=== PATIENT | female | born 1945 | race Caucasian/White ===

== ENCOUNTER → 2020-07-21 09:47 | Outpatient (BNVA) | payer MEDICARE, MEDICAID, SELFPAY | PROVIDERS: PCP Internal Medicine; Referring Provider Internal Medicine; Visit Provider Internal Medicine | DX: J44.9 Chronic obstructive pulmonary disease, unspecified (principal); J30.9 Allergic rhinitis, unspecified; Z79.899 Other long term (current) drug therapy | CPT/HCPCS: Q3014 ==

== ENCOUNTER 2020-12-25 07:17 | Emergency (ER) | payer MEDICARE, MEDICAID, SELFPAY ==
[2020-12-25 07:44] VITALS: BP 137/77; PULSE 82; RESP 18; TEMP 36.8; O2SAT 94; BMI 22.3
--- NOTE | 2020-12-25 08:26 | ED.EAR ---
HPI - Ear Problem General Chief complaint: Ear Problems Stated complaint: ear pain Time Seen by Provider: 12/25/20 08:26 Source: patient Mode of arrival: ambulatory Limitations: no limitations History of Present Illness HPI Narrative: Patient on doxycycline but she has been unable to tolerate the medication. Patient states the pain is worse traveling down her face. Pain since Tuesday. Complaint: ear pain Location: left ear Duration: constant Severity: moderate Relieving factors: nothing Exacerbating factors: nothing Discharge from ear: no Treatment prior to arrival: other (doxycyline) Related Data Home Medications Medication Instructions Recorded Confirmed azithromycin 250 mg tablet mg PO 07/21/20 calcium carbonate 600 mg calcium 600 mg PO BID 07/21/20 (1,500 mg) tablet cetirizine 10 mg tablet 10 mg PO DAILY PRN 07/21/20 cholecalciferol (vitamin D3) 50 50 mcg PO DAILY 07/21/20 mcg (2,000 unit) capsule fluticasone furoate 200 INHALATION 07/21/20 mcg-vilanterol 25 mcg/dose inhalation powder guaifenesin 600 mg tablet, 600 mg PO BID 07/21/20 extended release 12 hr hydrocortisone 2.5 % topical cream 1 applic [place] BID 07/21/20 with perineal applicator lorazepam 0.5 mg tablet 0.5 mg PO DAILY PRN 07/21/20 vit C 250 mg-vit E 90 mg-zinc 40 1 tab PO BID 07/21/20 mg-copper 1 [id number] capsule vitamin B complex 1 tab PO DAILY 07/21/20 Previous Rx's Medication Instructions Recorded levalbuterol tartrate 45 2 puff INHALATION Q4-6H PRN #15 g 07/01/20 mcg/actuation aerosol inhaler atenolol 25 mg tablet 25 mg PO BID #180 tab 10/29/20 umeclidinium 62.5 mcg/actuation 1 inh PO DAILY #60 cap 10/31/20 blister powder for inhalation furosemide 20 mg tablet 20 mg PO DAILY #90 tab 12/05/20 doxycycline hyclate 100 mg capsule 100 mg PO BID 10 Days #20 cap 12/23/20 naproxen [Naprosyn] 375 mg PO BID #20 tab 12/25/20 valacyclovir [Valtrex] 1,000 mg PO TID #30 tab 12/25/20 Allergies Allergy/AdvReac Type Severity Reaction Status Date / Time cat dander [CATS] Allergy Unknown MUCOUS Verified 07/21/20 09:50 FORMATION dog dander [DOGS] Allergy Unknown MUCOUS Verified 07/21/20 09:50 FORMATION egg Allergy Unknown UNKNOWN Verified 07/21/20 09:50 house dust [HOUSE DUST] Allergy Unknown MUCOUS Verified 07/21/20 09:50 FORMATION milk [MILK] Allergy Unknown MUCOUS Verified 07/21/20 09:50 FORMATION mold Allergy Unknown MUCOUS Verified 07/21/20 09:50 FORMATION penicillin G Allergy Unknown Anaphylaxis Verified 07/21/20 09:50 Sulfa (Sulfonamide Allergy Unknown DIFF Verified 07/21/20 09:50 Antibiotics) BREATHING tree and shrub pollen [TREES] Allergy Unknown MUCOUS Verified 07/21/20 09:50 FORMATION TO CERTAIN TREES yeast, dried [yeast] Allergy Unknown MUCOUS Unverified 05/15/20 15:02 FORMATION Review of Systems Constitutional: Constitutional: Reports no additional constitutional complaints Eyes: Eyes: Reports no additional eye complaints ENT: Denies dizziness Cardiovascular: Cardiovascular: Reports no additional cardiovascular complaints Respiratory: Respiratory: Reports as per HPI Gastrointestinal: Gastrointestinal: Reports no additional gastrointestinal complaints Genitourinary: Genitourinary: Reports no additional female genitourinary complaints Musculoskeletal: Musculoskeletal: Reports no additional musculoskeletal complaints Integumentary/Breasts: Skin/Breast: Denies rash Neurologic: Reports system reviewed and no additional complaints, except as documented, Denies dizziness and Denies Sensory deficit (Neuro) Psychiatric: Psychiatric: Denies anxiety PMFSH Past Medical History Medical History Allergic rhinitis Anxiety Asthma COPD (chronic obstructive pulmonary disease) Surgical History History of right hip replacement Social History Social History Smoking Status: Former smoker Advance Directives: Yes Advance Directives Information Provided: No Advance Directives on File: No Physical Exam Vital Signs: Vital Signs: Last Vital Signs Temp 98.3 F 12/25/20 07:44 Pulse 82 12/25/20 07:44 Resp 18 12/25/20 07:44 BP 137/77 12/25/20 07:44 Pulse Ox 94 12/25/20 07:44 Body Mass Index 22.3 Const: Other: female chronically ill Nutritional Appearance: average body habitus Orientation/consciousness: oriented to person and patient oriented x3 Limitations: no limitations HENMT: Other: left trigeminal nerve shingles, left ear canal with two vesicles General nose exam: Normal external nose present Mouth: Normal oral and palatal mucosa present and oropharynx normal Throat: Yes posterior oropharynx normal Eyes: General: appearance normal, both eyes and all related structures Neck: Other: supple Neck: Yes normal visual inspection Chest: Chest palpation & inspection: normal inspection of the chest Resp: Auscultation: clear to auscultation bilaterally Cardio: Jugular venous distension: no JVD Rate: regular rate Rhythm: regular rhythm Heart sounds: S1 normal heart sound present and S2 normal heart sound present GI: Inspection: Yes normal to inspection Palpation (GI): Soft to palpation, nontender and No hepatosplenomegaly present Auscultation: normal bowel sounds : General: Yes no CVA tenderness Back/Spine/Pelvis: Back: no CVA tenderness Skin: General skin exam: no rashes or lesions noted Neuro: General: oriented to person and patient oriented x3 Cranial nerves: Yes CN's II-XII intact bilaterally Motor exam (neuro): 5/5 motor strength present throughout Sensory Exam: No Sensory deficit (Neuro) Extrem: General: Yes normal to inspection Psych: Appearance: grossly normal Course Course Course Narrative: patient with varicella zoster will start valtrex and naprosyn for pain Discharge Plan Discharge Clinical Impression: Herpes zoster Qualifiers: Herpes zoster complications: unspecified herpes zoster complication Qualified Code(s): B02.8 - Zoster with other complications Varicella infection Qualifiers: Varicella complications: without complication Qualified Code(s): B01.9 - Varicella without complication Patient Disposition: Home, Self-Care Prescriptions: New valacyclovir [Valtrex] 1 gram tablet 1,000 mg PO TID Qty: 30 RF: 0 naproxen [Naprosyn] 500 mg tablet 375 mg PO BID Qty: 20 RF: 0 No Action levalbuterol tartrate 45 mcg/actuation HFA aerosol inhaler 2 puff inhalation Q4-6H PRN (Reason: shortness of breath) Qty: 15 RF: 3 atenolol 25 mg tablet 25 mg PO BID Qty: 180 RF: 1 umeclidinium [Incruse Ellipta] 62.5 mcg/actuation blister with device 1 inh PO DAILY Qty: 60 RF: 1 furosemide 20 mg tablet 20 mg PO DAILY Qty: 90 RF: 0 doxycycline hyclate 100 mg capsule 100 mg PO BID 10 Days Qty: 20 RF: 0 azithromycin 250 mg tablet PO RF: 0 Breo Ellipta 200-25 mcg/dose blister with device inhalation RF: 0 lorazepam 0.5 mg tablet 0.5 mg PO DAILY PRNRF: 0 cetirizine 10 mg tablet 10 mg PO DAILY PRN (Reason: allergies) RF: 0 hydrocortisone 2.5 % cream with perineal applicator 1 applic [place] BID RF: 0 calcium carbonate [Calcium 600] 600 mg calcium (1,500 mg) tablet 600 mg PO BID RF: 0 vitamin B complex [B Complex-Vitamin B12] Tablet 1 tab PO DAILY RF: 0 PreserVision AREDS-2 [id number] lt-[id number]-dw-mg capsule 1 tab PO BID RF: 0 cholecalciferol (vitamin D3) 50 mcg (2,000 unit) capsule 50 mcg PO DAILY RF: 0 guaifenesin [Mucinex] 600 mg tablet extended release 12hr 600 mg PO BID RF: 0 Referrals: Sanjiv Buck MD [Primary Care Provider] - 2 days
== END 2020-12-25 08:53 | disposition home or self-care (01) ==
PROVIDERS: Emergency Provider Emergency Medicine; PCP Internal Medicine
DX: B02.8 Zoster with other complications (principal); B01.9 Varicella without complication; H92.02 Otalgia, left ear; Z87.891 Personal history of nicotine dependence; Z79.899 Other long term (current) drug therapy
CPT/HCPCS: 99283

== ENCOUNTER → 2021-01-28 15:18 | Outpatient (BNVA) | payer MEDICARE, MEDICAID, SELFPAY | PROVIDERS: PCP Internal Medicine; Visit Provider Internal Medicine | DX: J44.9 Chronic obstructive pulmonary disease, unspecified (principal); F41.9 Anxiety disorder, unspecified; J30.9 Allergic rhinitis, unspecified; B02.29 Other postherpetic nervous system involvement; Z79.899 Other long term (current) drug therapy | CPT/HCPCS: 99212 ==

== ENCOUNTER → 2021-03-30 09:08 | Outpatient (BNVA) | payer MEDICARE, MEDICAID, SELFPAY | PROVIDERS: PCP Internal Medicine; Visit Provider Internal Medicine | DX: J44.9 Chronic obstructive pulmonary disease, unspecified (principal); B02.9 Zoster without complications; F06.4 Anxiety disorder due to known physiological condition; Z88.0 Allergy status to penicillin; Z88.2 Allergy status to sulfonamides; J30.9 Allergic rhinitis, unspecified; J30.81 Allergic rhinitis due to animal (cat) (dog) hair and dander; J30.89 Other allergic rhinitis; Z87.891 Personal history of nicotine dependence; Z91.012 Allergy to eggs; Z91.02 Food additives allergy status; Z91.011 Allergy to milk products; Z96.641 Presence of right artificial hip joint | CPT/HCPCS: 99212 ==

== ENCOUNTER 2021-06-04 08:19 | Outpatient (REF) | payer MEDICARE, MEDICAID, SELFPAY ==
[2021-06-04 10:04] LABS: Alanine Aminotransferase 10 U/L (0-31); Albumin Level 4.3 g/dL (3.5-5.0); Alkaline Phosphatase 69 U/L (39-117); Anion Gap 12 (12-20); Aspartate Amino Transferase 15 U/L (5-31); Bilirubin Total 0.3 mg/dL (0.0-1.0); Blood Urea Nitrogen 14 mg/dL (9-16); Calcium 10.5 mg/dL (8.4-10.2); Carbon Dioxide 35 mmol/L (22-29); Chloride 99 mmol/L (96-108); Estimated Glomerular Filt Rate 53; Glucose Fasting 126 mg/dL (60-99); Potassium 4.9 mmol/L (3.3-5.1); Sodium 141 mmol/L (135-145); Total Protein 6.9 g/dL (6.5-8.0)
== END 2021-06-04 08:20 | disposition home or self-care (01) ==
LOC: HO.LAB 08:19
PROVIDERS: PCP Internal Medicine; Visit Provider Nurse Practitioner Family
DX: Z13.1 Encounter for screening for diabetes mellitus (principal); J44.9 Chronic obstructive pulmonary disease, unspecified; J30.9 Allergic rhinitis, unspecified; F41.9 Anxiety disorder, unspecified
CPT/HCPCS: 36415; 80053; 99212

== ENCOUNTER 2021-06-16 06:54 | Outpatient (REF) | payer MEDICARE, MEDICAID, SELFPAY ==
--- NOTE | ~2021-06-16 | CT_ITS ---
EXAMINATION: CT CHEST WITHOUT CONTRAST CLINICAL INFORMATION: Chronic obstructive pulmonary disease. COMPARISON: CT of 02/14/2018 and chest x-ray of 05/30/2019 TECHNIQUE: Multidetector volumetric CT imaging of the chest was done. Axial MIP volume rendering provided. Sagittal and coronal reformatted images were obtained. This CT examination was performed using dose optimization techniques as appropriate, variously including the following: *Automated exposure control *Adjustment of mA and/or kV according to patient size (this includes techniques or standardized protocols for targeted exams where dose is matched to indication/reason for exam; i.e. extremities or head) *Use of iterative reconstruction technique DLP: 100 mGy-cm FINDINGS: LUNGS: The lungs are hyperinflated. There are severe changes of centrilobular and paraseptal emphysema. There are numerous scattered calcified granulomas present. There are sub-4 mm noncalcified densities present. There is right apical pleural-parenchymal scarring. Central airways are patent. No significant bronchial wall thickening appreciated. No bronchiectasis. No confluent parenchymal disease is appreciated. No suspicious lung nodules appreciated. MEDIASTINUM: There are some right-sided thyroid calcifications present. Heart normal size. Coronary artery calcification present. No pericardial effusion. No mediastinal or hilar lymphadenopathy appreciated. No thoracic aortic aneurysm. Nonocclusive aortic arch calcified plaque seen. PLEURA: There is no pleural effusion. No pleural mass or thickening. AXILLA: No lymphadenopathy. UPPER ABDOMEN: Unremarkable. OSSEOUS STRUCTURES: No suspicious destructive bony lesions identified. There appears be a previous inferior right scapular fracture. There is evidence of a previous sternal fracture. There is an old right 5th rib fracture. There are a few old healed posterior left rib fractures. There is kyphosis of the thoracic spine with multiple compression fractures present which appear to involve the superior endplate of T5, vertebra plana of T6, vertebra plana of T7, vertebra plana of T8, approximately 50% compression fracture of T9, and superior endplate compression fracture of T10. CT/CT chest wo con IMPRESSION: Severe emphysematous change of the lungs. Old granulomatous disease. Right thyroid calcification. Numerous fractures, as described above.
[2021-06-16 08:43] LABS: Estimated Average Glucose 105 mg/dL; Hemoglobin A1c % 5.3 %
== END 2021-06-16 06:55 | disposition home or self-care (01) ==
LOC: HO.CT 06:54
PROVIDERS: Absent Provider Nurse Practitioner Family; PCP Internal Medicine; Visit Provider Internal Medicine
DX: J44.9 Chronic obstructive pulmonary disease, unspecified (principal); R91.8 Other nonspecific abnormal finding of lung field; R73.01 Impaired fasting glucose
CPT/HCPCS: 36415; 71250; 83036

== ENCOUNTER 2021-07-14 08:51 | Outpatient (REF) | payer MEDICARE, MEDICAID, SELFPAY ==
--- NOTE | 2021-07-14 17:34 | PFT_ITS ---
FLOWS: FEV1 24% of predicted at 0.53 L. FVC 51% of predicted at 1.47 L. FEV1 to FVC ratio of 0.36. No bronchodilator response. LUNG VOLUMES: Total lung capacity 111% of predicted at 5.65 L. Residual volume 177% of predicted at 4.05 L. Slow vital capacity 57% of predicted at 1.59 L. Expiratory reserve volume 13% of predicted at 0.08 L. Diffusion capacity is severely decreased. IMPRESSION: Very severe obstructive ventilatory defect with no bronchodilator response. Increased residual volume suggests air trapping. Decreased diffusion capacity suggests emphysema. Vince Maki MD AP/MODL / [id number]
== END 2021-07-14 08:52 | disposition home or self-care (01) ==
LOC: HO.RESP 08:51
PROVIDERS: PCP Internal Medicine; Visit Provider Internal Medicine
DX: J44.9 Chronic obstructive pulmonary disease, unspecified (principal)
CPT/HCPCS: 94060; 94727; 94729

== ENCOUNTER → 2021-09-03 10:08 | Outpatient (BNVA) | payer MEDICARE, MEDICAID, SELFPAY | PROVIDERS: PCP Internal Medicine; Visit Provider Internal Medicine | DX: J44.9 Chronic obstructive pulmonary disease, unspecified (principal); J30.9 Allergic rhinitis, unspecified | CPT/HCPCS: 99212 ==

== ENCOUNTER → 2022-01-05 10:08 | Outpatient (BNVA) | payer MEDICARE, MEDICAID, SELFPAY | PROVIDERS: PCP Internal Medicine; Visit Provider Internal Medicine | DX: J44.9 Chronic obstructive pulmonary disease, unspecified (principal); J30.9 Allergic rhinitis, unspecified; J96.91 Respiratory failure, unspecified with hypoxia | CPT/HCPCS: 99212 ==

== ENCOUNTER 2022-01-06 08:52 | Outpatient (REF) | payer MEDICARE, MEDICAID, SELFPAY ==
[2022-01-06 09:44] LABS: Appearance Urine CLEAR; Color Urine YELLOW; Glucose Urine UA NEG (NEG); Leukocyte Esterase Urine TRACE (NEG); Nitrite Urine NEG (NEG); PH 5.5 (5.0-8.0); Urine Blood NEG (NEG); Urine Ketones NEG (NEG); Urine Protein NEG (NEG-TRACE)
[2022-01-06 10:00] LABS: Alanine Aminotransferase 10 U/L (0-31); Albumin Level 4.3 g/dL (3.5-5.0); Alkaline Phosphatase 71 U/L (39-117); Anion Gap 13 (12-20); Aspartate Amino Transferase 16 U/L (5-31); Bilirubin Direct < 0.2 mg/dL (0.0-0.5); Bilirubin Total 0.2 mg/dL (0.0-1.0); Blood Urea Nitrogen 26 mg/dL (9-16); Carbon Dioxide 27 mmol/L (22-29); Chloride 103 mmol/L (96-108); Cholesterol 264 mg/dL; Estimated Glomerular Filt Rate 50; Glucose Random 120 mg/dL (60-115); HDL Cholesterol 70 mg/dL; LDL Cholesterol Calculated 171 mg/dl; Potassium 5.1 mmol/L (3.3-5.1); Sodium 138 mmol/L (135-145); Total Protein 7.1 g/dL (6.5-8.0); Triglycerides 119 mg/dL
[2022-01-06 10:16] LABS: Bacteria Urine TRACE /LPF; RBC Urine 0-2 /HPF (0); Squamous Epithelial Cell Urine 2+ /LPF
[2022-01-06 10:22] LABS: Thyroid Stimulating Hormone 1.35 uIU/mL (0.32-4.0)
== END 2022-01-06 08:53 | disposition home or self-care (01) ==
LOC: HO.LAB 08:52
PROVIDERS: PCP Internal Medicine; Visit Provider Internal Medicine
DX: I10 Essential (primary) hypertension (principal)
CPT/HCPCS: 36415; 80048; 80061; 80076; 81001; 84443

== ENCOUNTER → 2022-03-18 08:17 | Outpatient (BNVA) | payer MEDICARE, MEDICAID, SELFPAY | PROVIDERS: PCP Internal Medicine; Visit Provider Nurse Practitioner Family | DX: Z01.818 Encounter for other preprocedural examination (principal); K64.9 Unspecified hemorrhoids | CPT/HCPCS: 99202 ==

== ENCOUNTER → 2022-05-06 09:44 | Outpatient (BNVA) | payer MEDICARE, MEDICAID, SELFPAY | PROVIDERS: PCP Internal Medicine; Visit Provider Internal Medicine | DX: J44.9 Chronic obstructive pulmonary disease, unspecified (principal); J30.9 Allergic rhinitis, unspecified; J96.91 Respiratory failure, unspecified with hypoxia; F41.9 Anxiety disorder, unspecified; Z79.899 Other long term (current) drug therapy | CPT/HCPCS: 99212 ==

== ENCOUNTER 2022-05-25 12:36 | Day surgery (SDC) | payer MEDICARE, MEDICAID, SELFPAY ==
[2022-05-20 15:21] VITALS: BMI 21.4
--- NOTE | 2022-05-24 13:25 | HO.ANESPROP2 ---
Documented by User: Luly Paredes NP 05/24/22 13:26 HPI - Anesthesia Eval Consult details Narrative: 77yo F for Colonoscopy O2 dependent @ 2L for chronic resp failure *Multiple Non-Med Allergies* PMFSH Active Problems Active Problems: All Active Problems (Updated 05/20/22 @ 15:21 by Fadia Chilel, SANIYA) Otitis media (Acute) Post herpetic neuralgia (Acute) Hypertension (Acute) Adult general medical exam (Acute) Elevated fasting glucose (Acute) Rash (Acute) Macular degeneration of right eye (Acute) Respiratory failure with hypoxia (Acute) Pulmonary nodules/lesions, multiple (Acute) Anxiety disorder (Acute) Post-menopausal (Acute) Screening for colon cancer (Acute) Screening for diabetes mellitus (Acute) Acute anxiety (Acute) Asthma (Acute) Allergic rhinitis (Acute) COPD (chronic obstructive pulmonary disease) (Acute) Past Medical History Medical History Acute anxiety Allergic rhinitis Anxiety Anxiety disorder Asthma COPD (chronic obstructive pulmonary disease) Environmental allergies Hemorrhoids Ill-fitting dentures Osteoporosis Oxygen dependent Post-menopausal Pulmonary nodules/lesions, multiple Respiratory failure with hypoxia Screening for colon cancer Screening for diabetes mellitus Seasonal allergies Family History Family History Mother No problems noted. Father No problems noted. Surgical History Surgical History History of cataract surgery History of right hip replacement Social History Social History Housing: House Are you a primary ambulatory care coordinator to a significant other at home: No Do you presently have visiting nurse or other home services: No Alcohol intake: never Patient Tobacco Use Status: Former Tobacco user Quit Date: 2004 Tobacco use type: Cigarette e-Cigarette/Vaping Use: Never Used Second Hand Smoke Exposure: No Use of substances other than those prescribed or required for medical reasons: No Have you been hit, kicked, punched, or otherwise hurt by someone within the past year? If so, by whom?: No Are you DNR?: No Advance Directives: No Advance Directives Information Provided: Yes Advance Directives on File: No Nutrition Risks: Dental problems and Surgical patient >75years service: No Current occupational status: retired Cognitive needs: No Hearing needs: No Vision needs: Yes (Glasses) Meds Allergies Allergy/AdvReac Type Severity Reaction Status Date / Time penicillin G Allergy Severe Anaphylaxis Verified 05/20/22 15:13 Sulfa (Sulfonamide Allergy Severe Anaphylaxis Verified 05/20/22 15:13 Antibiotics) cat dander [CATS] Allergy Unknown MUCOUS Verified 05/20/22 15:13 FORMATION, asthma dog dander [DOGS] Allergy Unknown MUCOUS Verified 05/20/22 15:13 FORMATION, asthma egg Allergy Unknown Wheezing Verified 05/20/22 15:13 house dust [HOUSE DUST] Allergy Unknown MUCOUS Verified 05/20/22 15:13 FORMATION, asthma milk [MILK] Allergy Unknown MUCOUS Verified 05/20/22 15:13 FORMATION mold Allergy Unknown MUCOUS Verified 05/20/22 15:13 FORMATION, asthma tree and shrub pollen [TREES] Allergy Unknown MUCOUS Verified 05/20/22 15:13 FORMATION TO CERTAIN TREES, asthma yeast, dried [yeast] Allergy Unknown MUCOUS Verified 05/20/22 15:13 FORMATION, asthma Home Medications Medication Instructions Recorded Confirmed Last Taken Type guaifenesin 600 mg tablet, 600 mg PO BID 07/21/20 05/20/22 Unknown History extended release 12 hr (Mucinex) vit C 250 mg-vit E 90 mg-zinc 40 1 tab PO BID 07/21/20 05/20/22 Unknown History mg-copper 1 [id number] capsule (PreserVision AREDS-2) calcium carbonate 600 mg calcium 600 mg PO BID 01/28/21 05/20/22 Unknown History (1,500 mg) tablet (Calcium) furosemide 20 mg tablet 20 mg PO DAILY PRN Edema 05/06/22 05/20/22 Unknown History cholecalciferol (vitamin D3) 25 25 mcg PO DAILY 05/20/22 05/20/22 Unknown History mcg (1,000 unit) capsule (Vitamin D3) lorazepam 0.5 mg tablet 0.5 mg PO DAILY PRN Anxiety 05/20/22 05/20/22 Unknown History Exam Exam Date and Time: May 24, 2022 1325 Height,Weight and Vital Signs: Height 5 ft 4 in Weight 56.699 kg Assessment and Plan Assessment Anesthesia Assessment: Chart Reviewed Documented by User: Shane Maldonado MD 05/25/22 13:47 PMFSH Past Medical History Medical History Acute anxiety Allergic rhinitis Anxiety Anxiety disorder Asthma COPD (chronic obstructive pulmonary disease) Environmental allergies Hemorrhoids Ill-fitting dentures Osteoporosis Oxygen dependent Post-menopausal Pulmonary nodules/lesions, multiple Respiratory failure with hypoxia Screening for colon cancer Screening for diabetes mellitus Seasonal allergies Family History Family History Mother No problems noted. Father No problems noted. Family history of problems with anesthesia: No Surgical History Surgical History History of cataract surgery History of right hip replacement History of Problems with Anesthesia: No Social History Social History Housing: House Are you a primary ambulatory care coordinator to a significant other at home: No Do you presently have visiting nurse or other home services: No Alcohol intake: never Patient Tobacco Use Status: Former Tobacco user Quit Date: 2004 Tobacco use type: Cigarette e-Cigarette/Vaping Use: Never Used Second Hand Smoke Exposure: No Use of substances other than those prescribed or required for medical reasons: No Have you been hit, kicked, punched, or otherwise hurt by someone within the past year? If so, by whom?: No Are you DNR?: No Advance Directives: No Advance Directives Information Provided: Yes Advance Directives on File: No Nutrition Risks: Dental problems and Surgical patient >75years service: No Current occupational status: retired Cognitive needs: No Hearing needs: No Vision needs: Yes (Glasses) Meds Allergies Allergy/AdvReac Type Severity Reaction Status Date / Time penicillin G Allergy Severe Anaphylaxis Verified 05/20/22 15:13 Sulfa (Sulfonamide Allergy Severe Anaphylaxis Verified 05/20/22 15:13 Antibiotics) cat dander [CATS] Allergy Unknown MUCOUS Verified 05/20/22 15:13 FORMATION, asthma dog dander [DOGS] Allergy Unknown MUCOUS Verified 05/20/22 15:13 FORMATION, asthma egg Allergy Unknown Wheezing Verified 05/20/22 15:13 house dust [HOUSE DUST] Allergy Unknown MUCOUS Verified 05/20/22 15:13 FORMATION, asthma milk [MILK] Allergy Unknown MUCOUS Verified 05/20/22 15:13 FORMATION mold Allergy Unknown MUCOUS Verified 05/20/22 15:13 FORMATION, asthma tree and shrub pollen [TREES] Allergy Unknown MUCOUS Verified 05/20/22 15:13 FORMATION TO CERTAIN TREES, asthma yeast, dried [yeast] Allergy Unknown MUCOUS Verified 05/20/22 15:13 FORMATION, asthma Home Medications Medication Instructions Recorded Confirmed Last Taken Type guaifenesin 600 mg tablet, 600 mg PO BID 07/21/20 05/20/22 Unknown History extended release 12 hr (Mucinex) vit C 250 mg-vit E 90 mg-zinc 40 1 tab PO BID 07/21/20 05/20/22 Unknown History mg-copper 1 [id number] capsule (PreserVision AREDS-2) calcium carbonate 600 mg calcium 600 mg PO BID 01/28/21 05/20/22 Unknown History (1,500 mg) tablet (Calcium) furosemide 20 mg tablet 20 mg PO DAILY PRN Edema 05/06/22 05/20/22 Unknown History cholecalciferol (vitamin D3) 25 25 mcg PO DAILY 05/20/22 05/20/22 Unknown History mcg (1,000 unit) capsule (Vitamin D3) lorazepam 0.5 mg tablet 0.5 mg PO DAILY PRN Anxiety 05/20/22 05/20/22 Unknown History Exam Airway Mallampati Class: III TM Dist: >3cm Denture: Upper and Lower Heart: rrr Lungs: clear Assessment and Plan Final Anesthetic Review Family History of Problems with Anesthesia: No History of Problems with Anesthesia: No NPO: Yes ASA Class: III Final Preanesthetic Review: No Changes in Pt Med Stat, Meds/Allgs Chart Reviewed, Consent Obtained/Reviewed and Anes Risks/Benef Reviewed Patient Risk: Intermediate Procedure Risk: Low Anesthetic Plan Anesthetic Plan: MAC: Disposition: Standard PACU
[2022-05-25 12:51] VITALS: BMI 20.5
--- NOTE | 2022-05-25 12:56 | MHC.SHP ---
Pre-Procedural Eval Section A Date of Service: 05/25/22 Section B Chief Complaint: screening Relevant Family History (Specify if Yes): No Relevant Social History: None Present Medications: see Short Stay Collaborative assessment Medical History: Significant History (Acute anxiety Allergic rhinitis Anxiety Anxiety disorder Asthma COPD (chronic obstructive pulmonary disease) Environmental allergies Hemorrhoids Ill-fitting dentures Osteoporosis Oxygen dependent Post-menopausal Pulmonary nodules/lesions, multiple Respiratory failure with hypoxia Screening for colon) History of Previous Operations: Relevant previous surgery/procedure and date(s) (History of cataract surgery History of right hip replacement) Allergies: Allergies Allergy/AdvReac Type Severity Reaction Status Date / Time penicillin G Allergy Severe Anaphylaxis Verified 05/20/22 15:13 Sulfa (Sulfonamide Allergy Severe Anaphylaxis Verified 05/20/22 15:13 Antibiotics) cat dander [CATS] Allergy Unknown MUCOUS Verified 05/20/22 15:13 FORMATION, asthma dog dander [DOGS] Allergy Unknown MUCOUS Verified 05/20/22 15:13 FORMATION, asthma egg Allergy Unknown Wheezing Verified 05/20/22 15:13 house dust [HOUSE DUST] Allergy Unknown MUCOUS Verified 05/20/22 15:13 FORMATION, asthma milk [MILK] Allergy Unknown MUCOUS Verified 05/20/22 15:13 FORMATION mold Allergy Unknown MUCOUS Verified 05/20/22 15:13 FORMATION, asthma tree and shrub pollen [TREES] Allergy Unknown MUCOUS Verified 05/20/22 15:13 FORMATION TO CERTAIN TREES, asthma yeast, dried [yeast] Allergy Unknown MUCOUS Verified 05/20/22 15:13 FORMATION, asthma Review of Systems Sugical H&P ROS: Negative: Constitution, Cardiovascular, Respiratory, Neurological, Psychiatric, Hem-Onc, Allergic/Immunologic, Gastrointestinal, Genitourinary, Musculoskeletal, Integumentary, Endocrine and Eyes/Ears/Nose/Throat Exam Surgical H&P Exam: Normal: HEENT, Normal: Heart, Normal: Lungs, Normal: Extremities, Normal: Abdomen, Normal: Skin and Normal: Neurological Plan Diagnosis/Plan: Unchanged I have reviewed the history and physical and performed a pertinent physical examination on my patient. No changes have occurred unless specified.
[2022-05-25 13:18] VITALS: BP 160/84; PULSE 73; RESP 16; TEMP 36.5; O2SAT 99
[2022-05-25] MEDS: Lactated Ringers 1,000 ML 100 ML IVCONT (13:21)
--- NOTE | 2022-05-25 13:41 | W.PM.OPN ---
Operative Note Operative Note Date of Service: 05/25/22 Narrative: Operative Information Procedure Description: Colonoscopy Indication: screening Anesthesia: MAC COLONOSCOPY Instrument: Olympus variable stiffness pediatric scope 190L Colonoscopy Monitoring: Vital signs and clinical assessment, continuous EKG monitoring, Pulse oximetry, Carbon Dioxide monitoring and blood pressure monitoring were done throughout the procedure. Colon withdrawal time was 15 minutes. Procedure: The patient was placed in the left lateral decubitis position and pre-procedure medications were administered. After a digital rectal examination of the ano-rectum, the video colonoscope was inserted into the rectum and advanced through the colon to the cecum/TI. The colonoscope was slowly withdrawn in a retrograde panoramic fashion and the colon mucosa was carefully examined including a retroflexed view of the rectum. Findings and interventions are described below. Procedure Difficulty: difficult Findings: severe diverticulosis through out whole colon, especially left sided colon Terminal Ileum-not intubated due to severe looping Cecum: 10-12 mm sessile polyp removed with cold snare Ascending Colon: normal Transverse Colon -normal Descending Colon:normal Sigmoid Colon: normal Rectum: Retroflexion with medium sized internal hemorrhoids, grade I Anorectum - normal Colon preparation: [place] Bowel Preparation Scale Right colon; 2 Transverse colon: 2 Left colon; 2 (0 = Unprepared colon segment with mucosa not seen due to solid stool that cannot be cleared. 1 = Portion of mucosa of the colon segment seen, but other areas of the colon segment not well seen due to staining, residual stool and/or opaque liquid. 2 = Minor amount of residual staining, small fragments of stool and/or opaque liquid, but mucosa of colon segment seen well. 3 = Entire mucosa of colon segment seen well with no residual staining, small fragments of stool or opaque liquid) Impression and Post Procedure Diagnosis: polyp internal hemorrhoids diverticular disease Plan: High fiber diet leaflet Avoid straining at stool, epsom salts and sitz bath, anusol supps or cream Repeat Colonoscopy in 5-6 years if adenomatous polyp, 10 yrs if hyperplastic or earlier if clinically indicated Above findings were reviewed with the patient and relevant handouts were provided if indicated.
[2022-05-25 14:40] VITALS: BP 108/62; PULSE 73; RESP 16; TEMP 36.1; O2SAT 97
[2022-05-25 14:55] VITALS: BP 142/63; PULSE 59; RESP 16; O2SAT 100
[2022-05-25 15:10] VITALS: BP 136/70; PULSE 64; RESP 16; TEMP 36.1; O2SAT 100
== END 2022-05-25 16:03 ==
LOC: HO.SSS 12:37
PROVIDERS: Absent Provider Internal Medicine; PCP Internal Medicine; Visit Provider Internal Medicine Gastroenterology
PROC: 0DJD8ZZ Inspection of Lower Intestinal Tract, Via Natural or Artificial Opening Endoscopic (ICD-10-PCS; CPT 45378; principal; 2022-05-25 14:00)
DX: Z12.11 Encounter for screening for malignant neoplasm of colon (principal); D12.0 Benign neoplasm of cecum; K57.30 Diverticulosis of large intestine without perforation or abscess without bleeding; K64.0 First degree hemorrhoids; F41.1 Generalized anxiety disorder; J44.9 Chronic obstructive pulmonary disease, unspecified; M81.0 Age-related osteoporosis without current pathological fracture; J96.91 Respiratory failure, unspecified with hypoxia; R91.8 Other nonspecific abnormal finding of lung field; Z99.81 Dependence on supplemental oxygen; Z79.51 Long term (current) use of inhaled steroids; Z79.899 Other long term (current) drug therapy; Z87.891 Personal history of nicotine dependence; Z88.0 Allergy status to penicillin; Z88.2 Allergy status to sulfonamides
CPT/HCPCS: 45385; 88305

== ENCOUNTER → 2022-09-07 09:15 | Outpatient (BNVA) | payer MEDICARE, MEDICAID, SELFPAY | PROVIDERS: PCP Internal Medicine; Visit Provider Internal Medicine | DX: J44.9 Chronic obstructive pulmonary disease, unspecified (principal); J30.9 Allergic rhinitis, unspecified; J96.91 Respiratory failure, unspecified with hypoxia; F41.9 Anxiety disorder, unspecified; Z79.899 Other long term (current) drug therapy; Z99.81 Dependence on supplemental oxygen | CPT/HCPCS: 99212 ==

== ENCOUNTER → 2023-01-11 09:41 | Outpatient (BNVA) | payer MEDICARE, MEDICAID, SELFPAY | PROVIDERS: PCP Internal Medicine; Visit Provider Internal Medicine | DX: J44.9 Chronic obstructive pulmonary disease, unspecified (principal); J45.909 Unspecified asthma, uncomplicated | CPT/HCPCS: 99212 ==

== ENCOUNTER 2023-04-21 09:19 | Outpatient (AMB) | payer MEDICARE, MEDICAID, SELFPAY ==
--- NOTE | 2023-04-21 09:24 | MHC.PC.OV ---
Vital Signs 04/21/23 09:26 Height 5 ft 4 in Weight 120 lb 6 oz BMI 20.7 BP 120/80 Blood Pressure Location Lt brachial Position Sitting Pulse 63 Pulse Source Pulse Oximeter Pulse Oximetry (%) 100 Oxygen Delivery Method Nasal Cannula Intake Visit Reasons: 6mth f/u Intake Note: Patient is here to follow up on HTN, Asthma, COPD. Toolroom Clerk Required: No Finish Filer: Not Required per policy Accompanied by: Self / Same As Patient Allergies penicillin G Allergy (Severe, Verified 04/21/23 09:58) Anaphylaxis Sulfa (Sulfonamide Antibiotics) Allergy (Severe, Verified 04/21/23 09:58) Anaphylaxis cat dander [CATS] Allergy (Unknown, Verified 04/21/23 09:58) MUCOUS FORMATION, asthma dog dander [DOGS] Allergy (Unknown, Verified 04/21/23 09:58) MUCOUS FORMATION, asthma egg Allergy (Unknown, Verified 04/21/23 09:58) Wheezing house dust [HOUSE DUST] Allergy (Unknown, Verified 04/21/23 09:58) MUCOUS FORMATION, asthma milk [MILK] Allergy (Unknown, Verified 04/21/23 09:58) MUCOUS FORMATION mold Allergy (Unknown, Verified 04/21/23 09:58) MUCOUS FORMATION, asthma tree and shrub pollen [TREES] Allergy (Unknown, Verified 04/21/23 09:58) MUCOUS FORMATION TO CERTAIN TREES, asthma yeast, dried [yeast] Allergy (Unknown, Verified 04/21/23 09:58) MUCOUS FORMATION, asthma Medication List - Last Reconciled 04/21/23 by Sanjiv Buck MD atenolol 25 mg PO BID azithromycin 250 mg PO 3XW 90 days Breo Ellipta 200-25 mcg/dose (fluticasone furoate-vilanterol) 1 ea inhalation DAILY NS calcium carbonate (Calcium) 600 mg PO BID cholecalciferol (vitamin D3) (Vitamin D3) 25 mcg PO DAILY fluticasone propionate 50 mcg/actuation (Flonase Allergy Relief) 1 spray intranasal DAILY PRN furosemide 20 mg PO DAILY PRN guaifenesin ER (Mucinex) 600 mg PO BID hydrocortisone 2.5% (Proctosol HC) 1 appl [place] BID-QID PRN hydrocortisone 2.5% 1 appl topical BID PRN Incruse Ellipta 62.5 mcg/actuation (umeclidinium) 1 inh inhalation DAILY NS levalbuterol tartrate 45 mcg/actuation 2 puffs PO Q4-6H PRN lorazepam 0.5 mg PO DAILY PRN vit C,E-Ac-gjdvx-lutein-zeaxan 250-90-40-1 mg (PreserVision AREDS-2) 1 tab PO BID Tobacco use date assessed: 04/21/23 Fall risk assessment: No Falls in past year Last assessed Fall Risk: 04/21/23 Dental Screening Dental Screen Date: 04/21/23 Did you have a dental visit in the last 12 months?: No Did you have a dental problem in the last 6 months where you did not have access to dental care?: No Was dental information given to patient?: No (No teeth) HPI 6mth f/u HPI Details 78-year-old female presents to the office to discuss her chronic medical conditions. Patient has cook oxygen-dependent COPD. For the past week she is feeling increasingly congested with increased postnasal drip. Continues to use her inhalers. Compliant with medications and reporting no side effects. She is requesting refill for her topical medications [facility] Medical History Acute anxiety Allergic rhinitis Anxiety Anxiety disorder Asthma COPD (chronic obstructive pulmonary disease) Environmental allergies Hemorrhoids Ill-fitting dentures Osteoporosis Oxygen dependent Post-menopausal Pulmonary nodules/lesions, multiple Respiratory failure with hypoxia Screening for colon cancer Screening for diabetes mellitus Seasonal allergies Surgical History History of cataract surgery History of colonoscopy History of right hip replacement Family History Mother No problems noted. Father No problems noted. Social History Housing: House Are you a primary child care nurse to a significant other at home: No Do you presently have visiting nurse or other home services: No Alcohol intake: never Patient Tobacco Use Status: Former Tobacco user Quit Date: 2004 Tobacco use type: Cigarette e-Cigarette/Vaping Use: Never Used Second Hand Smoke Exposure: Yes service: No Current occupational status: retired Cognitive needs: No Hearing needs: No Vision needs: Yes (Glasses) Questionnaire PHQ-9 Over the last 2 weeks, how often have you been bothered by any of the following problems? 1. Little interest or pleasure in doing things: not at all 2. Feeling down, depressed, or hopeless: not at all 3. Trouble falling or staying asleep, or sleeping too much: not at all 4. Feeling tired or having little energy: not at all 5. Poor appetite or overeating: not at all 6. Feeling bad about yourself - or that you are a failure or have let yourself or your family down: not at all 7. Trouble concentrating on things, such as reading the newspaper or watching television: not at all 8. Moving or speaking so slowly that other people could have noticed. Or the opposite - being so fidgety or restless that you have been moving around a lot more than usual: not at all 9. Thoughts that you would be better off or of hurting yourself in some way: not at all Total score: 0 Depression Screening Interpretation: Negative Source: Developed by Drs. Juan Diego Minaya, Cecile Holly, Michael Rutledge and colleagues, with an educational romeo from [employer]. Thrive Questionnaire Date Thrive assessed: 04/21/23 I am a: Patient What is your living situation today?: I have a steady place to live Within the past 12 months, did the food you bought not last and you didn't have the money to get more?: Never true Within the past 12 months, did you worry whether your food would run out before you got money to buy more?: Never true Do you have trouble paying for medicines?: No Do you have trouble getting transportation to medical appointments?: No Do you have trouble paying your heating and electricity bill?: No Do you have trouble taking care of your child, family member or friend?: No Do you have trouble with day-to-day activities such as bathing, preparing meals, shopping, managing finances, etc.?: No Are you currently unemployed and looking for a job?: No Are you interested in more education?: No Currently or been in a relationship where the following occur: no concerns reported AUDIT C Alcohol Use Questionnaire (AUDIT-C) 1. How often do you have a drink containing alcohol?: Never Total Score: 0 MARYANN-7 AMB Questionnaire MARYANN-7 Date MARYANN - 7 assessed: 04/21/23 Feeling nervous, anxious, or on edge: 0 = Not at all Not being able to stop or control worryin = Not at all Worrying too much about different things: 0 = Not at all Trouble relaxin = Not at all Being so restless that it is hard to sit still: 0 = Not at all Becoming easily annoyed or irritable: 0 = Not at all Feeling afraid as if something awful might happen: 0 = Not at all Total MARYANN-7 score (0-4 normal; 5-9 mild; 10-14 moderate; 15-21 severe): 0 Source: Developed by Drs. Juan Diego Minaya, Cecile Holly, Michael Rutledge and colleagues, with an educational romeo from [employer]. Physical exam (Primary Care) Vital Signs: Last Vital Signs Pulse 63 04/21/23 09:26 BP 120/80 04/21/23 09:26 Pulse Ox 100 04/21/23 09:26 Oxygen Delivery Method Nasal Cannula 04/21/23 09:26 BMI result Body Mass Index 20.7 Tobacco/Smoking Status: Tobacco use Status Tobacco use date assessed 04/21/23 04/21/23 09:32 Patient Tobacco Use Status Former Tobacco user 04/21/23 09:32 Tobacco use type Cigarette 04/21/23 09:32 e-Cigarette/Vaping Use Never Used 04/21/23 09:32 PHQ-9: PHQ-9 Score PHQ-9: Total score 0 04/21/23 09:32 Depression Screening Interpretation: Negative Thrive Assessment: Date of Thrive Assessment Date Thrive assessed 04/21/23 04/21/23 09:32 Currently or been in a relationship where the following occur: no concerns reported Const General: cooperative, healthy appearing and comfortable HENMT Head: Yes normal to inspection and Yes atraumatic Eyes General: appearance normal, both eyes and all related structures Neck Neck: Yes normal visual inspection and Yes full ROM Chest Chest palpation & inspection: normal inspection of the chest Resp Effort & Inspection: normal respiratory effort Auscultation: clear to auscultation bilaterally Cardio Jugular venous distension: no JVD Palpation: normal PMI Rate: regular rate Heart sounds: S1 normal heart sound present and S2 normal heart sound present GI Palpation (GI): Soft to palpation and No hepatosplenomegaly present Extrem General: Yes normal to inspection and Yes full ROM Assessment and Plan Assessment & Plan (1) Hypertension: Code(s): I10 - Essential (primary) hypertension Qualifiers: Hypertension type: unspecified Qualified Code(s): I10 - Essential (primary) hypertension Plan: Blood pressure is in range. Continue medications at same dosage. (2) Respiratory failure with hypoxia: Comment: Has chronic hypoxemia, it is treated well with O2 2 L/minute at home, And 3 L/minute via POC.when outdoors. Code(s): J96.91 - Respiratory failure, unspecified with hypoxia Medications: Refilled hydrocortisone 2.5% (Proctosol HC) 1 appl RI BID-QID PRN 30 grams 2RF hemorrhoids K64.9 - Unspecified hemorrhoids hydrocortisone 2.5% 1 appl topical BID PRN 20 grams 0RF skin irritation Coding Level of Care Code Est Pt Level 4 (11919) Diagnoses Hypertension I10 Hypertension type: unspecified Respiratory failure with hypoxia J96.91
[2023-04-21 09:26] VITALS: BP 120/80; PULSE 63; O2SAT 100; BMI 20.7
== END 2023-04-21 09:51 | disposition home or self-care (01) ==
PROVIDERS: PCP Internal Medicine; Visit Provider Internal Medicine
DX: I10 Essential (primary) hypertension (principal); J96.91 Respiratory failure, unspecified with hypoxia
CPT/HCPCS: 99214

== ENCOUNTER 2023-05-10 09:37 | Outpatient (AMB) | payer MEDICARE, MEDICAID, SELFPAY ==
--- NOTE | 2023-05-10 09:38 | A.OFFVIS_ITS ---
Intake Vital Signs 05/10/23 09:40 Height 5 ft 4 in Weight 121 lb 4.068 oz BMI 20.8 BP 124/64 Blood Pressure Location Lt brachial Position Sitting Pulse 70 Pulse Source Pulse Oximeter Pulse Oximetry (%) 94 Oxygen Delivery Method Nasal Cannula Oxygen Flow Rate 3 Intake Visit Reasons: COPD Intake Note: pt is here for follow up and states she has been wheezing all summer, some crackling this am not much of a cough, also nasal issues, crying eyes, tickle in ears. Supervisor Orchard Required: No Allergies penicillin G Allergy (Severe, Verified 05/10/23 10:07) Anaphylaxis Sulfa (Sulfonamide Antibiotics) Allergy (Severe, Verified 05/10/23 10:07) Anaphylaxis cat dander [CATS] Allergy (Unknown, Verified 05/10/23 10:07) MUCOUS FORMATION, asthma dog dander [DOGS] Allergy (Unknown, Verified 05/10/23 10:07) MUCOUS FORMATION, asthma egg Allergy (Unknown, Verified 05/10/23 10:07) Wheezing house dust [HOUSE DUST] Allergy (Unknown, Verified 05/10/23 10:07) MUCOUS FORMATION, asthma milk [MILK] Allergy (Unknown, Verified 05/10/23 10:07) MUCOUS FORMATION mold Allergy (Unknown, Verified 05/10/23 10:07) MUCOUS FORMATION, asthma tree and shrub pollen [TREES] Allergy (Unknown, Verified 05/10/23 10:07) MUCOUS FORMATION TO CERTAIN TREES, asthma yeast, dried [yeast] Allergy (Unknown, Verified 05/10/23 10:07) MUCOUS FORMATION, asthma Medication List - Last Reconciled 05/10/23 by Tam Townsend MD atenolol 25 mg PO BID azithromycin 250 mg PO 3XW 90 days Breo Ellipta 200-25 mcg/dose (fluticasone furoate-vilanterol) 1 ea inhalation DAILY NS calcium carbonate (Calcium) 600 mg PO BID cholecalciferol (vitamin D3) (Vitamin D3) 25 mcg PO DAILY fluticasone propionate 50 mcg/actuation (Flonase Allergy Relief) 1 spray intranasal DAILY PRN furosemide 20 mg PO DAILY PRN guaifenesin ER (Mucinex) 600 mg PO BID hydrocortisone 2.5% (Proctosol HC) 1 appl [place] BID-QID PRN hydrocortisone 2.5% 1 appl topical BID PRN Incruse Ellipta 62.5 mcg/actuation (umeclidinium) 1 inh inhalation DAILY NS levalbuterol tartrate 45 mcg/actuation 2 puffs PO Q4-6H PRN lorazepam 0.5 mg PO DAILY PRN vit C,H-En-apvbt-lutein-zeaxan 250-90-40-1 mg (PreserVision AREDS-2) 1 tab PO BID Do you need a note to return to daycare/school/sports/work: No HPI COPD HPI Details 78 years old very pleasant female is a c ase of advanced chronic obstru ctive pulmonary disease. She is oxygen dependent and prone to have frequent. Acute exacerbations However on the current regimen she is doing well. . And remains stable She has her usual shortness of breath on walking around, and even when sitting and talking to someone. She is on oxygen continuously at 3 L/minute via her POC . She has had no acute exacerbation lately. Does have been intermittent nasal congestion with postnasal drip due to environmental allergies. [facility] Medical History Ill-fitting dentures Environmental allergies Seasonal allergies Osteoporosis Hemorrhoids Oxygen dependent Respiratory failure with hypoxia Pulmonary nodules/lesions, multiple Anxiety disorder Post-menopausal Screening for colon cancer Screening for diabetes mellitus Acute anxiety Anxiety Asthma Allergic rhinitis COPD (chronic obstructive pulmonary disease) Surgical History History of colonoscopy History of cataract surgery History of right hip replacement Family History Mother No problems noted. Father No problems noted. Social History Housing: House Are you a primary acute care nursing assistant to a significant other at home: No Do you presently have visiting nurse or other home services: No Alcohol intake: never Patient Tobacco Use Status: Former Tobacco user Quit Date: 2004 Tobacco use type: Cigarette e-Cigarette/Vaping Use: Never Used Second Hand Smoke Exposure: Yes service: No Current occupational status: retired Cognitive needs: No Hearing needs: No Vision needs: Yes (Glasses) Review of Systems Const All systems reviewed & are unremarkable except as noted in HPI and below Eyes Reports no additional complaints ENT Reports nasal congestion (Mild off and) Card Reports no additional complaints Resp Reports as per HPI GI Reports no additional complaints Reports no additional complaints Musc Reports back pain (Chronic stable) Skin/Breast Reports system reviewed and no additional complaints, except as documented Neuro Reports no additional complaints Psych Reports anxiety (Under control) Physical Exam Vital Signs: Last Vital Signs Pulse 70 05/10/23 09:40 BP 124/64 05/10/23 09:40 Pulse Ox 94 05/10/23 09:40 Oxygen Delivery Method Nasal Cannula 05/10/23 09:40 Oxygen Flow Rate 3 05/10/23 09:40 BMI result Body Mass Index 20.8 Const General: comfortable, no acute distress, alert and awake Orientation/consciousness: patient oriented x3 HEENT Head: Yes normal to inspection General nose exam: No nasal polyps present and No nasal discharge present Face and sinus: Yes sinuses nontender Mouth: oropharynx normal Throat: Yes posterior oropharynx normal Eyes General: appearance normal, both eyes and all related structures Neck Neck: Yes normal visual inspection, Yes no lymphadenopathy, Yes trachea midline and Yes no JVD Thyroid: Thyroid normal Chest Chest palpation & inspection: normal inspection of the chest, normal palpation of entire chest wall and no tenderness Resp Other: Percussion note hyper-resonant, she has equal breath sounds on both sides with prolonged expiratory phase. No wheezes rhonchi or Creps are heard. Cardio Palpation: normal PMI Rate: regular rate Rhythm: regular rhythm Heart sounds: no gallops and no murmurs Peripheral pulses: Peripheral pulses 2+ throughout GI Palpation (GI): Soft to palpation, nontender, No hepatosplenomegaly present and no masses Auscultation: normal bowel sounds Back/Spine/Pelvis Thoracic/Lumbar Spine: thoracic and lumbar spine normal to inspection, kyphosis (Moderate kyphosis of the thoracic spine.) and thoraco-lumbar ROM limited Skin General skin exam: no rashes or lesions noted Neuro General: patient oriented x3 and no focal motor deficits Cranial nerves: Yes CN's II-XII intact bilaterally Extrem General: Yes normal to inspection, Yes no clubbing, cyanosis or edema and Yes no calf tenderness Psych Speech and movement: Normal speech and movement present Affect: Anxious affect present (Controlled) Office Procedures Spirometry Testing Spirometry Comments: Spirometry done in the office, Dr. Townsend has the results results scanned to her chart. 98516- Spirometry Results Reviewed Results Reviewed: SPIROMETRY c/w VERY SEVERE OBSTRUCTIVE AIRWAY DISORDER. Assessment & Plan Assessment & Plan Orders: Orders AMB Spirometry Testing Today J45.909 - Unspecified asthma, uncomplicated Coding Level of Care Code Est Pt Level 3 (79029) CPT Codes Spirometry - CPT: 69180- Spirometry ([id number])
[2023-05-10 09:40] VITALS: BP 124/64; PULSE 70; O2SAT 94; BMI 20.8
--- NOTE | 2023-05-10 13:14 | MHC.OFFVIS ---
Intake Vital Signs 05/10/23 09:40 Height 5 ft 4 in Weight 121 lb 4.068 oz BMI 20.8 BP 124/64 Blood Pressure Location Lt brachial Position Sitting Pulse 70 Pulse Source Pulse Oximeter Pulse Oximetry (%) 94 Oxygen Delivery Method Nasal Cannula Oxygen Flow Rate 3 Intake Visit Reasons: COPD Allergies penicillin G Allergy (Severe, Verified 05/10/23 10:07) Anaphylaxis Sulfa (Sulfonamide Antibiotics) Allergy (Severe, Verified 05/10/23 10:07) Anaphylaxis cat dander [CATS] Allergy (Unknown, Verified 05/10/23 10:07) MUCOUS FORMATION, asthma dog dander [DOGS] Allergy (Unknown, Verified 05/10/23 10:07) MUCOUS FORMATION, asthma egg Allergy (Unknown, Verified 05/10/23 10:07) Wheezing house dust [HOUSE DUST] Allergy (Unknown, Verified 05/10/23 10:07) MUCOUS FORMATION, asthma milk [MILK] Allergy (Unknown, Verified 05/10/23 10:07) MUCOUS FORMATION mold Allergy (Unknown, Verified 05/10/23 10:07) MUCOUS FORMATION, asthma tree and shrub pollen [TREES] Allergy (Unknown, Verified 05/10/23 10:07) MUCOUS FORMATION TO CERTAIN TREES, asthma yeast, dried [yeast] Allergy (Unknown, Verified 05/10/23 10:07) MUCOUS FORMATION, asthma Medication List - Last Reconciled 05/10/23 by Tam Townsend MD atenolol 25 mg PO BID azithromycin 250 mg PO 3XW 90 days Breo Ellipta 200-25 mcg/dose (fluticasone furoate-vilanterol) 1 ea inhalation DAILY NS calcium carbonate (Calcium) 600 mg PO BID cholecalciferol (vitamin D3) (Vitamin D3) 25 mcg PO DAILY fluticasone propionate 50 mcg/actuation (Flonase Allergy Relief) 1 spray intranasal DAILY PRN furosemide 20 mg PO DAILY PRN guaifenesin ER (Mucinex) 600 mg PO BID hydrocortisone 2.5% (Proctosol HC) 1 appl [place] BID-QID PRN hydrocortisone 2.5% 1 appl topical BID PRN Incruse Ellipta 62.5 mcg/actuation (umeclidinium) 1 inh inhalation DAILY NS levalbuterol tartrate 45 mcg/actuation 2 puffs PO Q4-6H PRN lorazepam 0.5 mg PO DAILY PRN vit C,J-Fj-zszrk-lutein-zeaxan 250-90-40-1 mg (PreserVision AREDS-2) 1 tab PO BID PFSH Medical History Ill-fitting dentures Environmental allergies Seasonal allergies Osteoporosis Hemorrhoids Oxygen dependent Respiratory failure with hypoxia Pulmonary nodules/lesions, multiple Anxiety disorder Post-menopausal Screening for colon cancer Screening for diabetes mellitus Acute anxiety Anxiety Asthma Allergic rhinitis COPD (chronic obstructive pulmonary disease) Surgical History History of colonoscopy History of cataract surgery History of right hip replacement Family History Mother No problems noted. Father No problems noted. Social History Housing: House Are you a primary medicare compliance auditor to a significant other at home: No Do you presently have visiting nurse or other home services: No Alcohol intake: never Patient Tobacco Use Status: Former Tobacco user Quit Date: 2004 Tobacco use type: Cigarette e-Cigarette/Vaping Use: Never Used Second Hand Smoke Exposure: Yes service: No Current occupational status: retired Cognitive needs: No Hearing needs: No Vision needs: Yes (Glasses) Physical Exam Vital Signs: Last Vital Signs Pulse 70 05/10/23 09:40 BP 124/64 05/10/23 09:40 Pulse Ox 94 05/10/23 09:40 Oxygen Delivery Method Nasal Cannula 05/10/23 09:40 Oxygen Flow Rate 3 05/10/23 09:40 BMI result Body Mass Index 20.8 Office Procedures Spirometry Testing Spirometry Comments: Spirometry done in the office, Dr. Townsend has the results results scanned to her chart. 10840- Spirometry Assessment & Plan Assessment & Plan Orders: Orders AMB Spirometry Testing Today J45.909 - Unspecified asthma, uncomplicated Quality Reporting (2019) Adult ([facility] 138/10/20/68) Body Mass Index: 20.8 Coding CPT Codes Spirometry - CPT: 57537- Spirometry ([id number])
== END 2023-05-10 10:27 | disposition home or self-care (01) ==
PROVIDERS: PCP Internal Medicine; Visit Provider Internal Medicine
DX: J44.9 Chronic obstructive pulmonary disease, unspecified (principal)
CPT/HCPCS: 94010; 99213

== ENCOUNTER → 2023-05-10 09:37 | Outpatient (BNVA) | payer MEDICARE, MEDICAID, SELFPAY | PROVIDERS: PCP Internal Medicine; Visit Provider Internal Medicine | DX: J44.9 Chronic obstructive pulmonary disease, unspecified (principal); Z99.81 Dependence on supplemental oxygen | CPT/HCPCS: 94010; 99212 ==

== ENCOUNTER 2023-09-06 10:16 | Outpatient (AMB) | payer MEDICARE, MEDICAID, SELFPAY ==
--- NOTE | 2023-09-06 10:21 | A.OFFVIS_ITS ---
Intake Vital Signs 09/06/23 10:25 Height 5 ft 4 in Weight 123 lb 7.342 oz BMI 21.2 BP 120/72 Blood Pressure Location Lt brachial Position Sitting Pulse 71 Pulse Source Pulse Oximeter Pulse Oximetry (%) 95 Oxygen Delivery Method Nasal Cannula Oxygen Flow Rate 3 Intake Visit Reasons: COPD Intake Note: Pt reports that last week she was having difficultly breathing, shortness of breath on exertion, and was coughing up yellow mucus but is feeling better this week. Astronaut Mission Specialist Required: No Allergies penicillin G Allergy (Severe, Verified 09/06/23 10:37) Anaphylaxis Sulfa (Sulfonamide Antibiotics) Allergy (Severe, Verified 09/06/23 10:37) Anaphylaxis cat dander [CATS] Allergy (Unknown, Verified 09/06/23 10:37) MUCOUS FORMATION, asthma dog dander [DOGS] Allergy (Unknown, Verified 09/06/23 10:37) MUCOUS FORMATION, asthma egg Allergy (Unknown, Verified 09/06/23 10:37) Wheezing house dust [HOUSE DUST] Allergy (Unknown, Verified 09/06/23 10:37) MUCOUS FORMATION, asthma milk [MILK] Allergy (Unknown, Verified 09/06/23 10:37) MUCOUS FORMATION mold Allergy (Unknown, Verified 09/06/23 10:37) MUCOUS FORMATION, asthma tree and shrub pollen [TREES] Allergy (Unknown, Verified 09/06/23 10:37) MUCOUS FORMATION TO CERTAIN TREES, asthma yeast, dried [yeast] Allergy (Unknown, Verified 09/06/23 10:37) MUCOUS FORMATION, asthma Medication List - Last Reconciled 09/06/23 by Tam Townsend MD atenolol 25 mg PO BID azithromycin 250 mg PO 3XW 90 days Breo Ellipta 200-25 mcg/dose (fluticasone furoate-vilanterol) 1 ea PO DAILY NS calcium carbonate (Calcium) 600 mg PO BID cholecalciferol (vitamin D3) (Vitamin D3) 25 mcg PO DAILY fluconazole 150 mg PO Q3D 2 doses fluticasone propionate 50 mcg/actuation (Flonase Allergy Relief) 1 spray intranasal DAILY PRN furosemide 20 mg PO DAILY PRN guaifenesin ER (Mucinex) 600 mg PO BID hydrocortisone 2.5% (Proctosol HC) 1 appl [place] BID-QID PRN hydrocortisone 2.5% 1 appl topical BID PRN Incruse Ellipta 62.5 mcg/actuation (umeclidinium) 1 inh inhalation DAILY NS levalbuterol tartrate 45 mcg/actuation 2 puffs PO Q4-6H PRN lorazepam 0.5 mg PO DAILY PRN vit C,E-Wv-cqccb-lutein-zeaxan 250-90-40-1 mg (PreserVision AREDS-2) 1 tab PO BID Do you need a note to return to daycare/school/sports/work: No HPI COPD HPI Details ROSA IS NOW 78 YEARS OLD FEMALE. SHE HAS ADVANCED CHRONIC OBSTRUCTIVE PULMONARY DISEASE WITH MILD NASAL ALLERGIES. SHE HAS BEEN VERY STABLE, ALL ALONG. HOWEVER SHE DOES HAVE INTERMITTENT NASAL CONGESTION, WHICH SHE ATTRIBUTES TO ALLERGIES. SHE HAS HER USUAL SHORTNESS OF BREATH ON EXERTION BUT, SHE IS STAYING MOSTLY IN THE HOUSE. OVERALL SHE CONSIDERS HERSELF TO BE VERY STABLE. [facility] Medical History Ill-fitting dentures Environmental allergies Seasonal allergies Osteoporosis Hemorrhoids Oxygen dependent Respiratory failure with hypoxia Pulmonary nodules/lesions, multiple Anxiety disorder Post-menopausal Screening for colon cancer Screening for diabetes mellitus Acute anxiety Anxiety Asthma Allergic rhinitis COPD (chronic obstructive pulmonary disease) Surgical History History of colonoscopy History of cataract surgery History of right hip replacement Family History Mother No problems noted. Father No problems noted. Social History Housing: House Are you a primary health care manager to a significant other at home: No Do you presently have visiting nurse or other home services: No Alcohol intake: never Patient Tobacco Use Status: Former Tobacco user Quit Date: 2004 Tobacco use type: Cigarette e-Cigarette/Vaping Use: Never Used Second Hand Smoke Exposure: Yes service: No Current occupational status: retired Cognitive needs: No Hearing needs: No Vision needs: Yes (Glasses) Review of Systems Const All systems reviewed & are unremarkable except as noted in HPI and below Eyes Reports no additional complaints ENT Reports nasal congestion (Mild off and) Card Reports no additional complaints Resp Reports as per HPI GI Reports no additional complaints Reports no additional complaints Musc Reports back pain (Chronic stable) Skin/Breast Reports system reviewed and no additional complaints, except as documented Neuro Reports no additional complaints Psych Reports anxiety (Under control) Physical Exam Vital Signs: BMI result Body Mass Index 21.2 Const General: comfortable, no acute distress, alert and awake Orientation/consciousness: patient oriented x3 HEENT Head: Yes normal to inspection General nose exam: No nasal polyps present and No nasal discharge present Face and sinus: Yes sinuses nontender Mouth: oropharynx normal Throat: Yes posterior oropharynx normal Eyes General: appearance normal, both eyes and all related structures Neck Neck: Yes normal visual inspection, Yes no lymphadenopathy, Yes trachea midline and Yes no JVD Thyroid: Thyroid normal Chest Chest palpation & inspection: normal inspection of the chest, normal palpation of entire chest wall and no tenderness Resp Other: Percussion note hyper-resonant, she has equal breath sounds on both sides with prolonged expiratory phase. No wheezes rhonchi or Creps are heard. Cardio Palpation: normal PMI Rate: regular rate Rhythm: regular rhythm Heart sounds: no gallops and no murmurs Peripheral pulses: Peripheral pulses 2+ throughout GI Palpation (GI): Soft to palpation, nontender, No hepatosplenomegaly present and no masses Auscultation: normal bowel sounds Back/Spine/Pelvis Thoracic/Lumbar Spine: thoracic and lumbar spine normal to inspection, kyphosis (Moderate kyphosis of the thoracic spine.) and thoraco-lumbar ROM limited Skin General skin exam: no rashes or lesions noted Neuro General: patient oriented x3 and no focal motor deficits Cranial nerves: Yes CN's II-XII intact bilaterally Extrem General: Yes normal to inspection, Yes no clubbing, cyanosis or edema and Yes no calf tenderness Psych Speech and movement: Normal speech and movement present Affect: Anxious affect present (Controlled) Assessment & Plan Assessment & Plan (1) COPD (chronic obstructive pulmonary disease): Comment: Chronic advanced, under control at this time. [place] Incruse Ellipta 1 inhalation daily Breo 200-25 1 inhalation daily Levalbuterol -45 2 puffs Q 4-6 hours only p.r.n. Azithromycin 250 mg on MWF. Mucinex 600 mg bid Advised to use vaporizer in the bedroom. Code(s): J44.9 - Chronic obstructive pulmonary disease, unspecified Plan: ABOVE (2) Allergic rhinitis: Comment: Chronic, under control, may use loratadine 10 mg or cetirizine 10 mg once a day p.r.n. Code(s): J30.9 - Allergic rhinitis, unspecified Plan: ABOVE (3) Respiratory failure with hypoxia: Comment: Has chronic hypoxemia, it is treated well with O2 2 L/minute at home, And 3 L/minute via POC.when outdoors. Code(s): J96.91 - Respiratory failure, unspecified with hypoxia Plan: ABOVE (4) Anxiety disorder: Comment: Seems to be well controlled, uses lorazepam 0.5 mg only p.r.n.. If she is traveling by air is then she may take lorazepam 0.5 mg before boarding the plane. Code(s): F41.9 - Anxiety disorder, unspecified Plan: ABOVE Coding Level of Care Code Est Pt Level 4 (69059) Diagnoses COPD (chronic obstructive pulmonary disease) J44.9 Allergic rhinitis J30.9 Respiratory failure with hypoxia J96.91 Anxiety disorder F41.9
[2023-09-06 10:25] VITALS: BP 120/72; PULSE 71; O2SAT 95; BMI 21.2
== END 2023-09-06 10:46 | disposition home or self-care (01) ==
PROVIDERS: PCP Internal Medicine; Visit Provider Internal Medicine
DX: J44.9 Chronic obstructive pulmonary disease, unspecified (principal); J30.9 Allergic rhinitis, unspecified; J96.91 Respiratory failure, unspecified with hypoxia; F41.9 Anxiety disorder, unspecified
CPT/HCPCS: 99214

== ENCOUNTER → 2023-09-06 10:16 | Outpatient (BNVA) | payer MEDICARE, MEDICAID, SELFPAY | PROVIDERS: PCP Internal Medicine; Visit Provider Internal Medicine | DX: J44.9 Chronic obstructive pulmonary disease, unspecified (principal); J30.9 Allergic rhinitis, unspecified; J96.91 Respiratory failure, unspecified with hypoxia; F41.9 Anxiety disorder, unspecified | CPT/HCPCS: 99212 ==

== ENCOUNTER 2024-01-10 09:10 | Outpatient (AMB) | payer MEDICARE, MEDICAID, SELFPAY ==
[2024-01-10 09:18] VITALS: BP 104/80; PULSE 72; O2SAT 95; BMI 20.8
--- NOTE | 2024-01-10 09:18 | A.OFFVIS_ITS ---
Vital Signs 01/10/24 09:18 Height 5 ft 4 in Weight 121 lb 0.25 oz BMI 20.8 BP 104/80 Blood Pressure Location Lt brachial Position Sitting Pulse 72 Pulse Source Pulse Oximeter Pulse Oximetry (%) 95 Oxygen Delivery Method Nasal Cannula Oxygen Flow Rate 3 Intake Visit Reasons: COPD Intake Note: pt is here for follow up and states she is doing well but having new allergies, her back is not good, and this affects her breathing, and this requires her to lye down. Food Safety Field Specialist Required: No Allergies penicillin G Allergy (Severe, Verified 01/10/24 09:34) Anaphylaxis Sulfa (Sulfonamide Antibiotics) Allergy (Severe, Verified 01/10/24 09:34) Anaphylaxis cat dander [CATS] Allergy (Unknown, Verified 01/10/24 09:34) MUCOUS FORMATION, asthma dog dander [DOGS] Allergy (Unknown, Verified 01/10/24 09:34) MUCOUS FORMATION, asthma egg Allergy (Unknown, Verified 01/10/24 09:34) Wheezing house dust [HOUSE DUST] Allergy (Unknown, Verified 01/10/24 09:34) MUCOUS FORMATION, asthma milk [MILK] Allergy (Unknown, Verified 01/10/24 09:34) MUCOUS FORMATION mold Allergy (Unknown, Verified 01/10/24 09:34) MUCOUS FORMATION, asthma tree and shrub pollen [TREES] Allergy (Unknown, Verified 01/10/24 09:34) MUCOUS FORMATION TO CERTAIN TREES, asthma yeast, dried [yeast] Allergy (Unknown, Verified 01/10/24 09:34) MUCOUS FORMATION, asthma Medication List - Last Reconciled 01/10/24 by Tam Townsend MD atenolol 25 mg PO BID azithromycin 250 mg PO 3XW 90 days Breo Ellipta 200-25 mcg/dose (fluticasone furoate-vilanterol) 1 ea inhalation DAILY NS calcium carbonate (Calcium 600) 600 mg PO BID cholecalciferol (vitamin D3) (Vitamin D3) 25 mcg PO DAILY fluconazole 150 mg PO Q3D 2 doses furosemide 20 mg PO DAILY PRN guaifenesin ER (Mucinex) 600 mg PO BID hydrocortisone 2.5% (Proctosol HC) 1 appl [place] BID-QID PRN hydrocortisone 2.5% 1 appl topical BID PRN Incruse Ellipta 62.5 mcg/actuation (umeclidinium) 1 inh inhalation DAILY NS levalbuterol tartrate 45 mcg/actuation 2 puffs PO Q4-6H PRN lorazepam 0.5 mg PO DAILY PRN vit C,V-Zx-swlbr-lutein-zeaxan 250-90-40-1 mg (PreserVision AREDS-2) 1 tab PO BI D Do you need a note to return to daycare/school/sports/work: No HPI HPI COPD: Details: 78 years old female a long-time case of chronic obstructive pulmonary disease, comes for her routine follow-up after 4 months . She has remained very stable as far as breathing is concerned. Nasal allergy problem is also under control. Her main complaint is ongoing back discomfort and not able to sit in 1 position for too long. That effects her breathing. Has had no acute exacerbation in the last 4 months. She is on oxygen 2 L/minute 24 hours a day. [facility] Medical History Ill-fitting dentures Environmental allergies Seasonal allergies Osteoporosis Hemorrhoids Oxygen dependent Respiratory failure with hypoxia Pulmonary nodules/lesions, multiple Anxiety disorder Post-menopausal Screening for colon cancer Screening for diabetes mellitus Acute anxiety Anxiety Asthma Allergic rhinitis COPD (chronic obstructive pulmonary disease) Surgical History History of colonoscopy History of cataract surgery History of right hip replacement Family History Mother No problems noted. Father No problems noted. Social History Housing: House Are you a primary human services care specialist to a significant other at home: No Do you presently have visiting nurse or other home services: No Alcohol intake: never Patient Tobacco Use Status: Former Tobacco user Quit Date: 2004 Tobacco use type: Cigarette e-Cigarette/Vaping Use: Never Used Second Hand Smoke Exposure: Yes service: No Current occupational status: retired Cognitive needs: No Hearing needs: No Vision needs: Yes (Glasses) Review of Systems Const All systems reviewed & are unremarkable except as noted in HPI and below Eyes Reports no additional complaints ENT Reports nasal congestion (Mild off and) Card Reports no additional complaints Resp Reports as per HPI GI Reports no additional complaints Reports no additional complaints Musc Reports back pain (Chronic stable) Skin/Breast Reports system reviewed and no additional complaints, except as documented Neuro Reports no additional complaints Psych Reports anxiety (Under control) Physical Exam Vital Signs: Last Vital Signs Pulse 72 01/10/24 09:18 BP 104/80 01/10/24 09:18 Pulse Ox 95 01/10/24 09:18 Oxygen Delivery Method Nasal Cannula 01/10/24 09:18 Oxygen Flow Rate 3 01/10/24 09:18 BMI result Body Mass Index 20.8 Const General: comfortable, no acute distress, alert and awake Orientation/consciousness: patient oriented x3 HEENT Head: Yes normal to inspection General nose exam: No nasal polyps present and No nasal discharge present Face and sinus: Yes sinuses nontender Mouth: oropharynx normal Throat: Yes posterior oropharynx normal Eyes General: appearance normal, both eyes and all related structures Neck Neck: Yes normal visual inspection, Yes no lymphadenopathy, Yes trachea midline and Yes no JVD Thyroid: Thyroid normal Chest Chest palpation & inspection: normal inspection of the chest, normal palpation of entire chest wall and no tenderness Resp Other: Percussion note hyper-resonant, she has equal breath sounds on both sides with prolonged expiratory phase. No wheezes rhonchi or Creps are heard. Cardio Palpation: normal PMI Rate: regular rate Rhythm: regular rhythm Heart sounds: no gallops and no murmurs Peripheral pulses: Peripheral pulses 2+ throughout GI Palpation (GI): Soft to palpation, nontender, No hepatosplenomegaly present and no masses Auscultation: normal bowel sounds Back/Spine/Pelvis Thoracic/Lumbar Spine: thoracic and lumbar spine normal to inspection, kyphosis (Moderate kyphosis of the thoracic spine.) and thoraco-lumbar ROM limited Skin General skin exam: no rashes or lesions noted Neuro General: patient oriented x3 and no focal motor deficits Cranial nerves: Yes CN's II-XII intact bilaterally Extrem General: Yes normal to inspection, Yes no clubbing, cyanosis or edema and Yes no calf tenderness Psych Speech and movement: Normal speech and movement present Affect: Anxious affect present (Controlled) Assessment & Plan Assessment & Plan (1) COPD (chronic obstructive pulmonary disease): Comment: Chronic advanced, under control at this time. No recent flare ups. Code(s): J44.9 - Chronic obstructive pulmonary disease, unspecified Category: Medical Plan: [place] Incruse Ellipta 1 inhalation daily Breo 200-25 1 inhalation daily Levalbuterol -45 2 puffs Q 4-6 hours only p.r.n. Azithromycin 250 mg on MWF. Mucinex 600 mg bid (2) Allergic rhinitis: Comment: Chronic, under control, Code(s): J30.9 - Allergic rhinitis, unspecified Category: Medical Plan: TX: May use loratadine 10 mg or cetirizine 10 mg once a day p.r.n. (3) Respiratory failure with hypoxia: Comment: Has chronic hypoxemia, it is treated well with O2 2 L/minute at home, And 3 L/minute via POC.when outdoors. Code(s): J96.91 - Respiratory failure, unspecified with hypoxia Category: Medical Plan: Continue using O2 2 L/minute at rest and 3 L/minute when outdoors or walking around Coding Level of Care Code Est Pt Level 3 (94109) Diagnoses COPD (chronic obstructive pulmonary disease) J44.9 Allergic rhinitis J30.9 Respiratory failure with hypoxia J96.91
== END 2024-01-10 09:35 | disposition home or self-care (01) ==
PROVIDERS: PCP Internal Medicine; Visit Provider Internal Medicine
DX: J44.9 Chronic obstructive pulmonary disease, unspecified (principal); J30.9 Allergic rhinitis, unspecified; J96.91 Respiratory failure, unspecified with hypoxia
CPT/HCPCS: 99213

== ENCOUNTER → 2024-01-10 09:10 | Outpatient (BNVA) | payer MEDICARE, MEDICAID, SELFPAY | PROVIDERS: PCP Internal Medicine; Visit Provider Internal Medicine | DX: J44.9 Chronic obstructive pulmonary disease, unspecified (principal); J31.0 Chronic rhinitis; J96.91 Respiratory failure, unspecified with hypoxia; Z99.81 Dependence on supplemental oxygen | CPT/HCPCS: 99212 ==

== ENCOUNTER 2024-05-02 09:23 | Outpatient (AMB) | payer MEDICARE, MEDICAID, SELFPAY ==
[2024-05-02 09:28] VITALS: BP 94/68; PULSE 67; O2SAT 93; BMI 20.4
--- NOTE | 2024-05-02 09:28 | MHC.OFFVIS ---
Vital Signs 05/02/24 09:28 Height 5 ft 4 in Weight 119 lb BMI 20.4 BP 94/68 Blood Pressure Location Lt brachial Position Sitting Pulse 67 Pulse Source Pulse Oximeter Pulse Oximetry (%) 93 Oxygen Delivery Method Nasal Cannula Oxygen Flow Rate 3 Intake Visit Reasons: COPD Intake Note: pt is here for follow up and has not been feeling well lately, upper resp symptoms, and had bowel issues yesterday. Director Compensation Required: No Allergies penicillin G Allergy (Severe, Verified 05/02/24 09:33) Anaphylaxis Sulfa (Sulfonamide Antibiotics) Allergy (Severe, Verified 05/02/24 09:33) Anaphylaxis cat dander [CATS] Allergy (Unknown, Verified 05/02/24 09:33) MUCOUS FORMATION, asthma dog dander [DOGS] Allergy (Unknown, Verified 05/02/24 09:33) MUCOUS FORMATION, asthma egg Allergy (Unknown, Verified 05/02/24 09:33) Wheezing house dust [HOUSE DUST] Allergy (Unknown, Verified 05/02/24 09:33) MUCOUS FORMATION, asthma milk [MILK] Allergy (Unknown, Verified 05/02/24 09:33) MUCOUS FORMATION mold Allergy (Unknown, Verified 05/02/24 09:33) MUCOUS FORMATION, asthma tree and shrub pollen [TREES] Allergy (Unknown, Verified 05/02/24 09:33) MUCOUS FORMATION TO CERTAIN TREES, asthma yeast, dried [yeast] Allergy (Unknown, Verified 05/02/24 09:33) MUCOUS FORMATION, asthma Medication List - Last Reconciled 05/02/24 by Tam Townsend MD atenolol 25 mg PO BID azithromycin 250 mg PO 3XW 90 days Breo Ellipta 200-25 mcg/dose (fluticasone furoate-vilanterol) 1 ea inhalation DAILY NS calcium carbonate (Calcium 600) 600 mg PO BID cholecalciferol (vitamin D3) (Vitamin D3) 25 mcg PO DAILY fluconazole 150 mg PO Q3D 2 doses furosemide 20 mg PO DAILY PRN guaifenesin ER (Mucinex) 600 mg PO BID hydrocortisone 2.5% (Proctosol HC) 1 appl [place] BID-QID PRN hydrocortisone 2.5% 1 appl topical BID PRN Incruse Ellipta 62.5 mcg/actuation (umeclidinium) 1 inh inhalation DAILY NS levalbuterol tartrate 45 mcg/actuation 2 puffs PO Q4-6H PRN lorazepam 0.5 mg PO DAILY PRN vit C,C-Ju-zpdcx-lutein-zeaxan 250-90-40-1 mg (PreserVision AREDS-2) 1 tab PO BID Do you need a note to return to daycare/school/sports/work: No HPI HPI COPD: Details: This 79 years old very pleasant female a case of advanced chronic obstructive pulmonary disease, has remained very stable in the last 4 months. Just a few weeks ago she was vacationing in [place], on her return back she is having bouts of diarrhea and feels somewhat weak. She has had no fever or chills. Breathing has remained fairly stable except on some days she has wheezing. Overall her respiratory status has remained very stable. [facility] Medical History Ill-fitting dentures Environmental allergies Seasonal allergies Osteoporosis Hemorrhoids Oxygen dependent Respiratory failure with hypoxia Pulmonary nodules/lesions, multiple Anxiety disorder Post-menopausal Screening for colon cancer Screening for diabetes mellitus Acute anxiety Anxiety Asthma Allergic rhinitis COPD (chronic obstructive pulmonary disease) Surgical History History of colonoscopy History of cataract surgery History of right hip replacement Family History Mother No problems noted. Father No problems noted. Social History Housing: House Are you a primary critical care clinical nurse specialist to a significant other at home: No Do you presently have visiting nurse or other home services: No Alcohol intake: never Patient Tobacco Use Status: Former Tobacco user Tobacco use type: Cigarette e-Cigarette/Vaping Use: Never Used Second Hand Smoke Exposure: Yes service: No Current occupational status: retired Cognitive needs: No Hearing needs: No Vision needs: Yes (Glasses) Review of Systems Const All systems reviewed & are unremarkable except as noted in HPI and below Eyes Reports no additional complaints ENT Reports nasal congestion (Mild off and) Card Reports no additional complaints Resp Reports as per HPI GI Reports no additional complaints Reports no additional complaints Musc Reports back pain (Chronic stable) Skin/Breast Reports system reviewed and no additional complaints, except as documented Neuro Reports no additional complaints Psych Reports anxiety (Under control) Physical Exam Vital Signs: Last Vital Signs Pulse 67 05/02/24 09:28 BP 94/68 05/02/24 09:28 Pulse Ox 93 05/02/24 09:28 Oxygen Delivery Method Nasal Cannula 05/02/24 09:28 Oxygen Flow Rate 3 05/02/24 09:28 BMI result Body Mass Index 20.4 Const General: comfortable, no acute distress, alert and awake Orientation/consciousness: patient oriented x3 HEENT Head: Yes normal to inspection General nose exam: No nasal polyps present and No nasal discharge present Face and sinus: Yes sinuses nontender Mouth: oropharynx normal Throat: Yes posterior oropharynx normal Eyes General: appearance normal, both eyes and all related structures Neck Neck: Yes normal visual inspection, Yes no lymphadenopathy, Yes trachea midline and Yes no JVD Thyroid: Thyroid normal Chest Chest palpation & inspection: normal inspection of the chest, normal palpation of entire chest wall and no tenderness Resp Other: Percussion note hyper-resonant, she has equal breath sounds on both sides with prolonged expiratory phase. No Rhonchi or Creps but a few expiratory wheezes heard over the lower parts of the chest. Cardio Palpation: normal PMI Rate: regular rate Rhythm: regular rhythm Heart sounds: no gallops and no murmurs Peripheral pulses: Peripheral pulses 2+ throughout GI Palpation (GI): Soft to palpation, nontender, No hepatosplenomegaly present and no masses Auscultation: normal bowel sounds Back/Spine/Pelvis Thoracic/Lumbar Spine: thoracic and lumbar spine normal to inspection, kyphosis (Moderate kyphosis of the thoracic spine.) and thoraco-lumbar ROM limited Skin General skin exam: no rashes or lesions noted Neuro General: patient oriented x3 and no focal motor deficits Cranial nerves: Yes CN's II-XII intact bilaterally Extrem General: Yes normal to inspection, Yes no clubbing, cyanosis or edema and Yes no calf tenderness Psych Speech and movement: Normal speech and movement present Affect: Anxious affect present (Controlled) Assessment & Plan Assessment & Plan (1) COPD (chronic obstructive pulmonary disease): Comment: Chronic advanced, under control at this time. No recent flare ups, except some wheezing off and on when she was vacationing in the last 2 weeks. Overall she is doing well on her current regimen . Code(s): J44.9 - Chronic obstructive pulmonary disease, unspecified Category: Medical Plan: INCRUSE ELLIPTA 1 INHALATION DAILY BREO 200-251 INHALATION DAILY MUCINEX 600 MG B.I.D. LEVALBUTEROL-452 PUFFS Q 4-6 HOURS P.R.N.. AZITHROMYCIN 250 MG ON Tuesday, ( HOLD 1 OR 2 DOSES YOU HAVE ANY DIARRHEA) (2) Allergic rhinitis: Comment: Chronic, under control, Code(s): J30.9 - Allergic rhinitis, unspecified Category: Medical Plan: MAY USE LORATADINE 10 MG ONCE A DAY P.R.N. FOR NASAL CONGESTION (3) Anxiety disorder: Comment: Seems to be well controlled, uses lorazepam 0.5 mg only p.r.n.. If she is traveling by air is then she may take lorazepam 0.5 mg before boarding the plane. Code(s): F41.9 - Anxiety disorder, unspecified Category: Medical Plan: LORAZEPAM 0.5 MG ONCE A DAY P.R.N. FOR ANXIETY (4) Respiratory failure with hypoxia: Comment: Has chronic hypoxemia, it is treated well with O2 2 L/minute at home, And 3 L/minute via POC.when outdoors. Code(s): J96.91 - Respiratory failure, unspecified with hypoxia Category: Medical Plan: CONTINUE O2 2 L/MINUTE WHEN AT HOME AND 3 L/MINUTE WITH POC WHEN OUTDOORS Coding Level of Care Code Est Pt Level 4 (24658) Diagnoses COPD (chronic obstructive pulmonary disease) J44.9 Allergic rhinitis J30.9 Anxiety disorder F41.9 Respiratory failure with hypoxia J96.91
== END 2024-05-02 09:52 | disposition home or self-care (01) ==
PROVIDERS: PCP Internal Medicine; Visit Provider Internal Medicine
DX: J44.9 Chronic obstructive pulmonary disease, unspecified (principal); J30.9 Allergic rhinitis, unspecified; F41.9 Anxiety disorder, unspecified; J96.91 Respiratory failure, unspecified with hypoxia
CPT/HCPCS: 99214

== ENCOUNTER 2024-05-02 09:54 | Outpatient (REF) | payer MEDICARE, MEDICAID, SELFPAY ==
[2024-05-02 10:41] LABS: Hematocrit 37.9 % (37.0-47.0); Hemoglobin 12.3 g/dl (12.0-16.0); Mean Corpuscular HGB Conc 32.5 g/dl (31.0-35.0); Mean Corpuscular Hemoglobin 31.7 pg (27.0-33.0); Mean Corpuscular Volume 97.7 fL (80.0-98.0); Mean Platelet Volume 10.7 fL (9.4-12.3); Platelet Count 265 X10*3/uL (160-400); Red Blood Count 3.88 X10*6/uL (4.20-5.50); Red Cell Distribution Width 12.6 % (11.0-16.0); White Blood Count 10.7 X10*3/uL (4.8-10.8)
[2024-05-02 11:14] LABS: Alanine Aminotransferase 15 U/L (0-31); Albumin Level 4.2 g/dL (3.5-5.0); Alkaline Phosphatase 53 U/L (39-117); Anion Gap 15 (12-20); Aspartate Amino Transferase 15 U/L (5-31); Bilirubin Direct 0.2 mg/dL (0.0-0.5); Bilirubin Total 0.5 mg/dL (0.0-1.0); Blood Urea Nitrogen 19 mg/dL (9-16); Calcium 10.9 mg/dL (8.4-10.2); Carbon Dioxide 31 mmol/L (22-29); Chloride 99 mmol/L (96-108); Cholesterol 211 mg/dL (<200); Estimated Glomerular Filt Rate > 60; Glucose Random 122 mg/dL (60-115); HDL Cholesterol 61 mg/dL (>40); LDL Cholesterol Calculated 125 mg/dL (<100); Potassium 4.3 mmol/L (3.3-5.1); Sodium 141 mmol/L (135-145); Total Protein 7.1 g/dL (6.5-8.0); Triglycerides 126 mg/dL (<150)
[2024-05-02 11:18] LABS: Erythrocyte Sedimentation Rate 44 MM/HR (0-20)
[2024-05-02 11:32] LABS: Thyroid Stimulating Hormone 0.73 uIU/mL (0.32-4.0)
== END 2024-05-02 09:55 | disposition home or self-care (01) ==
LOC: HO.LAB 09:54
PROVIDERS: PCP Internal Medicine; Visit Provider Internal Medicine
DX: J44.9 Chronic obstructive pulmonary disease, unspecified (principal); J30.9 Allergic rhinitis, unspecified; J96.91 Respiratory failure, unspecified with hypoxia; F41.9 Anxiety disorder, unspecified
CPT/HCPCS: 36415; 80048; 80061; 80076; 84443; 85027; 85652; 99212

== ENCOUNTER 2024-05-03 08:41 | Outpatient (AMB) | payer MEDICARE, MEDICAID, SELFPAY ==
--- NOTE | 2024-05-03 08:52 | A.OFFPC_ITS ---
Vital Signs 05/03/24 08:54 Height 5 ft 4 in Weight 117 lb 6 oz BMI 20.1 BP 110/70 Blood Pressure Location Lt brachial Position Sitting Pulse 63 Pulse Source Pulse Oximeter Pulse Oximetry (%) 96 Oxygen Delivery Method Nasal Cannula Intake Visit Reasons: 6mth f/u medications Intake Note: Patient is here to follow up on HTN, COPD, Respiratory Failure w/ Hypoxia. 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 Accompanied by: Spouse Allergies penicillin G Allergy (Severe, Verified 05/08/24 15:48) Anaphylaxis Sulfa (Sulfonamide Antibiotics) Allergy (Severe, Verified 05/08/24 15:48) Anaphylaxis cat dander [CATS] Allergy (Unknown, Verified 05/08/24 15:48) MUCOUS FORMATION, asthma dog dander [DOGS] Allergy (Unknown, Verified 05/08/24 15:48) MUCOUS FORMATION, asthma egg Allergy (Unknown, Verified 05/08/24 15:48) Wheezing house dust [HOUSE DUST] Allergy (Unknown, Verified 05/08/24 15:48) MUCOUS FORMATION, asthma milk [MILK] Allergy (Unknown, Verified 05/08/24 15:48) MUCOUS FORMATION mold Allergy (Unknown, Verified 05/08/24 15:48) MUCOUS FORMATION, asthma tree and shrub pollen [TREES] Allergy (Unknown, Verified 05/08/24 15:48) MUCOUS FORMATION TO CERTAIN TREES, asthma yeast, dried [yeast] Allergy (Unknown, Verified 05/08/24 15:48) MUCOUS FORMATION, asthma Medication List - Last Reconciled 05/08/24 by Sanjiv Buck MD atenolol 25 mg PO BID azithromycin 250 mg PO 3XW 90 days Breo Ellipta 200-25 mcg/dose (fluticasone furoate-vilanterol) 1 ea inhalation DAILY NS calcium carbonate (Calcium 600) 600 mg PO BID cholecalciferol (vitamin D3) (Vitamin D3) 25 mcg PO DAILY furosemide 20 mg PO DAILY PRN guaifenesin ER (Mucinex) 600 mg PO BID hydrocortisone 2.5% (Proctosol HC) 1 appl MS BID-QID PRN hydrocortisone 2.5% 1 appl topical BID PRN Incruse Ellipta 62.5 mcg/actuation (umeclidinium) 1 inh inhalation DAILY NS levalbuterol tartrate 45 mcg/actuation 2 puffs PO Q4-6H PRN lorazepam 0.5 mg PO DAILY PRN vit C,D-Qt-sslvn-lutein-zeaxan 250-90-40-1 mg (PreserVision AREDS-2) 1 tab PO BID Tobacco use date assessed: 05/03/24 Fall risk assessment: No Falls in past year Last assessed Fall Risk: 05/03/24 Dental Screening Dental Screen Date: 05/03/24 Did you have a dental visit in the last 12 months?: No Did you have a dental problem in the last 6 months where you did not have access to dental care?: No Was dental information given to patient?: No (dentures) HPI 6mth f/u medications HPI Details 79-year-old female presents to the offic e to discuss her chronic medical conditions. Patient is compliant with medications and reporting no side effects. Able to function and do activities of daily living. She uses oxygen at home and at all times. [facility] Medical History Ill-fitting dentures Environmental allergies Seasonal allergies Osteoporosis Hemorrhoids Oxygen dependent Respiratory failure with hypoxia Pulmonary nodules/lesions, multiple Anxiety disorder Post-menopausal Screening for colon cancer Screening for diabetes mellitus Acute anxiety Anxiety Asthma Allergic rhinitis COPD (chronic obstructive pulmonary disease) Surgical History History of colonoscopy History of cataract surgery History of right hip replacement Family History Mother No problems noted. Father No problems noted. Social History (Updated 05/03/24 @ 09:02 by ONELIA Rojas) Housing: House Are you a primary career and guidance counselor to a significant other at home: No Do you presently have visiting nurse or other home services: No Alcohol intake: current Alcohol intake frequency: holidays/special occasions only Patient Tobacco Use Status: Former Tobacco user Tobacco use type: Cigarette e-Cigarette/Vaping Use: Never Used Second Hand Smoke Exposure: Yes service: No Current occupational status: retired Cognitive needs: No Hearing needs: No Vision needs: Yes (Glasses) Questionnaire PHQ-9 Over the last 2 weeks, how often have you been bothered by any of the following problems? 1. Little interest or pleasure in doing things: not at all 2. Feeling down, depressed, or hopeless: not at all 3. Trouble falling or staying asleep, or sleeping too much: not at all 4. Feeling tired or having little energy: not at all 5. Poor appetite or overeating: not at all 6. Feeling bad about yourself - or that you are a failure or have let yourself or your family down: not at all 7. Trouble concentrating on things, such as reading the newspaper or watching television: not at all 8. Moving or speaking so slowly that other people could have noticed. Or the opposite - being so fidgety or restless that you have been moving around a lot more than usual: not at all 9. Thoughts that you would be better off or of hurting yourself in some way: not at all Total score: 0 Depression Screening Interpretation: Negative Depression Screening Done: Yes Source: Developed by Drs. Juan Diego Minaya, Cecile Holly, Michael Rutledge and colleagues, with an educational romeo from [employer]. Thrive Questionnaire Date Thrive assessed: 05/03/24 I am a: Patient What is your living situation today?: I have a steady place to live Within the past 12 months, did the food you bought not last and you didn't have the money to get more?: Never true Within the past 12 months, did you worry whether your food would run out before you got money to buy more?: Never true Do you have trouble paying for medicines?: No Do you have trouble getting transportation to medical appointments?: No Do you have trouble paying your heating and electricity bill?: No Do you have trouble taking care of your child, family member or friend?: No Do you have trouble with day-to-day activities such as bathing, preparing meals, shopping, managing finances, etc.?: No Are you currently unemployed and looking for a job?: No Are you interested in more education?: No Currently or been in a relationship where the following occur: No concerns reported THRIVE Score: 0 AUDIT C Alcohol Use Questionnaire (AUDIT-C) 1. How often do you have a drink containing alcohol?: Never Total Score: 0 MARYANN-7 AMB Questionnaire MARYANN-7 Date MARYANN - 7 assessed: 05/03/24 Feeling nervous, anxious, or on edge: 0 = Not at all Not being able to stop or control worryin = Not at all Worrying too much about different things: 0 = Not at all Trouble relaxin = Not at all Being so restless that it is hard to sit still: 0 = Not at all Becoming easily annoyed or irritable: 0 = Not at all Feeling afraid as if something awful might happen: 0 = Not at all Total MARYANN-7 score (0-4 normal; 5-9 mild; 10-14 moderate; 15-21 severe): 0 Source: Developed by Drs. Juan Diego Minaya, Cecile Holly, Michael Rutledge and colleagues, with an educational romeo from [employer]. Physical exam (Primary Care) Vital Signs: Last Vital Signs Pulse 63 05/03/24 08:54 BP 110/70 05/03/24 08:54 Pulse Ox 96 05/03/24 08:54 Oxygen Delivery Method Nasal Cannula 05/03/24 08:54 BMI result Body Mass Index 20.1 Tobacco/Smoking Status: Tobacco use Status Tobacco use date assessed 05/03/24 05/03/24 08:54 Patient Tobacco Use Status Former Tobacco user 05/03/24 09:02 Tobacco use type Cigarette 05/03/24 09:02 e-Cigarette/Vaping Use Never Used 05/03/24 09:02 PHQ-9: PHQ-9 Score PHQ-9: Total score 0 05/03/24 08:54 Depression Screening Interpretation: Negative Thrive Assessment: Date of Thrive Assessment Date Thrive assessed 05/03/24 05/03/24 08:54 Currently or been in a relationship where the following occur: No concerns reported Assessment and Plan Assessment & Plan (1) Hypertension: Code(s): I10 - Essential (primary) hypertension Qualifiers: Hypertension type: unspecified Qualified Code(s): I10 - Essential (primary) hypertension Plan: Blood pressure is stable. Continue medications at same dosage. Coding Level of Care Code Est Pt Level 3 (59697) Complex EM visit Add On G2211 Diagnoses Hypertension, unspecified type I10 Hypertension type: unspecified
[2024-05-03 08:54] VITALS: BP 110/70; PULSE 63; O2SAT 96; BMI 20.1
== END 2024-05-03 09:42 | disposition home or self-care (01) ==
PROVIDERS: PCP Internal Medicine; Visit Provider Internal Medicine
DX: I10 Essential (primary) hypertension (principal)
CPT/HCPCS: 99213; G2211

== ENCOUNTER 2024-09-03 09:51 | Outpatient (AMB) | payer MEDICARE, MEDICAID, SELFPAY ==
[2024-09-03 09:54] VITALS: BP 108/72; PULSE 67; O2SAT 92; BMI 20.6
--- NOTE | 2024-09-03 09:54 | A.OFFVIS_ITS ---
Vital Signs 09/03/24 09:54 Height 5 ft 4 in Weight 120 lb 2.431 oz BMI 20.6 BP 108/72 Blood Pressure Location Lt brachial Position Sitting Pulse 67 Pulse Source Pulse Oximeter Pulse Oximetry (%) 92 Oxygen Delivery Method Nasal Cannula Oxygen Flow Rate 3 Intake Visit Reasons: COPD Intake Note: pt is here for follow up and is doing okay but her breathing is affected by her back pain. Ladderman Required: No Allergies penicillin G Allergy (Severe, Verified 09/03/24 10:38) Anaphylaxis Sulfa (Sulfonamide Antibiotics) Allergy (Severe, Verified 09/03/24 10:38) Anaphylaxis cat dander [CATS] Allergy (Unknown, Verified 09/03/24 10:38) MUCOUS FORMATION, asthma dog dander [DOGS] Allergy (Unknown, Verified 09/03/24 10:38) MUCOUS FORMATION, asthma egg Allergy (Unknown, Verified 09/03/24 10:38) Wheezing house dust [HOUSE DUST] Allergy (Unknown, Verified 09/03/24 10:38) MUCOUS FORMATION, asthma milk [MILK] Allergy (Unknown, Verified 09/03/24 10:38) MUCOUS FORMATION mold Allergy (Unknown, Verified 09/03/24 10:38) MUCOUS FORMATION, asthma tree and shrub pollen [TREES] Allergy (Unknown, Verified 09/03/24 10:38) MUCOUS FORMATION TO CERTAIN TREES, asthma yeast, dried [yeast] Allergy (Unknown, Verified 09/03/24 10:38) MUCOUS FORMATION, asthma Medication List - Last Reconciled 09/03/24 by Tam Townsend MD atenolol 25 mg PO BID azithromycin 250 mg PO 3XW 90 days Breo Ellipta 200-25 mcg/dose (fluticasone furoate-vilanterol) 1 ea inhalation DAILY NS calcium carbonate (Calcium 600) 600 mg PO BID cholecalciferol (vitamin D3) (Vitamin D3) 25 mcg PO DAILY furosemide 20 mg PO DAILY PRN guaifenesin ER (Mucinex) 600 mg PO BID hydrocortisone 2.5% (Proctosol HC) 1 appl LA BID-QID PRN hydrocortisone 2.5% 1 appl topical BID PRN Incruse Ellipta 62.5 mcg/actuation (umeclidinium) 1 inh inhalation DAILY NS levalbuterol tartrate 45 mcg/actuation 2 puffs PO Q4-6H PRN lorazepam 0.5 mg PO DAILY PRN vit C,R-Yk-pvdii-lutein-zeaxan 250-90-40-1 mg (PreserVision AREDS-2) 1 tab PO BID Do you need a note to return to daycare/school/sports/work: No HPI HPI COPD: Details: This 79 years old very pleasant female, a long-time patient of mine is here for follow-up after 4 months. Her breathing status has remained very stable without any acute exacerbation or infections. She does get short of breath on walking especially when outdoors, but this is partly due to back discomfort. Continues to use her inhalers regularly. She is on oxygen therapy and uses O2 2 L/minute at home and 3 L/minute when going outdoors. Sleeps well with oxygen. [facility] Medical History Ill-fitting dentures Environmental allergies Seasonal allergies Osteoporosis Hemorrhoids Oxygen dependent Respiratory failure with hypoxia Pulmonary nodules/lesions, multiple Anxiety disorder Post-menopausal Screening for colon cancer Screening for diabetes mellitus Acute anxiety Anxiety Asthma Allergic rhinitis COPD (chronic obstructive pulmonary disease) Surgical History History of colonoscopy History of cataract surgery History of right hip replacement Family History Mother No problems noted. Father No problems noted. Social History Housing: House Are you a primary childcare aide to a significant other at home: No Do you presently have visiting nurse or other home services: No Alcohol intake: current Alcohol intake frequency: holidays/special occasions only Patient Tobacco Use Status: Former Tobacco user Tobacco use type: Cigarette e-Cigarette/Vaping Use: Never Used Second Hand Smoke Exposure: Yes service: No Current occupational status: retired Cognitive needs: No Hearing needs: No Vision needs: Yes (Glasses) Review of Systems Const All systems reviewed & are unremarkable except as noted in HPI and below Eyes Reports no additional complaints ENT Reports nasal congestion (Mild off and) Card Reports no additional complaints Resp Reports as per HPI GI Reports no additional complaints Reports no additional complaints Musc Reports back pain (Chronic stable) Skin/Breast Reports system reviewed and no additional complaints, except as documented Neuro Reports no additional complaints Psych Reports anxiety (Under control) Physical Exam Vital Signs: Last Vital Signs Pulse 67 09/03/24 09:54 BP 108/72 09/03/24 09:54 Pulse Ox 92 09/03/24 09:54 Oxygen Delivery Method Nasal Cannula 09/03/24 09:54 Oxygen Flow Rate 3 09/03/24 09:54 BMI result Body Mass Index 20.6 Const General: comfortable, no acute distress, alert and awake Orientation/consciousness: patient oriented x3 HEENT Head: Yes normal to inspection General nose exam: No nasal polyps present and No nasal discharge present Face and sinus: Yes sinuses nontender Mouth: oropharynx normal Throat: Yes posterior oropharynx normal Eyes General: appearance normal, both eyes and all related structures Neck Neck: Yes normal visual inspection, Yes no lymphadenopathy, Yes trachea midline and Yes no JVD Thyroid: Thyroid normal Chest Chest palpation & inspection: normal inspection of the chest, normal palpation of entire chest wall and no tenderness Resp Other: Percussion note hyper-resonant, she has equal breath sounds on both sides with prolonged expiratory phase. No Rhonchi or Creps or wheezes . Cardio Palpation: normal PMI Rate: regular rate Rhythm: regular rhythm Heart sounds: no gallops and no murmurs Peripheral pulses: Peripheral pulses 2+ throughout GI Palpation (GI): Soft to palpation, nontender, No hepatosplenomegaly present and no masses Auscultation: normal bowel sounds Back/Spine/Pelvis Thoracic/Lumbar Spine: thoracic and lumbar spine normal to inspection, kyphosis (Moderate kyphosis of the thoracic spine.) and thoraco-lumbar ROM limited Skin General skin exam: no rashes or lesions noted Neuro General: patient oriented x3 and no focal motor deficits Cranial nerves: Yes CN's II-XII intact bilaterally Extrem General: Yes normal to inspection, Yes no clubbing, cyanosis or edema and Yes no calf tenderness Psych Speech and movement: Normal speech and movement present Affect: Anxious affect present (Controlled) Assessment & Plan Assessment & Plan (1) COPD (chronic obstructive pulmonary disease): Comment: Chronic advanced, remains well controlled . No recent flare ups . Overall she is doing well on her current regimen . Code(s): J44.9 - Chronic obstructive pulmonary disease, unspecified Category: Medical Plan: Continue using: BREO 200-251 INHALATION DAILY INCRUSE ELLIPTA 1 INHALATION DAILY MUCINEX 600 MG B.I.D. LEVALBUTEROL-452 PUFFS Q 4-6 HOURS P.R.N. (2) Allergic rhinitis: Comment: Chronic, under control, Code(s): J30.9 - Allergic rhinitis, unspecified Category: Medical Plan: USE OTC ANTIHISTAMINIC AGENTS AN E P.R.N. (3) Anxiety disorder: Comment: Seems to be well controlled, uses lorazepam 0.5 mg only p.r.n.. If she is traveling by air then she may take lorazepam 0.5 mg before boarding the plane. Code(s): F41.9 - Anxiety disorder, unspecified Category: Medical Plan: OK TO USE LORAZEPAM 0.5 MG ONLY P.R.N. (4) Respiratory failure with hypoxia: Comment: Has chronic hypoxemia, it is treated well with O2 2 L/minute at home, And 3 L/minute via POC.when outdoors. Code(s): J96.91 - Respiratory failure, unspecified with hypoxia Category: Medical Plan: CONTINUE THE PROPER USE OF OXYGEN NOTED ABOVE. Coding Level of Care Code Est Pt Level 4 (73925) Diagnoses COPD (chronic obstructive pulmonary disease) J44.9 Allergic rhinitis J30.9 Anxiety disorder F41.9 Respiratory failure with hypoxia J96.91
== END 2024-09-03 10:28 | disposition home or self-care (01) ==
PROVIDERS: PCP Internal Medicine; Visit Provider Internal Medicine
DX: J44.9 Chronic obstructive pulmonary disease, unspecified (principal); J30.9 Allergic rhinitis, unspecified; F41.9 Anxiety disorder, unspecified; J96.91 Respiratory failure, unspecified with hypoxia
CPT/HCPCS: 99214

== ENCOUNTER 2024-12-03 12:20 | Inpatient (IN) | payer MEDICARE, MEDICAID, SELFPAY ==
[2024-12-03] VITALS (10 sets, daily range): BP systolic 111–146; BP diastolic 62–78; PULSE 69–99; RESP 16–28; TEMP 36.2–36.7; O2SAT 88–95; BMI 20.6; BMI 20.7
--- NOTE | ~2024-12-03 | XR_ITS ---
EXAMINATION: XR CHEST 1 VIEW HISTORY: SOB COMPARISON: Comparison is made with the prior examination dated 05/30/2019. FINDINGS: A single AP portable view of the chest performed at 12:38 PM is submitted. There are increased interstitial markings most prominent at the bases. There are probable small bilateral pleural effusions. There is no pneumothorax or pulmonary vascular congestion. The heart is normal in size. The aorta is tortuous. There is degenerative disc disease of the spine. XR/XR chest 1V IMPRESSION: Increased interstitial markings at the lung bases which may represent an acute inflammatory process. Electronically signed by: Juan Diego Melton MD 12/03/2024 12:48 PM EDT
--- NOTE | ~2024-12-03 | CT_ITS ---
EXAMINATION: CT ANGIOGRAM CHEST CLINICAL INFORMATION: Shortness of breath, hypoxia COMPARISON: CT chest 06/16/2021. TECHNIQUE: Multiple axial images were obtained through the chest after the administration of 65 mL of Omnipaque 350 intravenous contrast. Extensive vascular post-processing including two-dimensional and three-dimensional reformatted images were created and reviewed on an independent workstation. This CT examination was performed using dose optimization techniques as appropriate, variously including the following: *Automated exposure control *Adjustment of mA and/or kV according to patient size (this includes techniques or standardized protocols for targeted exams where dose is matched to indication/reason for exam; i.e. extremities or head) *Use of iterative reconstruction technique FINDINGS: VASCULAR: Study quality is adequate. There is no evidence of pulmonary embolus on this examination. Main pulmonary artery is mildly enlarged. Aorta is uncoiled, tortuous, calcified, with no evidence of acute aortic syndrome. There is moderate atheromatous plaque. There is no aneurysm. Mild cardiac enlargement. No pericardial effusion. LUNGS: There is severe centrilobular and paraseptal emphysema. There are apical bullous changes. There is upper lobe predominance. There are small pleural effusions bilaterally, with associated passive atelectasis of portions of the lower lobes. Otherwise, no consolidative opacities or abnormal groundglass opacities. A small amount of interstitial pulmonary edema is suspected. No suspicious nodules. There are a few scattered calcified granulomata. Small airways demonstrate mild diffuse thickening, in keeping with chronic bronchitis. Mild linear scarring or atelectasis in both lower lobes. Central airways appear patent, with a small amount of mucoid secretions noted. MEDIASTINUM: No significant thyroid lesion identified. No mediastinal lymphadenopathy or mass. No discrete abnormality of esophagitis. AXILLA/CHEST WALL: No lymphadenopathy or mass. UPPER ABDOMEN: There is a 1.4 cm right renal cyst. Heavy atheromatous changes of the aorta. Diverticulosis of the imaged colon. OSSEOUS STRUCTURES: Exaggerated thoracic kyphosis with osteopenia. Chronic appearing compression deformities T4, T5, T6, T7, T8, T9, and T10, without change. Subtle old right fifth rib fracture. CT/CT angio chest PE protocol IMPRESSION: 1. There is no evidence of pulmonary embolus. There is no acute aortic syndrome. 2. Severe centrilobular and paraseptal emphysema with apical bullous changes. Small pleural effusions bilaterally with passive type atelectasis. There appears to be a mild amount of interstitial pulmonary edema. 3. There is no definite discrete focal pneumonia. 4. Diffuse thickening of the small airways, in keeping with chronic bronchitis. 5. Enlargement of the main pulmonary artery suggesting pulmonary hypertension. 6. Mild cardiac enlargement. 7. Additional ancillary findings as discussed in the body of report. Electronically signed by: Fransisco Berman MD 12/03/2024 02:18 PM EDT
--- NOTE | 2024-12-03 12:28 | ECG_ITS ---
Test Reason : sob Blood Pressure : */* mmHG Vent. Rate : 76 BPM Atrial Rate : 76 BPM P-R Int : 124 ms QRS Dur : 80 ms QT Int : 360 ms P-R-T Axes : 85 64 18 degrees QTcB Int : 405 ms Sinus rhythm with Premature atrial complexes Otherwise normal ECG When compared with ECG of 05-Jul-2018 18:47, Premature atrial complexes are now Present ST no longer elevated in Inferior leads Referred By: Ari Gilmore Electronically Signed By: Flex De La Torre
--- NOTE | 2024-12-03 12:30 | ED_ITS ---
HPI - General Adult General Chief complaint: Dyspnea Stated complaint: diff breathing Time Seen by Provider: 12/03/24 12:35 Source: patient Mode of arrival: wheelchair Limitations: no limitations History of Present Illness ED Provider: Christine Malone PA-C HPI narrative: Patient is a 79 year old assigned female at with a history of COPD on 2 liters of oxygen at baseline, anxiety, asthma, and HTN presenting to the emergency department today with increased shortness of breath. Patient states that over the last 4 days she has had worsening shortness of breath and a cough after being around a sick individual. Patient denies any dizziness, lightheadedness, abdominal pain, nausea, vomiting, fever, chills, blurry vision, double vision, loss of vision, chest pain, back pain, night sweats, pain with urination, increased urinary frequency, increased urinary urgency, blood in her urine or stool, syncope or a near syncopal episode, recent trauma or falls, bowel incontinence, bladder incontinence, or any other complaints at this time. Onset (ago): day(s) (4) Relieving factors: none Exacerbating factors: other (exertion) Associated symptoms: shortness of breath Related Data Home Medications ?Medication ?Instructions ?Recorded ?Confirmed guaifenesin 600 mg tablet, 600 mg PO BID 07/21/20 12/03/24 extended release 12 hr (Mucinex) vit C 250 mg-vit E 90 mg-zinc 40 1 tab PO BID 07/21/20 12/03/24 mg-copper 1 [id number] capsule (PreserVision AREDS-2) calcium carbonate (Calcium 600) 600 mg PO BID 01/28/21 12/03/24 cholecalciferol (vitamin D3) 25 25 mcg PO DAILY 05/20/22 12/03/24 mcg (1,000 unit) capsule (Vitamin D3) azithromycin 250 mg tablet 250 mg PO MOWEFR@1000 COPD 12/03/24 12/03/24 Previous Rx's ?Medication ?Instructions ?Recorded furosemide 20 mg tablet 20 mg PO DAILY PRN Edema #90 tabs 12/20/22 atenolol 25 mg tablet 25 mg PO BID #180 tabs 01/03/24 levalbuterol tartrate 45 2 puff PO Q4-6H PRN for dyspnea 01/17/24 mcg/actuation aerosol inhaler #15 ea Incruse Ellipta 62.5 mcg/actuation 1 inh inhalation DAILY #90 ea 06/18/24 powder for inhalation (umeclidinium) hydrocortisone 2.5 % topical cream 1 appl CO BID-QID PRN hemorrhoids 09/04/24 with perineal applicator #30 grams (Proctosol HC) Breo Ellipta 200 mcg-25 mcg/dose 1 ea inhalation DAILY #180 ea 09/07/24 powder for inhalation (fluticasone furoate-vilanterol) Allergies Allergy/AdvReac Type Severity Reaction Status Date / Time penicillin G Allergy Severe Anaphylaxis Verified 12/03/24 12:27 Sulfa (Sulfonamide Allergy Severe Anaphylaxis Verified 12/03/24 12:27 Antibiotics) cat dander [CATS] Allergy Unknown MUCOUS Verified 12/03/24 12:27 FORMATION, asthma dog dander [DOGS] Allergy Unknown MUCOUS Verified 12/03/24 12:27 FORMATION, asthma egg Allergy Unknown Wheezing Verified 12/03/24 12:27 house dust [HOUSE DUST] Allergy Unknown MUCOUS Verified 12/03/24 12:27 FORMATION, asthma milk [MILK] Allergy Unknown MUCOUS Verified 12/03/24 12:27 FORMATION mold Allergy Unknown MUCOUS Verified 12/03/24 12:27 FORMATION, asthma tree and shrub pollen [TREES] Allergy Unknown MUCOUS Verified 12/03/24 12:27 FORMATION TO CERTAIN TREES, asthma yeast, dried [yeast] Allergy Unknown MUCOUS Verified 12/03/24 12:27 FORMATION, asthma Review of Systems 2 Constitutional: Constitutional: Reports no additional constitutional complaints, Denies chills, Denies fever(s) and Denies night sweats Eyes: Eyes: Reports no additional eye complaints, Denies blurry vision, Denies change in vision, Denies diplopia, Denies eye discharge, Denies loss of vision and Denies eye pain ENT: Denies dizziness Cardiovascular: Cardiovascular: Reports no additional cardiovascular complaints, Denies chest pain, Denies lightheadedness, Denies Loss of Consciousness and Reports dyspnea Respiratory: Respiratory: Reports no additional respiratory complaints, Reports cough and Reports dyspnea Gastrointestinal: Gastrointestinal: Reports no additional gastrointestinal complaints, Denies abdominal pain, Denies melena, Denies hematochezia, Denies change in bowel habits and Denies change in stool character Genitourinary: Genitourinary: Denies hematuria, Denies urinary frequency, Denies dysuria, Denies urinary incontinence, Denies urinary hesitancy and Denies urinary urgency Musculoskeletal: Musculoskeletal: Reports no additional musculoskeletal complaints, Denies numbness and Denies tingling Neurologic: Denies dizziness, Denies loss of vision, Denies numbness and Denies tingling Psychiatric: Psychiatric: Reports no additional psychiatric complaints Endocrine: Endocrine: Reports no additional endocrine complaints Hematologic/Lymphatic: Hematologic/Lymphatic: Reports no additional hematologic/lymphatic complaints Allergic/Immunologic: Allergic/Immunologic: Reports no additional allergic/immunologic complaints [facility] Past Medical History Attestation statement: The following information was validated with the patient. Source: old records reviewed and nursing notes reviewed Medical History (Updated 12/03/24 @ 17:43 by NGOZI Shields) Environmental allergies Seasonal allergies Osteoporosis Hemorrhoids Oxygen dependent Respiratory failure with hypoxia Pulmonary nodules/lesions, multiple Anxiety disorder Screening for diabetes mellitus Acute anxiety Anxiety Asthma Allergic rhinitis COPD (chronic obstructive pulmonary disease) Surgical History History of colonoscopy History of cataract surgery History of right hip replacement Family History Family History Mother No problems noted. Father No problems noted. Social History Social History Household Members: Spouse Housing: House Are you a primary pharmacy care coordinator to a significant other at home: No Do you presently have visiting nurse or other home services: No Alcohol intake: current Alcohol intake frequency: holidays/special occasions only Patient Tobacco Use Status: Former Tobacco user Tobacco use type: Cigarette e-Cigarette/Vaping Use: Never Used Second Hand Smoke Exposure: Yes Use of substances other than those prescribed or required for medical reasons: No Currently Displaying Signs/Symptoms of Drug Intoxication Withdrawal: No Have you been hit, kicked, punched, or otherwise hurt by someone within the past year? If so, by whom?: No Do you feel safe in your current relationship?: Yes Is there a partner from a previous relationship who is making you feel unsafe now?: No Are you made to feel afraid or neglected: No Advance Directives: No Advance Directives Information Provided: Yes Do you have a plan to hurt others: No Plan Recently lost weight without trying: No How much weight loss: Not applicable Eating poorly because of decreased appetite: No Nutrition screen score: 0 Nutrition Risks: No Nutritional Risk Patient : No : No Poor oral hygiene: No service: No Current occupational status: retired Cognitive needs: No Hearing needs: No Vision needs: Yes (Glasses) Physical Exam ED Vital Signs: Vital Signs - 24 hr 12/03/24 12:23 12/03/24 12:41 12/03/24 15:19 Temperature 98.1 F Pulse Rate 69 69 83 Respiratory Rate 28 H 28 H Blood Pressure 134/78 124/67 Pulse Oximetry 88 L Oxygen Delivery Method Nasal Cannula BMI result Body Mass Index 20.6 Const General: cooperative, no acute distress, alert and awake Nutritional Appearance: well nourished Orientation/consciousness: patient oriented x3 Limitations: no limitations HENMT Head: Yes normal to inspection and Yes atraumatic Ears: hearing grossly normal bilaterally and external ears normal General nose exam: Normal external nose present, no nasal discharge noted and no epistaxis Face and sinus: Yes normal facial exam, No abrasion and No laceration Mouth: Normal oral and palatal mucosa present, no drooling and no muffled voice Eyes General: appearance normal, both eyes and all related structures Periorbital: periorbital findings normal Eyelids: Yes eyelids normal Conjunctivae: conjunctivae normal Pupils: Equal, round and reactive pupils present EOM: EOMs intact bilaterally Neck Neck: Yes normal visual inspection, Yes full ROM and Yes no lymphadenopathy Chest Chest palpation & inspection: normal inspection of the chest Resp Effort & Inspection: able to speak in complete sentences and labored Auscultation: wheezes scattered wheezes and diminished lung sounds diffuse GI Inspection: Yes normal to inspection Neuro General: patient oriented x3, moves all extremities and CN's II-XI intact bilaterally Cranial nerves: Yes Equal, round and reactive pupils present Cognition (Neuro): normal cognition Extrem General: Yes normal to inspection, Yes full ROM and Yes capillary refill normal Psych Appearance: grossly normal Mental Status: mental status grossly normal Affect: normal affect Attitude: cooperative Thought process: Normal thought process present Thought content: Normal thought content present Insight: Good insight present (Psych) Course Course Course Narrative: GUALBERTO; 79-year-old female history of asthma COPD presents to ED for chest tightness, shortness of breath and coughing for the past 4 days with mucus. Triage O2 saturation 85 88%. On baseline 2 L O2 sat 93%. Oxygen dependent. Positive for wheezing. Labs EKG ED bronchodilators ordered. Patient is brought to the ED Medications Administered Generic Name Dose Route Start Last Admin Trade Name Rissa PRN Reason Stop Dose Admin Acetaminophen 650 mg 12/03/24 15:40 12/03/24 19:21 Acetaminophen 325 Mg Tablet PO 650 mg Q6H PRN Administration Pain, Mild 1-3,fever,headache Albuterol Sulfate 2.5 mg 12/03/24 16:00 12/03/24 20:08 Albuterol Sulfate (0.083%) 2.5 Mg/3 Ml Vial.Neb INHALE 2.5 mg RQ4H WHILE AWAKE JOSEPH Administration Atenolol 25 mg 12/03/24 21:00 12/03/24 20:26 Atenolol 25 Mg Tablet PO 25 mg BID JOSEPH Administration Protocol Calcium Carbonate 500 mg 12/03/24 21:00 12/03/24 20:26 Calcium Oyster Shell Elemental 500 Mg Tablet PO 500 mg BID JOSEPH Administration Guaifenesin 600 mg 12/03/24 21:00 12/03/24 20:26 Guaifenesin La 600 Mg Tab.Er.12h PO 600 mg BID JOSEPH Administration Heparin Sodium (Porcine) 5,000 unit 12/03/24 15:45 12/04/24 03:21 Heparin Sodium,Porcine 5,000 Unit/Ml Vial SUBCUT Not Given Q12H JOSEPH Ibuprofen 400 mg 12/03/24 15:40 12/03/24 23:45 Ibuprofen 400 Mg Tablet PO 400 mg Q6H PRN Administration Headache Methylprednisolone Sodium Succinate 40 mg 12/04/24 01:00 12/04/24 00:44 Methylprednisolone Sod Succ 40 Mg/Ml Vial IVPUSH 40 mg Q12H JOSEPH Administration Sodium Chloride 3 ml 12/03/24 16:00 12/03/24 20:27 0.9 % Sodium Chloride Flush 3 Ml Syringe IVFLUSH 3 ml QSHIFT JOSEPH Administration Discontinued Medications Generic Name Dose Route Start Last Admin Trade Name Rissa PRN Reason Stop Dose Admin Albuterol Sulfate 5 mg/ 0 mg 12/03/24 12:36 12/03/24 12:40 Albuterol/Ipratropium 3 ml INHALE 12/03/24 12:37 1 each ONCE ONE Administration Magnesium Sulfate 2 gm in 50 mls @ 25 mls/hr 12/03/24 12:40 12/03/24 16:48 Magnesium Sulfate/H2o IV 12/03/24 14:39 Infused ONCE ONE Infusion Levofloxacin 750 mg in 150 mls @ 100 mls/hr 12/03/24 13:43 12/03/24 16:48 Levaquin IV 12/03/24 15:12 Infused ONCE ONE Infusion Iohexol 100 ml 12/03/24 13:53 12/03/24 13:53 Iohexol 350 Mg/Ml 100 Ml Infus..Btl IV 12/03/24 13:54 65 ml ONCE ONE Administration Methylprednisolone Sodium Succinate 60 mg 12/03/24 12:36 12/03/24 13:11 Methylprednisolone Sod Succ 125 Mg/2 Ml Vial IVPUSH 12/03/24 12:37 60 mg ONCE ONE Administration Medical Decision Making Medical Decision Making [facility] Narrative: Patient is a 79 year old assigned female at with a history of COPD on 2 liters of oxygen at baseline, anxiety, asthma, and HTN presenting to the emergency department today with increased shortness of breath. Patient's physical exam was as noted in the physical exam portion of this note. Patient's blood work showed a BNP of 502 but were otherwise unremarkable. Patient's EKG was unremarkable. Patient's chest x-ray showed an acute inflammatory process. Patient's CTA chest showed mild amount of interstitial pulmonary edema but no evidence of PE. Patient's clinical presentation is most consistent with a COPD exacerbation and not sepsis (@1501). Patient was hypoxic at 88% on her 2L upon arrival. Patient was brought up to 4L and saturated at 92%. Patient was given solu-medrol, magnesium, and a breathing treatment. I spoke to the hospitalist team who agreed to admission. I explained my physical exam findings as well as all test results to the patient. I answered all questions asked by the patient. Patient verbalized agreement and understanding with this treatment plan and admission. Differential Diagnosis Differential Diagnoses: The differential diagnosis associated with the presentation includes COPD Respiratory distress Viral illness PNA Admission/Observation Consideration of admission/observation: Escalation of care including admission/observation considered Patient admitted as noted in the MDM Rationale portion of this note. Consult Healthcare Provider Management of the patient was discussed with: Hospitalist (agreed to admission as noted in the MDM Rationale portion of this note. ) Lab Data [facility] Lab Attestation statement: I reviewed the patient's lab results. My interpretation of these results are in the MDM Rationale portion of this note. 12/04/24 05:05 12/04/24 05:05 Labs: Lab Results 12/03/24 12/03/24 Range/Units 12:53 12:54 WBC 8.7 (4.8-10.8) X10*3/uL RBC 3.45 L (4.20-5.50) X10*6/uL Hgb 10.5 L (12.0-16.0) g/dl Hct 33.3 L (37.0-47.0) % MCV 96.5 (80.0-98.0) fL MCH 30.4 (27.0-33.0) pg MCHC 31.5 (31.0-35.0) g/dl RDW 12.8 (11.0-16.0) % Plt Count 245 (160-400) X10*3/uL MPV 10.5 (9.4-12.3) fL Immature Gran % (Auto) 0.5 H (0.0-0.4) % Neut % (Auto) 83.7 H (45-73) % Lymph % (Auto) 5.2 L (20-40) % [place] % (Auto) 8.5 (2-11) % Eos % (Auto) 1.5 (0-4) % Baso % (Auto) 0.6 (0-2) % Lymph # (Auto) 0.5 L (1.2-4.9) X10*3/uL [place] # (Auto) 0.7 (0.1-1.2) X10*3/uL Eos # (Auto) 0.1 (0.0-0.4) X10*3/uL Baso # (Auto) 0.1 (0.0-0.2) X10*3/uL Abs Immat Gran (auto) 0.04 H (0.00-0.03) X10*3/uL Absolute Neuts (auto) 7.3 (2.0-8.3) x10*3/uL Absolute Nucleated RBC 0.000 (0.0-0.012) X10*3/uL Nucleated RBC % (auto) 0.0 (0.0-0.2) /100WBC PT 11.4 (10.9-12.4) SEC INR 1.0 (0.9-1.1) Sodium 140 (135-145) mmol/L Potassium 3.7 (3.3-5.1) mmol/L Chloride 101 (96-108) mmol/L Carbon Dioxide 31 H (22-29) mmol/L Anion Gap 12 (12-20) BUN 15 (9-16) mg/dL Creatinine 0.86 (0.5-1.4) mg/dL Estim Creat Clear Calc 47.0 Estimated GFR > 60 Random Glucose 159 H (60-115) mg/dL Lactic Acid 1.4 (0.5-2.0) mmol/L Calcium 10.2 D (8.4-10.2) mg/dL Total Bilirubin 0.3 (0.0-1.0) mg/dL AST 30 (5-31) U/L ALT 32 H (0-31) U/L Alkaline Phosphatase 59 (39-117) U/L Troponin I High Sens 9.1 (<3.5-17.0) ng/L B-Natriuretic Peptide 502 H (<100) pg/mL Total Protein 6.5 (6.5-8.0) g/dL Albumin 3.9 (3.5-5.0) g/dL Independent Interpretation I performed an independent interpretation of an: EKG, Plain X-Ray and CT Scan Interpretation: My interpretation is in agreement with the radiologist's impression of these imaging studies. L EXAMINATION: XR CHEST 1 VIEW HISTORY: SOB COMPARISON: Comparison is made with the prior examination dated 05/30/2019. FINDINGS: A single AP portable view of the chest performed at 12:38 PM is submitted. There are increased interstitial markings most prominent at the bases. There are probable small bilateral pleural effusions. There is no pneumothorax or pulmonary vascular congestion. The heart is normal in size. The aorta is tortuous. There is degenerative disc disease of the spine. XR/XR chest 1V IMPRESSION: Increased interstitial markings at the lung bases which may represent an acute inflammatory process. Electronically signed by: Juan Diego Melton MD 12/03/2024 12:48 PM EDT Dictated By: Juan Diego Melton MD Signed By: Electronically signed by Juan Diego Melton MD 12/03/24 1248 I independently interpreted this EKG and am in agreement with the below findings: Vent. Rate: 76 BPM Atrial Rate: 76 BPM P-R Int: 124 ms QRS Dur: 80 ms QT Int: 360 ms P-R-T Axes: 85 64 18 degrees QTcB Int: 405 ms Sinus rhythm with Premature atrial complexes When compared with ECG of 05-Jul-2018 18:47, Premature atrial complexes are now Present ST no longer elevated in Inferior leads DD/ [id number] Radiology Impression Discussion of test interpretation with radiology: I have reviewed the radiologist's reading. Critical Care Time Critical Care Time Critical Care Time: Yes Total Critical Care Time: 44 Attestation: I spent 44 minutes of Critical Care Time with this patient. This does not include time spent on separately reported billable procedures. Discharge Plan Discharge Clinical Impression: Hypoxia, COPD (chronic obstructive pulmonary disease) Patient Disposition: Admitted As Inpatient Interventions: Admission Worksheet (ED) Last Done: 12/03/24 18:24 Discharge Date/Time: 12/03/24 18:39
[2024-12-03] MEDS: Albuterol Sulfate 5 MG, Albuterol/Iprat 2.5/0.5MG 3 ML 3 ML INHALE (12:40)
[2024-12-03 13:00] LABS: MANUAL DIFF FLAG NO
[2024-12-03 13:05] LABS: Basophils Absolute Auto 0.1 X10*3/uL (0.0-0.2); Basophils Percent Auto 0.6 % (0-2); Eosinophils Absolute Auto 0.1 X10*3/uL (0.0-0.4); Eosinophils Percent Auto 1.5 % (0-4); Hematocrit 33.3 % (37.0-47.0); Hemoglobin 10.5 g/dl (12.0-16.0); Imm Gran Abs Auto 0.04 X10*3/uL (0.00-0.03); Imm Gran Pct Auto 0.5 % (0.0-0.4); Lymphocytes Absolute Auto 0.5 X10*3/uL (1.2-4.9); Lymphocytes Percent Auto 5.2 % (20-40); Mean Corpuscular HGB Conc 31.5 g/dl (31.0-35.0); Mean Corpuscular Hemoglobin 30.4 pg (27.0-33.0); Mean Corpuscular Volume 96.5 fL (80.0-98.0); Mean Platelet Volume 10.5 fL (9.4-12.3); Monocytes Absolute Auto 0.7 X10*3/uL (0.1-1.2); Monocytes Percent Auto 8.5 % (2-11); Neutrophils Absolute Auto 7.3 x10*3/uL (2.0-8.3); Neutrophils Percent Auto 83.7 % (45-73); Platelet Count 245 X10*3/uL (160-400); Red Blood Count 3.45 X10*6/uL (4.20-5.50); Red Cell Distribution Width 12.8 % (11.0-16.0); White Blood Count 8.7 X10*3/uL (4.8-10.8)
[2024-12-03 13:08] LABS: Prothrombin Time 11.4 SEC (10.9-12.4)
[2024-12-03] MEDS: Magnesium Sulfate/H2O 2 GM/50 ML PIGGYBACK IV (13:11)
[2024-12-03] MEDS: methylPREDNISolone Sod Succ 125 MG/2 ML VIAL 60 MG IVPUSH (13:11)
[2024-12-03 13:22] LABS: Lactic Acid 1.4 mmol/L (0.5-2.0)
[2024-12-03 13:31] LABS: Alanine Aminotransferase 32 U/L (0-31); Albumin Level 3.9 g/dL (3.5-5.0); Alkaline Phosphatase 59 U/L (39-117); Anion Gap 12 (12-20); Aspartate Amino Transferase 30 U/L (5-31); Bilirubin Total 0.3 mg/dL (0.0-1.0); Blood Urea Nitrogen 15 mg/dL (9-16); Calcium 10.2 mg/dL (8.4-10.2); Carbon Dioxide 31 mmol/L (22-29); Chloride 101 mmol/L (96-108); Estimated Glomerular Filt Rate > 60; Glucose Random 159 mg/dL (60-115); Potassium 3.7 mmol/L (3.3-5.1); Sodium 140 mmol/L (135-145); Total Protein 6.5 g/dL (6.5-8.0)
[2024-12-03 13:32] LABS: Troponin-I High Sensitivity 9.1 ng/L (<3.5-17.0)
[2024-12-03 13:41] LABS: B Type Natriuretic Peptide 502 pg/mL (<100)
[2024-12-03] MEDS: iohexoL 350 MG/ML 100 ML INFUS..BTL IV (13:53)
[2024-12-03] MEDS: levoFLOXacin/D5W 750 MG/150 ML PIGGYBACK 100 MG IV (14:22)
--- NOTE | 2024-12-03 15:34 | PHA.MEDREC ---
Pharmacy Consult ? Medication Reconciliation Pharmacy has completed the medication reconciliation.Med rec complete, spoke to patient and compared with pharmacy claim history.
--- NOTE | 2024-12-03 15:54 | P.HPHOSP_ITS ---
History of Present Illness Date of Service: 12/03/24 Chief Complaint: Shortness of breath 79 year old women with hx of copd and emphysema presenting with increased sob over the last few weeks but worse in the last 4-5 days. Walking up stairs and walking ion general caused increased shortness of breath. She also reported that she normally sleeps with 3 pillows and that has not changed. She had been doing her breathing exercises and using her inhalers with no effect. She increased her oxygen to 3 liters nc. She did have a dry cough. She denied sick contacts, recent travel, fever, chills, nausea, vomiting, diarrhea. Chest CTA neg for PE or obvious consolidation but showed apical bullous changes, no fever or leukocytosis, BNP elevated at 502. She was given solumedrol, albuterol, Levaquin, magnesium in the ED. She will be admitted and treated for COPD exacerbation and bronchitis. Review of Systems 2 Review of Systems: Denies any recent fever chills or decrease in appetite respiratory See HPI cardiovascular denied chest pain gastrointestinal denies any dysphagia abdominal pain nausea vomiting or diarrhea genitourinary denies any dysuria frequency or hematuria musculoskeletal denies any joint pain or swelling neuropsych denies any weakness or seizures all other systems reviewed are negative [facility] Medical History (Updated 12/03/24 @ 17:43 by NGOZI Shields) Environmental allergies Seasonal allergies Osteoporosis Hemorrhoids Oxygen dependent Respiratory failure with hypoxia Pulmonary nodules/lesions, multiple Anxiety disorder Screening for diabetes mellitus Acute anxiety Anxiety Asthma Allergic rhinitis COPD (chronic obstructive pulmonary disease) Family History Mother No problems noted. Father No problems noted. Surgical History History of colonoscopy History of cataract surgery History of right hip replacement Social History Household Members: Spouse Housing: House Are you a primary rn critical care to a significant other at home: No Do you presently have visiting nurse or other home services: No Alcohol intake: current Alcohol intake frequency: holidays/special occasions only Patient Tobacco Use Status: Former Tobacco user Tobacco use type: Cigarette e-Cigarette/Vaping Use: Never Used Second Hand Smoke Exposure: Yes Use of substances other than those prescribed or required for medical reasons: No Currently Displaying Signs/Symptoms of Drug Intoxication Withdrawal: No Have you been hit, kicked, punched, or otherwise hurt by someone within the past year? If so, by whom?: No Do you feel safe in your current relationship?: Yes Is there a partner from a previous relationship who is making you feel unsafe now?: No Are you made to feel afraid or neglected: No Advance Directives: No Advance Directives Information Provided: Yes Do you have a plan to hurt others: No Plan Recently lost weight without trying: No How much weight loss: Not applicable Eating poorly because of decreased appetite: No Nutrition screen score: 0 Nutrition Risks: No Nutritional Risk Patient : No : No Poor oral hygiene: No service: No Current occupational status: retired Cognitive needs: No Hearing needs: No Vision needs: Yes (Glasses) Meds Allergies Allergy/AdvReac Type Severity Reaction Status Date / Time penicillin G Allergy Severe Anaphylaxis Verified 12/03/24 12:27 Sulfa (Sulfonamide Allergy Severe Anaphylaxis Verified 12/03/24 12:27 Antibiotics) cat dander [CATS] Allergy Unknown MUCOUS Verified 12/03/24 12:27 FORMATION, asthma dog dander [DOGS] Allergy Unknown MUCOUS Verified 12/03/24 12:27 FORMATION, asthma egg Allergy Unknown Wheezing Verified 12/03/24 12:27 house dust [HOUSE DUST] Allergy Unknown MUCOUS Verified 12/03/24 12:27 FORMATION, asthma milk [MILK] Allergy Unknown MUCOUS Verified 12/03/24 12:27 FORMATION mold Allergy Unknown MUCOUS Verified 12/03/24 12:27 FORMATION, asthma tree and shrub pollen [TREES] Allergy Unknown MUCOUS Verified 12/03/24 12:27 FORMATION TO CERTAIN TREES, asthma yeast, dried [yeast] Allergy Unknown MUCOUS Verified 12/03/24 12:27 FORMATION, asthma Active Medications: Current Medications Acetaminophen (Acetaminophen 325 Mg Tablet) 650 mg PO Q6H PRN PRN Reason: Pain, Mild 1-3,fever,headache Albuterol Sulfate (Albuterol Sulfate (0.083%) 2.5 Mg/3 Ml Vial.Neb) 2.5 mg INHALE RQ4H WHILE AWAKE JOSEPH Calcium Carbonate (Calcium Carbonate 750 Mg Tab.Chew) 750 mg PO Q4H PRN PRN Reason: Heartburn Heparin Sodium (Porcine) (Heparin Sodium,Porcine 5,000 Unit/Ml Vial) 5,000 unit SUBCUT Q12H JOSEPH Levofloxacin (Levaquin) 750 mg in 150 mls @ 100 mls/hr IV Q24H JOSEPH Ibuprofen (Ibuprofen 400 Mg Tablet) 400 mg PO Q6H PRN PRN Reason: Headache Magnesium Hydroxide (Milk Of Magnesia 30 Ml Oral.Susp) 30 ml PO DAILY PRN PRN Reason: Constipation Melatonin (Melatonin 3 Mg Tablet) 6 mg PO BEDTIME PRN PRN Reason: Insomnia Methylprednisolone Sodium Succinate (Methylprednisolone Sod Succ 40 Mg/Ml Vial) 40 mg IVPUSH Q12H JOSEPH Ondansetron HCl (Ondansetron Hcl 4 Mg/2 Ml Vial) 4 mg IVPUSH Q8H PRN PRN Reason: Nausea and Vomiting Sodium Chloride (0.9 % Sodium Chloride Flush 3 Ml Syringe) 3 ml IVFLUSH QSHIFT [facility] Home Medications ?Medication ?Instructions ?Recorded ?Confirmed ?Last Taken ?Type guaifenesin 600 mg tablet, 600 mg PO BID 07/21/20 12/03/24 12/03/24 History extended release 12 hr (Mucinex) vit C 250 mg-vit E 90 mg-zinc 40 1 tab PO BID 07/21/20 12/03/24 12/03/24 History mg-copper 1 [id number] capsule (PreserVision AREDS-2) calcium carbonate (Calcium 600) 600 mg PO BID 01/28/21 12/03/24 12/03/24 History cholecalciferol (vitamin D3) 25 25 mcg PO DAILY 05/20/22 12/03/24 12/03/24 History mcg (1,000 unit) capsule (Vitamin D3) azithromycin 250 mg tablet 250 mg PO MOWEFR@1000 COPD 12/03/24 12/03/24 12/03/24 History Physical Exam 2 Vital Signs and Narrative: Vital Signs: Last Vital Signs Temp 98.1 F 12/03/24 12:23 Pulse 83 12/03/24 15:19 Resp 28 H 12/03/24 12:41 BP 124/67 12/03/24 15:19 Pulse Ox 88 L 12/03/24 12:23 O2 Del Method Nasal Cannula 12/03/24 12:23 Oxygen Flow Rate 2 12/03/24 12:23 BMI result Body Mass Index 20.6 Appearing in no acute distress head is normocephalic atraumatic eyes pupils are PERRLA sclera is anicteric mouth throat mucous membranes are intact and moist neck is supple no lymphadenopathy, no JVD noted lung sounds diminished heart regular rate rhythm, clear S1, S2 positive bowel sounds, abdomen is soft, nontender neuro patient is alert x3, no focal deficits Results Labs 12/04/24 05:05 12/04/24 05:05 Labs: Laboratory Results - last 24 hr 12/03/24 12/03/24 12:53 12:54 MCV 96.5 MCH 30.4 MCHC 31.5 RDW 12.8 Plt Count 245 MPV 10.5 Immature Gran % (Auto) 0.5 H Neut % (Auto) 83.7 H Lymph % (Auto) 5.2 L [place] % (Auto) 8.5 Eos % (Auto) 1.5 Baso % (Auto) 0.6 Lymph # (Auto) 0.5 L [place] # (Auto) 0.7 Eos # (Auto) 0.1 Baso # (Auto) 0.1 Abs Immat Gran (auto) 0.04 H Absolute Neuts (auto) 7.3 Absolute Nucleated RBC 0.000 Nucleated RBC % (auto) 0.0 PT 11.4 INR 1.0 Anion Gap 12 Estim Creat Clear Calc 47.0 Estimated GFR > 60 Random Glucose 159 H Lactic Acid 1.4 Calcium 10.2 D Total Bilirubin 0.3 AST 30 ALT 32 H Alkaline Phosphatase 59 B-Natriuretic Peptide 502 H Total Protein 6.5 Albumin 3.9 Imaging Radiologist's Impressions: Impressions Chest X-Ray 12/03/24 12:28 IMPRESSION: Increased interstitial markings at the lung bases which may represent an acute inflammatory process. Electronically signed by: Juan Diego Melton MD 12/03/2024 12:48 PM EDT RP Chest CTA 12/03/24 13:39 IMPRESSION: 1. There is no evidence of pulmonary embolus. There is no acute aortic syndrome. 2. Severe centrilobular and paraseptal emphysema with apical bullous changes. Small pleural effusions bilaterally with passive type atelectasis. There appears to be a mild amount of interstitial pulmonary edema. 3. There is no definite discrete focal pneumonia. 4. Diffuse thickening of the small airways, in keeping with chronic bronchitis. 5. Enlargement of the main pulmonary artery suggesting pulmonary hypertension. 6. Mild cardiac enlargement. 7. Additional ancillary findings as discussed in the body of report. Electronically signed by: Fransisco Berman MD 12/03/2024 02:18 PM EDT RP Assessment and Plan (1) Asthma: Status: Acute (2) COPD (chronic obstructive pulmonary disease): Status: Acute Plan 79 year old women admitted with COPD exacerbation and Bronchitis Acute on chronic hypoxic resp failure secondary to COPD and bronchitis Chest CTA neg for PE or obvious consolidation but showed apical bullous changes Supplemental oxygen to keep o2 sats greater than 90 %, on 2liters home oxygen Solumedrol BID Scheduled duonebs Levaquin Elevated BNP 502 does not appear to be in overt failure continue home lasic and recheck BNP in the am Elevated blood sugar reading likely from steroids check A1C in am HTN continue atenolol and lasix Normocytic anemia no acute bleeding chronic DVT prophylaxis with Heparin Full code Quality Stroke Does the patient have a stroke diagnosis?: No VTE Prior VTE?: No VTE Risk Level:: Medical - moderate - high VTE Device Contraindication: Treatment Not Indicated VTE Drug Contraindication: N/A - Med Ordered
[2024-12-03 16:05] LABS: Venous Blood Gas Refer to POC result
[2024-12-03 16:06] LABS: VBG Base Excess 7.7 mmol/L; VBG HCO3 34 mmol/L (22-26); VBG pCO2 56 mmHg; VBG pH 7.39 (7.32-7.43); VBG pO2 42 mmHg
[2024-12-03] MEDS: 0.9 % Sodium Chloride Flush 3 ML SYRINGE IVFLUSH ×2 (16:48→20:27)
--- NOTE | 2024-12-03 17:07 | PC.NURSE ---
Pt refused her heparin shot. Pt educated on heparin shot, still refused.
[2024-12-03 18:15] LABS: Influenza A PCR NEGATIVE (Negative); Influenza B PCR NEGATIVE (Negative); Resp Syncy Virus RNA Qual PCR NEGATIVE (Negative); SARS COV2 PCR INHOUSE NEGATIVE (Negative)
[2024-12-03] MEDS: Acetaminophen 325 MG TABLET 650 MG PO (19:21)
[2024-12-03] MEDS: Albuterol Sulfate (0.083%) 2.5 MG/3 ML VIAL.NEB INHALE (20:08)
[2024-12-03] MEDS: guaiFENesin LA 600 MG TAB.ER.12H PO (20:26)
[2024-12-03] MEDS: atenoloL 25 MG TABLET PO (20:26)
[2024-12-03] MEDS: Calcium Oyster Shell Elemental 500 MG TABLET PO (20:26)
[2024-12-03] MEDS: Ibuprofen 400 MG TABLET PO (23:45)
[2024-12-04] VITALS (9 sets, daily range): BP systolic 119–138; BP diastolic 57–74; PULSE 72–107; RESP 18–20; TEMP 36.2–36.8; O2SAT 90–98
[2024-12-04] MEDS: methylPREDNISolone Sod Succ 40 MG/ML VIAL IVPUSH ×2 (00:44→12:39)
[2024-12-04 06:29] LABS: Estimated Average Glucose 117 mg/dL; Hemoglobin A1C 108.9194 umol/L; Hemoglobin A1c % 5.7 % (<6.0); Total Hemoglobin (HGBA1C) 2773.9592 umol/L
[2024-12-04 06:31] LABS: Hematocrit 32.2 % (37.0-47.0); Hemoglobin 10.6 g/dl (12.0-16.0); Mean Corpuscular HGB Conc 32.9 g/dl (31.0-35.0); Mean Corpuscular Hemoglobin 31.3 pg (27.0-33.0); Mean Platelet Volume 11.3 fL (9.4-12.3); Platelet Count 239 X10*3/uL (160-400); Red Blood Count 3.39 X10*6/uL (4.20-5.50); Red Cell Distribution Width 12.8 % (11.0-16.0); White Blood Count 7.6 X10*3/uL (4.8-10.8)
[2024-12-04 06:43] LABS: Alanine Aminotransferase 29 U/L (0-31); Albumin Level 3.7 g/dL (3.5-5.0); Alkaline Phosphatase 55 U/L (39-117); Anion Gap 15 (12-20); Aspartate Amino Transferase 26 U/L (5-31); B Type Natriuretic Peptide 642 pg/mL (<100); Bilirubin Total 0.2 mg/dL (0.0-1.0); Blood Urea Nitrogen 16 mg/dL (9-16); Calcium 9.8 mg/dL (8.4-10.2); Carbon Dioxide 29 mmol/L (22-29); Chloride 100 mmol/L (96-108); Creatinine Clr Calc Pharmacy 44.1; Estimated Glomerular Filt Rate 59; Glucose Random 218 mg/dL (60-115); Potassium 4.8 mmol/L (3.3-5.1); Sodium 139 mmol/L (135-145); Total Protein 6.3 g/dL (6.5-8.0)
[2024-12-04] MEDS: atenoloL 25 MG TABLET PO ×2 (07:18→20:18)
[2024-12-04] MEDS: Calcium Oyster Shell Elemental 500 MG TABLET PO ×2 (07:19→20:18)
[2024-12-04] MEDS: Cholecalciferol (Vitamin D3) 25 MCG TABLET PO (07:19)
[2024-12-04] MEDS: guaiFENesin LA 600 MG TAB.ER.12H PO ×2 (07:19→20:18)
[2024-12-04] MEDS: 0.9 % Sodium Chloride Flush 3 ML SYRINGE IVFLUSH ×2 (07:19→15:35)
[2024-12-04] MEDS: Albuterol Sulfate (0.083%) 2.5 MG/3 ML VIAL.NEB INHALE ×4 (07:33→19:34)
[2024-12-04] MEDS: Fluticasone/Vilanterol 200/25 BLST.W.DEV 1 PUFF INHALE (07:33)
[2024-12-04] MEDS: Furosemide 20 MG/2 ML VIAL IVPUSH (07:57)
--- NOTE | 2024-12-04 08:28 | P.PNIM_ITS ---
Subjective Subjective Date of Service: 12/04/24 Review of Systems Follow up hypoxia, COPD, emphysema, CHF still with sob, especially with ambulation Physical Exam 2 Vital Signs: Vital Signs: Last Vital Signs Temp 97.9 F 12/04/24 07:28 Pulse 73 12/04/24 07:35 Resp 18 12/04/24 07:35 BP 138/74 12/04/24 07:28 Pulse Ox 91 L 12/04/24 07:28 O2 Del Method Nasal Cannula 12/04/24 07:28 O2 Flow Rate 3 12/04/24 07:28 Oxygen Flow Rate 2 12/03/24 12:23 BMI result Body Mass Index 20.7 Appearing in no acute distress lung sounds dim, exp wheezing heart regular rate rhythm, clear S1, S2 positive bowel sounds, abdomen is soft, nontender neuro patient is alert x3, no focal deficits Objective Data Active Medications Acetaminophen (Acetaminophen 325 Mg Tablet) 650 mg PO Q6H PRN PRN Reason: Pain, Mild 1-3,fever,headache Last Admin: 12/03/24 19:21 Dose: 650 mg Documented By: FANTA Albuterol Sulfate (Albuterol Sulfate (0.083%) 2.5 Mg/3 Ml Vial.Neb) 2.5 mg INHALE RQ4H WHILE AWAKE PENDING SALE TO [facility] Last Admin: 12/04/24 07:33 Dose: 2.5 mg Documented By: JUSTYN Atenolol (Atenolol 25 Mg Tablet) 25 mg PO BID PENDING SALE TO [facility]; Protocol Last Admin: 12/04/24 07:18 Dose: 25 mg Documented By: KRISHNA Calcium Carbonate (Calcium Carbonate 750 Mg Tab.Chew) 750 mg PO Q4H PRN PRN Reason: Heartburn Calcium Carbonate (Calcium Oyster [place] Elemental 500 Mg Tablet) 500 mg PO BID PENDING SALE TO [facility] Last Admin: 12/04/24 07:19 Dose: 500 mg Documented By: KRISHNA Fluticasone/Vilanterol (Fluticasone/Vilanterol 200/25 Blst.W.Dev) 1 puff INHALE RDAILY PENDING SALE TO [facility] Last Admin: 12/04/24 07:33 Dose: 1 puff Documented By: JUSTYN Furosemide (Furosemide 20 Mg Tablet) 20 mg PO DAILY PRN; Protocol PRN Reason: Edema Furosemide (Furosemide 20 Mg/2 Ml Vial) 20 mg IVPUSH DAILY PENDING SALE TO [facility]; Protocol Last Admin: 12/04/24 07:57 Dose: 20 mg Documented By: KRISHNA Guaifenesin (Guaifenesin La 600 Mg Tab.Er.12h) 600 mg PO BID PENDING SALE TO [facility] Last Admin: 12/04/24 07:19 Dose: 600 mg Documented By: KRISHNA Heparin Sodium (Porcine) (Heparin Sodium,Porcine 5,000 Unit/Ml Vial) 5,000 unit SUBCUT Q12H PENDING SALE TO [facility] Last Admin: 12/04/24 03:21 Dose: Not Given Documented By: FANTA Non-Admin Reason: Patient Refused Hydrocortisone (Hydrocortisone 2.5 % Rectal Cr 30 Gm Tube) 1 appl VT QID PRN PRN Reason: hemorrhoids Levofloxacin (Levaquin) 750 mg in 150 mls @ 100 mls/hr IV Q24H PENDING SALE TO [facility] Ibuprofen (Ibuprofen 400 Mg Tablet) 400 mg PO Q6H PRN PRN Reason: Headache Last Admin: 12/03/24 23:45 Dose: 400 mg Documented By: FANTA Magnesium Hydroxide (Milk Of Magnesia 30 Ml Oral.Susp) 30 ml PO DAILY PRN PRN Reason: Constipation Melatonin (Melatonin 3 Mg Tablet) 6 mg PO BEDTIME PRN PRN Reason: Insomnia Methylprednisolone Sodium Succinate (Methylprednisolone Sod Succ 40 Mg/Ml Vial) 40 mg IVPUSH Q12H PENDING SALE TO [facility] Last Admin: 12/04/24 00:44 Dose: 40 mg Documented By: FANTA Ondansetron HCl (Ondansetron Hcl 4 Mg/2 Ml Vial) 4 mg IVPUSH Q8H PRN PRN Reason: Nausea and Vomiting Sodium Chloride (0.9 % Sodium Chloride Flush 3 Ml Syringe) 3 ml IVFLUSH QSHIFT PENDING SALE TO [facility] Last Admin: 12/04/24 07:19 Dose: 3 ml Documented By: KRISHNA Vitamin D (Cholecalciferol (Vitamin D3) 25 Mcg Tablet) 25 mcg PO DAILY PENDING SALE TO [facility] Last Admin: 12/04/24 07:19 Dose: 25 mcg Documented By: KRISHNA Labs 12/04/24 05:05 12/04/24 05:05 Labs: Laboratory Results - last 24 hr 12/03/24 12/03/24 12/03/24 12:53 12:54 16:02 MCV 96.5 MCH 30.4 MCHC 31.5 RDW 12.8 Plt Count 245 MPV 10.5 Immature Gran % (Auto) 0.5 H Neut % (Auto) 83.7 H Lymph % (Auto) 5.2 L [place] % (Auto) 8.5 Eos % (Auto) 1.5 Baso % (Auto) 0.6 Lymph # (Auto) 0.5 L [place] # (Auto) 0.7 Eos # (Auto) 0.1 Baso # (Auto) 0.1 Abs Immat Gran (auto) 0.04 H Absolute Neuts (auto) 7.3 Absolute Nucleated RBC 0.000 Nucleated RBC % (auto) 0.0 PT 11.4 INR 1.0 VBG pH 7.39 VBG pCO2 56 VBG pO2 42 VBG HCO3 34 H VBG O2 Saturation 68.0 VBG Base Excess 7.7 Anion Gap 12 Estim Creat Clear Calc 47.0 Estimated GFR > 60 Random Glucose 159 H Estimat Average Glucose Hemoglobin A1c % Lactic Acid 1.4 Calcium 10.2 D Total Bilirubin 0.3 AST 30 ALT 32 H Alkaline Phosphatase 59 B-Natriuretic Peptide 502 H Total Protein 6.5 Albumin 3.9 Influenza Type A (PCR) Influenza Type B (PCR) RSV RNA Qual (PCR) SARS-CoV-2 RNA (RT-PCR) 12/03/24 12/04/24 17:19 05:05 MCV 95.0 MCH 31.3 MCHC 32.9 RDW 12.8 Plt Count 239 MPV 11.3 Immature Gran % (Auto) Neut % (Auto) Lymph % (Auto) [place] % (Auto) Eos % (Auto) Baso % (Auto) Lymph # (Auto) [place] # (Auto) Eos # (Auto) Baso # (Auto) Abs Immat Gran (auto) Absolute Neuts (auto) Absolute Nucleated RBC 0.000 Nucleated RBC % (auto) 0.0 PT INR VBG pH VBG pCO2 VBG pO2 VBG HCO3 VBG O2 Saturation VBG Base Excess Anion Gap 15 Estim Creat Clear Calc 44.1 Estimated GFR 59 Random Glucose 218 H Estimat Average Glucose 117 Hemoglobin A1c % 5.7 Lactic Acid Calcium 9.8 Total Bilirubin 0.2 AST 26 ALT 29 Alkaline Phosphatase 55 B-Natriuretic Peptide 642 H Total Protein 6.3 L Albumin 3.7 Influenza Type A (PCR) NEGATIVE Influenza Type B (PCR) NEGATIVE RSV RNA Qual (PCR) NEGATIVE SARS-CoV-2 RNA (RT-PCR) NEGATIVE Assessment and Plan (1) Congestive heart failure: Status: Acute (2) COPD (chronic obstructive pulmonary disease): Status: Acute (3) Respiratory failure with hypoxia: Status: Acute Plan 79 year old women admitted with COPD exacerbation and Bronchitis Acute on chronic hypoxic resp failure secondary to COPD, emphysema and bronchitis Chest CTA neg for PE or obvious consolidation but showed apical bullous changes, effusions Supplemental oxygen to keep o2 sats greater than 90 %, on 2liters home oxygen Solumedrol BID Scheduled [facility] pulmonary consultation for Bullous changes> symptoms likely more heart failure, get echo, continue lasix Elevated BNP 502, 642 does not appear to be in overt failure but will start lasix IV 20 mg effusions on CTA, continue Lasix echo ordered Elevated blood sugar reading likely from steroids A1C 5.7 HTN continue atenolol Normocytic anemia no acute bleeding stable HH chronic DVT prophylaxis with Heparin Full code Quality Stroke Does the patient have a stroke diagnosis?: No VTE Prior VTE?: No VTE Risk Level:: Medical - moderate - high VTE Device Contraindication: Treatment Not Indicated VTE Drug Contraindication: N/A - Med Ordered
--- NOTE | 2024-12-04 10:08 | P.CONPL_ITS ---
History of Present Illness History of Present Illness Consult date: 12/04/24 Chief complaint: Dyspnea Narrative: 79-year-old lady with underlying very severe COPD on 2 L of supplemental oxygen, patient of Dr. Townsend, admitted on 12/03/2024 with dyspnea progressive over 4-5 days with worsening hypoxemia. Her CT angio chest did not demonstrate any pulmonary emboli, but bilateral mild pulmonary effusions and known significant bolus emphysema. Patient was started on empiric antibiotics, systemic glucocorticoids, and diuresis with significant improvement. Review of Systems 2 Constitutional: Constitutional: Denies daytime sleepiness, Denies excessive sweating, Denies fatigue, Denies fever(s), Denies lethargy, Denies malaise, Denies night sweats, Denies snoring and Denies weight loss Eyes: Eyes: Denies blurry vision and Denies itchy eyes ENT: Denies nasal congestion, Denies post nasal drip, Denies sinus pain, Denies sinus pressure and Denies other ( Thrush) Cardiovascular: Cardiovascular: Denies chest pain, Denies pedal edema, Reports dyspnea, Reports dyspnea on exertion, Denies orthopnea and Denies paroxysmal nocturnal dyspnea Respiratory: Respiratory: Denies cough, Denies hemoptysis, Denies excessive phlegm production, Reports dyspnea, Reports dyspnea on exertion, Denies snoring and Denies wheezing Gastrointestinal: Gastrointestinal: Denies abdominal pain and Denies heartburn Musculoskeletal: Musculoskeletal: Denies myalgias, Denies arthralgias and Denies joint swelling Integumentary/Breasts: Skin/Breast: Denies rash Neurologic: Denies memory loss and Denies seizure-like activity Psychiatric: Psychiatric: Denies abnormal sleep pattern, Denies anxiety and Denies memory loss Endocrine: Endocrine: Denies excessive sweating, Denies fatigue and Denies heat intolerance Hematologic/Lymphatic: Hematologic/Lymphatic: Denies easy bruising Allergic/Immunologic: Allergic/Immunologic: Denies itchy eyes, Denies seasonal rhinorrhea and Denies wheezing PMFSH Past Medical History Medical History (Updated 12/04/24 @ 10:11 by Vince Maki MD) Environmental allergies Seasonal allergies Osteoporosis Hemorrhoids Oxygen dependent Respiratory failure with hypoxia Pulmonary nodules/lesions, multiple Anxiety disorder Screening for diabetes mellitus Acute anxiety Anxiety Asthma Allergic rhinitis COPD (chronic obstructive pulmonary disease) Family History Family History Mother No problems noted. Father No problems noted. Surgical History Surgical History History of colonoscopy History of cataract surgery History of right hip replacement Social History Social History Household Members: Spouse Housing: House Are you a primary care process manager to a significant other at home: No Do you presently have visiting nurse or other home services: No Alcohol intake: current Alcohol intake frequency: holidays/special occasions only Patient Tobacco Use Status: Former Tobacco user Tobacco use type: Cigarette e-Cigarette/Vaping Use: Never Used Second Hand Smoke Exposure: Yes Use of substances other than those prescribed or required for medical reasons: No Currently Displaying Signs/Symptoms of Drug Intoxication Withdrawal: No Have you been hit, kicked, punched, or otherwise hurt by someone within the past year? If so, by whom?: No Do you feel safe in your current relationship?: Yes Is there a partner from a previous relationship who is making you feel unsafe now?: No Are you made to feel afraid or neglected: No Advance Directives: No Advance Directives Information Provided: Yes Do you have a plan to hurt others: No Plan Recently lost weight without trying: No How much weight loss: Not applicable Eating poorly because of decreased appetite: No Nutrition screen score: 0 Nutrition Risks: No Nutritional Risk Patient : No : No Poor oral hygiene: No service: No Current occupational status: retired Cognitive needs: No Hearing needs: No Vision needs: Yes (Glasses) Meds Allergies Allergy/AdvReac Type Severity Reaction Status Date / Time penicillin G Allergy Severe Anaphylaxis Verified 12/03/24 12:27 Sulfa (Sulfonamide Allergy Severe Anaphylaxis Verified 12/03/24 12:27 Antibiotics) cat dander [CATS] Allergy Unknown MUCOUS Verified 12/03/24 12:27 FORMATION, asthma dog dander [DOGS] Allergy Unknown MUCOUS Verified 12/03/24 12:27 FORMATION, asthma egg Allergy Unknown Wheezing Verified 12/03/24 12:27 house dust [HOUSE DUST] Allergy Unknown MUCOUS Verified 12/03/24 12:27 FORMATION, asthma milk [MILK] Allergy Unknown MUCOUS Verified 12/03/24 12:27 FORMATION mold Allergy Unknown MUCOUS Verified 12/03/24 12:27 FORMATION, asthma tree and shrub pollen [TREES] Allergy Unknown MUCOUS Verified 12/03/24 12:27 FORMATION TO CERTAIN TREES, asthma yeast, dried [yeast] Allergy Unknown MUCOUS Verified 12/03/24 12:27 FORMATION, asthma Active Medications: Current Medications Acetaminophen (Acetaminophen 325 Mg Tablet) 650 mg PO Q6H PRN PRN Reason: Pain, Mild 1-3,fever,headache Last Admin: 12/03/24 19:21 Dose: 650 mg Albuterol Sulfate (Albuterol Sulfate (0.083%) 2.5 Mg/3 Ml Vial.Neb) 2.5 mg INHALE RQ4H WHILE AWAKE [facility] Last Admin: 12/04/24 07:33 Dose: 2.5 mg Atenolol (Atenolol 25 Mg Tablet) 25 mg PO BID [facility]; Protocol Last Admin: 12/04/24 07:18 Dose: 25 mg Calcium Carbonate (Calcium Carbonate 750 Mg Tab.Chew) 750 mg PO Q4H PRN PRN Reason: Heartburn Calcium Carbonate (Calcium Oyster Shell Elemental 500 Mg Tablet) 500 mg PO BID [facility] Last Admin: 12/04/24 07:19 Dose: 500 mg Fluticasone/Vilanterol (Fluticasone/Vilanterol 200/25 Blst.W.Dev) 1 puff INHALE RDAILY [facility] Last Admin: 12/04/24 07:33 Dose: 1 puff Furosemide (Furosemide 20 Mg Tablet) 20 mg PO DAILY PRN; Protocol PRN Reason: Edema Furosemide (Furosemide 20 Mg/2 Ml Vial) 20 mg IVPUSH DAILY [facility]; Protocol Last Admin: 12/04/24 07:57 Dose: 20 mg Guaifenesin (Guaifenesin La 600 Mg Tab.Er.12h) 600 mg PO BID [facility] Last Admin: 12/04/24 07:19 Dose: 600 mg Heparin Sodium (Porcine) (Heparin Sodium,Porcine 5,000 Unit/Ml Vial) 5,000 unit SUBCUT Q12H [facility] Last Admin: 12/04/24 03:21 Dose: Not Given Hydrocortisone (Hydrocortisone 2.5 % Rectal Cr 30 Gm Tube) 1 appl ME QID PRN PRN Reason: hemorrhoids Levofloxacin (Levaquin) 750 mg in 150 mls @ 100 mls/hr IV Q24H [facility] Ibuprofen (Ibuprofen 400 Mg Tablet) 400 mg PO Q6H PRN PRN Reason: Headache Last Admin: 04/07/25 23:45 Dose: 400 mg Magnesium Hydroxide (Milk Of Magnesia 30 Ml Oral.Susp) 30 ml PO DAILY PRN PRN Reason: Constipation Melatonin (Melatonin 3 Mg Tablet) 6 mg PO BEDTIME PRN PRN Reason: Insomnia Methylprednisolone Sodium Succinate (Methylprednisolone Sod Succ 40 Mg/Ml Vial) 40 mg IVPUSH Q12H [facility] Last Admin: 12/04/24 00:44 Dose: 40 mg Ondansetron HCl (Ondansetron Hcl 4 Mg/2 Ml Vial) 4 mg IVPUSH Q8H PRN PRN Reason: Nausea and Vomiting Sodium Chloride (0.9 % Sodium Chloride Flush 3 Ml Syringe) 3 ml IVFLUSH QSHIFT [facility] Last Admin: 12/04/24 07:19 Dose: 3 ml Vitamin D (Cholecalciferol (Vitamin D3) 25 Mcg Tablet) 25 mcg PO DAILY [facility] Last Admin: 12/04/24 07:19 Dose: 25 mcg Home Medications ?Medication ?Instructions ?Recorded ?Confirmed ?Last Taken ?Type guaifenesin 600 mg tablet, 600 mg PO BID 07/21/20 12/03/24 12/03/24 History extended release 12 hr (Mucinex) vit C 250 mg-vit E 90 mg-zinc 40 1 tab PO BID 07/21/20 12/03/24 12/03/24 History mg-copper 1 [id number] capsule (PreserVision AREDS-2) calcium carbonate (Calcium 600) 600 mg PO BID 01/28/21 12/03/24 12/03/24 History cholecalciferol (vitamin D3) 25 25 mcg PO DAILY 05/20/22 12/03/24 12/03/24 History mcg (1,000 unit) capsule (Vitamin D3) azithromycin 250 mg tablet 250 mg PO MOWEFR@1000 COPD 12/03/24 12/03/24 12/03/24 History Physical Exam 2 Vital Signs: Vital Signs: Last Vital Signs Temp 97.9 F 12/04/24 07:28 Pulse 73 12/04/24 07:35 Resp 18 12/04/24 07:35 BP 138/74 12/04/24 07:28 Pulse Ox 91 L 12/04/24 07:28 O2 Del Method Nasal Cannula 12/04/24 07:28 O2 Flow Rate 3 12/04/24 07:28 Oxygen Flow Rate 2 12/03/24 12:23 BMI result Body Mass Index 20.7 Const: General: no acute distress and alert Nutritional Appearance: not obese Orientation/consciousness: Other orientation findings ( oriented) HEENT: Head: Yes atraumatic Eyes: General: appearance normal, both eyes and all related structures S clerae: sclerae normal EOM: EOMs intact bilaterally Neck: Neck: Yes supple Lymphatic: no lymphadenopathy noted Resp: Effort & Inspection: normal respiratory effort and no use of accessory muscles Auscultation: clear to auscultation bilaterally Cardio: Rate: regular rate Rhythm: regular rhythm Heart sounds: no gallops, no murmurs and no rubs Skin: General skin exam: other ( warm) Extrem: General: No clubbing, No cyanosis and Yes edema (2+ bilateral) Results Laboratory Findings 12/04/24 05:05 12/04/24 05:05 ABG, PT/INR, D-dimer: PT/INR, D-dimer PT 11.4 SEC (10.9-12.4) 12/03/24 12:54 INR 1.0 (0.9-1.1) 12/03/24 12:54 Abnormal lab findings: Abnormal Labs 12/03/24 12/03/24 12/03/24 12:53 12:54 16:02 RBC 3.45 L Hgb 10.5 L Hct 33.3 L Immature Gran % (Auto) 0.5 H Neut % (Auto) 83.7 H Lymph % (Auto) 5.2 L Lymph # (Auto) 0.5 L Abs Immat Gran (auto) 0.04 H VBG HCO3 34 H Carbon Dioxide 31 H Random Glucose 159 H ALT 32 H B-Natriuretic Peptide 502 H Total Protein 12/04/24 05:05 RBC 3.39 L Hgb 10.6 L Hct 32.2 L Immature Gran % (Auto) Neut % (Auto) Lymph % (Auto) Lymph # (Auto) Abs Immat Gran (auto) VBG HCO3 Carbon Dioxide Random Glucose 218 H ALT B-Natriuretic Peptide 642 H Total Protein 6.3 L Assessment and Plan (1) COPD (chronic obstructive pulmonary disease): Status: Acute (2) Acute on chronic hypoxic respiratory failure: Status: Acute (3) Congestive heart failure: Status: Acute (4) Pleural effusion, bilateral: Status: Acute Plan Impression: 79-year-old lady with underlying very severe COPD on supplemental oxygen 2 L admitted with acute on chronic hypoxia that appears to be secondary to exacerbation of underlying suspected congestive heart failure, improving with diuresis. No significant wheezing noted. CT angio chest with no evidence of pulmonary emboli, but bilateral [id number] effusions. Effusions are likely related to underlying congestive heart failure. Recommendation: Agree with IV diuresis. Consider discontinuation of systemic glucocorticoids and empiric antibiotics. Consider obtaining 2D echocardiogram. Continue baseline regimen of inhaled/nebulized bronchodilators. Will require updated supplemental oxygen evaluation before discharge. Procedures Date of Service Date of Service: 12/04/24
[2024-12-04] MEDS: Ibuprofen 400 MG TABLET PO (12:46)
--- NOTE | 2024-12-04 13:00 | CA_ITS ---
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 There is normal left ventricular wall thickness. The left ventricular systolic function is hyperdynamic. The visually estimated ejection fraction is >70%. - Elevated filling pressures. - Normal right ventricular cavity size and systolic function. - The left atrium is moderately dilated. - There is moderate mitral valve regurgitation. - There is moderate tricuspid valve regurgitation. The right ventricular systolic pressure is 83 mmHg. Normal right atrial pressure. Severe pulmonary hypertension is present. Findings Left Ventricle Normal left ventricular cavity size. There is normal left ventricular wall thickness. The left ventricular systolic function is hyperdynamic. The visually estimated ejection fraction is >70%. Abnormal diastolic function is noted. Spectral Doppler is indicative of an impaired relaxation filling pattern. Elevated filling pressures. Right Ventricle Normal right ventricular cavity size and systolic function. Atria The left atrium is moderately dilated. The right atrium is normal in size. Aortic Valve Normal aortic valve structure and function. There is no aortic valve stenosis. There is no aortic valve regurgitation. Mitral Valve The mitral valve appears normal. There is moderate mitral valve regurgitation. There is trace mitral valve stenosis. Pulmonic Valve The pulmonic valve is normal. There is no pulmonic valve regurgitation. Tricuspid Valve Normal tricuspid valve structure. There is moderate tricuspid valve regurgitation. The right ventricular systolic pressure is 83 mmHg. Normal right atrial pressure. Severe pulmonary hypertension is present. Great Vessels All visible segments of the aorta are normal in size. The visualized portions of the pulmonary artery and branches are normal. Venous The inferior vena cava is normal in size and collapses greater than 50% with inspiration. Pericardium/Pleural There is no evidence of pericardial effusion. Prior Study Comparison No prior study available for comparison. Measurements 2D Linear Measurements IVSd: 0.96 0.6-0.9/0.6-1.0 cm LVIDd: 4.41 3.9-5.3/4.2-5.9 cm LVIDd Index: 2.81 2.4-3.2/2.2-3.1 cm/m2 LVIDs: 2.56 2.0-3.6 cm LVPWd: 0.90 0.7-1.1 cm Ao Root: 2.60 2.1-3.5 cm LA Diam: 4.30 2.7-3.8/3.0-4.0 cm LAIDs Index: 2.74 1.5-2.3 cm/m2 LV Mass: 167.15 67-162/88-224 g LV Mass Index: 106.47 43-95/49-115 g/m2 LVOT Diam: 2.00 3.0+(-)1.3 cm Mitral Valve MV VTI: 0.27 MV Pk Clint: 1.59 MV Mn Clint: 0.80 MV Pk Grad: 10.00 MV Mn Grad: 3.00 MV Pk E: 1.32 MV PK A: 0.66 MV Decel Time: 130.00 E/A: 2.00 E'Lateral: 8.59 E'Medial: 6.53 E/E' Med: 20.20 E/E' Lat: 15.40 PHT: 38.00 MVA PHT: 5.79 MVA Continuity: 2.23 Decel [place]: 10.13 Aortic Valve AoV Pk Clint: 1.49 AoV Mn Clint: 0.98 AoV VTI: 0.29 AoV Pk Grad: 9.00 Aov Mn Grad: 5.00 LETITIA Cont.VTI: 2.06 LVOT LVOT Pk Clint: 0.93 LVOT Mn Clint: 0.59 LVOT VTI: 0.19 LVOT Pk Grad: 3.00 LVOT Mn Grad: 2.00 LVOT Diam: 2.00 LVOT Area: 3.14 Diastolic Function MV Pk E: 1.32 MV Pk A: 0.66 E/A: 2.00 E'Medial: 6.53 E/E' Med: 20.20 E' Laterial: 8.59 E/E' Lat: 15.40 Right Ventricle TAPSE (mm): 25.00 TVS' Clint: 19.00 Tricuspid Valve TR Pk Clint: 4.46 TR Pk Grad: 80.00 RA Press: 3.00 RVSP: 83.00 Great Vessels Aorta Ao Root-2D: 2.60 2.0-3.7 cm Ao Asc: 3.00 2.1-3.4 cm Pulmonary Valve PV Pk Clint: 1.26 Peak PV Grad: 6.00 Updated in Other Vendor System with Status of Final Flex De La Torre MD electronically signed on 12/05/2024 1:24:39 PM with status of Final
[2024-12-04] MEDS: levoFLOXacin/D5W 750 MG/150 ML PIGGYBACK 100 MG IV (14:02)
--- NOTE | 2024-12-04 14:38 | MHC.CM.PN ---
IMM DELIVERED PT LIVES WITH SPOUSE AND IS FUNCTIONALLY INDEPENDENT. NO HOME SERVICES BUT HAS HOME 02 AT 2/L [facility]IA [facility]. +HCP PCP DR. WORLEY AT [facility] [place]. DP: HOME, NO SERVICES IS THE GOAL. PT'S SPOUSE WILL TRANSPORT. CM WILL CONTINUE TO FOLLOW FOR ANY CHANGE TO DC PLAN/NEEDS.
[2024-12-04] MEDS: Acetaminophen 325 MG TABLET 650 MG PO (20:18)
[2024-12-05] VITALS (10 sets, daily range): BP systolic 117–151; BP diastolic 55–84; PULSE 90–100; RESP 16–20; TEMP 36.1–36.6; O2SAT 91–96
[2024-12-05] MEDS: methylPREDNISolone Sod Succ 40 MG/ML VIAL IVPUSH ×2 (00:28→12:36)
[2024-12-05] MEDS: Melatonin 3 MG TABLET 6 MG PO ×2 (00:28→22:07)
[2024-12-05] MEDS: 0.9 % Sodium Chloride Flush 3 ML SYRINGE IVFLUSH ×4 (00:28→21:18)
[2024-12-05] MEDS: Fluticasone/Vilanterol 200/25 BLST.W.DEV 1 PUFF INHALE (07:53)
[2024-12-05] MEDS: Albuterol Sulfate (0.083%) 2.5 MG/3 ML VIAL.NEB INHALE ×4 (07:53→20:41)
[2024-12-05] MEDS: guaiFENesin LA 600 MG TAB.ER.12H PO ×2 (08:13→21:17)
[2024-12-05] MEDS: atenoloL 25 MG TABLET PO ×2 (08:14→21:17)
[2024-12-05] MEDS: Cholecalciferol (Vitamin D3) 25 MCG TABLET PO (08:14)
[2024-12-05] MEDS: Calcium Oyster Shell Elemental 500 MG TABLET PO ×2 (08:14→21:17)
--- NOTE | 2024-12-05 08:31 | HO.PM.IMPN ---
Subjective Subjective Date of Service: 12/05/24 Review of Systems Follow up hypoxia, COPD, emphysema, CHF less sob today, especially with ambulation Physical Exam Vital Signs: Vital Signs: Last Vital Signs Temp 96.9 F 12/05/24 07:47 Pulse 93 12/05/24 08:14 Resp 20 12/05/24 07:54 BP 118/64 12/05/24 08:14 Pulse Ox 92 12/05/24 07:47 O2 Del Method Nasal Cannula 12/05/24 07:47 O2 Flow Rate 2 12/05/24 07:47 Oxygen Flow Rate 2 12/03/24 12:23 BMI result Body Mass Index 20.7 Appearing in no acute distress lung sounds mild exp wheezing heart regular rate rhythm, clear S1, S2 positive bowel sounds, abdomen is soft, nontender neuro patient is alert x3, no focal deficits Objective Data Active Medications Acetaminophen (Acetaminophen 325 Mg Tablet) 650 mg PO Q6H PRN PRN Reason: Pain, Mild 1-3,fever,headache Last Admin: 12/04/24 20:18 Dose: 650 mg Documented By: JOYCE Albuterol Sulfate (Albuterol Sulfate (0.083%) 2.5 Mg/3 Ml Vial.Neb) 2.5 mg INHALE RQ4H WHILE AWAKE [facility] Last Admin: 12/05/24 07:53 Dose: 2.5 mg Documented By: JUANA Atenolol (Atenolol 25 Mg Tablet) 25 mg PO BID [facility]; Protocol Last Admin: 12/05/24 08:14 Dose: 25 mg Documented By: MOLLY Calcium Carbonate (Calcium Carbonate 750 Mg Tab.Chew) 750 mg PO Q4H PRN PRN Reason: Heartburn Calcium Carbonate (Calcium Oyster Shell Elemental 500 Mg Tablet) 500 mg PO BID [facility] Last Admin: 12/05/24 08:14 Dose: 500 mg Documented By: MOLLY Fluticasone/Vilanterol (Fluticasone/Vilanterol 200/25 Blst.W.Dev) 1 puff INHALE RDAILY [facility] Last Admin: 12/05/24 07:53 Dose: 1 puff Documented By: JUANA Furosemide (Furosemide 20 Mg Tablet) 20 mg PO DAILY PRN; Protocol PRN Reason: Edema Furosemide (Furosemide 20 Mg/2 Ml Vial) 20 mg IVPUSH DAILY [facility]; Protocol Last Admin: 12/04/24 07:57 Dose: 20 mg Documented By: KRISHNA Guaifenesin (Guaifenesin La 600 Mg Tab.Er.12h) 600 mg PO BID [facility] Last Admin: 12/05/24 08:13 Dose: 600 mg Documented By: MOLLY Heparin Sodium (Porcine) (Heparin Sodium,Porcine 5,000 Unit/Ml Vial) 5,000 unit SUBCUT Q12H [facility] Last Admin: 12/05/24 03:34 Dose: Not Given Documented By: JOYCE Non-Admin Reason: Patient Refused Hydrocortisone (Hydrocortisone 2.5 % Rectal Cr 30 Gm Tube) 1 appl DE QID PRN PRN Reason: hemorrhoids Levofloxacin (Levaquin) 750 mg in 150 mls @ 100 mls/hr IV Q24H [facility] Last Infusion: 12/04/24 15:33 Dose: Infused Documented By: KRISHNA Ibuprofen (Ibuprofen 400 Mg Tablet) 400 mg PO Q6H PRN PRN Reason: Headache Last Admin: 12/04/24 12:46 Dose: 400 mg Documented By: KRISHNA Magnesium Hydroxide (Milk Of Magnesia 30 Ml Oral.Susp) 30 ml PO DAILY PRN PRN Reason: Constipation Melatonin (Melatonin 3 Mg Tablet) 6 mg PO BEDTIME PRN PRN Reason: Insomnia Last Admin: 12/05/24 00:28 Dose: 6 mg Documented By: JOYCE Methylprednisolone Sodium Succinate (Methylprednisolone Sod Succ 40 Mg/Ml Vial) 40 mg IVPUSH Q12H [facility] Last Admin: 12/05/24 00:28 Dose: 40 mg Documented By: JOYCE Ondansetron HCl (Ondansetron Hcl 4 Mg/2 Ml Vial) 4 mg IVPUSH Q8H PRN PRN Reason: Nausea and Vomiting Sodium Chloride (0.9 % Sodium Chloride Flush 3 Ml Syringe) 3 ml IVFLUSH QSHIFT [facility] Last Admin: 12/05/24 08:16 Dose: 3 ml Documented By: MOLLY Vitamin D (Cholecalciferol (Vitamin D3) 25 Mcg Tablet) 25 mcg PO DAILY [facility] Last Admin: 12/05/24 08:14 Dose: 25 mcg Documented By: MOLLY Labs 12/04/24 05:05 12/04/24 05:05 Microbiology Microbiology Results: Microbiology 12/03/24 13:10 Blood Culture - Preliminary Blood - Venous No growth after 24 hours. 12/03/24 12:53 Blood Culture - Preliminary Blood - Venous No growth after 24 hours. Assessment and Plan (1) Congestive heart failure: Status: Acute (2) COPD (chronic obstructive pulmonary disease): Status: Acute (3) Respiratory failure with hypoxia: Status: Acute Plan 79 year old women admitted with COPD exacerbation and Bronchitis Acute on chronic hypoxic resp failure secondary to COPD, emphysema and bronchitis Chest CTA neg for PE or obvious consolidation but showed apical bullous changes, effusions Supplemental oxygen to keep o2 sats greater than 90 %, on 2liters home oxygen s/p Solumedrol BID s/p Levaquin Scheduled [facility] pulmonary consultation for Bullous changes> symptoms likely more heart failure, get echo, continue lasix, stop abx and steroids Elevated BNP 502, 642, 507 does not appear to be in overt failure but will start lasix IV 20 mg effusions on CTA, continue Lasix echo ordered Elevated blood sugar reading likely from steroids A1C 5.7 HTN continue atenolol Normocytic anemia no acute bleeding stable HH chronic DVT prophylaxis with Heparin Full code Quality Stroke Does the patient have a stroke diagnosis?: No VTE Prior VTE?: No VTE Risk Level:: Medical - moderate - high VTE Device Contraindication: Treatment Not Indicated VTE Drug Contraindication: N/A - Med Ordered
[2024-12-05] MEDS: Furosemide 20 MG/2 ML VIAL IVPUSH (09:13)
[2024-12-05 09:22] LABS: B Type Natriuretic Peptide 507 pg/mL (<100)
--- NOTE | 2024-12-05 12:57 | MHC.CM.PN ---
EMR REVIEWED AND PER MD ROUNDS, PT IS NOT MEDICALLY CLEARED FOR DC (AWAITING ECHO RESULTS, STILL SL.SOB ON EXERTION) CM WILL CONTINUE TO FOLLOW FOR ANY CHANGE TO DC PLAN/NEEDS.
[2024-12-06] VITALS (8 sets, daily range): BP systolic 139–168; BP diastolic 63–72; PULSE 59–88; RESP 15–20; TEMP 36–36.6; O2SAT 94–99
[2024-12-06] MEDS: Albuterol Sulfate (0.083%) 2.5 MG/3 ML VIAL.NEB INHALE ×3 (08:25→15:05)
[2024-12-06] MEDS: Fluticasone/Vilanterol 200/25 BLST.W.DEV 1 PUFF INHALE (08:25)
[2024-12-06] MEDS: Furosemide 20 MG/2 ML VIAL IVPUSH (08:31)
[2024-12-06] MEDS: Cholecalciferol (Vitamin D3) 25 MCG TABLET PO (08:31)
[2024-12-06] MEDS: 0.9 % Sodium Chloride Flush 3 ML SYRINGE IVFLUSH ×3 (08:32→20:21)
[2024-12-06] MEDS: Calcium Oyster Shell Elemental 500 MG TABLET PO ×2 (08:32→20:20)
[2024-12-06] MEDS: atenoloL 25 MG TABLET PO ×2 (08:32→20:21)
[2024-12-06] MEDS: guaiFENesin LA 600 MG TAB.ER.12H PO ×2 (08:32→20:20)
[2024-12-06] MEDS: Acetaminophen 325 MG TABLET 650 MG PO (11:55)
--- NOTE | 2024-12-06 14:23 | PC.NURSE ---
Patient refuses heparin,risks explained,encouraged activity and leg excercises
--- NOTE | 2024-12-06 15:20 | P.PNIM_ITS ---
Subjective Subjective Date of Service: 12/06/24 Interval History: seen and examined this morning follow up for chf breathing improving Review of Systems Review of Systems: Yes all other systems are reviewed and are negative Constitutional Constitutional: Denies chills and Denies fever(s) Physical Exam 2 Vital Signs: Vital Signs: Last Vital Signs Temp 97.6 F 12/06/24 15:15 Pulse 83 12/06/24 15:15 Resp 18 12/06/24 15:15 BP 139/63 12/06/24 15:15 Pulse Ox 97 12/06/24 15:15 O2 Del Method Nasal Cannula 12/06/24 15:15 O2 Flow Rate 2 12/06/24 15:15 Oxygen Flow Rate 2 12/03/24 12:23 BMI result Body Mass Index 20.7 Const: General: cooperative, no acute distress, alert and awake Nutritional Appearance: average body habitus Orientation/consciousness: patient oriented x3 Resp: Effort & Inspection: normal respiratory effort, able to speak in complete sentences, no respiratory distress and no use of accessory muscles Cardio: Rate: regular rate GI: Inspection: No distended Palpation (GI): Soft to palpation Neuro: General: patient oriented x3 and moves all extremities Extrem: Other: minimal pedal edema Objective Data Active Medications Acetaminophen (Acetaminophen 325 Mg Tablet) 650 mg PO Q6H PRN PRN Reason: Pain, Mild 1-3,fever,headache Last Admin: 12/06/24 11:55 Dose: 650 mg Documented By: MICHELE Albuterol Sulfate (Albuterol Sulfate (0.083%) 2.5 Mg/3 Ml Vial.Neb) 2.5 mg INHALE RQ4H WHILE AWAKE [facility] [place] Last Admin: 12/06/24 15:05 Dose: 2.5 mg Documented By: CARLOS ALBERTO Atenolol (Atenolol 25 Mg Tablet) 25 mg PO BID [facility] [place]; Protocol Last Admin: 12/06/24 08:32 Dose: 25 mg Documented By: MICHELE Calcium Carbonate (Calcium Carbonate 750 Mg Tab.Chew) 750 mg PO Q4H PRN PRN Reason: Heartburn Calcium Carbonate (Calcium Oyster Shell Elemental 500 Mg Tablet) 500 mg PO BID [facility] [place] Last Admin: 12/06/24 08:32 Dose: 500 mg Documented By: MICHELE Fluticasone/Vilanterol (Fluticasone/Vilanterol 200/25 Blst.W.Dev) 1 puff INHALE RDAILY [facility] [place] Last Admin: 12/06/24 08:25 Dose: 1 puff Documented By: LUPE Furosemide (Furosemide 20 Mg Tablet) 20 mg PO DAILY PRN; Protocol PRN Reason: Edema Furosemide (Furosemide 20 Mg/2 Ml Vial) 20 mg IVPUSH DAILY [facility] [place]; Protocol Last Admin: 12/06/24 08:31 Dose: 20 mg Documented By: MICHELE Guaifenesin (Guaifenesin La 600 Mg Tab.Er.12h) 600 mg PO BID [facility] [place] Last Admin: 12/06/24 08:32 Dose: 600 mg Documented By: MICHELE Heparin Sodium (Porcine) (Heparin Sodium,Porcine 5,000 Unit/Ml Vial) 5,000 unit SUBCUT Q12H [facility] [place] Last Admin: 12/06/24 14:23 Dose: Not Given Documented By: MICHELE Non-Admin Reason: Patient Refused Hydrocortisone (Hydrocortisone 2.5 % Rectal Cr 30 Gm Tube) 1 appl VT QID PRN PRN Reason: hemorrhoids Ibuprofen (Ibuprofen 400 Mg Tablet) 400 mg PO Q6H PRN PRN Reason: Headache Last Admin: 12/04/24 12:46 Dose: 400 mg Documented By: LUCCESAR Magnesium Hydroxide (Milk Of Magnesia 30 Ml Oral.Susp) 30 ml PO DAILY PRN PRN Reason: Constipation Melatonin (Melatonin 3 Mg Tablet) 6 mg PO BEDTIME PRN PRN Reason: Insomnia Last Admin: 12/05/24 22:07 Dose: 6 mg Documented By: JOYCE Ondansetron HCl (Ondansetron Hcl 4 Mg/2 Ml Vial) 4 mg IVPUSH Q8H PRN PRN Reason: Nausea and Vomiting Sodium Chloride (0.9 % Sodium Chloride Flush 3 Ml Syringe) 3 ml IVFLUSH QSHIFT [facility] [place] Last Admin: 12/06/24 14:24 Dose: 3 ml Documented By: MICHELE Vitamin D (Cholecalciferol (Vitamin D3) 25 Mcg Tablet) 25 mcg PO DAILY [facility] [place] Last Admin: 12/06/24 08:31 Dose: 25 mcg Documented By: MICHELE Labs 12/04/24 05:05 12/04/24 05:05 Microbiology Microbiology Results: Microbiology 12/03/24 13:10 Blood Culture - Preliminary Blood - Venous No growth after 48 hours. 12/03/24 12:53 Blood Culture - Preliminary Blood - Venous No growth after 48 hours. Assessment and Plan (1) Congestive heart failure: Status: Acute Plan This is a 79 year old female with history of COPD on 2L supplemental oxygen admitted for COPD exacerbation found to have CHF and pulmonary HTN Acute on chronic hypoxic resp failure initially thought to be due to COPD, emphysema and bronchitis. Chest CTA neg for PE or obvious consolidation but showed apical bullous changes, effusions but exam more suggestive of acute CHF pulmonary consultation for Bullous changes> symptoms likely more heart failure, get echo, continue lasix, stop abx and steroids s/p Solumedrol BID and Levaquin acute HFpEF with severe pulm HTN continue lasix IV 20 mg echo with hyperdynamic EF, moderate mitral regurgitation, moderate tricuspid regurgitation, severe pulmonary hypertension, impaired relaxation filling pattern seen by cardiology, likely change to po lasix in am Elevated blood sugar reading likely from steroids A1C 5.7 HTN continue atenolol Normocytic anemia no acute bleeding stable HH chronic DVT prophylaxis with Heparin Full code Quality Stroke Does the patient have a stroke diagnosis?: No VTE Prior VTE?: No VTE Risk Level:: Medical - moderate - high VTE Device Contraindication: Treatment Not Indicated VTE Drug Contraindication: N/A - Med Ordered
--- NOTE | 2024-12-06 16:21 | PM.CNCAR ---
History of Present Illness History of Present Illness Date of Service: 12/06/24 Requesting physician: Khalida Beckwith Consult reason: congestive heart failure Chief complaint: Dyspnea Narrative: Pleasant 79 year female with background history of tobacco abuse, hypertension, macular degeneration and anxiety disorder presenting with shortness of breath. She underwent imaging which showed emphysema but also raise concern for congestive heart failure. She was treated with diuretics and at this stage has been feeling better. She is on supplemental oxygen at home. She is denying any chest discomfort. Overall improving. Echocardiography has shown severe pulmonary hypertension. [facility] Past Medical History Medical History (Updated 12/06/24 @ 18:17 by Flex De La Torre MD) Environmental allergies Seasonal allergies Osteoporosis Hemorrhoids Oxygen dependent Respiratory failure with hypoxia Pulmonary nodules/lesions, multiple Anxiety disorder Screening for diabetes mellitus Acute anxiety Anxiety Asthma Allergic rhinitis COPD (chronic obstructive pulmonary disease) Family History Family History Mother No problems noted. Father No problems noted. Surgical History Surgical History History of colonoscopy History of cataract surgery History of right hip replacement Social History Social History Household Members: Spouse Housing: House Are you a primary animal caretaker supervisor to a significant other at home: No Do you presently have visiting nurse or other home services: No Alcohol intake: current Alcohol intake frequency: holidays/special occasions only Patient Tobacco Use Status: Former Tobacco user Tobacco use type: Cigarette e-Cigarette/Vaping Use: Never Used Second Hand Smoke Exposure: Yes Use of substances other than those prescribed or required for medical reasons: No Currently Displaying Signs/Symptoms of Drug Intoxication Withdrawal: No Have you been hit, kicked, punched, or otherwise hurt by someone within the past year? If so, by whom?: No Do you feel safe in your current relationship?: Yes Is there a partner from a previous relationship who is making you feel unsafe now?: No Are you made to feel afraid or neglected: No Advance Directives: No Advance Directives Information Provided: Yes Do you have a plan to hurt others: No Plan Recently lost weight without trying: No How much weight loss: Not applicable Eating poorly because of decreased appetite: No Nutrition screen score: 0 Nutrition Risks: No Nutritional Risk Patient : No : No Poor oral hygiene: No service: No Current occupational status: retired Cognitive needs: No Hearing needs: No Vision needs: Yes (Glasses) Meds Allergies Allergy/AdvReac Type Severity Reaction Status Date / Time penicillin G Allergy Severe Anaphylaxis Verified 12/03/24 12:27 Sulfa (Sulfonamide Allergy Severe Anaphylaxis Verified 12/03/24 12:27 Antibiotics) cat dander [CATS] Allergy Unknown MUCOUS Verified 12/03/24 12:27 FORMATION, asthma dog dander [DOGS] Allergy Unknown MUCOUS Verified 12/03/24 12:27 FORMATION, asthma egg Allergy Unknown Wheezing Verified 12/03/24 12:27 house dust [HOUSE DUST] Allergy Unknown MUCOUS Verified 12/03/24 12:27 FORMATION, asthma milk [MILK] Allergy Unknown MUCOUS Verified 12/03/24 12:27 FORMATION mold Allergy Unknown MUCOUS Verified 12/03/24 12:27 FORMATION, asthma tree and shrub pollen [TREES] Allergy Unknown MUCOUS Verified 12/03/24 12:27 FORMATION TO CERTAIN TREES, asthma yeast, dried [yeast] Allergy Unknown MUCOUS Verified 12/03/24 12:27 FORMATION, asthma Active Medications: Current Medications Acetaminophen (Acetaminophen 325 Mg Tablet) 650 mg PO Q6H PRN PRN Reason: Pain, Mild 1-3,fever,headache Last Admin: 12/06/24 11:55 Dose: 650 mg Albuterol Sulfate (Albuterol Sulfate (0.083%) 2.5 Mg/3 Ml Vial.Neb) 2.5 mg INHALE RQ4H WHILE AWAKE PRN PRN Reason: shortness of breath/wheezing Atenolol (Atenolol 25 Mg Tablet) 25 mg PO BID [facility]; Protocol Last Admin: 12/06/24 08:32 Dose: 25 mg Calcium Carbonate (Calcium Carbonate 750 Mg Tab.Chew) 750 mg PO Q4H PRN PRN Reason: Heartburn Calcium Carbonate (Calcium Oyster Shell Elemental 500 Mg Tablet) 500 mg PO BID [facility] Last Admin: 12/06/24 08:32 Dose: 500 mg Fluticasone/Vilanterol (Fluticasone/Vilanterol 200/25 Blst.W.Dev) 1 puff INHALE RDAILY [facility] Last Admin: 12/06/24 08:25 Dose: 1 puff Furosemide (Furosemide 20 Mg Tablet) 20 mg PO DAILY PRN; Protocol PRN Reason: Edema Furosemide (Furosemide 20 Mg/2 Ml Vial) 20 mg IVPUSH DAILY [facility]; Protocol Last Admin: 12/06/24 08:31 Dose: 20 mg Guaifenesin (Guaifenesin La 600 Mg Tab.Er.12h) 600 mg PO BID [facility] Last Admin: 12/06/24 08:32 Dose: 600 mg Heparin Sodium (Porcine) (Heparin Sodium,Porcine 5,000 Unit/Ml Vial) 5,000 unit SUBCUT Q12H [facility] Last Admin: 12/06/24 14:23 Dose: Not Given Hydrocortisone (Hydrocortisone 2.5 % Rectal Cr 30 Gm Tube) 1 appl PA QID PRN PRN Reason: hemorrhoids Ibuprofen (Ibuprofen 400 Mg Tablet) 400 mg PO Q6H PRN PRN Reason: Headache Last Admin: 12/04/24 12:46 Dose: 400 mg Magnesium Hydroxide (Milk Of Magnesia 30 Ml Oral.Susp) 30 ml PO DAILY PRN PRN Reason: Constipation Melatonin (Melatonin 3 Mg Tablet) 6 mg PO BEDTIME PRN PRN Reason: Insomnia Last Admin: 12/05/24 22:07 Dose: 6 mg Ondansetron HCl (Ondansetron Hcl 4 Mg/2 Ml Vial) 4 mg IVPUSH Q8H PRN PRN Reason: Nausea and Vomiting Sodium Chloride (0.9 % Sodium Chloride Flush 3 Ml Syringe) 3 ml IVFLUSH QSHIFT [facility] Last Admin: 12/06/24 14:24 Dose: 3 ml Vitamin D (Cholecalciferol (Vitamin D3) 25 Mcg Tablet) 25 mcg PO DAILY [facility] Last Admin: 12/06/24 08:31 Dose: 25 mcg Home Medications ?Medication ?Instructions ?Recorded ?Confirmed ?Last Taken ?Type guaifenesin 600 mg tablet, 600 mg PO BID 07/21/20 12/03/24 12/03/24 History extended release 12 hr (Mucinex) vit C 250 mg-vit E 90 mg-zinc 40 1 tab PO BID 07/21/20 12/03/24 12/03/24 History mg-copper 1 [id number] capsule (PreserVision AREDS-2) calcium carbonate (Calcium 600) 600 mg PO BID 01/28/21 12/03/24 12/03/24 History cholecalciferol (vitamin D3) 25 25 mcg PO DAILY 05/20/22 12/03/24 12/03/24 History mcg (1,000 unit) capsule (Vitamin D3) azithromycin 250 mg tablet 250 mg PO MOWEFR@1000 COPD 12/03/24 12/03/24 12/03/24 History Physical Exam Vital Signs: Vital Signs: Last Vital Signs Temp 97.6 F 12/06/24 15:15 Pulse 83 12/06/24 15:15 Resp 18 12/06/24 15:15 BP 139/63 12/06/24 15:15 Pulse Ox 97 12/06/24 15:15 O2 Del Method Nasal Cannula 12/06/24 15:15 O2 Flow Rate 2 12/06/24 15:15 Oxygen Flow Rate 2 12/03/24 12:23 BMI result Body Mass Index 20.7 GENERAL APPEARANCE: in no acute distress, pleasant. NECK: no carotid bruit, mild jugular venous distention. SKIN: no suspicious lesions, warm and dry. HEART: no murmurs, regular rate and rhythm. LUNGS: clear to auscultation bilaterally. ABDOMEN: soft, nontender. EXTREMITIES: no edema. PERIPHERAL PULSES: equal. NEUROLOGIC: No gross deficits, AAO X 3 Objective Labs and Meds 12/04/24 05:05 12/04/24 05:05 Assessment and Plan (1) Congestive heart failure: Status: Acute (2) Pulmonary hypertension: Status: Acute Plan Pleasant 79 year female with COPD on home oxygen presenting with shortness of breath. Workup has revealed evidence of congestive heart failure. She was started on IV diuretics 20 mg daily and has been feeling much better. Overall she is appears to be clinically euvolemic to me. I think she can be transitioned to 40 mg p.o. Lasix daily. Continue atenolol as before. She has severe pulmonary hypertension by echocardiography which is a combination of lung disease as well as diastolic heart failure. She should continue supplemental oxygen at home. Can be discharged back home tomorrow. Thank you for allowing me to participate in the care of your patient. Please feel free to contact me if you have any questions. Procedures Date of Service Date of Service: 12/06/24
[2024-12-06] MEDS: Ibuprofen 400 MG TABLET PO (18:43)
[2024-12-06] MEDS: Melatonin 3 MG TABLET 6 MG PO (22:07)
[2024-12-07 03:26] VITALS: BP 113/61; PULSE 73; RESP 18; TEMP 36.7; O2SAT 97
[2024-12-07 07:38] VITALS: BP 141/62; PULSE 73; RESP 18; TEMP 36.2; O2SAT 94
[2024-12-07] MEDS: 0.9 % Sodium Chloride Flush 3 ML SYRINGE IVFLUSH (07:45)
[2024-12-07 07:47] LABS: Anion Gap 12 (12-20); Blood Urea Nitrogen 23 mg/dL (9-16); Calcium 9.2 mg/dL (8.4-10.2); Carbon Dioxide 36 mmol/L (22-29); Chloride 97 mmol/L (96-108); Creatinine Clr Calc Pharmacy 50.7; Estimated Glomerular Filt Rate > 60; Glucose Random 91 mg/dL (60-115); Potassium 4.1 mmol/L (3.3-5.1); Sodium 141 mmol/L (135-145)
[2024-12-07] MEDS: Furosemide 40 MG TABLET PO (07:48)
[2024-12-07] MEDS: Fluticasone/Vilanterol 200/25 BLST.W.DEV 1 PUFF INHALE (07:48)
[2024-12-07] MEDS: atenoloL 25 MG TABLET PO (07:48)
[2024-12-07] MEDS: guaiFENesin LA 600 MG TAB.ER.12H PO (07:49)
[2024-12-07] MEDS: Cholecalciferol (Vitamin D3) 25 MCG TABLET PO (07:49)
[2024-12-07] MEDS: Calcium Oyster Shell Elemental 500 MG TABLET PO (07:49)
[2024-12-07 07:50] VITALS: PULSE 75; RESP 18; O2SAT 93
--- NOTE | 2024-12-07 09:49 | P.DS_ITS ---
DS: Providers Provider Date of Service: 12/07/24 Date of admission: 12/03/24 15:42 Date of discharge: 12/07/24 Primary care physician: Sanjiv Buck MD Consults: 12/04/24 08:32 Consult to Pulmonology Routine Consulting [place] [facility] [place] [facility] Reason for consultation: Bullous changes, effusions 12/06/24 07:36 Consult to Cardiology Routine Consulting Provider[place] [facility] [place] [facility] Reason for consultation: chf Has provider been notified: No Attending physician on discharge: Kenroy Moya Discharging clinician: Khalida Beckwith DS: Diagnosis Discharge Diagnosis (1) Congestive heart failure: Status: Acute (2) Pulmonary hypertension: Status: Acute DS: Summary Hospital Course Hospital Course: From H&P on the day of admission Time Attestation Discharge Coordination Time (in mins): 32 Quality: Safe Use of Opioids Does Pt have an Active Cancer Diagnosis on the Problem List?: No Quality: Stroke Does the patient have a stroke diagnosis?: No Physical Exam Vital Signs: Vital Signs: Last Vital Signs Temp 97.2 F 12/07/24 07:38 Pulse 75 12/07/24 07:50 Resp 18 12/07/24 07:50 BP 141/62 H 12/07/24 07:38 Pulse Ox 94 12/07/24 07:38 O2 Del Method Nasal Cannula 12/07/24 07:38 O2 Flow Rate 2 12/07/24 07:38 Oxygen Flow Rate 2 12/03/24 12:23 BMI result Body Mass Index 20.7 Const: General: cooperative, no acute distress, alert and awake Nutritional Appearance: average body habitus Orientation/consciousness: patient oriented x3 Resp: Effort & Inspection: normal respiratory effort, able to speak in complete sentences, no respiratory distress and no use of accessory muscles Cardio: Rate: regular rate GI: Inspection: No distended Palpation (GI): Soft to palpation Neuro: General: patient oriented x3 and moves all extremities Extrem: Other: minimal pedal edema DS: Data Data Completed and Pending Labs on day of discharge: Laboratory Results - last 24 hr 12/07/24 07:00 Sodium 141 Potassium 4.1 Chloride 97 Carbon Dioxide 36 H Anion Gap 12 BUN 23 H Creatinine 0.80 Estim Creat Clear Calc 50.7 Estimated GFR > 60 Random Glucose 91 Calcium 9.2 D Preliminary micro results at discharge 12/03/24 13:10 Blood Culture - Preliminary Blood - Venous No growth after 48 hours. 12/03/24 12:53 Blood Culture - Preliminary Blood - Venous No growth after 48 hours. Discharge Plan Discharge Anticipated Discharge Date/Time: 12/07/24 09:50 Patient Disposition: Home, Self-Care Discharge Diagnosis: pulmonary hypertension diastolic heart failure Referrals: Flex De La Torre MD [Physician] - 1 Month Sanjiv Buck MD [Primary Care Provider] - 1 Week Discharge Medications: New furosemide 40 mg Tablet 40 mg PO DAILY Qty: 90 0RF Protocol: Hold for SBP< HOLD for SBP < : 90 Continued atenolol 25 mg tablet 25 mg PO BID Qty: 180 1RF levalbuterol tartrate 45 mcg/actuation HFA aerosol inhaler 2 puff PO Q4-6H PRN (Reason: for dyspnea) Qty: 15 3RF Incruse Ellipta 62.5 mcg/actuation blister with device 1 inh inhalation DAILY Qty: 90 1RF hydrocortisone [Proctosol HC] 2.5 % cream with perineal applicator 1 appl OR BID-QID PRN (Reason: hemorrhoids) Qty: 30 2RF Breo Ellipta 200-25 mcg/dose blister with device 1 ea inhalation DAILY Qty: 180 1RF cholecalciferol (vitamin D3) [Vitamin D3] 25 mcg (1,000 unit) Capsule 25 mcg PO DAILY azithromycin 250 mg tablet 250 mg PO MOWEFR@1000 PreserVision AREDS-2 [id number] capsule 1 tab PO BID Rx Instructions: give with food (meal/snack) guaifenesin [Mucinex] 600 mg tablet extended release 12hr 600 mg PO BID calcium carbonate [Calcium 600] 600 mg calcium (1,500 mg) tablet 600 mg PO BID Discontinued furosemide 20 mg tablet 20 mg PO DAILY PRN (Reason: Edema) Qty: 90 3RF Discharge Orders: Discharge Order (Routine); Ordered 12/07/24 Ordered By: Khalida Beckwith Diet: Low salt diet Activity on Discharge: As tolerated Stand Alone Forms: Patient Portal Discharge page Print Language: Guinean Care Plan Goals: see below Health Concerns: pulmonary hypertension diastolic heart failure Plan of Treatment: take lasix daily as prescribed Call to schedule follow-up appointment with Cardiology, pulmonology, PCP Assessment: see discharge summary Patient Instructions: Heart Failure (GEN)
--- NOTE | 2024-12-07 10:16 | MHC.CM.PN ---
DP: PT HAS BEEN MEDICALLY CLEARED FOR DC HOME, NO SERVICES. PT'S SPOUSE WILL TRANSPORT. FINAL IMM DELIVERED.
[2024-12-07 11:05] VITALS: BP 107/65; PULSE 78; RESP 18; TEMP 36.8; O2SAT 93
== END 2024-12-07 11:11 | disposition home or self-care (01) | DRG 291 ==
LOC: HO.ED 13:28 → HO.EDOVER 15:52 → HO.S3 17:04
PROVIDERS: Physician Assistant; Physician Assistant Medical; Admitting Provider Nurse Practitioner Acute Care; Emergency Provider Emergency Medicine; PCP Internal Medicine; Visit Provider Physician Assistant Medical
DX: I11.0 Hypertensive heart disease with heart failure (principal); I50.31 Acute diastolic (congestive) heart failure; J96.21 Acute and chronic respiratory failure with hypoxia; J43.9 Emphysema, unspecified; I08.1 Rheumatic disorders of both mitral and tricuspid valves; I27.20 Pulmonary hypertension, unspecified; R73.9 Hyperglycemia, unspecified; D64.9 Anemia, unspecified; Z20.822 Contact with and (suspected) exposure to COVID-19; Z99.81 Dependence on supplemental oxygen; Z87.891 Personal history of nicotine dependence; Z79.899 Other long term (current) drug therapy
CPT/HCPCS: 0241U; 36415; 71045; 71275; 80048; 80053; 82803; 83036; 83605; 83880; 84484; 85025; 85027; 85610; 87040; 93005; 93306; 94640; 99285; J1940; J1956; J2919; J3475; Q9957; Q9967

== ENCOUNTER → 2024-12-03 12:28 | Outpatient (BNV) | payer MEDICARE, MEDICAID, SELFPAY | PROVIDERS: Emergency Provider Emergency Medicine; PCP Internal Medicine; Visit Provider Radiology Diagnostic Radiology | DX: J43.2 Centrilobular emphysema (principal); J90 Pleural effusion, not elsewhere classified; I28.8 Other diseases of pulmonary vessels; R06.02 Shortness of breath | CPT/HCPCS: 71045; 71275 ==

== ENCOUNTER → 2024-12-03 12:28 | Outpatient (BNV) | payer MEDICARE, MEDICAID, SELFPAY | PROVIDERS: Admitting Provider Nurse Practitioner Acute Care; Emergency Provider Emergency Medicine; PCP Internal Medicine; Visit Provider Internal Medicine Cardiovascular Disease | DX: I49.1 Atrial premature depolarization (principal) | CPT/HCPCS: 93010 ==

== ENCOUNTER 2024-12-03 15:42 | Outpatient (BNV) | payer MEDICARE, MEDICAID, SELFPAY | END 2024-12-04 13:00 | PROVIDERS: Admitting Provider Nurse Practitioner Acute Care; Emergency Provider Emergency Medicine; PCP Internal Medicine; Visit Provider Internal Medicine Cardiovascular Disease | DX: I27.20 Pulmonary hypertension, unspecified (principal); I36.1 Nonrheumatic tricuspid (valve) insufficiency; I34.0 Nonrheumatic mitral (valve) insufficiency | CPT/HCPCS: 93306 ==

== ENCOUNTER → 2024-12-03 15:42 | Outpatient (BNV) | payer MEDICARE, MEDICAID, SELFPAY | PROVIDERS: Admitting Provider Nurse Practitioner Acute Care; Emergency Provider Emergency Medicine; PCP Internal Medicine; Visit Provider Nurse Practitioner Acute Care | DX: I50.9 Heart failure, unspecified (principal); J44.9 Chronic obstructive pulmonary disease, unspecified; J96.21 Acute and chronic respiratory failure with hypoxia | CPT/HCPCS: 99232 ==

== ENCOUNTER → 2024-12-03 15:42 | Outpatient (BNV) | payer MEDICARE, MEDICAID, SELFPAY | PROVIDERS: Admitting Provider Nurse Practitioner Acute Care; Emergency Provider Emergency Medicine; PCP Internal Medicine; Visit Provider Internal Medicine Cardiovascular Disease | DX: I50.9 Heart failure, unspecified (principal); I27.20 Pulmonary hypertension, unspecified | CPT/HCPCS: 99222 ==

== ENCOUNTER → 2024-12-03 15:42 | Outpatient (BNV) | payer MEDICARE, MEDICAID, SELFPAY | PROVIDERS: Admitting Provider Nurse Practitioner Acute Care; Emergency Provider Emergency Medicine; PCP Internal Medicine; Visit Provider Internal Medicine Pulmonary Disease | DX: J44.9 Chronic obstructive pulmonary disease, unspecified (principal); J96.21 Acute and chronic respiratory failure with hypoxia; I50.9 Heart failure, unspecified; J90 Pleural effusion, not elsewhere classified | CPT/HCPCS: 99222 ==

== ENCOUNTER 2024-12-21 08:15 | Outpatient (AMB) | payer MEDICARE, MEDICAID, SELFPAY ==
--- NOTE | 2024-12-21 08:21 | MHC.PC.OV ---
Vital Signs 12/21/24 08:23 Height 5 ft 4 in Weight 109 lb 8 oz BMI 18.8 BP 110/60 Blood Pressure Location Lt brachial Position Sitting Pulse 71 Pulse Source Pulse Oximeter Temp 96.9 F Temp Source Temporal Artery Scan Pulse Oximetry (%) 93 Oxygen Delivery Method Nasal Cannula Intake Visit Reasons: TCM [facility] 12/07 Dyspnea Intake Note: Patient is here for hospital discharge and TCM follow up. Patient was discharged from [facility] on 12/07/24. Authorization Nurse Required: No Transit Planner: Not Required per policy Accompanied by: Self / Same As Patient Allergies penicillin G Allergy (Severe, Verified 12/21/24 08:23) Anaphylaxis Sulfa (Sulfonamide Antibiotics) Allergy (Severe, Verified 12/21/24 08:23) Anaphylaxis cat dander [CATS] Allergy (Unknown, Verified 12/21/24 08:23) MUCOUS FORMATION, asthma dog dander [DOGS] Allergy (Unknown, Verified 12/21/24 08:23) MUCOUS FORMATION, asthma egg Allergy (Unknown, Verified 12/21/24 08:23) Wheezing house dust [HOUSE DUST] Allergy (Unknown, Verified 12/21/24 08:23) MUCOUS FORMATION, asthma milk [MILK] Allergy (Unknown, Verified 12/21/24 08:23) MUCOUS FORMATION mold Allergy (Unknown, Verified 12/21/24 08:23) MUCOUS FORMATION, asthma tree and shrub pollen [TREES] Allergy (Unknown, Verified 12/21/24 08:23) MUCOUS FORMATION TO CERTAIN TREES, asthma yeast, dried [yeast] Allergy (Unknown, Verified 12/21/24 08:23) MUCOUS FORMATION, asthma Tobacco use date assessed: 12/21/24 Fall risk assessment: No Falls in past year Last assessed Fall Risk: 12/21/24 Dental Screening Dental Screen Date: 12/21/24 Did you have a dental visit in the last 12 months?: Yes Did you have a dental problem in the last 6 months where you did not have access to dental care?: No Was dental information given to patient?: Patient has dentist HPI TCM TCM Information Date of Discharge 12/07/24 Discharged From [facility] Interactive Contact Date (Reference documentation from this date) 12/10/24 HPI Comments History of Present Illness Details 79 y/o Female Patient who presents to the clinic for HDF. Pmhx significant for COPD and emphysema presenting to HDF-ED on 12/03/24 with increased SOB. He was admitted to the hospital due to Acute Exacerbation of CHF and was discharged home on 12/07/24. She was seen by pulmonary in the hospital due to Bullous changes who felt symptoms likely more heart failure and recommended to get echo. Echo was done and showed: echo with hyperdynamic EF, moderate mitral regurgitation, moderate tricuspid regurgitation, severe pulmonary hypertension,and impaired relaxation filling pattern. She was discharged home on Lasix 40 mg. Today Patient c/o Chronic Persistent Back pain and asking for Rx for Journavx. FORMERLY [facility], [facility] Medical History (Updated 12/21/24 @ 08:55 by Nano Herrera NP) Chronic back pain Acute exacerbation of CHF (congestive heart failure) Acute on chronic hypoxic respiratory failure COPD (chronic obstructive pulmonary disease) Environmental allergies Seasonal allergies Osteoporosis Hemorrhoids Oxygen dependent Respiratory failure with hypoxia Pulmonary nodules/lesions, multiple Anxiety disorder Screening for diabetes mellitus Acute anxiety Anxiety Asthma Allergic rhinitis COPD (chronic obstructive pulmonary disease) Surgical History History of colonoscopy History of cataract surgery History of right hip replacement Family History Mother No problems noted. Father No problems noted. Social History Household Members: Spouse Housing: House Are you a primary acute care nurse practitioner to a significant other at home: No Do you presently have visiting nurse or other home services: No Alcohol intake: current Alcohol intake frequency: holidays/special occasions only Patient Tobacco Use Status: Former Tobacco user Tobacco use type: Cigarette e-Cigarette/Vaping Use: Never Used Second Hand Smoke Exposure: Yes service: No Current occupational status: retired Cognitive needs: No Hearing needs: No Vision needs: Yes (Glasses) Questionnaire PHQ-9 Over the last 2 weeks, how often have you been bothered by any of the following problems? 1. Little interest or pleasure in doing things: not at all 2. Feeling down, depressed, or hopeless: not at all 3. Trouble falling or staying asleep, or sleeping too much: not at all 4. Feeling tired or having little energy: not at all 5. Poor appetite or overeating: not at all 6. Feeling bad about yourself - or that you are a failure or have let yourself or your family down: not at all 7. Trouble concentrating on things, such as reading the newspaper or watching television: not at all 8. Moving or speaking so slowly that other people could have noticed. Or the opposite - being so fidgety or restless that you have been moving around a lot more than usual: not at all 9. Thoughts that you would be better off or of hurting yourself in some way: not at all Total score: 0 Depression Screening Interpretation: Negative Depression Screening Done: Yes Source: Developed by Drs. Juan Diego Minaya, Cecile Holly, Michael Rutledge and colleagues, with an educational romeo from [employer]. Thrive Questionnaire Date Thrive assessed: 12/04/24 AUDIT C Alcohol Use Questionnaire (AUDIT-C) 1. How often do you have a drink containing alcohol?: Never Total Score: 0 MARYANN-7 AMB Questionnaire MARYANN-7 Date MARYANN - 7 assessed: 12/21/24 Feeling nervous, anxious, or on edge: 0 = Not at all Not being able to stop or control worryin = Not at all Worrying too much about different things: 0 = Not at all Trouble relaxin = Not at all Being so restless that it is hard to sit still: 0 = Not at all Becoming easily annoyed or irritable: 0 = Not at all Feeling afraid as if something awful might happen: 0 = Not at all Total MARYANN-7 score (0-4 normal; 5-9 mild; 10-14 moderate; 15-21 severe): 0 Source: Developed by Drs. Juan Diego Minaya, Cecile Holly, Michael Rutledge and colleagues, with an educational romeo from [employer]. Physical exam (Primary Care) Vital Signs: Last Vital Signs Temp 96.9 F 12/21/24 08:23 Pulse 71 12/21/24 08:23 BP 110/60 12/21/24 08:23 Pulse Ox 93 12/21/24 08:23 Oxygen Delivery Method Nasal Cannula 12/21/24 08:23 BMI result Body Mass Index 18.8 Tobacco/Smoking Status: Tobacco use Status Tobacco use date assessed 12/21/24 12/21/24 08:30 Patient Tobacco Use Status Former Tobacco user 12/21/24 08:30 Tobacco use type Cigarette 12/21/24 08:30 e-Cigarette/Vaping Use Never Used 12/21/24 08:30 PHQ-9: PHQ-9 Score PHQ-9: Total score 0 12/21/24 08:30 Depression Screening Interpretation: Negative Thrive Assessment: Date of Thrive Assessment Date Thrive assessed 12/04/24 12/21/24 08:30 Const General: no acute distress Orientation/consciousness: patient oriented x3 Resp Effort & Inspection: normal respiratory effort and able to speak in complete sentences Cardio Heart sounds: S1 normal heart sound present and S2 normal heart sound present Back/Spine/Pelvis Back: back tenderness Thoracic/Lumbar Spine: thoraco-lumbar spasm Neuro General: patient oriented x3, gait normal and moves all extremities Psych Speech and movement: Normal speech and movement present Coding Level of Care Code TCM Mod MDM <= 14 Days Diagnoses Acute on chronic congestive heart failure, unspecified heart failure type I50.9 Heart failure type: unspecified Chronic bilateral thoracic back pain M54.6; G89.29 Back pain location: thoracic back pain Back pain laterality: bilateral Time Spent (min) 20 Assessment & Plan Assessment & Plan (1) Acute exacerbation of CHF (congestive heart failure): Code(s): I50.9 - Heart failure, unspecified Category: Medical Qualifiers: Heart failure type: unspecified Qualified Code(s): I50.9 - Heart failure, unspecified Plan: Stable. Managed by Cardiology. (2) Chronic back pain: Code(s): M54.9 - Dorsalgia, unspecified; G89.29 - Other chronic pain Category: Medical Qualifiers: Back pain location: thoracic back pain Back pain laterality: bilateral Qualified Code(s): M54.6 - Pain in thoracic spine; G89.29 - Other chronic pain Plan: Ordered Journavx non Opioid pain killer as requested. Ordered Acetaminophen for pain control. F/u with PCP. Medications: New acetaminophen 1,000 mg (2 x 500 mg) PO Q6H PRN 30 caps 0RF pain G89.29 - Other chronic pain, M54.6 - Pain in thoracic spine suzetrigine (Journavx) 50 mg PO Q12H 20 tabs 0RF G89.29 - Other chronic pain, M54.6 - Pain in thoracic spine Discontinued levalbuterol tartrate 45 mcg/actuation Discontinued Reason: Patient Completed Course 2 puffs PO Q4-6H PRN 15 ea 3RF for dyspnea J44.9 - Chronic obstructive pulmonary disease, unspecified
[2024-12-21 08:23] VITALS: BP 110/60; PULSE 71; TEMP 36.1; O2SAT 93; BMI 18.8
== END 2024-12-21 09:04 | disposition home or self-care (01) ==
LOC: HO.HMCH 08:16
PROVIDERS: PCP Internal Medicine; Visit Provider Nurse Practitioner Family
DX: I50.9 Heart failure, unspecified (principal); M54.6 Pain in thoracic spine; G89.29 Other chronic pain

== ENCOUNTER → 2024-12-21 08:15 | Outpatient (BNVA) | payer MEDICARE, MEDICAID, SELFPAY | PROVIDERS: PCP Internal Medicine; Visit Provider Nurse Practitioner Family | DX: I50.9 Heart failure, unspecified (principal); M54.6 Pain in thoracic spine; G89.29 Other chronic pain | CPT/HCPCS: 99495 ==

== ENCOUNTER 2025-01-01 08:24 | Outpatient (AMB) | payer MEDICARE, MEDICAID, SELFPAY ==
[2025-01-01 08:28] VITALS: BP 100/60; PULSE 65; BMI 19.2
--- NOTE | 2025-01-01 08:28 | MHC.OFFVIS ---
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 (KM) Tar Worker Required: No Cigarette Making Machine Hopper Feeder: Cigarette Making Machine Hopper Feeder Present Allergies penicillin G Allergy (Severe, Verified 01/01/25 08:30) Anaphylaxis Sulfa (Sulfonamide Antibiotics) Allergy (Severe, Verified 01/01/25 08:30) Anaphylaxis cat dander [CATS] Allergy (Unknown, Verified 01/01/25 08:30) MUCOUS FORMATION, asthma dog dander [DOGS] Allergy (Unknown, Verified 01/01/25 08:30) MUCOUS FORMATION, asthma egg Allergy (Unknown, Verified 01/01/25 08:30) Wheezing house dust [HOUSE DUST] Allergy (Unknown, Verified 01/01/25 08:30) MUCOUS FORMATION, asthma milk [MILK] Allergy (Unknown, Verified 01/01/25 08:30) MUCOUS FORMATION mold Allergy (Unknown, Verified 01/01/25 08:30) MUCOUS FORMATION, asthma tree and shrub pollen [TREES] Allergy (Unknown, Verified 01/01/25 08:30) MUCOUS FORMATION TO CERTAIN TREES, asthma yeast, dried [yeast] Allergy (Unknown, Verified 01/01/25 08:30) MUCOUS FORMATION, asthma Medication List - Last Reconciled 01/01/25 by Anaya Jones, MEDIA THEORIST AND AUTHOR OF-C acetaminophen 1,000 mg (2 x 500 mg) PO Q6H PRN atenolol 25 mg PO BID azithromycin 250 mg PO MOWEFR@1000 Breo Ellipta 200-25 mcg/dose (fluticasone furoate-vilanterol) 1 ea inhalation DAILY NS calcium carbonate (Calcium 600) 600 mg PO BID cholecalciferol (vitamin D3) (Vitamin D3) 25 mcg PO DAILY furosemide 40 mg See Protocol PO DAILY hydrocortisone 2.5% (Proctosol HC) 1 appl VT BID-QID PRN Incruse Ellipta 62.5 mcg/actuation (umeclidinium) 1 inh inhalation DAILY NS vit C,L-Lx-cvyts-lutein-zeaxan 250-90-40-1 mg (PreserVision AREDS-2) 1 tab PO BID HPI HPI MEDIA THEORIST AND AUTHOR OF/ [facility]/Dyspnea (KM): Details: Maritza is a 79-year-old female with past medical history of hypertension, COPD, prior smoking who was recently admitted to [facility] with increased shortness of breath. She was treated for acute on chronic respiratory failure and Congestive heart failure. An echocardiogram showed severe pulmonary hypertension and she was started on daily Lasix. Today she reports that she has been feeling better since her hospital discharge. She says her breathing is not as labored. She wears her oxygen continually lead 3 L which is an increase up from 2 L prior to her last admission. She sleeps with 1-3 pillows depending on her breathing, which is her norm. No chest discomfort at rest or with activity. No heart palpitations, presyncope, syncope, falls. She does have some mild lightheadedness at times if she bends forward to pick something up. She maintains hydration to a max of 51 oz daily. She does light activities around her home. Her is present. She is compliant with meds. She follows with Dr. Townsend for pulmonology and has an appointment with him tomorrow. [facility] Medical History (Updated 01/01/25 @ 09:11 by ITZ SamuelC) COPD (chronic obstructive pulmonary disease) Chronic back pain Acute exacerbation of CHF (congestive heart failure) Acute on chronic hypoxic respiratory failure Environmental allergies Seasonal allergies Osteoporosis Hemorrhoids Oxygen dependent Respiratory failure with hypoxia Pulmonary nodules/lesions, multiple Anxiety disorder Screening for diabetes mellitus Acute anxiety Anxiety Asthma Allergic rhinitis COPD (chronic obstructive pulmonary disease) Surgical History History of colonoscopy History of cataract surgery History of right hip replacement Family History Mother No problems noted. Father No problems noted. Social History Household Members: Spouse Housing: House Are you a primary ocular care technologist to a significant other at home: No Do you presently have visiting nurse or other home services: No Alcohol intake: current Alcohol intake frequency: holidays/special occasions only Patient Tobacco Use Status: Former Tobacco user Tobacco use type: Cigarette e-Cigarette/Vaping Use: Never Used Second Hand Smoke Exposure: Yes service: No Current occupational status: retired Cognitive needs: No Hearing needs: No Vision needs: Yes (Glasses) Review of Systems Const All systems reviewed & are unremarkable except as noted in HPI and below ENT Reports dizziness Card Denies chest pain, Denies chest pain at rest, Denies chest pain with activity, Denies rapid heart rate, Denies pedal edema, Denies edema, Denies leg edema, Denies lightheadedness, Denies palpitations, Denies dyspnea, Reports dyspnea on exertion and Reports orthopnea Resp Denies cough, Denies dyspnea and Reports dyspnea on exertion GI Denies hematochezia and Denies change in stool character Musc Denies abnormal gait, Denies limited range of motion, Denies muscle cramps, Denies muscle weakness, Denies numbness, Denies radiating pain into limb, Denies stiffness and Denies tingling Neuro Denies abnormal gait, Reports dizziness, Denies numbness and Denies tingling Endo Denies palpitations Physical Exam Vital Signs: Last Vital Signs Pulse 65 01/01/25 08:28 BP 100/60 01/01/25 08:28 BMI result Body Mass Index 19.2 Const General: cooperative, comfortable and no acute distress Orientation/consciousness: patient oriented x3 Neck Neck: Yes normal visual inspection Resp Effort & Inspection: normal respiratory effort Auscultation: clear to auscultation bilaterally, no rales, no rhonchi and no wheezes Cardio Rate: regular rate Rhythm: regular rhythm Heart sounds: S1 normal heart sound present, S2 normal heart sound present, no murmurs and no rubs Neuro General: patient oriented x3 Extrem General: Yes normal to inspection, No no pedal edema and No calf tenderness Psych Appearance: grossly normal Mental Status: mental status grossly normal Speech and movement: Normal speech and movement present Assessment & Plan Assessment & Plan (1) Acute exacerbation of CHF (congestive heart failure): Code(s): I50.9 - Heart failure, unspecified Category: Medical Qualifiers: Heart failure type: unspecified Qualified Code(s): I50.9 - Heart failure, unspecified Plan: Recent [facility] admission for acute on chronic respiratory failure, Congestive heart failure. BNP was elevated. Echocardiogram showed EF greater than 70%, elevated filling pressures, normal RV size and function with RV systolic pressure 83 mmHg, severe pulmonary hypertension, moderate MR. She was diuresed and put on daily Lasix. Labs prior to discharge 12/07/2024 showed creatinine 0.8, potassium 4.1. On exam today she does not appear fluid overloaded. She is compliant with oxygen 3 L continually. Will have her check labs today including BMP and BNP. Discussed ongoing fluid restriction, no more than her usual 51 oz daily. Spent time discussing diagnosis of pulmonary hypertension and how it affects the heart. No med changes made at this time. Cardiology follow-up in 3-4 months, sooner if needed. (2) Pulmonary hypertension: Code(s): I27.20 - Pulmonary hypertension, unspecified Category: Medical Plan: New finding of pulmonary hypertension. Started on daily Lasix with some clinical improvement in her condition. (3) COPD (chronic obstructive pulmonary disease): Code(s): J44.9 - Chronic obstructive pulmonary disease, unspecified Category: Medical Plan: Chronic hypoxic respiratory failure with recent exacerbation. Follows with Dr. Townsend and has an appointment with him tomorrow. Will forward my note to him for review. (4) Hypertension: Code(s): I10 - Essential (primary) hypertension Category: Medical Qualifiers: Hypertension type: unspecified Qualified Code(s): I10 - Essential (primary) hypertension Plan: Notes indicate history of hypertension. Blood pressure is on the low side. She reports some mild lightheadedness at times when she bends over. Instructed to use caution with bending and position changes. Continue atenolol and Lasix. (5) Hospital discharge follow-up: Code(s): Z09 - Encounter for follow-up examination after completed treatment for conditions other than malignant neoplasm Category: Medical Plan: Discharge summary reviewed. Plan Time spent on chart review, documentation, interview and assessment Orders: Orders Basic Metabolic Panel Today I50.9 - Heart failure, unspecified B Type Natriuretic Peptide Today I50.9 - Heart failure, unspecified Coding Level of Care Code Est Pt Level 4 (47362) Complex EM visit Add On G2211 Diagnoses Acute on chronic congestive heart failure, unspecified heart failure type I50.9 Heart failure type: unspecified Pulmonary hypertension I27.20 COPD (chronic obstructive pulmonary disease) J44.9 Hypertension, unspecified type I10 Hypertension type: unspecified Hospital discharge follow-up Z09 Time Spent (min) 30
== END 2025-01-01 09:06 | disposition home or self-care (01) ==
LOC: HO.HCS 08:25
PROVIDERS: PCP Internal Medicine; Visit Provider Nurse Practitioner Family
DX: I50.9 Heart failure, unspecified (principal); I27.20 Pulmonary hypertension, unspecified; J44.9 Chronic obstructive pulmonary disease, unspecified; I10 Essential (primary) hypertension; Z09 Encounter for follow-up examination after completed treatment for conditions other than malignant neoplasm
CPT/HCPCS: 99214; G2211

== ENCOUNTER 2025-01-01 08:24 | Outpatient (REF) | payer MEDICARE, MEDICAID, SELFPAY ==
[2025-01-01 10:10] LABS: Anion Gap 13 (12-20); Blood Urea Nitrogen 28 mg/dL (9-16); Calcium 10.8 mg/dL (8.4-10.2); Carbon Dioxide 39 mmol/L (22-29); Chloride 92 mmol/L (96-108); Estimated Glomerular Filt Rate 51; Glucose Random 149 mg/dL (60-115); Potassium 3.6 mmol/L (3.3-5.1); Sodium 140 mmol/L (135-145)
[2025-01-01 10:17] LABS: B Type Natriuretic Peptide 328 pg/mL (<100)
== END 2025-01-01 08:25 | disposition home or self-care (01) ==
LOC: HO.LAB 08:24
PROVIDERS: PCP Internal Medicine; Visit Provider Nurse Practitioner Family
DX: Z09 Encounter for follow-up examination after completed treatment for conditions other than malignant neoplasm (principal); I50.9 Heart failure, unspecified; I27.20 Pulmonary hypertension, unspecified; J44.9 Chronic obstructive pulmonary disease, unspecified; I10 Essential (primary) hypertension
CPT/HCPCS: 36415; 80048; 83880; 99212

== ENCOUNTER 2025-01-02 09:15 | Outpatient (AMB) | payer MEDICARE, MEDICAID, SELFPAY ==
[2025-01-02 09:26] VITALS: PULSE 69; O2SAT 93; BMI 19.1
--- NOTE | 2025-01-02 09:26 | A.OFFVIS_ITS ---
Vital Signs 01/02/25 09:26 Height 5 ft 4 in Weight 111 lb 5.335 oz BMI 19.1 Pulse 69 Pulse Source Pulse Oximeter Pulse Oximetry (%) 93 Oxygen Delivery Method Nasal Cannula Oxygen Flow Rate 3 Intake Visit Reasons: COPD Intake Note: pt is here for follow up and states her breathing is better, some wheeze, please recheck pt's blood pressure. 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: No Allergies penicillin G Allergy (Severe, Verified 01/02/25 10:07) Anaphylaxis Sulfa (Sulfonamide Antibiotics) Allergy (Severe, Verified 01/02/25 10:07) Anaphylaxis cat dander [CATS] Allergy (Unknown, Verified 01/02/25 10:07) MUCOUS FORMATION, asthma dog dander [DOGS] Allergy (Unknown, Verified 01/02/25 10:07) MUCOUS FORMATION, asthma egg Allergy (Unknown, Verified 01/02/25 10:07) Wheezing house dust [HOUSE DUST] Allergy (Unknown, Verified 01/02/25 10:07) MUCOUS FORMATION, asthma milk [MILK] Allergy (Unknown, Verified 01/02/25 10:07) MUCOUS FORMATION mold Allergy (Unknown, Verified 01/02/25 10:07) MUCOUS FORMATION, asthma tree and shrub pollen [TREES] Allergy (Unknown, Verified 01/02/25 10:07) MUCOUS FORMATION TO CERTAIN TREES, asthma yeast, dried [yeast] Allergy (Unknown, Verified 01/02/25 10:07) MUCOUS FORMATION, asthma Medication List - Last Reconciled 01/02/25 by Tam Townsend MD acetaminophen 1,000 mg (2 x 500 mg) PO Q6H PRN atenolol 25 mg PO BID azithromycin 250 mg PO MOWEFR@1000 Breo Ellipta 200-25 mcg/dose (fluticasone furoate-vilanterol) 1 ea inhalation DAILY NS calcium carbonate (Calcium 600) 600 mg PO BID cholecalciferol (vitamin D3) (Vitamin D3) 25 mcg PO DAILY furosemide 40 mg See Protocol PO DAILY hydrocortisone 2.5% (Proctosol HC) 1 appl [place] BID-QID PRN Incruse Ellipta 62.5 mcg/actuation (umeclidinium) 1 inh inhalation DAILY NS vit C,O-Nx-edvzv-lutein-zeaxan 250-90-40-1 mg (PreserVision AREDS-2) 1 tab PO BID Do you need a note to return to daycare/school/sports/work: No HPI HPI COPD: Details: This 79 years old very pleasant female who has the almost end-stage type of COPD, was admitted to the hospital about 3 weeks ago with an acute exacerbation. She also had some swelling of the feet and was seen by Cardiology, started on Lasix. Since her discharge she has remained stable but gets lightheaded when she stands up, she feels. Weak in general Breathing has been relatively stable. She did see cardiology service yesterday and was kept on Lasix 40 mg a day. However her blood pressure was noted to be on the low side. Comes in today for her follow-up and she does feel weak and lightheaded. Breathing gregg she is at her baseline. She does have lot of questions about oxygen. [facility]LY [facility], [facility] Medical History (Updated 01/02/25 @ 10:15 by Tam Townsend MD) Hypotension arterial COPD (chronic obstructive pulmonary disease) Chronic back pain Acute exacerbation of CHF (congestive heart failure) Acute on chronic hypoxic respiratory failure Environmental allergies Seasonal allergies Osteoporosis Hemorrhoids Oxygen dependent Respiratory failure with hypoxia Pulmonary nodules/lesions, multiple Anxiety disorder Screening for diabetes mellitus Acute anxiety Anxiety Asthma Allergic rhinitis COPD (chronic obstructive pulmonary disease) Surgical History History of colonoscopy History of cataract surgery History of right hip replacement Family History Mother No problems noted. Father No problems noted. Social History Household Members: Spouse Housing: House Are you a primary healthcare project manager to a significant other at home: No Do you presently have visiting nurse or other home services: No Alcohol intake: current Alcohol intake frequency: holidays/special occasions only Patient Tobacco Use Status: Former Tobacco user Tobacco use type: Cigarette e-Cigarette/Vaping Use: Never Used Second Hand Smoke Exposure: Yes service: No Current occupational status: retired Cognitive needs: No Hearing needs: No Vision needs: Yes (Glasses) Review of Systems Const All systems reviewed & are unremarkable except as noted in HPI and below Eyes Reports no additional complaints ENT Reports nasal congestion (Mild off and) Card Reports no additional complaints Resp Reports as per HPI GI Reports no additional complaints Reports no additional complaints Musc Reports back pain (Chronic stable) Skin/Breast Reports system reviewed and no additional complaints, except as documented Neuro Reports no additional complaints Psych Reports anxiety (Under control) Physical Exam Vital Signs: Last Vital Signs Pulse 69 01/02/25 09:26 Pulse Ox 93 01/02/25 09:26 Oxygen Delivery Method Nasal Cannula 01/02/25 09:26 Oxygen Flow Rate 3 01/02/25 09:26 BMI result Body Mass Index 19.1 Const General: comfortable, no acute distress, alert and awake Orientation/consciousness: patient oriented x3 HEENT Head: Yes normal to inspection General nose exam: No nasal polyps present and No nasal discharge present Face and sinus: Yes sinuses nontender Mouth: oropharynx normal Throat: Yes posterior oropharynx normal Eyes General: appearance normal, both eyes and all related structures Neck Neck: Yes normal visual inspection, Yes no lymphadenopathy, Yes trachea midline and Yes no JVD Thyroid: Thyroid normal Chest Chest palpation & inspection: normal inspection of the chest, normal palpation of entire chest wall and no tenderness Resp Other: Percussion note hyper-resonant, she has equal breath sounds on both sides with prolonged expiratory phase. No Rhonchi or Creps or wheezes . Cardio Palpation: normal PMI Rate: regular rate Rhythm: regular rhythm Heart sounds: no gallops and no murmurs Peripheral pulses: Peripheral pulses 2+ throughout GI Palpation (GI): Soft to palpation, nontender, No hepatosplenomegaly present and no masses Auscultation: normal bowel sounds Back/Spine/Pelvis Thoracic/Lumbar Spine: thoracic and lumbar spine normal to inspection, kyphosis (Moderate kyphosis of the thoracic spine.) and thoraco-lumbar ROM limited Skin General skin exam: no rashes or lesions noted Neuro General: patient oriented x3 and no focal motor deficits Cranial nerves: Yes CN's II-XII intact bilaterally Extrem General: Yes normal to inspection, Yes no clubbing, cyanosis or edema and Yes no calf tenderness Psych Speech and movement: Normal speech and movement present Affect: Anxious affect present (Controlled) Assessment & Plan Assessment & Plan (1) COPD (chronic obstructive pulmonary disease): Comment: This patient has longstanding history of chronic obstructive pulmonary disease. It has remained relatively stable. But she does get frequent acute exacerbations, usually we can treat her with short courses of prednisone and antibiotic as outpatient. A few weeks ago admitted to the hospital, and treated with course of steroids and antibiotic. Code(s): J44.9 - Chronic obstructive pulmonary disease, unspecified Category: Medical Plan: Advised to continue using Breo 200-251 inhalation daily, Incruse Ellipta 1 inhalation daily. Albuterol HFA 2 puffs Q 4-6 hours p.r.n. Continue on azithromycin 250 mg 3 days a week. She is not on any oral prednisone at this time (2) Pulmonary hypertension: Comment: Patient noted to have pulmonary hypertension this may be secondary to her chronic severe obstructive airway disorder. Code(s): I27.20 - Pulmonary hypertension, unspecified Category: Medical Plan: At this time bed the best treatment is to optimize the treatment for COPD and continue treatment with O2 supplementation (3) Acute anxiety: Comment: Patient has history of anxiety disorder has use lorazepam PRN in the past but at present she does not need to use it Code(s): F41.9 - Anxiety disorder, unspecified Category: Medical Plan: Had a good discussion and try to reassure her, also explained to her about her medications. (4) Hypotension arterial: Comment: On arrival to the office blood pressure was in low 80s. After sitting down and having a glass of water it has come up to 90/60, Most likely it is aggravated by diuretic therapy. Code(s): I95.9 - Hypotension, unspecified Category: Medical Plan: Advised to hold Lasix for today and tomorrow, and then reduced to 20 mg a day Will need frequent monitoring of her blood pressure. Coding Level of Care Code Est Pt Level 4 (88658) Diagnoses COPD (chronic obstructive pulmonary disease) J44.9 Pulmonary hypertension I27.20 Acute anxiety F41.9 Hypotension arterial I95.9
== END 2025-01-02 10:08 | disposition home or self-care (01) ==
LOC: HO.HPS 09:16
PROVIDERS: PCP Internal Medicine; Visit Provider Internal Medicine
DX: J44.9 Chronic obstructive pulmonary disease, unspecified (principal); I27.20 Pulmonary hypertension, unspecified; F41.9 Anxiety disorder, unspecified; I95.9 Hypotension, unspecified
CPT/HCPCS: 99214

== ENCOUNTER → 2025-01-02 09:15 | Outpatient (BNVA) | payer MEDICARE, MEDICAID, SELFPAY | PROVIDERS: PCP Internal Medicine; Visit Provider Internal Medicine | DX: J44.9 Chronic obstructive pulmonary disease, unspecified (principal); I27.20 Pulmonary hypertension, unspecified; I95.9 Hypotension, unspecified; F41.9 Anxiety disorder, unspecified | CPT/HCPCS: 99212 ==

== ENCOUNTER 2025-01-31 09:40 | Outpatient (AMB) | payer MEDICARE, MEDICAID, SELFPAY ==
[2025-01-31 09:56] VITALS: BP 80/62; PULSE 71; O2SAT 94; BMI 19.5
--- NOTE | 2025-01-31 09:56 | MHC.OFFVIS ---
Vital Signs 01/31/25 09:56 Height 5 ft 4 in Weight 113 lb 8.609 oz BMI 19.5 BP 80/62 L Blood Pressure Location Lt brachial Position Sitting Pulse 71 Pulse Source Pulse Oximeter Pulse Oximetry (%) 94 Oxygen Delivery Method Nasal Cannula Oxygen Flow Rate 3 Intake Visit Reasons: COPD Intake Note: pt is here for follow up and states she is feeling pretty good,, recently noticing some lightheaded, some panting past week. Buyer Tobacco Head Required: No Allergies penicillin G Allergy (Severe, Verified 01/31/25 10:24) Anaphylaxis Sulfa (Sulfonamide Antibiotics) Allergy (Severe, Verified 01/31/25 10:24) Anaphylaxis cat dander [CATS] Allergy (Unknown, Verified 01/31/25 10:24) MUCOUS FORMATION, asthma dog dander [DOGS] Allergy (Unknown, Verified 01/31/25 10:24) MUCOUS FORMATION, asthma egg Allergy (Unknown, Verified 01/31/25 10:24) Wheezing house dust [HOUSE DUST] Allergy (Unknown, Verified 01/31/25 10:24) MUCOUS FORMATION, asthma milk [MILK] Allergy (Unknown, Verified 01/31/25 10:24) MUCOUS FORMATION mold Allergy (Unknown, Verified 01/31/25 10:24) MUCOUS FORMATION, asthma tree and shrub pollen [TREES] Allergy (Unknown, Verified 01/31/25 10:24) MUCOUS FORMATION TO CERTAIN TREES, asthma yeast, dried [yeast] Allergy (Unknown, Verified 01/31/25 10:24) MUCOUS FORMATION, asthma Medication List - Last Reconciled 01/31/25 by Tam Townsend MD acetaminophen 1,000 mg (2 x 500 mg) PO Q6H PRN albuterol sulfate 90 mcg/actuation 2 puffs inhalation Q6H PRN atenolol 25 mg PO BID azithromycin 250 mg PO MOWEFR@1000 Breo Ellipta 200-25 mcg/dose (fluticasone furoate-vilanterol) 1 ea inhalation DAILY NS calcium carbonate (Calcium 600) 600 mg PO BID cholecalciferol (vitamin D3) (Vitamin D3) 25 mcg PO DAILY furosemide 40 mg See Protocol PO DAILY hydrocortisone 2.5% (Proctosol HC) 1 appl [place] BID-QID PRN Incruse Ellipta 62.5 mcg/actuation (umeclidinium) 1 inh inhalation DAILY NS vit C,F-Sp-gqxfj-lutein-zeaxan 250-90-40-1 mg (PreserVision AREDS-2) 1 tab PO BID Do you need a note to return to daycare/school/sports/work: No HPI HPI COPD: Details: 79 years old very pleasant female, with advanced chronic obstructive pulmonary disease, O2 dependent Comes for follow-up mainly because of hypotension. She claims that the breathing is okay and no change. On her last visit she had hypotension and I told her to cut down the dose of Lasix to 20 mg a day. She has been taking that Lasix at reduce does. There is. No swelling of the legs Her shortness of breath on exertion is same as usual. She does feel lightheaded but that is mainly positional especially when she lies down not on standing up. She does feel weak and tired. [facility] Medical History Hypotension arterial COPD (chronic obstructive pulmonary disease) Chronic back pain Acute exacerbation of CHF (congestive heart failure) Acute on chronic hypoxic respiratory failure Environmental allergies Seasonal allergies Osteoporosis Hemorrhoids Oxygen dependent Respiratory failure with hypoxia Pulmonary nodules/lesions, multiple Anxiety disorder Screening for diabetes mellitus Acute anxiety Anxiety Asthma Allergic rhinitis COPD (chronic obstructive pulmonary disease) Surgical History History of colonoscopy History of cataract surgery History of right hip replacement Family History Mother No problems noted. Father No problems noted. Social History Household Members: Spouse Housing: House Are you a primary wound care center consultant to a significant other at home: No Do you presently have visiting nurse or other home services: No Alcohol intake: current Alcohol intake frequency: holidays/special occasions only Patient Tobacco Use Status: Former Tobacco user Tobacco use type: Cigarette e-Cigarette/Vaping Use: Never Used Second Hand Smoke Exposure: Yes service: No Current occupational status: retired Cognitive needs: No Hearing needs: No Vision needs: Yes (Glasses) Review of Systems Const All systems reviewed & are unremarkable except as noted in HPI and below Eyes Reports no additional complaints ENT Reports nasal congestion (Mild off and) Card Reports no additional complaints Resp Reports as per HPI GI Reports no additional complaints Reports no additional complaints Musc Reports back pain (Chronic stable) Skin/Breast Reports system reviewed and no additional complaints, except as documented Neuro Reports no additional complaints Psych Reports anxiety (Under control) Physical Exam Vital Signs: Last Vital Signs Pulse 71 01/31/25 09:56 BP 80/62 L 01/31/25 09:56 Pulse Ox 94 01/31/25 09:56 Oxygen Delivery Method Nasal Cannula 01/31/25 09:56 Oxygen Flow Rate 3 01/31/25 09:56 BMI result Body Mass Index 19.5 Const General: comfortable, no acute distress, alert and awake Orientation/consciousness: patient oriented x3 HEENT Head: Yes normal to inspection General nose exam: No nasal polyps present and No nasal discharge present Face and sinus: Yes sinuses nontender Mouth: oropharynx normal Throat: Yes posterior oropharynx normal Eyes General: appearance normal, both eyes and all related structures Neck Neck: Yes normal visual inspection, Yes no lymphadenopathy, Yes trachea midline and Yes no JVD Thyroid: Thyroid normal Chest Chest palpation & inspection: normal inspection of the chest, normal palpation of entire chest wall and no tenderness Resp Other: Percussion note hyper-resonant, she has equal breath sounds on both sides with prolonged expiratory phase. No Rhonchi or Creps or wheezes . Cardio Palpation: normal PMI Rate: regular rate Rhythm: regular rhythm Heart sounds: no gallops and no murmurs Peripheral pulses: Peripheral pulses 2+ throughout GI Palpation (GI): Soft to palpation, nontender, No hepatosplenomegaly present and no masses Auscultation: normal bowel sounds Back/Spine/Pelvis Thoracic/Lumbar Spine: thoracic and lumbar spine normal to inspection, kyphosis (Moderate kyphosis of the thoracic spine.) and thoraco-lumbar ROM limited Skin General skin exam: no rashes or lesions noted Neuro General: patient oriented x3 and no focal motor deficits Cranial nerves: Yes CN's II-XII intact bilaterally Extrem General: Yes normal to inspection, Yes no clubbing, cyanosis or edema and Yes no calf tenderness Psych Speech and movement: Normal speech and movement present Affect: Anxious affect present (Controlled) Assessment & Plan Assessment & Plan (1) COPD (chronic obstructive pulmonary disease): Comment: This patient has longstanding history of chronic obstructive pulmonary disease. It has remained relatively stable. But she does get frequent acute exacerbations, usually we can treat her with short courses of prednisone and antibiotic as outpatient. Code(s): J44.9 - Chronic obstructive pulmonary disease, unspecified Category: Medical Plan: Continue the present medical regimen, including : Incruse Ellipta 1 inhalation daily Breo Ellipta 200-251 inhalation daily. Albuterol HFA 2 puffs Q 4-6 hours p.r.n. Azithromycin 250 mg on Tuesday. (2) Pulmonary nodules/lesions, multiple: Comment: She has multiple but small size nodules. Being followed by annual CT scan Code(s): R91.8 - Other nonspecific abnormal finding of lung field Category: Medical Plan: Continue to have annual CT scan of the chest (3) Pulmonary hypertension: Comment: Patient noted to have pulmonary hypertension this may be secondary to her chronic severe obstructive airway disorder. Code(s): I27.20 - Pulmonary hypertension, unspecified Category: Medical Plan: Continue using oxygen. Continue the medical regimen for COPD regularly (4) Hypotension arterial: Comment: This patient continues to have relatively low systolic blood pressure. She denies having any postural dizziness. She does get mild dizziness and that is mostly positional when she lies down. Code(s): I95.9 - Hypotension, unspecified Category: Medical Plan: Advised to stop furosemide altogether and use 20 mg( have of 40 mg tablet ) p.r.n. if she notices some edema of the legs. Drink plenty of fluids especially Gatorade , or other electrolyte drinks. This patient needs to have frequent follow-up. She was not able to get appointment with primary care office up until April of this year I will see her back in 4 weeks just to make sure that blood pressure is in satisfactory range. Coding Level of Care Code Est Pt Level 3 (71959) Diagnoses COPD (chronic obstructive pulmonary disease) J44.9 Pulmonary nodules/lesions, multiple R91.8 Pulmonary hypertension I27.20 Hypotension arterial I95.9
== END 2025-01-31 10:26 | disposition home or self-care (01) ==
LOC: HO.HPS 09:41
PROVIDERS: PCP Internal Medicine; Visit Provider Internal Medicine
DX: J44.9 Chronic obstructive pulmonary disease, unspecified (principal); R91.8 Other nonspecific abnormal finding of lung field; I27.20 Pulmonary hypertension, unspecified; I95.9 Hypotension, unspecified
CPT/HCPCS: 99213

== ENCOUNTER → 2025-01-31 09:40 | Outpatient (BNVA) | payer MEDICARE, MEDICAID, SELFPAY | PROVIDERS: PCP Internal Medicine; Visit Provider Internal Medicine | DX: J44.9 Chronic obstructive pulmonary disease, unspecified (principal); I27.20 Pulmonary hypertension, unspecified; R91.8 Other nonspecific abnormal finding of lung field; I95.9 Hypotension, unspecified | CPT/HCPCS: 99212 ==

== ENCOUNTER 2025-02-20 09:18 | Outpatient (AMB) | payer MEDICARE, MEDICAID, SELFPAY ==
--- NOTE | 2025-02-20 09:23 | A.OFFVIS_ITS ---
Vital Signs 02/20/25 09:24 Height 5 ft 4 in Weight 115 lb 11.883 oz BMI 19.9 BP 80/60 L Blood Pressure Location Lt brachial Position Sitting Pulse 64 Pulse Source Pulse Oximeter Pulse Oximetry (%) 93 Oxygen Delivery Method Nasal Cannula Oxygen Flow Rate 3 Intake Visit Reasons: COPD Intake Note: pt is here for follow up and states wheeze/tight in chest, had swollen legs Tuesday am, used water pill and better. She is concerned about the BP Histopathologist Required: No Allergies penicillin G Allergy (Severe, Verified 02/20/25 09:34) Anaphylaxis Sulfa (Sulfonamide Antibiotics) Allergy (Severe, Verified 02/20/25 09:34) Anaphylaxis cat dander (CATS) Allergy (Unknown, Verified 02/20/25 09:34) MUCOUS FORMATION, asthma dog dander (DOGS) Allergy (Unknown, Verified 02/20/25 09:34) MUCOUS FORMATION, asthma egg Allergy (Unknown, Verified 02/20/25 09:34) Wheezing house dust (HOUSE DUST) Allergy (Unknown, Verified 02/20/25 09:34) MUCOUS FORMATION, asthma milk (MILK) Allergy (Unknown, Verified 02/20/25 09:34) MUCOUS FORMATION mold Allergy (Unknown, Verified 02/20/25 09:34) MUCOUS FORMATION, asthma tree and shrub pollen (TREES) Allergy (Unknown, Verified 02/20/25 09:34) MUCOUS FORMATION TO CERTAIN TREES, asthma yeast, dried (yeast) Allergy (Unknown, Verified 02/20/25 09:34) MUCOUS FORMATION, asthma Medication List - Last Reconciled 02/20/25 by Tam Townsend MD acetaminophen 1,000 mg (2 x 500 mg) PO Q6H PRN albuterol sulfate 90 mcg/actuation 2 puffs inhalation Q6H PRN atenolol 25 mg PO BID azithromycin 250 mg PO MOWEFR@1000 Breo Ellipta 200-25 mcg/dose (fluticasone furoate-vilanterol) 1 ea inhalation DAILY NS calcium carbonate (Calcium 600) 600 mg PO BID cholecalciferol (vitamin D3) (Vitamin D3) 25 mcg PO DAILY furosemide 40 mg See Protocol PO DAILY hydrocortisone 2.5% (Proctosol HC) 1 appl AR BID-QID PRN Incruse Ellipta 62.5 mcg/actuation (umeclidinium) 1 inh inhalation DAILY NS vit C,K-Nr-btxsq-lutein-zeaxan 250-90-40-1 mg (PreserVision AREDS-2) 1 tab PO BID Do you need a note to return to daycare/school/sports/work: No HPI HPI COPD: Details: THIS 80 YEARS OLD VERY PLEASANT FEMALE, COMES AFTER 2 WEEKS FOR A SHORT TIME FOLLOW-UP, HER BREATHING HAS REMAINED STABLE THOUGH SHE GETS SHORT OF BREATH ON EXERTION, AND DOES HAVE OCCASIONAL FEELING OF WHEEZE. HER MAIN ISSUE IS THAT SHE REMAINS HYPOTENSIVE, SYSTOLIC BLOOD PRESSURE. IN THE RANGE OF 80S BUT SHE DENIES ANY DIZZINESS OR LIGHTHEADED FEELING ALSO DENIES ANY IRREGULAR HEARTBEAT HER CHEST PAIN. SHE DOES HAVE APPOINTMENT WITH THE CARDIOLOGY SERVICE IN [place], SHE IS HAVING MORE FREQUENT PANIC-LIKE ATTACKS, WITHOUT ANY REASON. SHE DOES HAVE HISTORY OF CHRONIC ANXIETY. BREATHING IS RELATIVELY STABLE, NO WHEEZING . IN THE LIST OF HER MEDS SHE IS ON ATENOLOL 25 MG B.I.D.. THIS WAS STARTED AT 1 POINT BECAUSE SHE USED TO HAVE TACHYCARDIA. SHE IS TAKING FUROSEMIDE 40 MG HALF TABLET ONLY P.R.N. IF SHE HAS EDEMA AROUND THE ANKLES. SHE IS DRINKING MORE FLUIDS WITH ELECTROLYTES. [facility] Medical History Hypotension arterial COPD (chronic obstructive pulmonary disease) Chronic back pain Acute exacerbation of CHF (congestive heart failure) Acute on chronic hypoxic respiratory failure Environmental allergies Seasonal allergies Osteoporosis Hemorrhoids Oxygen dependent Respiratory failure with hypoxia Pulmonary nodules/lesions, multiple Anxiety disorder Screening for diabetes mellitus Acute anxiety Anxiety Asthma Allergic rhinitis COPD (chronic obstructive pulmonary disease) Surgical History History of colonoscopy History of cataract surgery History of right hip replacement Family History Mother No problems noted. Father No problems noted. Social History Household Members: Spouse Housing: House Are you a primary health care attorney to a significant other at home: No Do you presently have visiting nurse or other home services: No Alcohol intake: current Alcohol intake frequency: holidays/special occasions only Patient Tobacco Use Status: Former Tobacco user Tobacco use type: Cigarette e-Cigarette/Vaping Use: Never Used Second Hand Smoke Exposure: Yes service: No Current occupational status: retired Cognitive needs: No Hearing needs: No Vision needs: Yes (Glasses) Review of Systems Const All systems reviewed & are unremarkable except as noted in HPI and below Eyes Reports no additional complaints ENT Reports nasal congestion (Mild off and) Card Reports no additional complaints Resp Reports as per HPI GI Reports no additional complaints Reports no additional complaints Musc Reports back pain (Chronic stable) Skin/Breast Reports system reviewed and no additional complaints, except as documented Neuro Reports no additional complaints Psych Reports anxiety (Under control) Physical Exam Vital Signs: Last Vital Signs Pulse 64 02/20/25 09:24 BP 80/60 L 02/20/25 09:24 Pulse Ox 93 02/20/25 09:24 Oxygen Delivery Method Nasal Cannula 02/20/25 09:24 Oxygen Flow Rate 3 02/20/25 09:24 BMI result Body Mass Index 19.9 Const General: comfortable, no acute distress, alert and awake Orientation/consciousness: patient oriented x3 HEENT Head: Yes normal to inspection General nose exam: No nasal polyps present and No nasal discharge present Face and sinus: Yes sinuses nontender Mouth: oropharynx normal Throat: Yes posterior oropharynx normal Eyes General: appearance normal, both eyes and all related structures Neck Neck: Yes normal visual inspection, Yes no lymphadenopathy, Yes trachea midline and Yes no JVD Thyroid: Thyroid normal Chest Chest palpation & inspection: normal inspection of the chest, normal palpation of entire chest wall and no tenderness Resp Other: Percussion note hyper-resonant, she has equal breath sounds on both sides with prolonged expiratory phase. No Rhonchi or Creps or wheezes . Cardio Palpation: normal PMI Rate: regular rate Rhythm: regular rhythm Heart sounds: no gallops and no murmurs Peripheral pulses: Peripheral pulses 2+ throughout GI Palpation (GI): Soft to palpation, nontender, No hepatosplenomegaly present and no masses Auscultation: normal bowel sounds Back/Spine/Pelvis Thoracic/Lumbar Spine: thoracic and lumbar spine normal to inspection, kyphosis (Moderate kyphosis of the thoracic spine.) and thoraco-lumbar ROM limited Skin General skin exam: no rashes or lesions noted Neuro General: patient oriented x3 and no focal motor deficits Cranial nerves: Yes CN's II-XII intact bilaterally Extrem General: Yes normal to inspection, Yes no clubbing, cyanosis or edema and Yes no calf tenderness Psych Speech and movement: Normal speech and movement present Affect: Anxious affect present (Controlled) Assessment & Plan Assessment & Plan (1) COPD (chronic obstructive pulmonary disease): Comment: This patient has longstanding history of chronic obstructive pulmonary disease. It has remained relatively stable. But she does get frequent acute exacerbations, usually we can treat her with short courses of prednisone and antibiotic as outpatient. Since she is on azithromycin 250 3 times a week her acute exacerbations have been much less, Code(s): J44.9 - Chronic obstructive pulmonary disease, unspecified Category: Medical Plan: Continue the current regimen which includes, Incruse Ellipta once a day. Breo 200-25 once a day. Albuterol HFA 2 puffs Q 4-6 hours p.r.n. Azithromycin 250 mg 3 days a week (2) Pulmonary hypertension: Comment: Patient noted to have pulmonary hypertension this may be secondary to her chronic severe obstructive airway disorder, hypoxemia, which is being treated. Code(s): I27.20 - Pulmonary hypertension, unspecified Category: Medical Plan: Continue on oxygen supplementation 24 hours a day (3) Anxiety disorder: Comment: Has chronic anxiety. Has used anxiolytic agents in the past but not now. She gets panic-like attacks now and then, without any reason. Code(s): F41.9 - Anxiety disorder, unspecified Category: Medical Plan: Advised to do deep breathing with pursed lip technique a few times whenever there is a panic episode (4) Hypotension arterial: Comment: This patient continues to have relatively low systolic blood pressure. She denies having any postural dizziness., or resting dizziness. Code(s): I95.9 - Hypotension, unspecified Category: Medical Plan: Advised to make appointment with her primary care physician and also manager sales support at earliest date. If she becomes symptomatic she should go to emergency room. Use Lasix 40 mg half tablet only p.r.n. for swelling. Around the ankles Reduce atenolol 25 mg to only once a day. Coding Level of Care Code Est Pt Level 3 (12668) Diagnoses COPD (chronic obstructive pulmonary disease) J44.9 Pulmonary hypertension I27.20 Anxiety disorder F41.9 Hypotension arterial I95.9
[2025-02-20 09:24] VITALS: BP 80/60; PULSE 64; O2SAT 93; BMI 19.9
== END 2025-02-20 09:45 | disposition home or self-care (01) ==
LOC: HO.HPS 09:19
PROVIDERS: PCP Internal Medicine; Visit Provider Internal Medicine
DX: J44.9 Chronic obstructive pulmonary disease, unspecified (principal); I27.20 Pulmonary hypertension, unspecified; F41.9 Anxiety disorder, unspecified; I95.9 Hypotension, unspecified
CPT/HCPCS: 99213

== ENCOUNTER → 2025-02-20 09:18 | Outpatient (BNVA) | payer MEDICARE, MEDICAID, SELFPAY | PROVIDERS: PCP Internal Medicine; Visit Provider Internal Medicine | DX: J44.89 Other specified chronic obstructive pulmonary disease (principal); I95.9 Hypotension, unspecified; F41.8 Other specified anxiety disorders; Z79.2 Long term (current) use of antibiotics; Z99.81 Dependence on supplemental oxygen | CPT/HCPCS: 99212 ==

== ENCOUNTER 2025-03-18 11:10 | Outpatient (AMB) | payer MEDICARE, MEDICAID, SELFPAY ==
[2025-03-18 11:15] VITALS: BP 117/56; PULSE 69; O2SAT 96; BMI 19.1
--- NOTE | 2025-03-18 11:15 | A.OFFVIS_ITS ---
Vital Signs 03/18/25 11:15 Height 5 ft 4 in Weight 111 lb 5.335 oz BMI 19.1 BP 117/56 L Blood Pressure Location Rt brachial Position Sitting Pulse 69 Pulse Source Pulse Oximeter Pulse Oximetry (%) 96 Oxygen Delivery Method Nasal Cannula Oxygen Flow Rate 4 Intake Visit Reasons: COPD Intake Note: pt is here for follow up and states the less she eats the better she breaths. she was very worried about her low blood pressure. she has been wheezing more lately Rehab Trainer Required: No Allergies penicillin G Allergy (Severe, Verified 03/18/25 11:37) Anaphylaxis Sulfa (Sulfonamide Antibiotics) Allergy (Severe, Verified 03/18/25 11:37) Anaphylaxis cat dander (CATS) Allergy (Unknown, Verified 03/18/25 11:37) MUCOUS FORMATION, asthma dog dander (DOGS) Allergy (Unknown, Verified 03/18/25 11:37) MUCOUS FORMATION, asthma egg Allergy (Unknown, Verified 03/18/25 11:37) Wheezing house dust (HOUSE DUST) Allergy (Unknown, Verified 03/18/25 11:37) MUCOUS FORMATION, asthma milk (MILK) Allergy (Unknown, Verified 03/18/25 11:37) MUCOUS FORMATION mold Allergy (Unknown, Verified 03/18/25 11:37) MUCOUS FORMATION, asthma tree and shrub pollen (TREES) Allergy (Unknown, Verified 03/18/25 11:37) MUCOUS FORMATION TO CERTAIN TREES, asthma yeast, dried (yeast) Allergy (Unknown, Verified 03/18/25 11:37) MUCOUS FORMATION, asthma Medication List - Last Reconciled 03/18/25 by Tam Townsend MD acetaminophen 1,000 mg (2 x 500 mg) PO Q6H PRN albuterol sulfate 90 mcg/actuation 2 puffs inhalation Q6H PRN atenolol 25 mg PO BID azithromycin 250 mg PO MOWEFR@1000 Breo Ellipta 200-25 mcg/dose (fluticasone furoate-vilanterol) 1 ea inhalation DAILY NS calcium carbonate (Calcium 600) 600 mg PO BID cholecalciferol (vitamin D3) (Vitamin D3) 25 mcg PO DAILY furosemide 40 mg See Protocol PO DAILY hydrocortisone 2.5% (Proctosol HC) 1 appl RI BID-QID PRN Incruse Ellipta 62.5 mcg/actuation (umeclidinium) 1 inh inhalation DAILY NS levalbuterol tartrate 45 mcg/actuation 2 puffs PO Q4-6H PRN vit C,P-Sr-ibtdp-lutein-zeaxan 250-90-40-1 mg (PreserVision AREDS-2) 1 tab PO BID HPI HPI COPD: Details: SOUTH, COMES AFTER 1 MONTH FOR FOLLOW-UP. SHE HAS BEEN VERY WORRIED ABOUT HER BLOOD PRESSURE BUT LATELY SHE DENIES ANY LIGHTHEADEDNESS, HAS MILD INTERMITTENT WHEEZING, ESPECIALLY ON THE HOT AND HUMID DAYS. USES HER REGULAR MAINTENANCE REGIMEN, AND HAS NOT NEEDED TO USE EMERGENCY INHALER OR ALBUTEROL IN THE NEBULIZER. SHE SEEMS TO BE BACK TO HER BASELINE. [facility] Medical History Hypotension arterial COPD (chronic obstructive pulmonary disease) Chronic back pain Acute exacerbation of CHF (congestive heart failure) Acute on chronic hypoxic respiratory failure Environmental allergies Seasonal allergies Osteoporosis Hemorrhoids Oxygen dependent Respiratory failure with hypoxia Pulmonary nodules/lesions, multiple Anxiety disorder Screening for diabetes mellitus Acute anxiety Anxiety Asthma Allergic rhinitis COPD (chronic obstructive pulmonary disease) Surgical History History of colonoscopy History of cataract surgery History of right hip replacement Family History Mother No problems noted. Father No problems noted. Social History Household Members: Spouse Housing: House Are you a primary before and after school daycare worker to a significant other at home: No Do you presently have visiting nurse or other home services: No Alcohol intake: current Alcohol intake frequency: holidays/special occasions only Patient Tobacco Use Status: Former Tobacco user Tobacco use type: Cigarette e-Cigarette/Vaping Use: Never Used Second Hand Smoke Exposure: Yes service: No Current occupational status: retired Cognitive needs: No Hearing needs: No Vision needs: Yes (Glasses) Review of Systems Const All systems reviewed & are unremarkable except as noted in HPI and below Eyes Reports no additional complaints ENT Reports nasal congestion (Mild off and) Card Reports no additional complaints Resp Reports as per HPI GI Reports no additional complaints Reports no additional complaints Musc Reports back pain (Chronic stable) Skin/Breast Reports system reviewed and no additional complaints, except as documented Neuro Reports no additional complaints Psych Reports anxiety (Under control) Physical Exam Vital Signs: Last Vital Signs Pulse 69 03/18/25 11:15 BP 117/56 L 03/18/25 11:15 Pulse Ox 96 03/18/25 11:15 Oxygen Delivery Method Nasal Cannula 03/18/25 11:15 Oxygen Flow Rate 4 03/18/25 11:15 BMI result Body Mass Index 19.1 Const General: comfortable, no acute distress, alert and awake Orientation/consciousness: patient oriented x3 HEENT Head: Yes normal to inspection General nose exam: No nasal polyps present and No nasal discharge present Face and sinus: Yes sinuses nontender Mouth: oropharynx normal Throat: Yes posterior oropharynx normal Eyes General: appearance normal, both eyes and all related structures Neck Neck: Yes normal visual inspection, Yes no lymphadenopathy, Yes trachea midline and Yes no JVD Thyroid: Thyroid normal Chest Chest palpation & inspection: normal inspection of the chest, normal palpation of entire chest wall and no tenderness Resp Other: Percussion note hyper-resonant, she has equal breath sounds on both sides with prolonged expiratory phase. No Rhonchi or Creps or wheezes . Cardio Palpation: normal PMI Rate: regular rate Rhythm: regular rhythm Heart sounds: no gallops and no murmurs Peripheral pulses: Peripheral pulses 2+ throughout GI Palpation (GI): Soft to palpation, nontender, No hepatosplenomegaly present and no masses Auscultation: normal bowel sounds Back/Spine/Pelvis Thoracic/Lumbar Spine: thoracic and lumbar spine normal to inspection, kyphosis (Moderate kyphosis of the thoracic spine.) and thoraco-lumbar ROM limited Skin General skin exam: no rashes or lesions noted Neuro General: patient oriented x3 and no focal motor deficits Cranial nerves: Yes CN's II-XII intact bilaterally Extrem General: Yes normal to inspection, Yes no clubbing, cyanosis or edema and Yes no calf tenderness Psych Speech and movement: Normal speech and movement present Affect: Anxious affect present (Controlled) Assessment & Plan Assessment & Plan (1) COPD (chronic obstructive pulmonary disease): Comment: This patient has longstanding history of chronic obstructive pulmonary disease. It has remained relatively stable. But she does get frequent acute exacerbations, usually we can treat her with short courses of prednisone and antibiotic as outpatient. Since she is on azithromycin 250 3 times a week her acute exacerbations have been much less, Code(s): J44.9 - Chronic obstructive pulmonary disease, unspecified Category: Medical Plan: CONTINUE THE PRESENT REGIMEN WHICH IS FOLLOWS : BREO ELLIPTA 200-251 INHALATION DAILY . INCRUSE ELLIPTA 1 INHALATION DAILY ALBUTEROL HFA 2 PUFFS Q 4-6 HOURS P.R.N.. AZITHROMYCIN 250 MG 3 DAYS A WEEK (2) Pulmonary nodules/lesions, multiple: Comment: She has multiple but small size nodules. Being followed by annual CT scan Code(s): R91.8 - Other nonspecific abnormal finding of lung field Category: Medical Plan: CONTINUE TO HAVE ANNUAL CT SCAN OF THE LUNGS, LDCT (3) Pulmonary hypertension: Comment: Patient noted to have pulmonary hypertension this may be secondary to her chronic severe obstructive airway disorder, hypoxemia, which is being treated. Code(s): I27.20 - Pulmonary hypertension, unspecified Category: Medical Plan: CONTINUE THE PRESENT MEDICAL REGIMEN (4) Anxiety disorder: Comment: Has chronic anxiety. Has used anxiolytic agents in the past but not now. She gets panic-like attacks now and then, without any reason. Code(s): F41.9 - Anxiety disorder, unspecified Category: Medical Plan: NO NEED OF ANY ANXIOLYTIC AGENTS (5) Allergic rhinitis: Comment: Chronic, under control, Code(s): J30.9 - Allergic rhinitis, unspecified Category: Medical Plan: MAY USE FLONASE 2 SPRAYS IN EACH NOSTRIL ONCE A DAY P.R.N. Coding Level of Care Code Est Pt Level 3 (67404) Diagnoses COPD (chronic obstructive pulmonary disease) J44.9 Pulmonary nodules/lesions, multiple R91.8 Pulmonary hypertension I27.20 Anxiety disorder F41.9 Allergic rhinitis J30.9
--- OUTSIDE RECORDS SUMMARY | 2025-03-18 12:20 | XMS_ITS | Clinical Summary ---
Author Organization [facility] Address [address] [place] [phone] Phone Care Team Providers Care Lost And Found Clerk Name Role Phone Sanjiv Buck MD Primary Care Provid er Allergies Active Allergy Reactions Criticality Noted Date Comments Penicillins 03/10/2022 Mouth sores Sulfa (Sulfonamide Antibiotics) Shortness Of Breath High 03/10/2022 Medications atenolol (TENORMIN) 25 MG tablet Take 25 mg by mouth 2 (two) times a day. 2 Active BREO ELLIPTA 200-25 mcg/dose inhaler USE 1 INHALATION DAILY 2 Active INCRUSE ELLIPTA 62.5 mcg/actuation inhalation USE 1 INHALATION DAILY 2 Active albuterol 90 mcg/actuation inhaler Inhale 2 puffs into the lungs every 6 (six) hours as needed for wheezing. Active azithromycin (ZITHROMAX) 250 MG tablet Take 250 mg by mouth 3 (three) times a week. Active vitamin A,C,E-zinc-nora er (OCUVITE PRESERVE) 7,160 unit- 113 mg-100 unit Tab Take 1 tablet by mouth daily. Active LORazepam (ATIVAN) 0.5 MG tablet Take 0.5 mg by mouth every 8 (eight) hours as needed for anxiety. Rarely uses. Active Immunizations Immunization Administration Dates Next Due Pneumococcal conjugate PCV13 09/03/2019,05/30/20 15 Pneumococcal polysaccharide PPSV23 11/16/2016 Social History Tobacco Use Types Packs/Day Years Used Date Smoking Tobacco: Former Smokeless Tobacco: Never Education Answer Date Recorded Are you interested in more education? Not on yuriy e 12/25/2022 Are you concerned about learning? Not on file 12/25/2022 No 12/25/2022 No 12/25/2022 Digital Access Answer Date Recorded No 01/23/2023 No 01/23/2023 No 01/23/2023 Reliable internet access at home? Not on file 01/23/2023 Device with a working camera? Not on file Comments Unknown Sex and Gender Information Value Date Recorded Sex Assigned at Not on file Legal Sex Female 8:18 AM EDT Gender Identity Not on file Sexual Orientation Not on file Last Filed Vital Signs Vital Sign Reading Time Taken Comments Blood Pressure 156/94 03/10/2022 9:00 AM EDT man ual Pulse 72 03/10/2022 9:00 AM EDT Temperature 36.5 C (97.7 F) 03/10/2022 9:00 AM EDT Respiratory Rate 22 03/10/2022 9:00 AM EDT Oxygen Saturation 99% 03/10/2022 9:00 AM EDT 3L O2 Inhaled Oxygen Concentration - - Weight 55.8 kg (123 lb) 03/10/2022 9:00 AM EDT Height 162.6 cm (5' 4 ) 03/10/2022 9:00 AM EDT Body Mass Index 21.11 03/10/2022 9:00 AM EDT Plan of Treatment Health Maintenance Due Date Last Done Comments Adult Td,Tdap Booster 1947 LIPID PANEL 1947 DEPRESSION SCREENING 1959 SMOKING Hx and SMOKELESS TOBACCO SCREENING 02/15/1960 HEPATITIS C SCREENING 1965 ZOSTER VACCINES (1 of 2) 1997 OSTEOPOROSIS SCREENING INITI AL (ONE-TIME) 02/15/2012 RSV VACCINE (1 - 1-dose 75+ series) 2022 COVID-19 VACCINE ( - 2023-2 5 season) 2024 11/14/2020, 10/17/2020 PNEUMOCOCCAL VACCINES (50+ years) Completed 09/03/2019, 11/16/2016, 05/30/2015 HEPATITIS A VACCINES Aged Out No long er eligible based on patient's age to complete this topic HIB VACCINES Aged Out No longer eligi ble based on patient's age to complete this topic MENINGOCOCCAL VACCINES (ACWY) Aged Out No longer eligible based on patient's age to complete this topic MENINGOCOCCAL VACCINES (B) Aged Out N o longer eligible based on patient's age to complete this topic Medical Devices Not on file Insurance MEDICARE PART A & [address] [place], [place] [id number] MEDICARE PART [place] [facility] [place] [facility] [place] [id number] MEDICARE PART A & B [facility] Care Teams Lost And Found Clerk Relationship Specialty Start Date End Date Sanjiv Buck MD [address] [place] [id number] PCP - General Internal Medicine 03/10/22 Additional Source Comments The information contained in this document represents components of the legal health record. It is not the complete legal health record.[facility]
== END 2025-03-18 11:38 | disposition home or self-care (01) ==
LOC: HO.HPS 11:11
PROVIDERS: PCP Internal Medicine; Visit Provider Internal Medicine
DX: J44.9 Chronic obstructive pulmonary disease, unspecified (principal); R91.8 Other nonspecific abnormal finding of lung field; I27.20 Pulmonary hypertension, unspecified; F41.9 Anxiety disorder, unspecified; J30.9 Allergic rhinitis, unspecified
CPT/HCPCS: 99213

== ENCOUNTER → 2025-03-18 11:10 | Outpatient (BNVA) | payer MEDICARE, MEDICAID, SELFPAY | PROVIDERS: PCP Internal Medicine; Visit Provider Internal Medicine | DX: J44.9 Chronic obstructive pulmonary disease, unspecified (principal); R91.8 Other nonspecific abnormal finding of lung field; I27.20 Pulmonary hypertension, unspecified; F41.9 Anxiety disorder, unspecified; J30.9 Allergic rhinitis, unspecified | CPT/HCPCS: 99212 ==

== ENCOUNTER 2025-04-22 10:58 | Outpatient (AMB) | payer MEDICARE, MEDICAID, SELFPAY ==
[2025-04-22 11:08] VITALS: BP 110/60; PULSE 74; BMI 18.9
--- NOTE | 2025-04-22 11:08 | MHC.OFFVIS ---
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 Required: No Accompanied by: Self / Same As Patient Allergies penicillin G Allergy (Severe, Verified 03/18/25 11:37) Anaphylaxis Sulfa (Sulfonamide Antibiotics) Allergy (Severe, Verified 03/18/25 11:37) Anaphylaxis cat dander (CATS) Allergy (Unknown, Verified 03/18/25 11:37) MUCOUS FORMATION, asthma dog dander (DOGS) Allergy (Unknown, Verified 03/18/25 11:37) MUCOUS FORMATION, asthma egg Allergy (Unknown, Verified 03/18/25 11:37) Wheezing house dust (HOUSE DUST) Allergy (Unknown, Verified 03/18/25 11:37) MUCOUS FORMATION, asthma milk (MILK) Allergy (Unknown, Verified 03/18/25 11:37) MUCOUS FORMATION mold Allergy (Unknown, Verified 03/18/25 11:37) MUCOUS FORMATION, asthma tree and shrub pollen (TREES) Allergy (Unknown, Verified 03/18/25 11:37) MUCOUS FORMATION TO CERTAIN TREES, asthma yeast, dried (yeast) Allergy (Unknown, Verified 03/18/25 11:37) MUCOUS FORMATION, asthma Medication List - Last Reconciled 04/22/25 by Flex De La Torre MD acetaminophen 1,000 mg (2 x 500 mg) PO Q6H PRN albuterol sulfate 90 mcg/actuation 2 puffs inhalation Q6H PRN atenolol 25 mg PO ONCE azithromycin 250 mg PO MOWEFR@1000 Breo Ellipta 200-25 mcg/dose (fluticasone furoate-vilanterol) 1 ea inhalation DAILY NS calcium carbonate (Calcium 600) 600 mg PO BID cholecalciferol (vitamin D3) (Vitamin D3) 25 mcg PO DAILY furosemide 20 mg See Protocol PO DAILY PRN hydrocortisone 2.5% (Proctosol HC) 1 appl RI BID-QID PRN Incruse Ellipta 62.5 mcg/actuation (umeclidinium) 1 inh inhalation DAILY NS levalbuterol tartrate 45 mcg/actuation 2 puffs PO Q4-6H PRN vit C,M-Uk-wmgad-lutein-zeaxan 250-90-40-1 mg (PreserVision AREDS-2) 1 tab PO BID PFSH Medical History Hypotension arterial COPD (chronic obstructive pulmonary disease) Chronic back pain Acute exacerbation of CHF (congestive heart failure) Acute on chronic hypoxic respiratory failure Environmental allergies Seasonal allergies Osteoporosis Hemorrhoids Oxygen dependent Respiratory failure with hypoxia Pulmonary nodules/lesions, multiple Anxiety disorder Screening for diabetes mellitus Acute anxiety Anxiety Asthma Allergic rhinitis COPD (chronic obstructive pulmonary disease) Surgical History History of colonoscopy History of cataract surgery History of right hip replacement Family History Mother No problems noted. Father No problems noted. Social History Household Members: Spouse Housing: House Are you a primary youth care worker to a significant other at home: No Do you presently have visiting nurse or other home services: No Alcohol intake: current Alcohol intake frequency: holidays/special occasions only Patient Tobacco Use Status: Former Tobacco user Tobacco use type: Cigarette e-Cigarette/Vaping Use: Never Used Second Hand Smoke Exposure: Yes service: No Current occupational status: retired Cognitive needs: No Hearing needs: No Vision needs: Yes (Glasses) Review of Systems Const Denies chills, Denies fatigue, Denies fever(s), Denies frequent falls, Denies weakness, Denies weight gain and Denies weight loss ENT Denies dizziness Card Denies chest pain, Denies leg edema, Denies lightheadedness, Denies palpitations, Denies dyspnea and Denies dyspnea on exertion Resp Denies cough, Denies dyspnea and Denies dyspnea on exertion GI Denies hematochezia Musc Denies abnormal gait, Denies muscle weakness, Denies numbness, Denies radiating pain into limb and Denies tingling Neuro Denies abnormal gait, Denies dizziness, Denies frequent falls, Denies numbness, Denies tingling and Denies weakness Endo Denies fatigue and Denies palpitations Physical Exam Vital Signs: Last Vital Signs Pulse 74 04/22/25 11:08 BP 110/60 04/22/25 11:08 BMI result Body Mass Index 18.9 GENERAL APPEARANCE: in no acute distress, pleasant. NECK: no carotid bruit, no JVD. SKIN: no suspicious lesions, warm and dry. HEART: no murmurs, regular rate and rhythm. LUNGS: clear to auscultation bilaterally. ABDOMEN: soft, nontender. EXTREMITIES: no edema. PERIPHERAL PULSES: equal. NEUROLOGIC: No gross deficits, AAO X 3 Assessment & Plan Assessment & Plan (1) Diastolic heart failure: Code(s): I50.30 - Unspecified diastolic (congestive) heart failure Category: Medical Plan Pleasant 80 year female with chronic diastolic heart failure. She had episode of heart failure in November 2024 when she was started on diuretics and discharged home. She apparently had low blood pressure and furosemide was cut to 20 and eventually stopped. She continued to have low blood pressure till atenolol was decreased to 25 mg daily and since then had improvement in the blood pressure. She is denying any dizziness or lightheadedness. She is using furosemide 20 mg PRN. She uses it when she sees lower extremity edema. So far she is doing well with this strategy. She also has pulmonary hypertension secondary to COPD. She uses 24/7 oxygen and I have advised her to continue that. She will see us back in 6 months. Thank you for allowing me to participate in the care of your patient. Please feel free to contact me if you have any questions. Medications: Changed From atenolol 25 mg PO BID 180 tabs 1RF To atenolol 25 mg PO ONCE Sanjiv Buck MD From furosemide 40 mg See Protocol PO DAILY 90 tabs 0RF To furosemide 20 mg See Protocol PO DAILY PRN NGOZI Marshall Coding Level of Care Code Est Pt Level 4 (77933) Diagnoses Diastolic heart failure I50.30
--- OUTSIDE RECORDS SUMMARY | 2025-04-22 12:16 | XMS_ITS | Clinical Summary ---
Author Organization [facility] Address [address] [place] [phone] Phone Care Team Providers Care Business Reporting Developer Name Role Phone Sanjiv Buck MD Primary [...] file Insurance MEDICARE PART A & B [address] [place], [place] [address]HEALTH MEDICARE PART A & [place] [facility] [place] [address] MEDICARE PART A & B [facility] Care Teams Business Reporting Developer Relationship Specialty Start Date End Date Sanjiv Buck MD [address] [place] [phone] PCP - General Internal Medicine 03/10/22 Additional Source Comments The information contained in this document represents components of the legal health record. It is not the complete legal health record.[facility]
== END 2025-04-22 11:57 | disposition home or self-care (01) ==
LOC: HO.HCS 10:58
PROVIDERS: PCP Internal Medicine; Visit Provider Internal Medicine Cardiovascular Disease
DX: I50.30 Unspecified diastolic (congestive) heart failure (principal)
CPT/HCPCS: 99214

== ENCOUNTER → 2025-04-22 10:58 | Outpatient (BNVA) | payer MEDICARE, MEDICAID, SELFPAY | PROVIDERS: PCP Internal Medicine; Visit Provider Internal Medicine Cardiovascular Disease | DX: I50.30 Unspecified diastolic (congestive) heart failure (principal); J44.9 Chronic obstructive pulmonary disease, unspecified; I27.23 Pulmonary hypertension due to lung diseases and hypoxia; Z99.81 Dependence on supplemental oxygen | CPT/HCPCS: 99212 ==

== ENCOUNTER 2025-05-02 14:53 | Outpatient (AMB) | payer MEDICARE, MEDICAID, SELFPAY ==
[2025-05-02 15:02] VITALS: BP 102/62; PULSE 99; RESP 18; TEMP 36.4; O2SAT 94; BMI 19.8
--- NOTE | 2025-05-02 15:02 | MHC.PC.OV ---
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 Accompanied by: Self / Same As Patient Allergies penicillin G Allergy (Severe, Verified 05/02/25 15:27) Anaphylaxis Sulfa (Sulfonamide Antibiotics) Allergy (Severe, Verified 05/02/25 15:27) Anaphylaxis cat dander (CATS) Allergy (Unknown, Verified 05/02/25 15:27) MUCOUS FORMATION, asthma dog dander (DOGS) Allergy (Unknown, Verified 05/02/25 15:27) MUCOUS FORMATION, asthma egg Allergy (Unknown, Verified 05/02/25 15:27) Wheezing house dust (HOUSE DUST) Allergy (Unknown, Verified 05/02/25 15:27) MUCOUS FORMATION, asthma milk (MILK) Allergy (Unknown, Verified 05/02/25 15:27) MUCOUS FORMATION mold Allergy (Unknown, Verified 05/02/25 15:27) MUCOUS FORMATION, asthma tree and shrub pollen (TREES) Allergy (Unknown, Verified 05/02/25 15:27) MUCOUS FORMATION TO CERTAIN TREES, asthma yeast, dried (yeast) Allergy (Unknown, Verified 05/02/25 15:27) MUCOUS FORMATION, asthma Medication List - Last Reconciled 05/02/25 by NAV Higgins acetaminophen 1,000 mg (2 x 500 mg) PO Q6H PRN albuterol sulfate 90 mcg/actuation 2 puffs inhalation Q6H PRN atenolol 25 mg PO ONCE azithromycin 250 mg PO MOWEFR@1000 Breo Ellipta 200-25 mcg/dose (fluticasone furoate-vilanterol) 1 ea inhalation DAILY NS calcium carbonate (Calcium 600) 600 mg PO BID cholecalciferol (vitamin D3) (Vitamin D3) 25 mcg PO DAILY furosemide 20 mg See Protocol PO DAILY PRN guaifenesin ER (Mucinex) 600 mg PO BID hydrocortisone 2.5% (Proctosol HC) 1 appl MA BID-QID PRN Incruse Ellipta 62.5 mcg/actuation (umeclidinium) 1 inh inhalation DAILY NS levalbuterol tartrate 45 mcg/actuation 2 puffs PO Q4-6H PRN vit C,I-Yc-xtkcs-lutein-zeaxan 250-90-40-1 mg (PreserVision AREDS-2) 1 tab PO BID vitamins A,C,D-msjh-fgqahd 4,296 mcg-226 mg-90 mg (PreserVision AREDS) 1 cap PO BID Tobacco use date assessed: 05/02/25 Fall risk assessment: No Falls in past year Last assessed Fall Risk: 05/02/25 Dental Screening Dental Screen Date: 05/02/25 Did you have a dental visit in the last 12 months?: No Did you have a dental problem in the last 6 months where you did not have access to dental care?: No Was dental information given to patient?: No HPI back pain for 3 days HPI Details The patient is a 80-year-old female presenting with back pain. The back pain began four days ago after lifting a heavy bag, which the patient described as a sudden onset of pain the following day. The pain is localized to the right side of the mild back and does not radiate elsewhere. The patient reports that the pain worsens when lying on her back or right side, and she experiences difficulty getting up from bed. The patient describes the pain as severe and persistent, with a sensation of having pulled a muscle. She finds some relief when her massages the affected area, suggesting a muscular origin. The patient has been unable to find relief with Tylenol and is considering ibuprofen for pain management. [facility] Medical History Hypotension arterial COPD (chronic obstructive pulmonary disease) Chronic back pain Acute exacerbation of CHF (congestive heart failure) Acute on chronic hypoxic respiratory failure Environmental allergies Seasonal allergies Osteoporosis Hemorrhoids Oxygen dependent Respiratory failure with hypoxia Pulmonary nodules/lesions, multiple Anxiety disorder Screening for diabetes mellitus Acute anxiety Anxiety Asthma Allergic rhinitis COPD (chronic obstructive pulmonary disease) Surgical History History of colonoscopy History of cataract surgery History of right hip replacement Family History Mother No problems noted. Father No problems noted. Social History Household Members: Spouse Housing: House Are you a primary account executive healthcare to a significant other at home: No Do you presently have visiting nurse or other home services: No Alcohol intake: current Alcohol intake frequency: holidays/special occasions only Patient Tobacco Use Status: Former Tobacco user Tobacco use type: Cigarette e-Cigarette/Vaping Use: Never Used Second Hand Smoke Exposure: Yes service: No Current occupational status: retired Cognitive needs: No Hearing needs: No Vision needs: Yes (Glasses) Questionnaire PHQ-9 Over the last 2 weeks, how often have you been bothered by any of the following problems? 1. Little interest or pleasure in doing things: not at all 2. Feeling down, depressed, or hopeless: not at all 3. Trouble falling or staying asleep, or sleeping too much: not at all 4. Feeling tired or having little energy: not at all 5. Poor appetite or overeating: not at all 6. Feeling bad about yourself - or that you are a failure or have let yourself or your family down: not at all 7. Trouble concentrating on things, such as reading the newspaper or watching television: not at all 8. Moving or speaking so slowly that other people could have noticed. Or the opposite - being so fidgety or restless that you have been moving around a lot more than usual: not at all 9. Thoughts that you would be better off or of hurting yourself in some way: not at all Total score: 0 Depression Screening Interpretation: Negative Depression Screening Done: Yes Source: Developed by Drs. Juan Diego Minaya, Cecile Holly, Michael Rutledge and colleagues, with an educational romeo from [email or web address]. Thrive Questionnaire Date Thrive assessed: 05/02/25 I am a: Patient What is your living situation today?: I have a steady place to live Within the past 12 months, did the food you bought not last and you didn't have the money to get more?: Never true Within the past 12 months, did you worry whether your food would run out before you got money to buy more?: Never true Do you have trouble paying for medicines?: No Do you have trouble getting transportation to medical appointments?: No Do you have trouble paying your heating and electricity bill?: No Do you have trouble taking care of your child, family member or friend?: No Do you have trouble with day-to-day activities such as bathing, preparing meals, shopping, managing finances, etc.?: No Are you currently unemployed and looking for a job?: No Are you interested in more education?: No Please select the resources that you would like help with: None Currently or been in a relationship where the following occur: No concerns reported THRIVE Score: 0 AUDIT C Alcohol Use Questionnaire (AUDIT-C) 1. How often do you have a drink containing alcohol?: Never Total Score: 0 MARYANN-7 AMB Questionnaire MARYANN-7 Date MARYANN - 7 assessed: 05/02/25 Feeling nervous, anxious, or on edge: 0 = Not at all Not being able to stop or control worryin = Not at all Worrying too much about different things: 0 = Not at all Trouble relaxin = Not at all Being so restless that it is hard to sit still: 0 = Not at all Becoming easily annoyed or irritable: 0 = Not at all Feeling afraid as if something awful might happen: 0 = Not at all Total MARYANN-7 score (0-4 normal; 5-9 mild; 10-14 moderate; 15-21 severe): 0 Source: Developed by Drs. Juan Diego Minaya, Cecile Holly, Michael Rutledge and colleagues, with an educational romeo from [email or web address]. Review of Systems Const Denies body aches, Denies chills, Denies fever(s), Denies headache(s) and Denies poor appetite Eyes Reports no additional complaints ENT Denies dysphagia, Denies dizziness, Denies headache(s) and Denies odynophagia Card Denies chest pain, Denies syncope, Denies edema, Denies irregular heart rhythm, Denies lightheadedness and Denies dyspnea Resp Denies cough and Denies dyspnea GI Denies abdominal pain, Denies constipation, Denies dysphagia, Denies diarrhea, Denies nausea, Denies odynophagia and Denies vomiting Reports no additional complaints Musc Denies abnormal gait and Reports back pain Skin/Breast Reports system reviewed and no additional complaints, except as documented Neuro Denies abnormal gait, Denies dizziness, Denies syncope and Denies headache(s) Psych Reports no additional complaints Physical exam (Primary Care) Vital Signs: Last Vital Signs Temp 97.5 F 05/02/25 15:02 Pulse 99 05/02/25 15:02 Resp 18 05/02/25 15:02 BP 102/62 05/02/25 15:02 Pulse Ox 94 05/02/25 15:02 Oxygen Delivery Method Room Air 05/02/25 15:02 BMI result Body Mass Index 19.8 Tobacco/Smoking Status: Tobacco use Status Tobacco use date assessed 05/02/25 05/02/25 15:15 Patient Tobacco Use Status Former Tobacco user 05/02/25 15:15 Tobacco use type Cigarette 05/02/25 15:15 e-Cigarette/Vaping Use Never Used 05/02/25 15:15 PHQ-9: PHQ-9 Score PHQ-9: Total score 0 05/02/25 15:30 Depression Screening Interpretation: Negative Thrive Assessment: Date of Thrive Assessment Date Thrive assessed 05/02/25 05/02/25 15:15 Currently or been in a relationship where the following occur: No concerns reported Const General: cooperative, healthy appearing, comfortable and no acute distress Orientation/consciousness: patient oriented x3 HENMT Head: Yes normocephalic Ears: hearing grossly normal bilaterally General nose exam: Normal external nose present Eyes General: appearance normal, both eyes and all related structures Conjunctivae: conjunctivae normal Neck Neck: Yes full ROM and Yes no lymphadenopathy Resp Effort & Inspection: normal respiratory effort Auscultation: clear to auscultation bilaterally, no crackles, no rales, no rhonchi and no wheezes Cardio Rate: regular rate Rhythm: regular rhythm Back/Spine/Pelvis Thoracic/Lumbar Spine: paraspinal muscle tenderness (Thoracic region) on the right Skin General skin exam: no rashes or lesions noted Neuro General: patient oriented x3 Gait exam (Neuro): Normal gait present Extrem General: Yes normal to inspection, Yes full ROM and No edema Psych Affect: normal affect Attitude: cooperative Insight: Good insight present (Psych) Judgement: Good judgement present (Psych) Coding Level of Care Code Est Pt Level 3 (08017) Diagnoses Acute right-sided thoracic back pain M54.6 Back pain location: thoracic back pain Chronicity: acute Back pain laterality: right Time Spent (min) 32 Assessment & Plan Assessment & Plan (1) Back pain: Code(s): M54.9 - Dorsalgia, unspecified Category: Medical Qualifiers: Back pain location: thoracic back pain Chronicity: acute Back pain laterality: right Qualified Code(s): M54.6 - Pain in thoracic spine Plan: The patient will be prescribed a muscle relaxant, cyclobenzaprine, to be taken at night to aid in sleep and muscle relaxation. Ibuprofen 400 mg will be prescribed for daytime pain management, with instructions to take it every eight hours with food to minimize gastrointestinal discomfort. The patient is advised to avoid lying on the affected side and to rest the back to prevent further strain. Medications: New lidocaine 5% leave on most painful area for up to 12 hrs 1 patch topical DAILY 30 ea 3RF ibuprofen 400 mg PO Q8H PRN 30 tabs 0RF pain cyclobenzaprine 5 mg PO BEDTIME PRN 30 tabs 3RF muscle spasm
--- OUTSIDE RECORDS SUMMARY | 2025-05-02 16:02 | XMS_ITS | Clinical Summary ---
Author Organization [facility] Address [address] [place] [phone] Phone Care Team Providers Care Head Butler Name Role Phone Sanjiv Buck MD Primary [...] file Insurance MEDICARE PART A & B [address] [place], [place] [address]HEALTH MEDICARE PART A [place] B Member Subscriber Plan / Payer (Ef fective 2012-Present) Name:Maritza Maharaj Member ID:[id number] Relation to Subscriber:Self Name:Maritza Maharaj Subscriber ID:[id number] Payer ID:[id number] Group ID:Not on file Type:Medicare Address: [employer] [address] [place] [id number] [facility] & [facility]IC[facility] PART A [place] [address] MEDICARE PART A & B [facility] Care Teams Head Butler Relationship Specialty Start Date End Date Sanjiv Buck MD [address] [place] [phone] PCP - General Internal Medicine 03/10/22 Additional Source Comments The information contained in this document represents components of the legal health record. It is not the complete legal health record.[facility]
== END 2025-05-02 17:26 | disposition home or self-care (01) ==
LOC: HO.HMCH 14:53
PROVIDERS: PCP Internal Medicine
DX: M54.6 Pain in thoracic spine (principal)

== ENCOUNTER → 2025-05-02 14:53 | Outpatient (BNVA) | payer MEDICARE, MEDICAID, SELFPAY | PROVIDERS: PCP Internal Medicine | DX: M54.6 Pain in thoracic spine (principal) | CPT/HCPCS: 96127; 99212 ==

== ENCOUNTER 2025-05-09 09:08 | Outpatient (AMB) | payer MEDICARE, MEDICAID, SELFPAY ==
[2025-05-09 09:10] VITALS: BP 104/60; PULSE 72; O2SAT 94; BMI 19.4
--- NOTE | 2025-05-09 09:10 | A.OFFVIS_ITS ---
Vital Signs 05/09/25 09:10 Height 5 ft 4 in Weight 113 lb BMI 19.4 BP 104/60 Blood Pressure Location Lt brachial Position Sitting Pulse 72 Pulse Source Pulse Oximeter Pulse Oximetry (%) 94 Oxygen Delivery Method Room Air Intake Visit Reasons: COPD Intake Note: Patient is here for a follow up on COPD, patient c/o low back pain for 1 week now, patient has been hypervetilating due to pain, patient c/o of increased SOB Allergies penicillin G Allergy (Severe, Verified 05/09/25 10:18) Anaphylaxis Sulfa (Sulfonamide Antibiotics) Allergy (Severe, Verified 05/09/25 10:18) Anaphylaxis cat dander (CATS) Allergy (Unknown, Verified 05/09/25 10:18) MUCOUS FORMATION, asthma dog dander (DOGS) Allergy (Unknown, Verified 05/09/25 10:18) MUCOUS FORMATION, asthma egg Allergy (Unknown, Verified 05/09/25 10:18) Wheezing house dust (HOUSE DUST) Allergy (Unknown, Verified 05/09/25 10:18) MUCOUS FORMATION, asthma milk (MILK) Allergy (Unknown, Verified 05/09/25 10:18) MUCOUS FORMATION mold Allergy (Unknown, Verified 05/09/25 10:18) MUCOUS FORMATION, asthma tree and shrub pollen (TREES) Allergy (Unknown, Verified 05/09/25 10:18) MUCOUS FORMATION TO CERTAIN TREES, asthma yeast, dried (yeast) Allergy (Unknown, Verified 05/09/25 10:18) MUCOUS FORMATION, asthma Medication List - Last Reconciled 05/09/25 by Tam Townsend MD acetaminophen 1,000 mg (2 x 500 mg) PO Q6H PRN albuterol sulfate 90 mcg/actuation 2 puffs inhalation Q6H PRN atenolol 25 mg PO ONCE azithromycin 250 mg PO MOWEFR@1000 Breo Ellipta 200-25 mcg/dose (fluticasone furoate-vilanterol) 1 ea inhalation DAILY NS calcium carbonate (Calcium 600) 600 mg PO BID cholecalciferol (vitamin D3) (Vitamin D3) 25 mcg PO DAILY cyclobenzaprine 5 mg PO BEDTIME PRN furosemide 20 mg See Protocol PO DAILY PRN guaifenesin ER (Mucinex) 600 mg PO BID hydrocortisone 2.5% (Proctosol HC) 1 appl NC BID-QID PRN ibuprofen 400 mg PO Q8H PRN Incruse Ellipta 62.5 mcg/actuation (umeclidinium) 1 inh inhalation DAILY NS levalbuterol tartrate 45 mcg/actuation 2 puffs PO Q4-6H PRN lidocaine 5% 1 patch topical DAILY vit C,O-Lo-cfkdo-lutein-zeaxan 250-90-40-1 mg (PreserVision AREDS-2) 1 tab PO BID vitamins A,C,X-ofrm-mwfwgj 4,296 mcg-226 mg-90 mg (PreserVision AREDS) 1 cap PO BID Do you need a note to return to daycare/school/sports/work: No HPI HPI COPD: Details: This 80 years old female, is a case of severe COPD . And Comes for follow-up after 4 months. During the last 4 months she has had no acute exacerbation of her symptoms. Continues to use medications as prescribed. Her chief complaint on this visit is mainly back pain for about 1 week due to muscle strain caused by lifting a bag. She has seen her PCP, and being treated for back strain on top of chronic degenerative arthritis of the spine. She does not benefit from Tylenol so she is using ibuprofen 400 mg b.i.d., she felt having some edema around the ankles after taking ibuprofen and had to stop it. Her PCP did prescribe a mild muscle relaxant cyclobenzaprine 5 mg to take t.i.d. but she has not been able to get it ( probably due to insurance nonpayment) Most of the conversation today was related to her back pain , Breathing has remained very stable . [facility] Medical History Hypotension arterial COPD (chronic obstructive pulmonary disease) Chronic back pain Acute exacerbation of CHF (congestive heart failure) Acute on chronic hypoxic respiratory failure Environmental allergies Seasonal allergies Osteoporosis Hemorrhoids Oxygen dependent Respiratory failure with hypoxia Pulmonary nodules/lesions, multiple Anxiety disorder Screening for diabetes mellitus Acute anxiety Anxiety Asthma Allergic rhinitis COPD (chronic obstructive pulmonary disease) Surgical History History of colonoscopy History of cataract surgery History of right hip replacement Family History Mother No problems noted. Father No problems noted. Social History Household Members: Spouse Housing: House Are you a primary career technical education teacher to a significant other at home: No Do you presently have visiting nurse or other home services: No Alcohol intake: current Alcohol intake frequency: holidays/special occasions only Patient Tobacco Use Status: Former Tobacco user Tobacco use type: Cigarette e-Cigarette/Vaping Use: Never Used Second Hand Smoke Exposure: Yes service: No Current occupational status: retired Cognitive needs: No Hearing needs: No Vision needs: Yes (Glasses) Review of Systems Const All systems reviewed & are unremarkable except as noted in HPI and below Eyes Reports no additional complaints ENT Reports nasal congestion (Mild off and) Card Reports no additional complaints Resp Reports as per HPI GI Reports no additional complaints Reports no additional complaints Musc Reports back pain (Chronic stable) Skin/Breast Reports system reviewed and no additional complaints, except as documented Neuro Reports no additional complaints Psych Reports anxiety (Under control) Physical Exam Vital Signs: Last Vital Signs Pulse 72 05/09/25 09:10 BP 104/60 05/09/25 09:10 Pulse Ox 94 05/09/25 09:10 Oxygen Delivery Method Room Air 05/09/25 09:10 BMI result Body Mass Index 19.4 Const General: comfortable, no acute distress, alert and awake Orientation/consciousness: patient oriented x3 HEENT Head: Yes normal to inspection General nose exam: No nasal polyps present and No nasal discharge present Face and sinus: Yes sinuses nontender Mouth: oropharynx normal Throat: Yes posterior oropharynx normal Eyes General: appearance normal, both eyes and all related structures Neck Neck: Yes normal visual inspection, Yes no lymphadenopathy, Yes trachea midline and Yes no JVD Thyroid: Thyroid normal Chest Chest palpation & inspection: normal inspection of the chest, normal palpation of entire chest wall and tenderness (Mild tenderness over the right lower ribcage, extending from the mid back.) Resp Other: Percussion note hyper-resonant, she has equal breath sounds on both sides with prolonged expiratory phase. No Rhonchi or Creps or wheezes . Cardio Palpation: normal PMI Rate: regular rate Rhythm: regular rhythm Heart sounds: no gallops and no murmurs Peripheral pulses: Peripheral pulses 2+ throughout GI Palpation (GI): Soft to palpation, nontender, No hepatosplenomegaly present and no masses Auscultation: normal bowel sounds Back/Spine/Pelvis Thoracic/Lumbar Spine: thoracic and lumbar spine normal to inspection, kyphosis (Moderate kyphosis of the thoracic spine.) and thoraco-lumbar ROM limited Skin General skin exam: no rashes or lesions noted Neuro General: patient oriented x3 and no focal motor deficits Cranial nerves: Yes CN's II-XII intact bilaterally Extrem General: Yes normal to inspection, Yes no clubbing, cyanosis or edema and Yes no calf tenderness Psych Speech and movement: Normal speech and movement present Affect: Anxious affect present (Controlled) Assessment & Plan Assessment & Plan (1) COPD (chronic obstructive pulmonary disease): Comment: This patient has longstanding history of chronic obstructive pulmonary disease. It has remained relatively stable. But she does get frequent acute exacerbations, usually we can treat her with short courses of prednisone and antibiotic as outpatient. Since she is on azithromycin 250 3 times a week her acute exacerbations have been much less, Code(s): J44.9 - Chronic obstructive pulmonary disease, unspecified Category: Medical Plan: Reassured that her lungs are clear and COPD is under good control. Continue using Breo Ellipta 200-251 inhalation daily Incruse Ellipta 1 inhalation daily Mucinex 600 mg b.i.d. Levalbuterol-45 1 or 2 puffs Q 6 hours p.r.n. (2) Pulmonary hypertension: Comment: Patient noted to have pulmonary hypertension this may be secondary to her chronic severe obstructive airway disorder, hypoxemia, which is being treated. Code(s): I27.20 - Pulmonary hypertension, unspecified Category: Medical Plan: Continue to use O2 2 L/minute 24 hours a day (3) Anxiety disorder: Comment: Has chronic anxiety. Has used anxiolytic agents in the past but not now. She gets panic-like attacks now and then, without any reason. Code(s): F41.9 - Anxiety disorder, unspecified Category: Medical Plan: Again advised to do deep breathing exercises to alleviate her anxiety . (4) Back pain: Comment: She is a known case of advanced degenerative. Arthritis of the spine At present her acute back pain more on the right side( dorsal lumbar area) is secondary to acute muscle strain. Code(s): M54.9 - Dorsalgia, unspecified Category: Medical Qualifiers: Back pain laterality: right Back pain location: thoracic back pain Chronicity: acute Qualified Code(s): M54.6 - Pain in thoracic spine Plan: Patient has seen her primary care physician and I advised to continue to take medications prescribed and follow the instructions. Coding Level of Care Code Est Pt Level 3 (54943) Diagnoses COPD (chronic obstructive pulmonary disease) J44.9 Pulmonary hypertension I27.20 Anxiety disorder F41.9 Acute right-sided thoracic back pain M54.6 Back pain laterality: right Back pain location: thoracic back pain Chronicity: acute
--- OUTSIDE RECORDS SUMMARY | 2025-05-09 10:30 | XMS_ITS | Clinical Summary ---
Author Organization [facility] Address [address] [place] [id number] Phone Care Team Providers Care Lead Mobile Developer Name Role Phone Sanjiv Buck MD [...] VACCINE (1 - 1-dose 75+ series) 2022 INFLUENZA VACCINE (#1) 2025 COVID-19 VACCINE (3 - 2024-2 6 season) 2025 11/14/2020, 10/17/2020 PNEUMOCOCCAL VACCINES (50+ years) Completed [...] file Insurance MEDICARE PART A [place] [facility] [place] [facility]IC[facility] PART A & B Member Subscriber Plan / Payer (Ef fective 2012-Present) Name:Maritza Maharaj Member ID:[id number] Relation to Subscriber:Self Name:Maritza Maharaj Subscriber ID:[id number] Payer ID:[id number] Group ID:Not on file Type:Medicare Address: [employer] [address] [place] [phone] [facility] B [facility] Care Teams Lead Mobile Developer Relationship Specialty Start Date End Date Sanjiv Buck MD [address] [place] [id number] PCP - General Internal Medicine 03/10/22 Additional Source Comments The information contained in this document represents components of the legal health record. It is not the complete legal health record.[facility]
== END 2025-05-09 09:42 | disposition home or self-care (01) ==
LOC: HO.HPS 09:09
PROVIDERS: PCP Internal Medicine; Visit Provider Internal Medicine
DX: J44.9 Chronic obstructive pulmonary disease, unspecified (principal); I27.20 Pulmonary hypertension, unspecified; F41.9 Anxiety disorder, unspecified; M54.6 Pain in thoracic spine
CPT/HCPCS: 99213

== ENCOUNTER → 2025-05-09 09:08 | Outpatient (BNVA) | payer MEDICARE, MEDICAID, SELFPAY | PROVIDERS: PCP Internal Medicine; Visit Provider Internal Medicine | DX: J44.9 Chronic obstructive pulmonary disease, unspecified (principal); I27.23 Pulmonary hypertension due to lung diseases and hypoxia; F41.9 Anxiety disorder, unspecified; M54.6 Pain in thoracic spine; Z99.81 Dependence on supplemental oxygen | CPT/HCPCS: 99212 ==

== ENCOUNTER 2025-05-21 15:20 | Emergency (ER) | payer MEDICARE, MEDICAID, SELFPAY ==
[2025-05-21] VITALS (12 sets, daily range): BP systolic 99–144; BP diastolic 65–94; PULSE 77–142; RESP 20–22; TEMP 36.6–36.8; O2SAT 93–100; BMI 20.7
--- NOTE | ~2025-05-21 | XR_ITS ---
EXAMINATION: XR CHEST CLINICAL INFORMATION: chest pain COMPARISON: 12/03/2024. CTPA 12/03/2024. TECHNIQUE: 2 views of the chest were obtained. FINDINGS: Cardiac size is normal. Aorta is mildly tortuous and calcified. Hilar silhouettes appear normal. Lungs are somewhat hyperaerated with flattened hemidiaphragms, findings suggesting COPD. Lungs otherwise grossly clear. There is no pneumothorax or pleural effusion. Exaggerated thoracic kyphosis with numerous osteopenic thoracic compression fractures present. These appear essentially stable. Healed left rib fractures seen. XR/XR chest 2V IMPRESSION: 1. Findings consistent with COPD. No definite active superimposed disease. 2. Exaggerated thoracic kyphosis with numerous osteopenic compression deformities. Electronically signed by: Fransisco Berman MD 05/21/2025 04:14 PM EDT
--- NOTE | ~2025-05-21 | CT_ITS ---
CLINICAL HISTORY: RLQ abdominal pain and low back pain CT abdomen and pelvis with contrast Comparison: None provided Findings: LIMITED CHEST: Fibrosis and emphysematous changes of the lung bases. LIVER: No focal liver lesion. BILIARY: Low positioning of the gallbladder toward the right lower quadrant. Distended gallbladder with cholelithiasis. PANCREAS: No mass or ductal dilatation. SPLEEN: No splenomegaly. KIDNEYS: No hydronephrosis or radiopaque stone. Small hypoattenuating lesions, too small to characterize however may represent cysts. ADRENALS: No nodule. VASCULAR: No aneurysm. RETROPERITONEUM: No lymphadenopathy or mass. BOWEL/MESENTERY: No mass or wall thickening. No evidence of obstruction. No free fluid or air. Normal appendix. Colonic diverticulosis. ABDOMINAL WALL: No mass or significant abnormality. URINARY BLADDER: No focal wall thickening. PELVIC NODES: No pelvic lymphadenopathy. PELVIC ORGANS: Normal for age. BONES: No acute fracture. Right total hip arthroplasty. OTHER: Negative. IMPRESSION: 1. Distended gallbladder with cholelithiasis, acute cholecystitis is considered. Normal appendix. 2. Colonic diverticulosis without CT evidence of acute diverticulitis. This document has been electronically signed by: Shirley Heck MD on 05/21/2025 20:32:12
--- NOTE | ~2025-05-21 | US_ITS ---
CLINICAL HISTORY: RUQ please US abdomen limited Comparison: CT/SR - CT ABDOMEN PELVIS W IV CON - 05/21/25 19:41 EDT Findings: The visualized pancreas is normal. The aorta and inferior vena cava are normal caliber. The liver is normal in size and echotexture. There is no intrahepatic bile duct dilatation. The common duct is 3 mm in diameter. Cholelithiasis with the largest gallstone measuring 9 mm. There is no sonographic Arellano sign. The main portal vein is antegrade. No ascites. IMPRESSION: Cholelithiasis with normal common bile duct. No pericholecystic fluid. This document has been electronically signed by: Shirley Heck MD on 05/21/2025 21:48:19
--- NOTE | 2025-05-21 15:29 | ED.ABDPAIN ---
HPI - Abdominal Pain General Chief Complaint: General Medical Stated Complaint: SO, back injury Time Seen by Provider: 05/21/25 17:37 Source: patient, RN notes reviewed and old records reviewed Mode of arrival: ambulatory Limitations: no limitations History of Present Illness ED Provider: Marilyn GROSS narrative: 80-year-old female past medical history significant for COPD on chronic 2 L, CHF, pulmonary hypertension, hypertension, anxiety, history of AFib not currently anticoagulated presents for evaluation of back pain Patient reports back pain worsening over the last 2 weeks. She reports her pain started when she picked something up She would not have any fall or trauma to the area. Over last 2 days she has developed lower abdominal pain mostly in the right. Denies any nausea, vomiting, diarrhea. She reports she has been given muscle relaxers without helping her symptoms. She took Excedrin which did help a little bit. She reports leg swelling after she was taking NSAIDs and therefore she stopped taking the ibuprofen She reports that her breathing feels more difficult which she attributes somewhat to her back pain Denies fevers, chills, cough. No other complaints or concerns at this time pain She denies any history abdominal surgeries Related Data Home Medications ?Medication ?Instructions ?Recorded ?Confirmed vit C 250 mg-vit E 90 mg-zinc 40 1 tab PO BID 07/21/20 05/09/25 mg-copper 1 hi-ypjtcw-sewkwj capsule (PreserVision AREDS-2) calcium carbonate (Calcium 600) 600 mg PO BID 01/28/21 05/09/25 cholecalciferol (vitamin D3) 25 25 mcg PO DAILY 05/20/22 05/09/25 mcg (1,000 unit) capsule (Vitamin D3) albuterol sulfate 90 mcg/actuation 2 puff inhalation Q6H PRN 01/31/25 05/09/25 aerosol inhaler atenolol 25 mg tablet 25 mg PO ONCE 04/22/25 05/09/25 furosemide 40 mg tablet 20 mg PO DAILY PRN 04/22/25 05/09/25 guaifenesin 600 mg tablet, 600 mg PO BID 05/02/25 05/09/25 extended release 12 hr (Mucinex) vitamins A,C,I-vorr-cddtge 4,296 1 cap PO BID 05/02/25 05/09/25 mcg-226 mg-90 mg capsule (PreserVision AREDS) Previous Rx's ?Medication ?Instructions ?Recorded hydrocortisone 2.5 % topical cream 1 appl SD BID-QID PRN hemorrhoids 09/04/24 with perineal applicator #30 grams (Proctosol HC) acetaminophen 500 mg capsule 1,000 mg (2 x 500 mg) PO Q6H PRN 12/21/24 pain #30 caps Breo Ellipta 200 mcg-25 mcg/dose 1 ea inhalation DAILY #180 ea 12/28/24 powder for inhalation (fluticasone furoate-vilanterol) levalbuterol tartrate 45 2 puff PO Q4-6H PRN for dyspnea 02/27/25 mcg/actuation aerosol inhaler #15 ea azithromycin 250 mg tablet 250 mg PO MOWEFR@1000 COPD #36 tabs 03/11/25 cyclobenzaprine 5 mg tablet 5 mg PO BEDTIME PRN muscle spasm 05/02/25 #30 tabs ibuprofen 400 mg tablet 400 mg PO Q8H PRN pain #30 tabs 05/02/25 lidocaine 5 % topical patch 1 patch topical DAILY #30 ea 05/02/25 Incruse Ellipta 62.5 mcg/actuation 1 inh inhalation DAILY #90 ea 05/16/25 powder for inhalation (umeclidinium) apixaban 5 mg tablet (Eliquis) 5 mg PO BID #60 tabs 05/21/25 baclofen 10 mg tablet 10 mg PO BID PRN muscle spasm #20 05/21/25 tabs Allergies Allergy/AdvReac Type Severity Reaction Status Date / Time penicillin G Allergy Severe Anaphylaxis Verified 05/21/25 15:30 Sulfa (Sulfonamide Allergy Severe Anaphylaxis Verified 05/21/25 15:30 Antibiotics) cat dander (CATS) Allergy Unknown MUCOUS Verified 05/21/25 15:30 FORMATION, asthma dog dander (DOGS) Allergy Unknown MUCOUS Verified 05/21/25 15:30 FORMATION, asthma egg Allergy Unknown Wheezing Verified 05/21/25 15:30 house dust (HOUSE DUST) Allergy Unknown MUCOUS Verified 05/21/25 15:30 FORMATION, asthma milk (MILK) Allergy Unknown MUCOUS Verified 05/21/25 15:30 FORMATION mold Allergy Unknown MUCOUS Verified 05/21/25 15:30 FORMATION, asthma tree and shrub pollen (TREES) Allergy Unknown MUCOUS Verified 05/21/25 15:30 FORMATION TO CERTAIN TREES, asthma yeast, dried (yeast) Allergy Unknown MUCOUS Verified 05/21/25 15:30 FORMATION, asthma Review of Systems Constitutional: Denies body ache(s), Denies chills, Denies fever(s) and Denies frequent falls Eyes: Denies blurry vision Denies vertigo and Denies dizziness Cardiovascular: Denies chest pain, Reports dyspnea and Reports dyspnea on exertion Respiratory: Denies change in phlegm color, Denies chest congestion, Denies cough, Denies pain with cough, Reports dyspnea and Reports dyspnea on exertion Gastrointestinal: Reports abdominal pain, Denies nausea and Denies vomiting Musculoskeletal: Reports back pain Skin/Breast: Denies rash Denies vertigo, Denies dizziness and Denies frequent falls PMFSH Past Medical History Medical History Hypotension arterial COPD (chronic obstructive pulmonary disease) Chronic back pain Acute exacerbation of CHF (congestive heart failure) Acute on chronic hypoxic respiratory failure Environmental allergies Seasonal allergies Osteoporosis Hemorrhoids Oxygen dependent Respiratory failure with hypoxia Pulmonary nodules/lesions, multiple Anxiety disorder Screening for diabetes mellitus Acute anxiety Anxiety Asthma Allergic rhinitis COPD (chronic obstructive pulmonary disease) Surgical History History of colonoscopy History of cataract surgery History of right hip replacement Family History Family History Mother No problems noted. Father No problems noted. Social History Social History Household Members: Spouse Housing: House Are you a primary career technical education instructor to a significant other at home: No Do you presently have visiting nurse or other home services: No Alcohol intake: current Alcohol intake frequency: holidays/special occasions only Patient Tobacco Use Status: Former Tobacco user Tobacco use type: Cigarette Smoked in Last 30 Days: No e-Cigarette/Vaping Use: Never Used Second Hand Smoke Exposure: Yes Use of substances other than those prescribed or required for medical reasons: No Advance Directives: No Advance Directives Information Provided: No Do you have a plan to hurt others: No Plan service: No Current occupational status: retired Cognitive needs: No Hearing needs: No Vision needs: Yes (Glasses) Physical Exam ED Vital Signs: Vital Signs - 24 hr 05/21/25 15:28 05/21/25 17:43 05/21/25 18:38 Temperature 98.2 F Pulse Rate 126 H 142 H 142 H Respiratory Rate 22 H 20 Blood Pressure 100/78 102/84 109/94 H Pulse Oximetry 93 94 Oxygen Delivery Method Nasal Cannula Nasal Cannula Oxygen Flow Rate 2 05/21/25 18:49 05/21/25 19:09 05/21/25 20:00 Temperature Pulse Rate 90 77 99 Respiratory Rate 20 20 Blood Pressure 106/74 109/77 109/74 Pulse Oximetry 100 Oxygen Delivery Method Room Air Nasal Cannula Oxygen Flow Rate 2 05/21/25 20:54 05/21/25 21:15 05/21/25 21:17 Temperature Pulse Rate 135 H 139 H 138 H Respiratory Rate 21 H Blood Pressure 120/89 106/77 106/77 Pulse Oximetry 95 Oxygen Delivery Method Nasal Cannula Oxygen Flow Rate 2 05/21/25 21:25 05/21/25 22:53 05/21/25 23:16 Temperature 97.8 F Pulse Rate 78 126 H 126 H Respiratory Rate 20 21 H 21 H Blood Pressure 99/65 144/72 H 144/72 H Pulse Oximetry 96 93 93 Oxygen Delivery Method Nasal Cannula Nasal Cannula Nasal Cannula Oxygen Flow Rate 2 2 2 BMI result Body Mass Index 20.7 Const General: healthy appearing, comfortable, no acute distress, alert and awake Nutritional Appearance: well nourished Orientation/consciousness: patient oriented x3 HENMT Head: Yes normocephalic and Yes atraumatic Eyes Eyelids: Yes eyelids normal Conjunctivae: conjunctivae normal Sclerae: sclerae normal Corneas: corneas normal Pupils: Equal, round and reactive pupils present EOM: EOMs intact bilaterally Neck Neck: Yes full ROM Resp Effort & Inspection: normal respiratory effort, able to speak in complete sentences and not labored Cardio Rate: tachycardic Rhythm: abnormal rhythm irregularly irregular GI Inspection: No distended Palpation (GI): Soft to palpation, not firm, Tenderness to palpation present (GI) in the RLQ; not in the LLQ, not in the LUQ and not in the RUQ, no guarding and not rigid Auscultation: normoactive bowel sounds Skin General skin exam: elasticity normal Neuro General: patient oriented x3 Cranial nerves: Yes Equal, round and reactive pupils present and Yes Bilaterally intact EOM present Cognition (Neuro): normal cognition Extrem Other: Moving all extremities well without any obvious deformities Course Course Course Narrative: This is a Rapid Medical Examination (RME) performed by Radha Doherty PA-C in triage. Full HPI, ROS, assessment and treatment plan per primary provider in the Main ED. Hx: 80 yo F hx of COPD on 2L supplemental O2, anxiety, asthma, HTN here for eval of lower abdominal pain, radiating up into her chest, and lower back pain x few weeks. pain worse with palpation of the area. Plan: labs, ekg, cxr, UA Reevaluation(s) Reevaluation #1: The patient's gallbladder ultrasound shows cholelithiasis but without pericholecystic fluid or evidence of acute cholecystitis. The patient reports that her pain did worsen after eating a noon rings a few days ago. She was advised on dietary changes and will be referred to General surgery. Her AFib is much more rate controlled after receiving Cardizem. Her CHADS2 Vasc score is a 5 and I discussed starting anticoagulation with her, she is agreeable to starting Eliquis. Return precautions were discussed. Time: 22:34 Reevaluation #2: Patient's tachycardia did resolve after Cardizem. When it was time for discharge, repeat vitals did show tachycardia again at 124 when she sat up. At rest the tachycardia would resolve in her heart rate be in the 90s, still irregular. The patient was asymptomatic and adamant that she would like to be discharged despite the tachycardia with exertion. Given that her blood pressure is stable and she is asymptomatic I feel this is appropriate. The patient reports that she has close cardiology follow up Time: 23:20 Medical Decision Making Medical Decision Making MDM Narrative: 80-year-old female with a past medical history as above presents for evaluation of back pain. She is noted to be tachycardic as high as 140 and what appears to be AFib on EKG. She denies any known history of AFib, but on review of her record she has been documented in AFib several times in the past. She had an echocardiogram this past November that showed a normal ejection fraction with diastolic heart failure. Her pro BNP is over 9000 but her chest x-ray does not show any significant effusions. Her abdominal exam is significant for right lower quadrant tenderness without rebound or guarding. However we will get a CT scan of the abdomen pelvis which should also help evaluate the lumbar spine for any acute compression fractures. In the meantime we will treat her pain with morphine 2 mg IV and give her a Cardizem bolus of 10 mg to try to control her heart rate Differential Diagnosis Differential Diagnoses: The differential diagnosis associated with the presentation includes Congestive heart failure Atrial fibrillation Acute compression fracture Acute appendicitis less likely Constipation UTI Admission/Observation Consideration of admission/observation: Escalation of care including admission/observation considered Lab Data MDM Lab Attestation statement: I reviewed the patient's lab results. No leukocytosis. The patient has a stable normocytic anemia. There is a slight left shift with a neutrophil of 78%. Patient's carbon dioxide is elevated to 32 which is likely due to history of COPD. No other significant electrolyte abnormalities. The patient has a pro BNP of 9147. No previous for comparison though her classic BNP was typically elevated to 3-500. 05/21/25 15:46 05/21/25 15:46 Labs: Lab Results 05/21/25 Range/Units 15:46 WBC 9.9 (4.8-10.8) X10*3/uL RBC 3.86 L (4.20-5.50) X10*6/uL Hgb 11.9 L (12.0-16.0) g/dl Hct 36.0 L (37.0-47.0) % MCV 93.3 (80.0-98.0) fL MCH 30.8 (27.0-33.0) pg MCHC 33.1 (31.0-35.0) g/dl RDW 13.3 (11.0-16.0) % Plt Count 382 D (160-400) X10*3/uL MPV 10.1 (9.4-12.3) fL Immature Gran % (Auto) 0.6 H (0.0-0.4) % Neut % (Auto) 78.1 H (45-73) % Lymph % (Auto) 9.1 L (20-40) % Ward % (Auto) 10.2 (2-11) % Eos % (Auto) 1.5 (0-4) % Baso % (Auto) 0.5 (0-2) % Lymph # (Auto) 0.9 L (1.2-4.9) X10*3/uL Ward # (Auto) 1.0 (0.1-1.2) X10*3/uL Eos # (Auto) 0.2 (0.0-0.4) X10*3/uL Baso # (Auto) 0.1 (0.0-0.2) X10*3/uL Abs Immat Gran (auto) 0.06 H (0.00-0.03) X10*3/uL Absolute Neuts (auto) 7.7 (2.0-8.3) x10*3/uL Absolute Nucleated RBC 0.000 (0.0-0.012) X10*3/uL Nucleated RBC % (auto) 0.0 (0.0-0.2) /100WBC Sodium 138 (135-145) mmol/L Potassium 4.2 (3.3-5.1) mmol/L Chloride 101 (96-108) mmol/L Carbon Dioxide 32 H (22-29) mmol/L Anion Gap 9 L (12-20) BUN 20 H (9-16) mg/dL Creatinine 1.09 (0.5-1.4) mg/dL Estim Creat Clear Calc 33.6 Estimated GFR 49 Random Glucose 142 H (60-115) mg/dL Calcium 10.0 D (8.4-10.2) mg/dL Magnesium 2.0 (1.6-2.6) mg/dL Total Bilirubin 0.1 (0.0-1.0) mg/dL AST 33 H (5-31) U/L ALT 26 (0-31) U/L Alkaline Phosphatase 77 (39-117) U/L Troponin I High Sens 9.6 (<3.5-17.0) ng/L NT-Pro-B Natriuret Pep 9147.4 H (<300) pg/mL Total Protein 6.7 (6.5-8.0) g/dL Albumin 4.1 (3.5-5.0) g/dL Lipase 34 (8-78) U/L Independent Interpretation I performed an independent interpretation of an: EKG (AFib with a rate of 123 beats minute.) Radiology Impression Discussion of test interpretation with radiology: I have reviewed the radiologist's reading. Radiologist Impression: FINDINGS: Cardiac size is normal. Aorta is mildly tortuous and calcified. Hilar silhouettes appear normal. Lungs are somewhat hyperaerated with flattened hemidiaphragms, findings suggesting COPD. Lungs otherwise grossly clear. There is no pneumothorax or pleural effusion. Exaggerated thoracic kyphosis with numerous osteopenic thoracic compression fractures present. These appear essentially stable. Healed left rib fractures seen. XR/XR chest 2V IMPRESSION: 1. Findings consistent with COPD. No definite active superimposed disease. 2. Exaggerated thoracic kyphosis with numerous osteopenic compression deformities. Electronically signed by: Fransisco Berman MD 05/21/2025 04:14 PM EDT RP Findings: LIMITED CHEST: Fibrosis and emphysematous changes of the lung bases. LIVER: No focal liver lesion. BILIARY: Low positioning of the gallbladder toward the right lower quadrant. Distended gallbladder with cholelithiasis. PANCREAS: No mass or ductal dilatation. SPLEEN: No splenomegaly. KIDNEYS: No hydronephrosis or radiopaque stone. Small hypoattenuating lesions, too small to characterize however may represent cysts. ADRENALS: No nodule. VASCULAR: No aneurysm. RETROPERITONEUM: No lymphadenopathy or mass. BOWEL/MESENTERY: No mass or wall thickening. No evidence of obstruction. No free fluid or air. Normal appendix. Colonic diverticulosis. ABDOMINAL WALL: No mass or significant abnormality. URINARY BLADDER: No focal wall thickening. PELVIC NODES: No pelvic lymphadenopathy. PELVIC ORGANS: Normal for age. BONES: No acute fracture. Right total hip arthroplasty. OTHER: Negative. IMPRESSION: 1. Distended gallbladder with cholelithiasis, acute cholecystitis is considered. Normal appendix. 2. Colonic diverticulosis without CT evidence of acute diverticulitis. This document has been electronically signed by: Shirley Heck MD on 05/21/2025 20:32:12 Medications Administered Discontinued Medications Generic Name Dose Route Start Last Admin Trade Name Freq PRN Reason Stop Dose Admin Apixaban 5 mg 05/21/25 22:28 05/21/25 22:49 Apixaban 5 Mg Tablet PO 05/21/25 22:29 5 mg ONCE ONE Administration Diltiazem HCl 10 mg 05/21/25 18:19 05/21/25 18:38 Diltiazem Hcl 50 Mg/10 Ml Vial IVPUSH 05/21/25 18:20 10 mg ONCE STA Administration Diltiazem HCl 10 mg 05/21/25 21:08 05/21/25 21:15 Diltiazem Hcl 50 Mg/10 Ml Vial IVPUSH 05/21/25 21:09 10 mg ONCE STA Administration Diltiazem HCl 60 mg 05/21/25 21:08 05/21/25 21:17 Diltiazem Hcl 60 Mg Tablet PO 05/21/25 21:09 60 mg ONCE ONE Administration Protocol Iohexol 100 ml 05/21/25 19:41 05/21/25 19:42 Iohexol 350 Mg/Ml 100 Ml Infus..Btl IV 05/21/25 19:42 85 ml ONCE ONE Administration Morphine Sulfate 2 mg 05/21/25 18:19 05/21/25 18:36 Morphine Sulfate 2 Mg/Ml Cartridge IVPUSH 05/21/25 18:20 2 mg ONCE ONE Administration Protocol Discharge Plan Discharge Clinical Impression: Atrial fibrillation, Cholelithiasis, Back pain Patient Disposition: Home, Self-Care Instructions: A-fib (Atrial Fibrillation) (ED), Gallstones (ED), Back Pain (ED) Additional Instructions: You may try baclofen to help with your back pain. Your abdominal CT scan and gallbladder ultrasound showed that you have gallstones which sometimes cause pain in your abdomen that can be referred to the back. I recommend avoiding spicy, greasy and fatty foods, especially fried foods. 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 You to stop this medication if you notice black or bloody stool You need to be evaluated if you strike your head Prescriptions: New Eliquis 5 mg tablet 5 mg PO BID Qty: 60 0RF baclofen 10 mg tablet 10 mg PO BID PRN (Reason: muscle spasm) Qty: 20 0RF No Action hydrocortisone [Proctosol HC] 2.5 % cream with perineal applicator 1 appl SD BID-QID PRN (Reason: hemorrhoids) Qty: 30 2RF Breo Ellipta 200-25 mcg/dose blister with device 1 ea inhalation DAILY Qty: 180 1RF levalbuterol tartrate 45 mcg/actuation HFA aerosol inhaler 2 puff PO Q4-6H PRN (Reason: for dyspnea) Qty: 15 3RF azithromycin 250 mg tablet 250 mg PO MOWEFR@1000 Qty: 36 3RF Incruse Ellipta 62.5 mcg/actuation blister with device 1 inh inhalation DAILY Qty: 90 1RF cholecalciferol (vitamin D3) [Vitamin D3] 25 mcg (1,000 unit) Capsule 25 mcg PO DAILY PreserVision AREDS-2 427-212-28-1 ug-snwl-kw-mg capsule 1 tab PO BID Rx Instructions: give with food (meal/snack) calcium carbonate [Calcium 600] 600 mg calcium (1,500 mg) tablet 600 mg PO BID acetaminophen 500 mg capsule 1,000 mg PO Q6H PRN (Reason: pain) Qty: 30 0RF atenolol 25 mg tablet 25 mg PO ONCE furosemide 40 mg tablet 20 mg PO DAILY PRN Protocol: Hold for SBP< HOLD for SBP < : 90 albuterol sulfate 90 mcg/actuation HFA aerosol inhaler 2 puff inhalation Q6H PRN PreserVision AREDS 4,296 mcg-226 mg-90 mg capsule 1 cap PO BID guaifenesin [Mucinex] 600 mg tablet extended release 12hr 600 mg PO BID lidocaine 5 % adhesive patch,medicated 1 patch topical DAILY Qty: 30 3RF Rx Instructions: leave on most painful area for up to 12 hrs cyclobenzaprine 5 mg tablet 5 mg PO BEDTIME PRN (Reason: muscle spasm) Qty: 30 3RF ibuprofen 400 mg tablet 400 mg PO Q8H PRN (Reason: pain) Qty: 30 0RF [place] [facility] [place] [facility] [Provider Group, Internal Medicine] Anabel Guerrero MD [Physician, General Surgery] Referral Note: Symptomatic cholelithiasis Interventions: ED Discharge Assessment Last Done: 05/21/25 23:16 Discharge Date/Time: 05/21/25 23:16 Print Language: Kyrgyz
--- NOTE | 2025-05-21 15:32 | ECG_ITS ---
Test Reason : TACHYCARDIA Blood Pressure : */* mmHG Vent. Rate : 123 BPM Atrial Rate : * BPM P-R Int : * ms QRS Dur : 72 ms QT Int : 304 ms P-R-T Axes : * 80 0 degrees QTcB Int : 435 ms Atrial fibrillation with rapid ventricular response Abnormal ECG When compared with ECG of 03-Dec-2024 12:36, Atrial fibrillation has replaced Sinus rhythm Vent. rate has increased by 47 bpm Referred By: Marilu Doherty Electronically Signed By: Flex De La Torre
[2025-05-21 15:53] LABS: MANUAL DIFF FLAG NO
[2025-05-21 15:54] LABS: Hematocrit 36.0 % (37.0-47.0); Hemoglobin 11.9 g/dl (12.0-16.0); Imm Gran Abs Auto 0.06 X10*3/uL (0.00-0.03); Imm Gran Pct Auto 0.6 % (0.0-0.4); Lymphocytes Absolute Auto 0.9 X10*3/uL (1.2-4.9); Mean Corpuscular HGB Conc 33.1 g/dl (31.0-35.0); Mean Corpuscular Hemoglobin 30.8 pg (27.0-33.0); Mean Corpuscular Volume 93.3 fL (80.0-98.0); NRBC Abs Auto 0.000 X10*3/uL (0.0-0.012); NRBC Pct Auto 0.0 /100WBC (0.0-0.2); Platelet Count 382 X10*3/uL (160-400); Red Blood Count 3.86 X10*6/uL (4.20-5.50); White Blood Count 9.9 X10*3/uL (4.8-10.8)
[2025-05-21 16:08] LABS: Alanine Aminotransferase 26 U/L (0-31); Albumin Level 4.1 g/dL (3.5-5.0); Alkaline Phosphatase 77 U/L (39-117); Anion Gap 9 (12-20); Aspartate Amino Transferase 33 U/L (5-31); Blood Urea Nitrogen 20 mg/dL (9-16); Calcium 10.0 mg/dL (8.4-10.2); Carbon Dioxide 32 mmol/L (22-29); Chloride 101 mmol/L (96-108); Creatinine Clr Calc Pharmacy 33.6; Estimated Glomerular Filt Rate 49; Lipase 34 U/L (8-78); Magnesium 2.0 mg/dL (1.6-2.6); Potassium 4.2 mmol/L (3.3-5.1); Sodium 138 mmol/L (135-145); Total Protein 6.7 g/dL (6.5-8.0)
[2025-05-21 16:15] LABS: NT Pro B Type Natriuretic Pept 9147.4 pg/mL (<300)
[2025-05-21 16:16] LABS: Troponin-I High Sensitivity 9.6 ng/L (<3.5-17.0)
--- OUTSIDE RECORDS SUMMARY | 2025-05-21 18:41 | XMS_ITS | Clinical Summary ---
Author Organization [facility] Address [address] [place] [id number] Phone Care Team Providers Care Biology Specialist Name Role Phone Sanjiv Buck MD Primary [...] B [place] & [facility] [place] & [place] & [place] & B [facility] MEDIC[facility] PART A & B Member Subscriber Plan / Payer (Ef fective 2012-Present) Name:Maritza Maharaj Member ID:[id number] Relation to Subscriber:Self Name:Maritza Maharaj Subscriber ID:[id number] Payer ID:[id number] Group ID:Not on file Type:Medicare Address: [employer] [address] [place] [phone] [facility] & B [facility] Care Teams Biology Specialist Relationship Specialty Start Date End Date Sanjiv Buck MD [address] [place] [id number] PCP - General Internal Medicine 03/10/22 Additional Source Comments The information contained in this document represents components of the legal health record. It is not the complete legal health record.[facility]
[2025-05-21] MEDS: iohexoL 350 MG/ML 100 ML INFUS..BTL IV (19:42)
--- NOTE | 2025-05-21 20:30 | PC.NURSE ---
Pt's son Martin updated @ [phone] per request. Pt resting comfortably in bed, care ongoing.
== END 2025-05-21 23:16 | disposition home or self-care (01) ==
PROVIDERS: Physician Assistant Medical; Emergency Provider Emergency Medicine; PCP Internal Medicine
DX: K80.20 Calculus of gallbladder without cholecystitis without obstruction (principal); I48.91 Unspecified atrial fibrillation; M54.9 Dorsalgia, unspecified; I27.20 Pulmonary hypertension, unspecified; I11.0 Hypertensive heart disease with heart failure; F41.9 Anxiety disorder, unspecified; R10.30 Lower abdominal pain, unspecified; R22.43 Localized swelling, mass and lump, lower limb, bilateral; I50.9 Heart failure, unspecified; M81.0 Age-related osteoporosis without current pathological fracture; J96.01 Acute respiratory failure with hypoxia; Z87.891 Personal history of nicotine dependence
CPT/HCPCS: 36415; 71046; 74177; 76705; 80053; 83690; 83735; 83880; 84484; 85025; 93005; 99285; J1163; J2270; Q9967

== ENCOUNTER → 2025-05-21 15:32 | Outpatient (BNV) | payer MEDICARE, MEDICAID, SELFPAY | PROVIDERS: PCP Internal Medicine; Visit Provider Radiology Diagnostic Radiology | DX: J44.9 Chronic obstructive pulmonary disease, unspecified (principal) | CPT/HCPCS: 71046 ==

== ENCOUNTER → 2025-05-21 15:32 | Outpatient (BNV) | payer MEDICARE, MEDICAID, SELFPAY | PROVIDERS: Emergency Provider Emergency Medicine; PCP Internal Medicine; Visit Provider Internal Medicine Cardiovascular Disease | DX: I48.91 Unspecified atrial fibrillation (principal) | CPT/HCPCS: 93010 ==

== ENCOUNTER 2025-05-27 15:15 | Outpatient (AMB) | payer MEDICARE, MEDICAID, SELFPAY ==
--- NOTE | 2025-05-27 15:27 | MHC.OFFVIS ---
Vital Signs 05/27/25 15:28 Height 5 ft 2 in BP 120/90 H Blood Pressure Location Lt brachial Position Sitting Pulse 66 Pulse Source Pulse Oximeter Pulse Oximetry (%) 96 Oxygen Delivery Method Nasal Cannula Oxygen Flow Rate 3 Intake Visit Reasons: Cough Intake Note: pt is here post ER follow up from 05/21 and states she is coughing (deep), when trying to get it up there is choking going on, she states it is a liquid coming out, some blood tinged but only once. Vocational Technical Education Director Required: No Radioactive Waste Disposal Dispatcher: Radioactive Waste Disposal Dispatcher offered & declined Allergies penicillin G Allergy (Severe, Verified 05/27/25 16:49) Anaphylaxis Sulfa (Sulfonamide Antibiotics) Allergy (Severe, Verified 05/27/25 16:49) Anaphylaxis cat dander (CATS) Allergy (Unknown, Verified 05/27/25 16:49) MUCOUS FORMATION, asthma dog dander (DOGS) Allergy (Unknown, Verified 05/27/25 16:49) MUCOUS FORMATION, asthma egg Allergy (Unknown, Verified 05/27/25 16:49) Wheezing house dust (HOUSE DUST) Allergy (Unknown, Verified 05/27/25 16:49) MUCOUS FORMATION, asthma milk (MILK) Allergy (Unknown, Verified 05/27/25 16:49) MUCOUS FORMATION mold Allergy (Unknown, Verified 05/27/25 16:49) MUCOUS FORMATION, asthma tree and shrub pollen (TREES) Allergy (Unknown, Verified 05/27/25 16:49) MUCOUS FORMATION TO CERTAIN TREES, asthma yeast, dried (yeast) Allergy (Unknown, Verified 05/27/25 16:49) MUCOUS FORMATION, asthma Medication List - Last Reconciled 05/27/25 by Tam Townsend MD acetaminophen 1,000 mg (2 x 500 mg) PO Q6H PRN albuterol sulfate 90 mcg/actuation 2 puffs inhalation Q6H PRN apixaban (Eliquis) 5 mg PO BID atenolol 25 mg PO ONCE azithromycin 250 mg PO MOWEFR@1000 baclofen 10 mg PO BID PRN Breo Ellipta 200-25 mcg/dose (fluticasone furoate-vilanterol) 1 ea inhalation DAILY NS calcium carbonate (Calcium 600) 600 mg PO BID cholecalciferol (vitamin D3) (Vitamin D3) 25 mcg PO DAILY cyclobenzaprine 5 mg PO BEDTIME PRN furosemide 20 mg See Protocol PO DAILY PRN guaifenesin ER (Mucinex) 600 mg PO BID hydrocortisone 2.5% (Proctosol HC) 1 appl VA BID-QID PRN ibuprofen 400 mg PO Q8H PRN Incruse Ellipta 62.5 mcg/actuation (umeclidinium) 1 inh inhalation DAILY NS levalbuterol tartrate 45 mcg/actuation 2 puffs PO Q4-6H PRN vit C,S-Ts-qvxiv-lutein-zeaxan 250-90-40-1 mg (PreserVision AREDS-2) 1 tab PO BID vitamins A,C,A-jzlo-pthiaq 4,296 mcg-226 mg-90 mg (PreserVision AREDS) 1 cap PO BID Do you need a note to return to daycare/school/sports/work: No HPI HPI Cough: Details: SOUTH , 80 YEARS OLD, WITH ADVANCED CHRONIC OBSTRUCTIVE PULMONARY DISEASE COMES IN TODAY FOR AN URGENT VISIT. ON 05/21 SHE WAS SEEN IN THE EMERGENCY ROOM WITH COUGH, AND INCREASED SHORTNESS OF BREATH.SHE HAD UPPER ABDOMINAL DISCOMFORT. CT SCAN OF THE ABDOMEN SHOWED CHOLELITHIASIS. EKG SHOWED ATRIAL FIBRILLATION, NEW. CHEST X-RAY AND PULMONARY STATUS WAS SAME USUAL. SHE HAS BEEN STARTED ON ELIQUIS 5 MG B.I.D. FOR ANTICOAGULATION. [facility] Medical History Hypotension arterial COPD (chronic obstructive pulmonary disease) Chronic back pain Acute exacerbation of CHF (congestive heart failure) Acute on chronic hypoxic respiratory failure Environmental allergies Seasonal allergies Osteoporosis Hemorrhoids Oxygen dependent Respiratory failure with hypoxia Pulmonary nodules/lesions, multiple Anxiety disorder Screening for diabetes mellitus Acute anxiety Anxiety Asthma Allergic rhinitis COPD (chronic obstructive pulmonary disease) Surgical History History of colonoscopy History of cataract surgery History of right hip replacement Family History Mother No problems noted. Father No problems noted. Social History Household Members: Spouse Housing: House Are you a primary primary care provider to a significant other at home: No Do you presently have visiting nurse or other home services: No Alcohol intake: current Alcohol intake frequency: holidays/special occasions only Patient Tobacco Use Status: Former Tobacco user Tobacco use type: Cigarette e-Cigarette/Vaping Use: Never Used Second Hand Smoke Exposure: Yes service: No Current occupational status: retired Cognitive needs: No Hearing needs: No Vision needs: Yes (Glasses) Review of Systems Const All systems reviewed & are unremarkable except as noted in HPI and below Eyes Reports no additional complaints ENT Reports nasal congestion (Mild off and) Card Reports no additional complaints Resp Reports as per HPI GI Reports no additional complaints Reports no additional complaints Musc Reports back pain (Chronic stable) Skin/Breast Reports system reviewed and no additional complaints, except as documented Neuro Reports no additional complaints Psych Reports anxiety (Under control) Physical Exam Vital Signs: Last Vital Signs Pulse 66 05/27/25 15:28 BP 120/90 H 05/27/25 15:28 Pulse Ox 96 05/27/25 15:28 Oxygen Delivery Method Nasal Cannula 05/27/25 15:28 Oxygen Flow Rate 3 05/27/25 15:28 Const General: comfortable, no acute distress, alert and awake Orientation/consciousness: patient oriented x3 HEENT Head: Yes normal to inspection General nose exam: No nasal polyps present and No nasal discharge present Face and sinus: Yes sinuses nontender Mouth: oropharynx normal Throat: Yes posterior oropharynx normal Eyes General: appearance normal, both eyes and all related structures Neck Neck: Yes normal visual inspection, Yes no lymphadenopathy, Yes trachea midline and Yes no JVD Thyroid: Thyroid normal Chest Chest palpation & inspection: normal inspection of the chest, normal palpation of entire chest wall and tenderness (Mild tenderness over the right lower ribcage, extending from the mid back.) Resp Other: Percussion note hyper-resonant, she has equal breath sounds on both sides with prolonged expiratory phase. No Rhonchi or Creps or wheezes . Cardio Palpation: normal PMI Rate: regular rate Rhythm: abnormal rhythm (ATRIAL FIBRILLATION) Heart sounds: no gallops and no murmurs GI Palpation (GI): Soft to palpation, nontender, No hepatosplenomegaly present and no masses Auscultation: normal bowel sounds Back/Spine/Pelvis Thoracic/Lumbar Spine: thoracic and lumbar spine normal to inspection, kyphosis (Moderate kyphosis of the thoracic spine.) and thoraco-lumbar ROM limited Skin General skin exam: no rashes or lesions noted Neuro General: patient oriented x3 and no focal motor deficits Cranial nerves: Yes CN's II-XII intact bilaterally Extrem General: Yes normal to inspection, Yes no clubbing, cyanosis or edema and Yes no calf tenderness Psych Speech and movement: Normal speech and movement present Affect: Anxious affect present (Controlled) Assessment & Plan Assessment & Plan (1) COPD (chronic obstructive pulmonary disease): Comment: This patient has longstanding history of chronic obstructive pulmonary disease. It has remained relatively stable. But she does get frequent acute exacerbations, usually we can treat her with short courses of prednisone and antibiotic as outpatient. 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 Code(s): M54.9 - Dorsalgia, unspecified Category: Medical Qualifiers: Back pain location: thoracic back pain Chronicity: acute Back pain laterality: right Qualified Code(s): M54.6 - Pain in thoracic spine Plan: SAME MEDICATION BEFORE, FROM THE EMERGENCY ROOM SHE WAS ADVISED THAT SHE CAN TAKE CYCLOBENZAPRINE 5 MG Q.6 HOURS PRN (3) Pulmonary hypertension: Comment: Patient noted to have pulmonary hypertension this may be secondary to her chronic severe obstructive airway disorder, hypoxemia, which is being treated. Code(s): I27.20 - Pulmonary hypertension, unspecified Category: Medical Plan: NO CHANGE IN THE TREATMENT (4) Atrial fibrillation: Comment: IN THE EMERGENCY ROOM SHE WAS FOUND TO HAVE NEW ONSET ATRIAL FIBRILLATION. SHE HAS BEEN STARTED ON ELIQUIS 5 MG B.I.D. Code(s): I48.91 - Unspecified atrial fibrillation Category: Medical Plan: ADVISED TO CONTINUE ELIQUIS, 5 MG B.I.D. AND CALL CARDIOLOGY SERVICE FOR MAKING AN EARLY APPOINTMENT. Coding Level of Care Code Est Pt Level 3 (10507) Diagnoses COPD (chronic obstructive pulmonary disease) J44.9 Acute right-sided thoracic back pain M54.6 Back pain location: thoracic back pain Chronicity: acute Back pain laterality: right Pulmonary hypertension I27.20 Atrial fibrillation I48.91
[2025-05-27 15:28] VITALS: BP 120/90; PULSE 66; O2SAT 96
--- OUTSIDE RECORDS SUMMARY | 2025-05-27 17:19 | XMS_ITS | Clinical Summary ---
Author Organization [facility] Address [address] [place] [id number] Phone Care Team Providers Care Java Websphere Developer Name Role Phone Sanjiv Buck MD [...] B [place] & B [facility] PART A & B [place] B [facility] MEDICARE PART A & B Member Subscriber Plan / Payer (Ef fective 2012-Present) Name:Maritza Maharaj Member ID:[id number] Relation to Subscriber:Self Name:Maritza Maharaj Subscriber ID:[id number] Payer ID:[id number] Group ID:Not on file Type:Medicare Address: [employer] [address] [place] [phone] [facility] MEDIC[facility] PART A & B [facility] Care Teams Java Websphere Developer Relationship Specialty Start Date End Date Sanjiv Buck MD [address] [place] [phone] PCP - General Internal Medicine 03/10/22 Additional Source Comments The information contained in this document represents components of the legal health record. It is not the complete legal health record.[facility]
== END 2025-05-27 16:11 | disposition home or self-care (01) ==
LOC: HO.HPS 15:15
PROVIDERS: PCP Internal Medicine; Visit Provider Internal Medicine
DX: J44.9 Chronic obstructive pulmonary disease, unspecified (principal); M54.6 Pain in thoracic spine; I27.20 Pulmonary hypertension, unspecified; I48.91 Unspecified atrial fibrillation
CPT/HCPCS: 99213

== ENCOUNTER → 2025-05-27 15:15 | Outpatient (BNVA) | payer MEDICARE, MEDICAID, SELFPAY | PROVIDERS: PCP Internal Medicine; Visit Provider Internal Medicine | DX: J44.9 Chronic obstructive pulmonary disease, unspecified (principal); M54.6 Pain in thoracic spine; I27.20 Pulmonary hypertension, unspecified; I48.91 Unspecified atrial fibrillation; Z99.81 Dependence on supplemental oxygen; Z87.891 Personal history of nicotine dependence | CPT/HCPCS: 99212 ==

== ENCOUNTER 2025-05-29 15:44 | Outpatient (AMB) | payer MEDICARE, MEDICAID, SELFPAY ==
--- NOTE | 2025-05-29 15:48 | MHC.PC.OV ---
Vital Signs 05/29/25 15:49 Height 5 ft 2 in Weight 113 lb 12.136 oz BMI 20.8 BP 130/90 H Blood Pressure Location Lt brachial Position Sitting Pulse 78 Pulse Source Pulse Oximeter Temp 97.3 F Temp Source Temporal Artery Scan Pulse Oximetry (%) 95 Oxygen Delivery Method Nasal Cannula Intake Visit Reasons: [facility] 05/21 SO, back injury Intake Note: Patient is here to follow-up after a visit the emergency department at [facility] on 05/21/25 Hse Coordinator Required: No Ruffling Hemmer Automatic: Not Required per policy Accompanied by: Self / Same As Patient Allergies penicillin G Allergy (Severe, Verified 05/29/25 15:49) Anaphylaxis Sulfa (Sulfonamide Antibiotics) Allergy (Severe, Verified 05/29/25 15:49) Anaphylaxis cat dander (CATS) Allergy (Unknown, Verified 05/29/25 15:49) MUCOUS FORMATION, asthma dog dander (DOGS) Allergy (Unknown, Verified 05/29/25 15:49) MUCOUS FORMATION, asthma egg Allergy (Unknown, Verified 05/29/25 15:49) Wheezing house dust (HOUSE DUST) Allergy (Unknown, Verified 05/29/25 15:49) MUCOUS FORMATION, asthma milk (MILK) Allergy (Unknown, Verified 05/29/25 15:49) MUCOUS FORMATION mold Allergy (Unknown, Verified 05/29/25 15:49) MUCOUS FORMATION, asthma tree and shrub pollen (TREES) Allergy (Unknown, Verified 05/29/25 15:49) MUCOUS FORMATION TO CERTAIN TREES, asthma yeast, dried (yeast) Allergy (Unknown, Verified 05/29/25 15:49) MUCOUS FORMATION, asthma Tobacco use date assessed: 05/29/25 Fall risk assessment: No Falls in past year Last assessed Fall Risk: 05/29/25 Dental Screening Dental Screen Date: 05/02/25 [facility] Medical History Hypotension arterial COPD (chronic obstructive pulmonary disease) Chronic back pain Acute exacerbation of CHF (congestive heart failure) Acute on chronic hypoxic respiratory failure Environmental allergies Seasonal allergies Osteoporosis Hemorrhoids Oxygen dependent Respiratory failure with hypoxia Pulmonary nodules/lesions, multiple Anxiety disorder Screening for diabetes mellitus Acute anxiety Anxiety Asthma Allergic rhinitis COPD (chronic obstructive pulmonary disease) Surgical History History of colonoscopy History of cataract surgery History of right hip replacement Family History Mother No problems noted. Father No problems noted. Social History Household Members: Spouse Housing: House Are you a primary foster care therapist to a significant other at home: No Do you presently have visiting nurse or other home services: No Alcohol intake: current Alcohol intake frequency: holidays/special occasions only Patient Tobacco Use Status: Former Tobacco user Tobacco use type: Cigarette e-Cigarette/Vaping Use: Never Used Second Hand Smoke Exposure: Yes service: No Current occupational status: retired Cognitive needs: No Hearing needs: No Vision needs: Yes (Glasses) Questionnaire Thrive Questionnaire Date Thrive assessed: 05/02/25 I am a: Patient What is your living situation today?: I have a steady place to live Within the past 12 months, did the food you bought not last and you didn't have the money to get more?: Never true Within the past 12 months, did you worry whether your food would run out before you got money to buy more?: Never true Do you have trouble paying for medicines?: No Do you have trouble getting transportation to medical appointments?: No Do you have trouble paying your heating and electricity bill?: No Do you have trouble taking care of your child, family member or friend?: No Do you have trouble with day-to-day activities such as bathing, preparing meals, shopping, managing finances, etc.?: No Are you currently unemployed and looking for a job?: No Are you interested in more education?: No Please select the resources that you would like help with: None Currently or been in a relationship where the following occur: No concerns reported THRIVE Score: 0 MARYANN-7 AMB Questionnaire MARYANN-7 Date MARYANN - 7 assessed: 05/02/25 Source: Developed by Drs. Juan Diego Minaya, Cecile Holly, Michael Rutledge and colleagues, with an educational romeo from [employer]. Physical exam (Primary Care) Vital Signs: Last Vital Signs Temp 97.3 F 05/29/25 15:49 Pulse 78 05/29/25 15:49 BP 130/90 H 05/29/25 15:49 Pulse Ox 95 05/29/25 15:49 Oxygen Delivery Method Nasal Cannula 05/29/25 15:49 BMI result Body Mass Index 20.8 Tobacco/Smoking Status: Tobacco use Status Tobacco use date assessed 05/29/25 05/29/25 15:56 Patient Tobacco Use Status Former Tobacco user 05/29/25 15:56 Tobacco use type Cigarette 05/29/25 15:56 e-Cigarette/Vaping Use Never Used 05/29/25 15:56 Thrive Assessment: Date of Thrive Assessment Date Thrive assessed 05/02/25 05/29/25 15:56 Currently or been in a relationship where the following occur: No concerns reported Coding Level of Care Code Est Pt Level 4 (15760) Complex EM visit Add On G2211 Diagnoses Lumbar pain M54.50 Assessment & Plan Assessment & Plan (1) Lumbar pain: Code(s): M54.50 - Low back pain, unspecified Plan: History of Present Illness - The patient is a 80-year-old female presenting with back pain and atrial fibrillation. - Atrial Fibrillation: Recently diagnosed during a hospital visit for back pain, managed with a blood thinner taken twice daily. - Back Pain: Severe and persistent, affecting daily activities, with soreness in the sides, middle of the back, and shoulder. The patient finds lying on the left side most comfortable. - COPD: Managed with oxygen and inhalers, including levobutrol, InCruise, Breo, and azithromycin. - Gallstones: Scheduled for a surgical consultation on July 02. - Anxiety: Experiences panic attacks, previously managed with lorazepam as needed. - Edema: Reports ankle swelling, previously managed with furosemide. Social History - Nutrition: The patient is allergic to dairy and eggs, consumes turkey daily, and is advised to avoid deli meats due to high salt content. - The patient is considering nutritional supplements like Ensure or Boost to improve strength. Review of Systems - Cardiovascular: Reports atrial fibrillation, denies chest pain. - Respiratory: Reports dyspnea, cough, and use of oxygen therapy. Denies hemoptysis. - Musculoskeletal: Reports severe back pain, difficulty lying down, and swelling in ankles. - Gastrointestinal: Reports gallstones, denies nausea or vomiting. - Neurological: Reports anxiety and panic attacks. Physical Exam General: Cooperative and healthy appearing Nutritional Appearance: Well nourished Orientation/consciousness: Patient oriented x3 Limitations: No limitations Head: Normal to inspection General: Appearance normal, both eyes and all related structures Neck: Normal visual inspection Chest: Normal palpation of entire chest wall Respiratory: Lungs are kind of clear, but patient has COPD and is taking oxygen. Patient reports a deep crackle cough and difficulty in breathing. ormal respiratory effort Neurology: Patient oriented x3. Reports panic attacks and heavy breathing associated with nervousness. Results - Imaging: Chest X-ray showed no significant fluid accumulation. Plan - Manage back pain with Voltaren gel and cautious use of ibuprofen. - Continue blood thinner for atrial fibrillation. - Maintain COPD management with inhalers and oxygen therapy. - Proceed with gallstone surgical consultation. - Use lorazepam as needed for anxiety and panic attacks. - Resume furosemide for edema management as needed. Discussion Notes I discussed with the patient the management of her back pain, suggesting the use of Voltaren gel and cautious use of ibuprofen due to fluid retention concerns. We reviewed her atrial fibrillation management, emphasizing the importance of continuing her blood thinner. For COPD, I advised maintaining her current inhaler and oxygen therapy regimen. We also discussed her upcoming gallstone surgical consultation and the use of lorazepam for anxiety as needed. I recommended resuming furosemide for edema management if necessary. Patient Instructions - Use Voltaren gel for back pain relief as needed. - Take ibuprofen cautiously, only when necessary, to avoid fluid retention. - Continue taking your blood thinner as prescribed for atrial fibrillation. - Maintain your COPD management with inhalers and oxygen therapy. - Attend your scheduled gallstone surgical consultation. - Use lorazepam as needed for anxiety and panic attacks. - Resume furosemide for ankle swelling if needed. Orders: Orders XR lumbar spine 2-3V 05/29/25 M54.50 - Low back pain, unspecified Medications: New diclofenac sodium 1% (Voltaren Arthritis Pain) apply to single elbow, wrist or hand; for hand includes palm/fingers/back of hand 2 grams topical QID 50 grams 0RF Changed From baclofen 10 mg PO BID PRN 20 tabs 0RF muscle spasm To baclofen 10 mg PO TID PRN 60 tabs 0RF muscle spasm 20 days Discontinued cyclobenzaprine Discontinued Reason: Doctor's Order 5 mg PO BEDTIME PRN 30 tabs 3RF muscle spasm
[2025-05-29 15:49] VITALS: BP 130/90; PULSE 78; TEMP 36.3; O2SAT 95; BMI 20.8
--- OUTSIDE RECORDS SUMMARY | 2025-05-29 16:26 | XMS_ITS | Clinical Summary ---
Author Organization [facility] Address [address] [place] [phone] Phone Care Team Providers Care Radar Engineering Teacher Name Role Phone Sanjiv Buck MD Primary [...] B [place] & [facility] [place] & B [facility] PART A & B Member Subscriber Plan / Payer (Ef fective 2012-Present) Name:Maritza Maharaj Member ID:[id number] Relation to Subscriber:Self Name:Maritza Maharaj Subscriber ID:[id number] Payer ID:[id number] Group ID:Not on file Type:Medicare Address: [id number] [address] [place] [phone] [facility] Care Teams Radar Engineering Teacher Relationship Specialty Start Date End Date Sanjiv Buck MD [address] [place] [phone] PCP - General Internal Medicine 03/10/22 Additional Source Comments The information contained in this document represents components of the legal health record. It is not the complete legal health record.[facility]
== END 2025-05-29 16:38 | disposition home or self-care (01) ==
LOC: HO.HMCH 15:45
PROVIDERS: PCP Internal Medicine; Visit Provider Internal Medicine
DX: M54.50 Low back pain, unspecified (principal)

== ENCOUNTER 2025-05-29 15:44 | Outpatient (REF) | payer MEDICARE, MEDICAID, SELFPAY ==
--- NOTE | ~2025-05-29 | XR_ITS ---
EXAMINATION: XR LUMBOSACRAL SPINE CLINICAL INFORMATION: M54.50 - Low back pain, unspecified COMPARISON: Lumbar spine 12/29/2018 TECHNIQUE: Three views of the lumbosacral spine. FINDINGS: There is normal lumbar lordosis. The vertebral heights and alignment is normal. No visible acute fracture, dislocation or lytic process seen. SI joints are symmetrical and normal. XR/XR lumbar spine 2-3V IMPRESSION: Unremarkable lumbar spine exam. Electronically signed by: Yifan Vazquez MD 05/30/2025 07:15 AM EDT
== END 2025-05-29 15:45 | disposition home or self-care (01) ==
LOC: HO.XRAY 15:44
PROVIDERS: PCP Internal Medicine; Visit Provider Internal Medicine
DX: M54.50 Low back pain, unspecified (principal)
CPT/HCPCS: 72100; 99212

== ENCOUNTER → 2025-05-29 16:59 | Outpatient (BNV) | payer MEDICARE, MEDICAID, SELFPAY | PROVIDERS: PCP Internal Medicine; Visit Provider Radiology Diagnostic Radiology | DX: M54.50 Low back pain, unspecified (principal) | CPT/HCPCS: 72100 ==

== ENCOUNTER 2025-06-09 15:18 | Inpatient (IN) | payer MEDICARE, MEDICAID, SELFPAY ==
[2025-06-09] VITALS (16 sets, daily range): BP systolic 81–106; BP diastolic 41–74; PULSE 77–97; RESP 20–32; TEMP 36.4–36.8; O2SAT 90–100; BMI 17.2
--- NOTE | ~2025-06-09 | XR_ITS ---
CLINICAL HISTORY: SOB 1 view chest x-ray Comparison: CR/SR - XR CHEST 2 VIEWS - 05/21/2025 04:08 PM EDT, CR/SR - XR CHEST 1 VIEW - 12/03/24 12:38 EDT Findings: The lungs are clear. Heart size is normal. No acute fracture. IMPRESSION: 1. No acute findings. This document has been electronically signed by: Jocy Ch MD on 06/09/2025 16:58:54
--- NOTE | ~2025-06-09 | CT_ITS ---
CLINICAL HISTORY: pe CT angiography chest using contrast. 3-D postprocessing Comparison: CR - XR CHEST 1V - 06/09/25 15:[address]/OT/RI/SR - CT ANGIO CHEST PE PROTOCOL - 12/03/24 13:39 EDT Findings: No pulmonary embolism. No thoracic aorta aneurysm. The thoracic aorta appears tortuous. Heart size within normal limits. RV/LV ratio normal. Coronary artery calcifications are present. Severe emphysema present, greatest at the bilateral upper lobes. Minimal subsegmental atelectasis present at the inferior aspect of the right lower lobe. No focal pulmonary consolidation, pneumothorax, or pleural effusion. Small, fat containing left Bochdalek hernia present. Colonic diverticulosis present. Chronic compression deformities of the T4, T5, T6, T7, T8, T9, and T10 vertebral bodies are redemonstrated. There is interval worsening of height loss of the severe T10 vertebral body compression deformity as compared to the 12/03/2024 examination. There is associated exaggeration of the normal thoracic kyphosis. Impression: 1. Negative for pulmonary embolism. 2. Severe emphysema, greatest at the bilateral upper lobes, with minimal right lower lobe subsegmental atelectasis. No focal pulmonary consolidation. 3. Chronic multilevel thoracic vertebral body compression deformities present with exaggeration of the normal thoracic kyphosis. There is interval increase in height loss at the severe T10 vertebral body compression deformity as compared to the 12/03/2024 examination. This finding is age indeterminate. Clinical correlation is advised. This document has been electronically signed by: Hernando Samson MD on 06/09/2025 22:11:49
--- NOTE | 2025-06-09 15:19 | ED.GENADULT ---
HPI - General Adult General Chief complaint: Dyspnea Stated complaint: Difficulty breaking; not eating Time Seen by Provider: 06/09/25 16:58 Source: patient Mode of arrival: ambulatory Limitations: no limitations History of Present Illness ED Provider: Dr. Mosqueda HPI narrative: 80-year-old female history of COPD, CHF chronic respiratory failure on 2 L nasal cannula, CHF, hypertension presenting to ER today for evaluation of increased shortness of breath, anxiety, weakness, inability to eat due to her shortness of breath. Patient states she has not eaten anything this whole week due to her increased shortness of breath. Patient states she is working more than usual. She is not complaining of any chest pain at this time. Denies any coughing or fever. Related Data Home Medications ?Medication ?Instructions ?Recorded ?Confirmed vit C 250 mg-vit E 90 mg-zinc 40 1 tab PO BID 07/21/20 05/27/25 mg-copper 1 el-[id number] capsule (PreserVision AREDS-2) calcium carbonate (Calcium 600) 600 mg PO BID 01/28/21 05/27/25 cholecalciferol (vitamin D3) 25 25 mcg PO DAILY 05/20/22 05/27/25 mcg (1,000 unit) capsule (Vitamin D3) albuterol sulfate 90 mcg/actuation 2 puff inhalation Q6H PRN 01/31/25 05/27/25 aerosol inhaler atenolol 25 mg tablet 25 mg PO ONCE 04/22/25 05/27/25 furosemide 40 mg tablet 20 mg PO DAILY PRN 04/22/25 05/27/25 guaifenesin 600 mg tablet, 600 mg PO BID 05/02/25 05/27/25 extended release 12 hr (Mucinex) vitamins A,C,Q-zgtb-desbmv 4,296 1 cap PO BID 05/02/25 05/27/25 mcg-226 mg-90 mg capsule (PreserVision AREDS) Previous Rx's ?Medication ?Instructions ?Recorded hydrocortisone 2.5 % topical cream 1 appl KS BID-QID PRN hemorrhoids 09/04/24 with perineal applicator #30 grams (Proctosol HC) acetaminophen 500 mg capsule 1,000 mg (2 x 500 mg) PO Q6H PRN 12/21/24 pain #30 caps Breo Ellipta 200 mcg-25 mcg/dose 1 ea inhalation DAILY #180 ea 05/02/25 powder for inhalation (fluticasone furoate-vilanterol) levalbuterol tartrate 45 2 puff PO Q4-6H PRN for dyspnea 02/27/25 mcg/actuation aerosol inhaler #15 ea ibuprofen 400 mg tablet 400 mg PO Q8H PRN pain #30 tabs 05/02/25 Incruse Ellipta 62.5 mcg/actuation 1 inh inhalation DAILY #90 ea 05/16/25 powder for inhalation (umeclidinium) apixaban 5 mg tablet (Eliquis) 5 mg PO BID #60 tabs 05/21/25 azithromycin 250 mg tablet 250 mg PO MOWEFR@1000 COPD #36 tabs 05/27/25 baclofen 10 mg tablet 10 mg PO TID PRN muscle spasm 20 05/29/25 days #60 tabs diclofenac sodium 1 % topical gel 2 g topical QID #50 grams 05/29/25 (Voltaren Arthritis Pain) Allergies Allergy/AdvReac Type Severity Reaction Status Date / Time penicillin G Allergy Severe Anaphylaxis Verified 06/09/25 15:21 Sulfa (Sulfonamide Allergy Severe Anaphylaxis Verified 06/09/25 15:21 Antibiotics) cat dander (CATS) Allergy Unknown MUCOUS Verified 06/09/25 15:21 FORMATION, asthma dog dander (DOGS) Allergy Unknown MUCOUS Verified 06/09/25 15:21 FORMATION, asthma egg Allergy Unknown Wheezing Verified 06/09/25 15:21 house dust (HOUSE DUST) Allergy Unknown MUCOUS Verified 06/09/25 15:21 FORMATION, asthma milk (MILK) Allergy Unknown MUCOUS Verified 06/09/25 15:21 FORMATION mold Allergy Unknown MUCOUS Verified 06/09/25 15:21 FORMATION, asthma tree and shrub pollen (TREES) Allergy Unknown MUCOUS Verified 06/09/25 15:21 FORMATION TO CERTAIN TREES, asthma yeast, dried (yeast) Allergy Unknown MUCOUS Verified 06/09/25 15:21 FORMATION, asthma Review of Systems Review of Systems: Pertinent review of systems as mentioned in HPI. All other system otherwise negative. [facility] Past Medical History [facility] Narrative: Medical history as mentioned in HPI Medical History Hypotension arterial COPD (chronic obstructive pulmonary disease) Chronic back pain Acute exacerbation of CHF (congestive heart failure) Acute on chronic hypoxic respiratory failure Environmental allergies Seasonal allergies Osteoporosis Hemorrhoids Oxygen dependent Respiratory failure with hypoxia Pulmonary nodules/lesions, multiple Anxiety disorder Screening for diabetes mellitus Acute anxiety Anxiety Asthma Allergic rhinitis COPD (chronic obstructive pulmonary disease) Surgical History History of colonoscopy History of cataract surgery History of right hip replacement Family History Family History Mother No problems noted. Father No problems noted. Social History Social History Household Members: Spouse Housing: House Are you a primary inpatient care manager rn to a significant other at home: No Do you presently have visiting nurse or other home services: No Alcohol intake: current Alcohol intake frequency: holidays/special occasions only Patient Tobacco Use Status: Former Tobacco user Tobacco use type: Cigarette Smoked in Last 30 Days: No e-Cigarette/Vaping Use: Never Used Second Hand Smoke Exposure: Yes Use of substances other than those prescribed or required for medical reasons: No Advance Directives: No Advance Directives Information Provided: No service: No Current occupational status: retired Cognitive needs: No Hearing needs: No Vision needs: Yes (Glasses) Physical Exam ED Exam Exam: General: Appears to be tachypneic, cachectic in nature Head: Normacephalic, atraumatic ENT: oral mucosa moist, neck supple, no tracheal deviation Cardiovascular: regular rate, regular rhythm, no murmurs, rubbing, gallops Respiratory: Bilateral wheezing appreciated on exam Gastrointestinal: Soft, non distended, non tender, non guarding Extremities: No limb pain or swelling, no calf tenderness Neurological: Awake and alert, no facial droop noted Skin: Warm and dry Psychiatric: Appropriate mood and thoughts Vital Signs: Vital Signs - 24 hr 06/09/25 15:19 06/09/25 15:31 06/09/25 17:50 Temperature 97.5 F Pulse Rate 83 81 Respiratory Rate 20 22 H 31 H Blood Pressure 106/74 Pulse Oximetry 90 L 94 Oxygen Delivery Method Nasal Cannula Nasal Cannula Oxygen Flow Rate 3 06/09/25 17:53 06/09/25 17:59 06/09/25 19:28 Temperature 97.5 F Pulse Rate 77 78 92 Respiratory Rate 31 H 21 H 26 H Blood Pressure 104/51 L 96/48 L Pulse Oximetry 100 99 Oxygen Delivery Method CPAP CPAP Oxygen Flow Rate 2 2.5 06/09/25 19:40 06/09/25 20:20 06/09/25 20:21 Temperature Pulse Rate 95 87 Respiratory Rate 28 H 24 H 28 H Blood Pressure 100/41 L 98/59 L Pulse Oximetry 98 97 Oxygen Delivery Method CPAP CPAP Oxygen Flow Rate 2 2 06/09/25 20:54 06/09/25 21:13 06/09/25 21:22 Temperature Pulse Rate 92 93 90 Respiratory Rate 24 H Blood Pressure 81/52 L 93/55 L 88/46 L Pulse Oximetry 93 Oxygen Delivery Method Nasal Cannula Oxygen Flow Rate 4 06/09/25 21:38 06/09/25 22:27 06/09/25 22:40 Temperature 98.3 F Pulse Rate 89 96 Respiratory Rate 26 H 32 H Blood Pressure 98/49 L 98/57 L Pulse Oximetry 99 98 92 Oxygen Delivery Method Nasal Cannula Nasal Cannula Nasal Cannula Oxygen Flow Rate 4 4 3 06/09/25 22:58 Temperature Pulse Rate 97 Respiratory Rate 26 H Blood Pressure Pulse Oximetry Oxygen Delivery Method Oxygen Flow Rate BMI result Body Mass Index 17.2 Course Course Course Narrative: Rapid medical examination performed in triage by Christine Malone PA-C. Patient is a 80 year old assigned female at presenting to the emergency department with increased shortness of breath and palpitations over the last week. Patient has COPD on 2 liters at baseline. Detailed physical exam and review of systems are deferred to the survey statistician. EKG, labs, imaging, swabs ordered. Patient placed back in the waiting room pending room availability and results. Medications Administered Discontinued Medications Generic Name Dose Route Start Last Admin Trade Name Freq PRN Reason Stop Dose Admin Albuterol Sulfate 5 mg/ 0 mg 06/09/25 17:52 06/09/25 18:00 Albuterol/Ipratropium 3 ml INHALE 06/09/25 17:53 7.5 each ONCE ONE Administration Albuterol Sulfate 5 mg/ 0 mg 06/09/25 22:43 06/09/25 22:57 Albuterol/Ipratropium 3 ml INHALE 06/09/25 22:44 7.5 each ONCE ONE Administration Hydrocortisone Sodium Succinate 100 mg 06/09/25 20:47 06/09/25 21:02 Hydrocortisone Sod Succ/Pf 100 Mg Vial IVPUSH 06/09/25 20:48 100 mg ONCE ONE Administration Magnesium Sulfate 2 gm in 50 mls @ 50 mls/hr 06/09/25 17:19 06/09/25 18:37 Magnesium Sulfate/H2o IV 06/09/25 18:18 Infused ONCE ONE Infusion Sodium Chloride 500 mls @ 500 mls/hr 06/09/25 17:30 06/09/25 18:37 Ns IV 06/09/25 18:29 Infused .Q1H JOSEPH Infusion Levofloxacin 500 mg in 100 mls @ 100 mls/hr 06/09/25 20:04 06/09/25 21:37 Levaquin IV 06/09/25 21:03 Infused ONCE ONE Infusion Sodium Chloride 500 mls @ 250 mls/hr 06/09/25 20:15 06/09/25 21:37 Ns IV 06/09/25 22:14 Infused .Q2H JOSEPH Infusion Lactated Ringer's 1,000 mls @ 999 mls/hr 06/09/25 21:00 06/09/25 22:58 Lr IV 06/09/25 22:00 Infused .Q1H1M JOSEPH Infusion Iohexol 100 ml 06/09/25 20:05 06/09/25 20:05 Iohexol 350 Mg/Ml 100 Ml Infus..Btl IV 06/09/25 20:06 65 ml ONCE ONE Administration Lorazepam 0.5 mg 06/09/25 23:34 06/09/25 23:40 Lorazepam 0.5 Mg Tablet PO 06/09/25 23:35 0.5 mg ONCE ONE Administration Medical Decision Making Medical Decision Making MDM Narrative: 80-year-old female history AFib on Eliquis, COPD, CHF raphael respiratory failure on 2 L nasal cannula presented hospital today for evaluation of shortness of breath, increased fatigue. Patient's lab work significant for a some leukocytosis 12.2. No elevation of lactic acid. Patient does have hyponatremia sodium level of 121, and hypomagnesemia of 1.5. This will be repleted. Patient's initial troponin 27. Repeat troponin is 31, 3rd troponin is 32. I suspect this is likely demand ischemia in nature she has no active chest pain. BNP is elevated at 3900. However this may be her baseline due to his history of CHF, UA did not show any signs of UTI. Does have elevated specific gravity. She may be dehydrated. Patient's blood pressure is noted to be soft in the 90s systolic. IV fluid given for fluid hydration given signs of increased urine specific gravity. Patient did respond to IV fluid. I did give a dose IV hydrocortisone. And started her on IV Levaquin for broad-spectrum coverage. I do not think patient has sepsis. Patient does not appear to be toxic on exam. Patient does have improvement of her symptoms. I did give some p.o. Ativan for her shortness of breath and anxiety from shortness of breath. The patient will be admitted to the hospital at this time for a COPD exacerbation. CTA of the chest did not show any signs of PE. Differential Diagnosis Differential Diagnoses: The differential diagnosis associated with the presentation includes Respiratory failure, COPD exacerbation, PE, CHF exacerbation Lab Data MDM Lab Attestation statement: I reviewed the patient's lab results. 06/09/25 15:48 06/09/25 15:48 Labs: Lab Results 06/09/25 06/09/25 06/09/25 Range/Units 15:48 15:58 17:33 WBC 12.2 H (4.8-10.8) X10*3/uL RBC 3.97 L (4.20-5.50) X10*6/uL Hgb 12.0 (12.0-16.0) g/dl Hct 34.7 L (37.0-47.0) % MCV 87.4 (80.0-98.0) fL MCH 30.2 (27.0-33.0) pg MCHC 34.6 (31.0-35.0) g/dl RDW 12.8 (11.0-16.0) % Plt Count 374 (160-400) X10*3/uL MPV 9.8 (9.4-12.3) fL Immature Gran % (Auto) 0.6 H (0.0-0.4) % Neut % (Auto) 87.6 H (45-73) % Lymph % (Auto) 3.7 L (20-40) % [place] % (Auto) 7.9 (2-11) % Eos % (Auto) 0.1 (0-4) % Baso % (Auto) 0.1 (0-2) % Lymph # (Auto) 0.5 L (1.2-4.9) X10*3/uL [place] # (Auto) 1.0 (0.1-1.2) X10*3/uL Eos # (Auto) 0.0 (0.0-0.4) X10*3/uL Baso # (Auto) 0.0 (0.0-0.2) X10*3/uL Abs Immat Gran (auto) 0.07 H (0.00-0.03) X10*3/uL Absolute Neuts (auto) 10.7 H (2.0-8.3) x10*3/uL Absolute Nucleated RBC 0.000 (0.0-0.012) X10*3/uL Nucleated RBC % (auto) 0.0 (0.0-0.2) /100WBC PT 24.0 H D (10.9-12.4) SEC INR 2.1 H (0.9-1.1) VBG pH 7.44 H (7.32-7.43) VBG pCO2 56 mmHg VBG pO2 38 mmHg VBG HCO3 39 H (22-26) mmol/L VBG O2 Saturation 54.0 % VBG Base Excess 12.5 mmol/L Sodium 121 L (135-145) mmol/L Potassium 3.5 (3.3-5.1) mmol/L Chloride 75 L D (96-108) mmol/L Carbon Dioxide 33 H (22-29) mmol/L Anion Gap 17 (12-20) BUN 17 H (9-16) mg/dL Creatinine 0.84 (0.5-1.4) mg/dL Estim Creat Clear Calc 39.4 Estimated GFR > 60 Random Glucose 200 H (60-115) mg/dL Lactic Acid 1.1 (0.5-2.0) mmol/L Calcium 9.9 (8.4-10.2) mg/dL Magnesium 1.5 L (1.6-2.6) mg/dL Total Bilirubin 0.5 (0.0-1.0) mg/dL AST 24 (5-31) U/L ALT 15 (0-31) U/L Alkaline Phosphatase 54 (39-117) U/L Troponin I High Sens 27.1 H D 31.2 H (<3.5-17.0) ng/L NT-Pro-B Natriuret Pep 3968.8 H (<300) pg/mL Total Protein 6.6 (6.5-8.0) g/dL Albumin 4.3 (3.5-5.0) g/dL Urine Color Urine Appearance Urine pH (5.0-9.0) Ur Specific [place] (1.005-1.025) Urine Protein (Neg-Trace) mg/dL Urine Glucose (UA) (Negative) mg/dL Urine Ketones (Negative) mg/dL Urine Blood (Negative) Urine Nitrite (Negative) Ur Leukocyte Esterase (Negative) COVID-19 ([facility]) Negative (Negative) COVID-19 Clin Com See Note Influenza Type A ([facility]) Negative (Negative) Influenza Type B (FELICIANO) Negative (Negative) Influenza A & B Note See Note 06/09/25 06/09/25 06/09/25 Range/Units 17:38 20:11 22:52 WBC (4.8-10.8) X10*3/uL RBC (4.20-5.50) X10*6/uL Hgb (12.0-16.0) g/dl Hct (37.0-47.0) % MCV (80.0-98.0) fL MCH (27.0-33.0) pg MCHC (31.0-35.0) g/dl RDW (11.0-16.0) % Plt Count (160-400) X10*3/uL MPV (9.4-12.3) fL Immature Gran % (Auto) (0.0-0.4) % Neut % (Auto) (45-73) % Lymph % (Auto) (20-40) % [place] % (Auto) (2-11) % Eos % (Auto) (0-4) % Baso % (Auto) (0-2) % Lymph # (Auto) (1.2-4.9) X10*3/uL [place] # (Auto) (0.1-1.2) X10*3/uL Eos # (Auto) (0.0-0.4) X10*3/uL Baso # (Auto) (0.0-0.2) X10*3/uL Abs Immat Gran (auto) (0.00-0.03) X10*3/uL Absolute Neuts (auto) (2.0-8.3) x10*3/uL Absolute Nucleated RBC (0.0-0.012) X10*3/uL Nucleated RBC % (auto) (0.0-0.2) /100WBC PT (10.9-12.4) SEC INR (0.9-1.1) VBG pH 7.51 H (7.32-7.43) VBG pCO2 51 mmHg VBG pO2 45 mmHg VBG HCO3 41 H (22-26) mmol/L VBG O2 Saturation 69.0 % VBG Base Excess 15.8 mmol/L Sodium (135-145) mmol/L Potassium (3.3-5.1) mmol/L Chloride (96-108) mmol/L Carbon Dioxide (22-29) mmol/L Anion Gap (12-20) BUN (9-16) mg/dL Creatinine (0.5-1.4) mg/dL Estim Creat Clear Calc Estimated GFR Random Glucose (60-115) mg/dL Lactic Acid (0.5-2.0) mmol/L Calcium (8.4-10.2) mg/dL Magnesium (1.6-2.6) mg/dL Total Bilirubin (0.0-1.0) mg/dL AST (5-31) U/L ALT (0-31) U/L Alkaline Phosphatase (39-117) U/L Troponin I High Sens 32.2 H (<3.5-17.0) ng/L NT-Pro-B Natriuret Pep (<300) pg/mL Total Protein (6.5-8.0) g/dL Albumin (3.5-5.0) g/dL Urine Color Yellow Urine Appearance Clear Urine pH 5.5 (5.0-9.0) Ur Specific [place] >= 1.030 H (1.005-1.025) Urine Protein Negative (Neg-Trace) mg/dL Urine Glucose (UA) Negative (Negative) mg/dL Urine Ketones 15 (Negative) mg/dL Urine Blood Negative (Negative) Urine Nitrite Negative (Negative) Ur Leukocyte Esterase Negative (Negative) COVID-19 ([facility]) (Negative) COVID-19 Clin Com Influenza Type A ([facility]) (Negative) Influenza Type B ([facility]) (Negative) Influenza A & B Note Independent Interpretation I performed an independent interpretation of an: EKG, Plain X-Ray and CT Scan Radiology Impression Discussion of test interpretation with radiology: I have reviewed the radiologist's reading. Chronic Conditions COPD, CHF, Chronic Respiratory failure Critical Care Time Critical Care Time Critical Care Time: Yes Total Critical Care Time: 40 Attestation: Time is exclusive of separately billable procedures. Time includes: direct patient care, patient reassessment, coordination of patient care, interpretation of data (laboratory data, pulse oximetry, arterial blood gases and chest xrays), review of patient's medical records, medical consultation and documentation of patient care. Procedures excluded from critical care time: central intravenous line placement and electrocardiography. Discharge Plan Discharge Clinical Impression: COPD (chronic obstructive pulmonary disease), Congestive heart failure, Elevated troponin Patient Disposition: Admitted As Inpatient Print Language: Polish
--- NOTE | 2025-06-09 15:21 | ECG_ITS ---
Test Reason : SOB Blood Pressure : */* mmHG Vent. Rate : 76 BPM Atrial Rate : 76 BPM P-R Int : 152 ms QRS Dur : 74 ms QT Int : 394 ms P-R-T Axes : 96 70 13 degrees QTcB Int : 443 ms Normal sinus rhythm Nonspecific ST and T wave abnormality Abnormal ECG When compared with ECG of 21-May-2025 15:40, Sinus rhythm has replaced Atrial fibrillation Vent. rate has decreased by 47 bpm Nonspecific T wave abnormality, improved in Inferior leads Referred By: Christine Malone Electronically Signed By: Flex De La Torre
--- OUTSIDE RECORDS SUMMARY | 2025-06-09 15:37 | XMS_ITS | Clinical Summary ---
Author Organization [facility] Address [address] [place] [id number] Phone Care Team Providers Care Egg Sorter Name Role Phone Sanjiv Buck MD Primary [...] B [place] & [place] [facility] [place] [facility] PART A & B Member Subscriber Plan / Payer (Ef fective 2012-Present) Name:Maritza Maharaj Member ID:[id number] Relation to Subscriber:Self Name:Maritza Maharaj Subscriber ID:[id number] Payer ID:[id number] Group ID:Not on file Type:Medicare Address: [employer] [address] [place] [phone] [facility] & B [facility] Care Teams Egg Sorter Relationship Specialty Start Date End Date Sanjiv Buck MD [address] [place] [id number] PCP - General Internal Medicine 03/10/22 Additional Source Comments The information contained in this document represents components of the legal health record. It is not the complete legal health record.[facility]
[2025-06-09 15:55] LABS: MANUAL DIFF FLAG NO
[2025-06-09 15:57] LABS: Hematocrit 34.7 % (37.0-47.0); Hemoglobin 12.0 g/dl (12.0-16.0); Imm Gran Abs Auto 0.07 X10*3/uL (0.00-0.03); Imm Gran Pct Auto 0.6 % (0.0-0.4); Lymphocytes Absolute Auto 0.5 X10*3/uL (1.2-4.9); Mean Corpuscular HGB Conc 34.6 g/dl (31.0-35.0); Mean Corpuscular Hemoglobin 30.2 pg (27.0-33.0); Mean Corpuscular Volume 87.4 fL (80.0-98.0); NRBC Abs Auto 0.000 X10*3/uL (0.0-0.012); NRBC Pct Auto 0.0 /100WBC (0.0-0.2); Platelet Count 374 X10*3/uL (160-400); Red Blood Count 3.97 X10*6/uL (4.20-5.50); White Blood Count 12.2 X10*3/uL (4.8-10.8)
[2025-06-09 16:01] LABS: VBG HCO3 39 mmol/L (22-26); VBG O2 % Saturation 54.0 %
[2025-06-09 16:03] LABS: INTERNATIONAL NORM RATIO 2.1 (0.9-1.1); Prothrombin Time 24.0 SEC (10.9-12.4)
[2025-06-09 16:18] LABS: Venous Blood Gas Refer to POC result
[2025-06-09 16:18] LABS: Troponin-I High Sensitivity 27.1 ng/L (<3.5-17.0)
[2025-06-09 16:19] LABS: COVID-19 Test Negative (Negative); IDNOW Serial# 08D9AD1C; IDNOW Serial# 58CA691E; Influenza B2 Negative (Negative)
[2025-06-09 16:24] LABS: Alanine Aminotransferase 15 U/L (0-31); Albumin Level 4.3 g/dL (3.5-5.0); Alkaline Phosphatase 54 U/L (39-117); Anion Gap 17 (12-20); Aspartate Amino Transferase 24 U/L (5-31); Blood Urea Nitrogen 17 mg/dL (9-16); Calcium 9.9 mg/dL (8.4-10.2); Carbon Dioxide 33 mmol/L (22-29); Chloride 75 mmol/L (96-108); Creatinine Clr Calc Pharmacy 39.4; Estimated Glomerular Filt Rate > 60; Magnesium 1.5 mg/dL (1.6-2.6); Potassium 3.5 mmol/L (3.3-5.1); Sodium 121 mmol/L (135-145); Total Protein 6.6 g/dL (6.5-8.0)
--- NOTE | 2025-06-09 17:21 | ECG_ITS ---
Test Reason : SOB Blood Pressure : */* mmHG Vent. Rate : 80 BPM Atrial Rate : 80 BPM P-R Int : 160 ms QRS Dur : 70 ms QT Int : 370 ms P-R-T Axes : * 69 -61 degrees QTcB Int : 426 ms Normal sinus rhythm ST & T wave abnormality, consider inferior ischemia Abnormal ECG When compared with ECG of 09-Jun-2025 15:37, Nonspecific T wave abnormality, worse in Inferior leads T wave inversion now evident in Lateral leads Referred By: Lyly Mosqueda Electronically Signed By: Flex De La Torre
[2025-06-09 17:42] LABS: VBG HCO3 41 mmol/L (22-26); VBG O2 % Saturation 69.0 %
[2025-06-09] MEDS: Magnesium Sulfate/H2O 2 GM/50 ML PIGGYBACK IV (17:45)
[2025-06-09] MEDS: Albuterol Sulfate 5 MG, Albuterol/Iprat 2.5/0.5MG 3 ML 3 ML INHALE ×2 (18:00→22:57)
[2025-06-09 18:01] LABS: Venous Blood Gas Refer to POC result
[2025-06-09 18:14] LABS: NT Pro B Type Natriuretic Pept 3968.8 pg/mL (<300)
[2025-06-09 18:15] LABS: Troponin-I High Sensitivity 31.2 ng/L (<3.5-17.0)
--- NOTE | 2025-06-09 19:28 | PC.NURSE ---
Patient awake, alert and oriented- patient tells me she was brought to the hospital today by her and son. skin pwd. Patient on 8 CPAP w/ 2lpm O2, breathing labored and irregular, lungs with rhonchi throughout. patient c/o intermittent nausea and bladder pressure. abdomen soft and non distended, active bowel sounds x 4. patient aware of need for urine sample. no edema noted to lower extremities. BP low at 96/48. Physician aware of patient status at this time.
--- NOTE | 2025-06-09 19:48 | PC.NURSE ---
Patient assisted to/from CT monitor by this RN and RT. patient was placed on oxymask 4L for transfer and placed on CPAP at CT, pt tolerated well.
--- NOTE | 2025-06-09 19:59 | PC.NURSE ---
patient c/o discomfort to bridge of nose, RT aware and padding placed under CPAP
[2025-06-09] MEDS: iohexoL 350 MG/ML 100 ML INFUS..BTL IV (20:05)
[2025-06-09 20:36] LABS: Troponin-I High Sensitivity 32.2 ng/L (<3.5-17.0)
[2025-06-09] MEDS: Lactated Ringers 1,000 ML 999 ML IV (20:52)
[2025-06-09] MEDS: Hydrocortisone Sod Succ/PF 100 MG VIAL IVPUSH (21:02)
--- NOTE | 2025-06-09 21:16 | PC.NURSE ---
Patient awake and alert. skin pwd. cpap removed by physcian and 4lpm via NC in place. resp even and labored, continue to be irregular w/ pursed lip breathing and accessory muscle use. medicated as ordeered. BP also remains low, as documented. physician aware and new orders obtained. second IV established. family at bedside.
--- NOTE | 2025-06-09 22:26 | PC.NURSE ---
Alin Pino [phone] may call throughout the night with any updates
--- NOTE | 2025-06-09 22:42 | PC.NURSE ---
Patient voided 90ml via bedpan continues with increased work of breathing, RT to bedside
[2025-06-09 22:57] LABS: Appearance Urine Clear; Glucose Urine UA Negative (Negative); PH 5.5 (5.0-9.0); Specific Gravity - Urine >= 1.030 (1.005-1.025)
--- NOTE | 2025-06-09 23:43 | PC.NURSE ---
Took over care at 23:00 from SANIYA Charles, [place] placed for urine retention, 500cc output, medicated per oct. change blood pressure cuff pt bp 96/61 map 70, provider aware.
[2025-06-10] VITALS (9 sets, daily range): BP systolic 117–146; BP diastolic 60–76; PULSE 94–103; RESP 16–28; TEMP 36.3–37.3; O2SAT 92–98; BMI 20.4
--- NOTE | 2025-06-10 01:57 | P.HPHOSP_ITS ---
History of Present Illness Date of Service: 06/10/25 Attending physician on admission: Marvin Fuller Chief Complaint: dyspnea Pt is a 80 yo female with PMH COPD/ severe emphysema on O2 at home (pt stopped smoking 18 years prior), MOD TVR/MOD MVR, Severe pulmonary HTN, chronic back pain, HTN, anxiety, AFIB on eliquis was seen in the emergency room for worsening work of breathing at rest with notable wt loss, loss of appetite and weakness with profound fatigue. Pt states her symptoms have been worsening over the last week. Pt denies fever, chills, chest pain, sweating, N/V, or productive cough. Pt has not been around anyone ill lately and denies recent travel. Pt states her cares for her but is more tired as her needs are now greater. Work up in the ED included CTA which was negative for PE or pulmonary conolsidations. No pleural effusions or pulmonary edema noted. Pt's Na 121, no AMS noted on exam. BNP 3300, no edema in BLE's noted. Troponin 27, 31, 32. ECG Sinus with non specific T wave changes. MG 1.5 nd pt received 2 gms in ED> Pt's BP low and ED provider was considering starting levophed but pt responded to 100 mg of hydrocortisone. Pt was on CPAP initially and was able to titrate to NC. COVID, FLu and RSV testing negative. Request for admission for noted COPD exacetbation, acute hypoxic respiraotry failure, elevated BNP with known MVR and TVR, pulmonary HTN severe and hyponatremia with notable wt loss over the last month per pt. Review of Systems 2 Review of Systems: Pt reports SOB has improved but pt still feels work of breathing. Pt believes her anxiety is making this worse. Pt denies chest pain, abd pain, N/V, diarrhea or constpation. Pt denies any recent falls. Yes all other systems are reviewed and are negative [facility] Medical History Hypotension arterial COPD (chronic obstructive pulmonary disease) Chronic back pain Acute exacerbation of CHF (congestive heart failure) Acute on chronic hypoxic respiratory failure Environmental allergies Seasonal allergies Osteoporosis Hemorrhoids Oxygen dependent Respiratory failure with hypoxia Pulmonary nodules/lesions, multiple Anxiety disorder Screening for diabetes mellitus Acute anxiety Anxiety Asthma Allergic rhinitis COPD (chronic obstructive pulmonary disease) Cognitive capacity: A/O X3 Functional capacity: uses cane/walker Patient : No Family History Mother No problems noted. Father No problems noted. Surgical History History of colonoscopy History of cataract surgery History of right hip replacement Social History Household Members: Spouse Housing: House Are you a primary early breastfeeding care specialist to a significant other at home: No Do you presently have visiting nurse or other home services: No Alcohol intake: current Alcohol intake frequency: holidays/special occasions only Patient Tobacco Use Status: Former Tobacco user Tobacco use type: Cigarette e-Cigarette/Vaping Use: Never Used Second Hand Smoke Exposure: Yes service: No Current occupational status: retired Cognitive needs: No Hearing needs: No Vision needs: Yes (Glasses) Ebola Risk: Travel/Contact With Anyone From Affected Area/s: No Has Patient Experienced Ebola Symptoms: No Meds Allergies Allergy/AdvReac Type Severity Reaction Status Date / Time penicillin G Allergy Severe Anaphylaxis Verified 06/09/25 15:21 Sulfa (Sulfonamide Allergy Severe Anaphylaxis Verified 06/09/25 15:21 Antibiotics) cat dander (CATS) Allergy Unknown MUCOUS Verified 06/09/25 15:21 FORMATION, asthma dog dander (DOGS) Allergy Unknown MUCOUS Verified 06/09/25 15:21 FORMATION, asthma egg Allergy Unknown Wheezing Verified 06/09/25 15:21 house dust (HOUSE DUST) Allergy Unknown MUCOUS Verified 06/09/25 15:21 FORMATION, asthma milk (MILK) Allergy Unknown MUCOUS Verified 06/09/25 15:21 FORMATION mold Allergy Unknown MUCOUS Verified 06/09/25 15:21 FORMATION, asthma tree and shrub pollen (TREES) Allergy Unknown MUCOUS Verified 06/09/25 15:21 FORMATION TO CERTAIN TREES, asthma yeast, dried (yeast) Allergy Unknown MUCOUS Verified 06/09/25 15:21 FORMATION, asthma Active Medications: Current Medications Acetaminophen (Acetaminophen 325 Mg Tablet) 650 mg PO Q6H PRN PRN Reason: Pain, Mild 1-3,fever,headache Albuterol/Ipratropium (Albuterol/Iprat 2.5/0.5mg 3 Ml Ampul.Neb) 3 ml INHALE Q4H PRN PRN Reason: Shortness of Breath/Wheezing Calcium Carbonate (Calcium Carbonate 750 Mg Tab.Chew) 750 mg PO Q4H PRN PRN Reason: Heartburn Magnesium Hydroxide (Milk Of Magnesia 30 Ml Oral.Susp) 30 ml PO DAILY PRN PRN Reason: Constipation Melatonin (Melatonin 3 Mg Tablet) 6 mg PO BEDTIME PRN PRN Reason: Insomnia Ondansetron HCl (Ondansetron Hcl 4 Mg/2 Ml Vial) 4 mg IVPUSH Q8H PRN PRN Reason: Nausea and Vomiting Polyethylene Glycol (Polyethylene Glycol 3350 17 Gm Powd.Pack) 17 gm PO DAILY PRN PRN Reason: Constipation Senna (Sennosides 8.6 Mg Tablet) 17.2 mg PO BEDTIME JOSEPH Sodium Chloride (0.9 % Sodium Chloride Flush 3 Ml Syringe) 3 ml IVFLUSH QSHIFT JOSEPH Home Medications ?Medication ?Instructions ?Recorded ?Confirmed ?Last Taken ?Type vit C 250 mg-vit E 90 mg-zinc 40 1 tab PO BID 07/21/20 05/27/25 12/03/24 History mg-copper 1 ej-pisioo-ybijrf capsule (PreserVision AREDS-2) calcium carbonate (Calcium 600) 600 mg PO BID 01/28/21 05/27/25 12/03/24 History cholecalciferol (vitamin D3) 25 25 mcg PO DAILY 05/27/25 12/03/24 History mcg (1,000 unit) capsule (Vitamin D3) albuterol sulfate 90 mcg/actuation 2 puff inhalation Q 6H PRN 01/31/25 05/27/25 Unknown History aerosol inhaler atenolol 25 mg tablet 25 mg PO ONCE 04/22/2505/27 Unknown History furosemide 40 mg tablet 20 mg PO DAILY PRN 04/22/25 05/27/25 Unknown History guaifenesin 600 mg tablet, 600 mg PO BID 05/02/2504/30 Unknown History extended release 12 hr (Mucinex) vitamins A,C,N-miov-rxwjqu 4,296 1 cap PO BID 05/02/25 05/27/25 Unknown History mcg-226 mg-90 mg capsule (PreserVision AREDS) Physical Exam 2 Vital Signs and Narrative: Vital Signs: Last Vital Signs Temp 98.3 F 06/09/25 22:27 Pulse 97 06/09/25 22:58 Resp 26 H 06/09/25 22:58 BP 98/57 L 06/09/25 22:27 Pulse Ox 92 06/09/25 22:40 O2 Del Method Nasal Cannula 06/09/25 22:40 O2 Flow Rate 3 06/09/25 22:40 Oxygen Flow Rate 5 06/09/25 15:19 BMI result Body Mass Index 17.2 Alert and orientated X3, able to give good history. Neuro: CN II-X11 intact, no deficits, visual acuity intact, mac deg R eye only EYES: PERRLA, EOM intact, sclera nonicteric ENT: hearing intact, no issues with swallowing, uvula midline, lips moist, nares patent no epistaxis Cardiac: S1 S2 RRR, no murmur, no JVD, no edema in Lower ext Pulmonary: lungs diminshed B, RR 22-24, work of breathing noted (pt stated improved from arrival) Abdominal: BS active in all 4 quadrants, no guarding, tenderness, rebounding MSK: strength 3-4/5 upper and lower extremities : no CVA tenderness no bladder distension Extremities: no edema in lower extremities, PT and DP pulses palpable +2 Psych: mood stable, judgement and insight good Skin: no new rashes or lesions, unable to check backside Results Labs 06/09/25 15:48 06/09/25 15:48 Labs: Laboratory Results - last 24 hr 06/09/25 06/09/25 06/09/25 15:48 15:58 17:33 MCV 87.4 MCH 30.2 MCHC 34.6 RDW 12.8 Plt Count 374 MPV 9.8 Immature Gran % (Auto) 0.6 H Neut % (Auto) 87.6 H Lymph % (Auto) 3.7 L Glynn % (Auto) 7.9 Eos % (Auto) 0.1 Baso % (Auto) 0.1 Lymph # (Auto) 0.5 L Glynn # (Auto) 1.0 Eos # (Auto) 0.0 Baso # (Auto) 0.0 Abs Immat Gran (auto) 0.07 H Absolute Neuts (auto) 10.7 H Absolute Nucleated RBC 0.000 Nucleated RBC % (auto) 0.0 PT 24.0 H D INR 2.1 H VBG pH 7.44 H VBG pCO2 56 VBG pO2 38 VBG HCO3 39 H VBG O2 Saturation 54.0 VBG Base Excess 12.5 Anion Gap 17 Estim Creat Clear Calc 39.4 Estimated GFR > 60 Random Glucose 200 H Lactic Acid 1.1 Calcium 9.9 Magnesium 1.5 L Total Bilirubin 0.5 AST 24 ALT 15 Alkaline Phosphatase 54 Troponin I High Sens 27.1 H D 31.2 H NT-Pro-B Natriuret Pep 3968.8 H Total Protein 6.6 Albumin 4.3 Urine Color Urine Appearance Urine pH Ur Specific [place] Urine Protein Urine Glucose (UA) Urine Ketones Urine Blood Urine Nitrite Ur Leukocyte Esterase COVID-19 ([facility]) Negative COVID-19 Clin Com See Note Influenza Type A ([facility]) Negative Influenza Type B ([facility]IC[facility]) Negative Influenza A & B Note See Note 06/09/25 06/09/25 06/09/25 17:38 20:11 22:52 MCV MCH MCHC RDW Plt Count MPV Immature Gran % (Auto) Neut % (Auto) Lymph % (Auto) Glynn % (Auto) Eos % (Auto) Baso % (Auto) Lymph # (Auto) Glynn # (Auto) Eos # (Auto) Baso # (Auto) Abs Immat Gran (auto) Absolute Neuts (auto) Absolute Nucleated RBC Nucleated RBC % (auto) PT INR VBG pH 7.51 H VBG pCO2 51 VBG pO2 45 VBG HCO3 41 H VBG O2 Saturation 69.0 VBG Base Excess 15.8 Anion Gap Estim Creat Clear Calc Estimated GFR Random Glucose Lactic Acid Calcium Magnesium Total Bilirubin AST ALT Alkaline Phosphatase Troponin I High Sens 32.2 H NT-Pro-B Natriuret Pep Total Protein Albumin Urine Color Yellow Urine Appearance Clear Urine pH 5.5 Ur Specific [place] >= 1.030 H Urine Protein Negative Urine Glucose (UA) Negative Urine Ketones 15 Urine Blood Negative Urine Nitrite Negative Ur Leukocyte Esterase Negative COVID-19 ([facility]) COVID-19 Clin Com Influenza Type A ([facility]ELIC[facility]O) Influenza Type B ([facility]) Influenza A & B Note ECG Attestation: I personally reviewed and interpreted this ECG as follows: (Sinus rhythm, Nonspecific ST and T wave abnormality Qtc 443 ) Prior ECG tracings: available for review Imaging Radiologist's Impressions: CTA Impression: 1. Negative for pulmonary embolism. 2. Severe emphysema, greatest at the bilateral upper lobes, with minimal right lower lobe subsegmental atelectasis. No focal pulmonary consolidation. 3. Chronic multilevel thoracic vertebral body compression deformities present with exaggeration of the normal thoracic kyphosis. There is interval increase in height loss at the severe T10 vertebral body compression deformity as compared to the 12/03/2024 examination. This finding is age indeterminate. Clinical correlation is advised. Assessment and Plan (1) Acute hypoxic respiratory failure: Status: Acute (2) COPD exacerbation: Status: Acute Plan Pt is a 80 yo female with PMH COPD/ severe emphysema on O2 at home (pt stopped smoking 18 years prior), MOD TVR/MOD MVR, Severe pulmonary HTN, chronic back pain, HTN, anxiety, AFIB on eliquis was seen in the emergency room for worsening work of breathing at rest with notable wt loss, loss of appetite and weakness with profound fatigue. Pt states her symptoms have been worsening over the last week. Pt states she has stage 4 COPD and has been losing wt over the last month with decreased appetite. Pt does not use AVAPS or assistive devices at home but uses oxygen. initially, pt was hypootensive and hypoxic on arrival and placed on CPAP but did not require pressors. Leukocytosis noted. This presentation less likely sepsis and more related to cardiopulmonary function. Pt afebrile, no tachycardia and LA WNL at 1.1. BC collected. CT neg for PNA. UA neg for UTI. Acute hypoxic respiratory Failure CTA neg for PE, PNA, Pleural effusion, Pulm edema COVID, FLU and RSV negative Continue NC, weaned from CPAP on arrival PH 7.53, CO2 33, diamox 250 mgs X1 Tele, continuous pulse ox COPD exacerbation/ Stage 4 COPD Continue Levalbuterol, Budesonide NC, humidified may help No evidence of mucous plugging on CT scan Supportive care Overall increased work of breathing with wt loss, pt is not currently on AVAPs at home Pulmonary consulted Pt normally on azithromycin 3 times per week, ordered empirically daily Hyponatremia Fluid restriction NA Q4H, avoid rapid correction N0 AMS noted Urine studies requested Serum Osmo requested Nephrology consulted Noted elevated BNP (see below) Elevated BNP with known Moderate MVR and moderate TVR Echo ordered Pt normally on lasix 20 mg daily Troponins 27, 31, 32 Cardiology consulted Severe Pulmonary HTN Echo ordered Pulmonary consulted Hypotension Improved with hydrocortisone IV, pt did not require levophed in ED Random cortisol with AM labs No atenolol for now Malnourishment with BMI 17.2 Nutritional consult placed Likely secondary to increaaed work of breathing Ensures ordered in the interim No report of dysphagia HX of AFIB Rhythm Sinus Continue Eliquis Telemtry Anxiety Low dose ativan prn, effective in ED without negative impact on VS DVT Prophulaxis: Eliquis MED REC PENDING FULL CODE Quality Stroke Does the patient have a stroke diagnosis?: No Reason for No Anti-thrombotic by Day Two: N/A - Med Ordered VTE Prior VTE?: No VTE Risk Level:: Medical - moderate - high VTE Device Contraindication: N/A - Device Ordered VTE Drug Contraindication: N/A - Med Ordered
--- NOTE | 2025-06-10 02:31 | PC.NURSE ---
pt medicated per mar, significant improvement in respiratory and bp rate
--- NOTE | 2025-06-10 05:41 | PC.NURSE ---
pt reposition for comfort and urine output 850
--- NOTE | 2025-06-10 06:21 | PC.NURSE ---
Called pt son Alvarez and updated him -[phone]
[2025-06-10 06:36] LABS: MANUAL DIFF FLAG NO
[2025-06-10 06:39] LABS: Hematocrit 31.5 % (37.0-47.0); Hemoglobin 10.7 g/dl (12.0-16.0); Imm Gran Abs Auto 0.12 X10*3/uL (0.00-0.03); Imm Gran Pct Auto 1.0 % (0.0-0.4); Lymphocytes Absolute Auto 0.4 X10*3/uL (1.2-4.9); Mean Corpuscular HGB Conc 34.0 g/dl (31.0-35.0); Mean Corpuscular Hemoglobin 30.6 pg (27.0-33.0); Mean Corpuscular Volume 90.0 fL (80.0-98.0); NRBC Abs Auto 0.000 X10*3/uL (0.0-0.012); NRBC Pct Auto 0.0 /100WBC (0.0-0.2); Platelet Count 317 X10*3/uL (160-400); Red Blood Count 3.50 X10*6/uL (4.20-5.50); White Blood Count 11.9 X10*3/uL (4.8-10.8)
[2025-06-10 06:45] LABS: Osmolality, Serum 262 mosm/kg (281-305)
[2025-06-10 06:52] LABS: Alanine Aminotransferase 13 U/L (0-31); Albumin Level 4.1 g/dL (3.5-5.0); Alkaline Phosphatase 48 U/L (39-117); Anion Gap 16 (12-20); Aspartate Amino Transferase 22 U/L (5-31); Blood Urea Nitrogen 11 mg/dL (9-16); Calcium 9.0 mg/dL (8.4-10.2); Carbon Dioxide 31 mmol/L (22-29); Chloride 83 mmol/L (96-108); Creatinine Clr Calc Pharmacy 42.5; Estimated Glomerular Filt Rate > 60; Potassium 3.4 mmol/L (3.3-5.1); Sodium 127 mmol/L (135-145); Total Protein 6.2 g/dL (6.5-8.0)
--- NOTE | 2025-06-10 07:00 | CA_ITS ---
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 The visually estimated ejection fraction is between 60-65%. - E/E prime ratio is >15, consistent with elevated filling pressures. - Normal right ventricular cavity size and systolic function. - Severe pulmonary hypertension is present. - The right ventricular systolic pressure is 68 mmHg. Findings Left Ventricle Normal left ventricular size, thickness, systolic function, and wall motion. The visually estimated ejection fraction is between 60-65%. Abnormal diastolic function is noted. Spectral Doppler is indicative of a restrictive filling pattern. E/E prime ratio is >15, consistent with elevated filling pressures. Right Ventricle Normal right ventricular cavity size and systolic function. Atria The left atrium is mildly dilated. The right atrium is mildly dilated. Aortic Valve There is a normal trileaflet aortic valve. There is mild calcification of the aortic valve. There is no aortic valve stenosis. There is trace (trivial) aortic valve regurgitation. Mitral Valve The mitral valve appears normal. There is mild to moderate mitral valve regurgitation. There is no mitral valve stenosis. Pulmonic Valve The pulmonic valve is normal. There is no pulmonic valve regurgitation. Tricuspid Valve Normal tricuspid valve structure. There is trace tricuspid valve regurgitation. The right ventricular systolic pressure is 68 mmHg. Normal right atrial pressure. Severe pulmonary hypertension is present. Great Vessels All visible segments of the aorta are normal in size. The visualized portions of the pulmonary artery and branches are normal. Venous The inferior vena cava is normal in size and collapses greater than 50% with inspiration. Pericardium/Pleural There is no evidence of pericardial effusion. Prior Study Comparison Changes noted compared to prior study dated: 12/04/2024. PASP slightly lower than before. Overall no significant changes. Measurements 2D Linear Measurements IVSd: 0.80 0.6-0.9/0.6-1.0 cm LVIDd: 4.45 3.9-5.3/4.2-5.9 cm LVIDd Index: 3.05 2.4-3.2/2.2-3.1 cm/m2 LVIDs: 2.97 2.0-3.6 cm LVPWd: 0.97 0.7-1.1 cm LA Diam: 3.40 2.7-3.8/3.0-4.0 cm LAIDs Index: 2.33 1.5-2.3 cm/m2 LV Mass: 158.02 67-162/88-224 g LV Mass Index: 108.23 43-95/49-115 g/m2 LVOT Diam: 1.80 3.0+(-)1.3 cm 2D Systolic Function EF 4C: 57.40 >55% EF 2C: 67.50 >55% EF BiP: 63.40 >55% Mitral Valve MV Pk E: 1.25 MV PK A: 0.56 MV Decel Time: 139.00 E/A: 2.20 E'Lateral: 9.36 E'Medial: 6.64 E/E' Med: 18.80 E/E' Lat: 13.40 PHT: 41.00 MVA PHT: 5.37 Decel Taos: 9.00 MR Vol - PW Dopp: 3.28 MR VTI: 1.64 MR ERO: 2.00 MR Alias Clint: 0.39 MR RAD: 0.20 Aortic Valve AoV Pk Clint: 1.19 AoV Mn Clint: 0.87 AoV VTI: 0.24 AoV Pk Grad: 6.00 Aov Mn Grad: 3.00 LETITIA Cont.VTI: 2.02 LVOT LVOT Pk Clint: 1.00 LVOT Mn Clint: 0.72 LVOT VTI: 0.19 LVOT Pk Grad: 4.00 LVOT Mn Grad: 2.00 LVOT Diam: 1.80 LVOT Area: 2.54 Diastolic Function MV Pk E: 1.25 MV Pk A: 0.56 E/A: 2.20 E'Medial: 6.64 E/E' Med: 18.80 E' Laterial: 9.36 E/E' Lat: 13.40 Right Ventricle TAPSE (mm): 15.70 TVS' Clint: 13.10 Tricuspid Valve TR Pk Clint: 3.58 TR Pk Grad: 51.00 RA Press: 3.00 RVSP: 68.00 Great Vessels Aorta Sinus of Valsalva: 3.10 2.0-3.5 cm Ao Asc: 3.20 2.1-3.4 cm Pulmonary Veins Pulm Vein S/D 0.80 Pulmonary Valve PV Pk Clint: 0.95 Peak PV Grad: 4.00 Updated in Other Vendor System with Status of Final Flex De La Torre MD electronically signed on 06/10/2025 1:52:11 PM with status of Final
--- NOTE | 2025-06-10 07:18 | P.PNIM_ITS ---
Subjective Subjective Date of Service: 06/10/25 Interval History: Spoke to the patient's son over the phone-gave him current prognosis Patient is current presentation is likely in the setting of COPD exacerbation IV steroids, nebulizers Patient elected to continue being full code [place] consulted suggested diuresis Cardiology consulted suggested that this is mostly in the setting of COPD, pulmonary hypertension, given risks versus benefits, we will be careful with Lasix Review of Systems Review of Systems: Yes all other systems are reviewed and are negative Physical Exam 2 Exam: Exam: General: AOx3, significant respiratory distress requiring 6 L O2-patient is usually on 5-6 L at baseline Resp: Bilateral respiratory wheezing and crackles noted (diuresis limited given possible adrenal insufficiency requiring steroids), work of breathing, significant accessory muscles usage noted CVS: Sinus tachycardia GI: +BS, NT, no distention Skin: Warm and clammy Neuro: Limited secondary to clinical condition, however moving all limbs Extremities: Bilateral pitting pedal edema 1+ up to shins Psych: Anxious, Vital Signs: Vital Signs: Last Vital Signs Temp 98.2 F 06/10/25 05:40 Pulse 94 06/10/25 05:40 Resp 28 H 06/10/25 05:40 BP 124/60 06/10/25 05:40 Pulse Ox 93 06/10/25 05:40 O2 Del Method Nasal Cannula 06/10/25 05:40 O2 Flow Rate 3 06/10/25 05:40 Oxygen Flow Rate 5 06/09/25 15:19 BMI result Body Mass Index 17.2 Objective Data Active Medications Acetaminophen (Acetaminophen 325 Mg Tablet) 650 mg PO Q6H PRN PRN Reason: Pain, Mild 1-3,fever,headache Budesonide (Budesonide 0.5 Mg/2 Ml Ampul.Neb) 0.5 mg INHALE RBID JOSEPH Calcium Carbonate (Calcium Carbonate 750 Mg Tab.Chew) 750 mg PO Q4H PRN PRN Reason: Heartburn Azithromycin 500 mg/ Sodium (Chloride) 250 mls @ 125 mls/hr IV Q24H JOSEPH Levalbuterol HCl (Levalbuterol Hcl 1.25 Mg/3 Ml Vial.Neb) 1.25 mg INHALE Q4H PRN PRN Reason: Shortness of Breath/Wheezing Lorazepam (Lorazepam 0.5 Mg Tablet) 0.5 mg PO Q4H PRN PRN Reason: Anxiety Magnesium Hydroxide (Milk Of Magnesia 30 Ml Oral.Susp) 30 ml PO DAILY PRN PRN Reason: Constipation Melatonin (Melatonin 3 Mg Tablet) 6 mg PO BEDTIME PRN PRN Reason: Insomnia Ondansetron HCl (Ondansetron Hcl 4 Mg/2 Ml Vial) 4 mg IVPUSH Q8H PRN PRN Reason: Nausea and Vomiting Polyethylene Glycol (Polyethylene Glycol 3350 17 Gm Powd.Pack) 17 gm PO DAILY PRN PRN Reason: Constipation Senna (Sennosides 8.6 Mg Tablet) 17.2 mg PO BEDTIME [facility] Sodium Chloride (0.9 % Sodium Chloride Flush 3 Ml Syringe) 3 ml IVFLUSH QSHIFT [facility] Labs 06/10/25 06:03 06/10/25 06:03 Labs: Laboratory Results - last 24 hr 06/09/25 06/09/25 06/09/25 15:48 15:58 17:33 MCV 87.4 MCH 30.2 MCHC 34.6 RDW 12.8 Plt Count 374 MPV 9.8 Immature Gran % (Auto) 0.6 H Neut % (Auto) 87.6 H Lymph % (Auto) 3.7 L [place] % (Auto) 7.9 Eos % (Auto) 0.1 Baso % (Auto) 0.1 Lymph # (Auto) 0.5 L [place] # (Auto) 1.0 Eos # (Auto) 0.0 Baso # (Auto) 0.0 Abs Immat Gran (auto) 0.07 H Absolute Neuts (auto) 10.7 H Absolute Nucleated RBC 0.000 Nucleated RBC % (auto) 0.0 PT 24.0 H D INR 2.1 H VBG pH 7.44 H VBG pCO2 56 VBG pO2 38 VBG HCO3 39 H VBG O2 Saturation 54.0 VBG Base Excess 12.5 Anion Gap 17 Estim Creat Clear Calc 39.4 Estimated GFR > 60 Random Glucose 200 H Osmolality Lactic Acid 1.1 Calcium 9.9 Magnesium 1.5 L Total Bilirubin 0.5 AST 24 ALT 15 Alkaline Phosphatase 54 Troponin I High Sens 27.1 H D 31.2 H NT-Pro-B Natriuret Pep 3968.8 H Total Protein 6.6 Albumin 4.3 Random Cortisol Urine Color Urine Appearance Urine pH Ur Specific [place] Urine Protein Urine Glucose (UA) Urine Ketones Urine Blood Urine Nitrite Ur Leukocyte Esterase Urine Osmolality Ur Random Sodium COVID-19 ([facility]) Negative COVID-19 Clin Com See Note Influenza Type A ([facility]IC[facility]) Negative Influenza Type B (FELIC[facility]O) Negative Influenza A & B Note See Note 06/09/25 06/09/25 06/09/25 17:38 20:11 22:52 MCV MCH MCHC RDW Plt Count MPV Immature Gran % (Auto) Neut % (Auto) Lymph % (Auto) [place] % (Auto) Eos % (Auto) Baso % (Auto) Lymph # (Auto) [place] # (Auto) Eos # (Auto) Baso # (Auto) Abs Immat Gran (auto) Absolute Neuts (auto) Absolute Nucleated RBC Nucleated RBC % (auto) PT INR VBG pH 7.51 H VBG pCO2 51 VBG pO2 45 VBG HCO3 41 H VBG O2 Saturation 69.0 VBG Base Excess 15.8 Anion Gap Estim Creat Clear Calc Estimated GFR Random Glucose Osmolality Lactic Acid Calcium Magnesium Total Bilirubin AST ALT Alkaline Phosphatase Troponin I High Sens 32.2 H NT-Pro-B Natriuret Pep Total Protein Albumin Random Cortisol Urine Color Yellow Urine Appearance Clear Urine pH 5.5 Ur Specific [place] >= 1.030 H Urine Protein Negative Urine Glucose (UA) Negative Urine Ketones 15 Urine Blood Negative Urine Nitrite Negative Ur Leukocyte Esterase Negative Urine Osmolality 385 Ur Random Sodium < 20.0 COVID-19 ([facility]) COVID-19 Clin Com Influenza Type A (FELICIANO) Influenza Type B (FELICIANO) Influenza A & B Note 06/10/25 06:03 MCV 90.0 MCH 30.6 MCHC 34.0 RDW 13.0 Plt Count 317 MPV 10.0 Immature Gran % (Auto) 1.0 H Neut % (Auto) 86.0 H Lymph % (Auto) 3.0 L [place] % (Auto) 9.8 Eos % (Auto) 0.0 Baso % (Auto) 0.2 Lymph # (Auto) 0.4 L [place] # (Auto) 1.2 Eos # (Auto) 0.0 Baso # (Auto) 0.0 Abs Immat Gran (auto) 0.12 H Absolute Neuts (auto) 10.2 H Absolute Nucleated RBC 0.000 Nucleated RBC % (auto) 0.0 PT INR VBG pH VBG pCO2 VBG pO2 VBG HCO3 VBG O2 Saturation VBG Base Excess Anion Gap 16 Estim Creat Clear Calc 42.5 Estimated GFR > 60 Random Glucose 156 H Osmolality 262 L Lactic Acid Calcium 9.0 D Magnesium Total Bilirubin 0.5 AST 22 ALT 13 Alkaline Phosphatase 48 Troponin I High Sens NT-Pro-B Natriuret Pep Total Protein 6.2 L Albumin 4.1 Random Cortisol 16.8 Urine Color Urine Appearance Urine pH Ur Specific [place] Urine Protein Urine Glucose (UA) Urine Ketones Urine Blood Urine Nitrite Ur Leukocyte Esterase Urine Osmolality Ur Random Sodium COVID-19 ([facility]) COVID-19 Clin Com Influenza Type A (FELICIANO) Influenza Type B (FELICIANO) Influenza A & B Note Assessment and Plan (1) Congestive heart failure: Status: Acute Plan PMH stage IV COPD/ severe emphysema on 5-6 L O2 at home, prior smoker, MOD TVR/MOD MVR, Severe pulmonary HTN, chronic back pain, HTN, anxiety, AFIB on eliquis was brought in by ambulance for acute onset SOB/MCCARTNEY, gradually worsening for the past 1 week. Workup revealed significant COPD [id number] COPD, with response to stress dose steroids Acute hypoxic respiratory failure likely multifactorial-COPD end-stage , pulmonary hypertension Severe emphysema-chronic Severe pulmonary hypertension PE ruled out with CTA (patient already on Eliquis) For end-stage COPD she is being treated with IV steroids, p.r.n. and scheduled nebulizers, Pulmicort, pulmonary hygiene, incentive spirometer Acapella valve Infectious etiology although less likely given her current clinical status and requiring IV steroids and response to COPD treatment, we will treat with Levaquin (patient apparently has anaphylaxis to penicillins) and vancomycin and azithromycin Respiratory panel negative however we will check MRSA given COPD exacerbation We will follow sepsis workup and deescalate p.r.n. Fluids limited secondary to pulmonary edema Chronic diastolic heart failure afib on eliquis -cont eliquis We will resume home meds carefully as she responded to fluids and stress dose steroids, we will be careful in resuming her home antihypertensive medications It appears that her home meds were already cut in half given soft blood pressures by outpatient Lasix contraindicated given current hemodynamic status, we will slowly advance as indicated Possible adrenal insufficiency ? No chronic steroids on home meds recs - need to confirm We will continue stress dose steroids to maintain hemodynamics as she seems to have responded in the ED to this Acute hyponatremia (goal 129 in 24 hours) unknown chronicity-hypovolemic hypoNa Likely SIADH versus adrenal insufficiency Fluids limited to 1200 cc Patient tolerated received stress dose steroids and cortisol was normal, hence we will wait and check cosyntropin test to adequately rule out adrenal insufficiency Might need pulmonary rehab Patient needs ongoing admission for acute hypoxic respiratory failure requiring IV stress dose steroids and guarded prognosis and hyponatremia This note is constructed using voice recognition software. While every effort has been made to ensure accuracy, [employer] division director errors may have been included. Quality Stroke Does the patient have a stroke diagnosis?: No Reason for No Anti-thrombotic by Day Two: N/A - Med Ordered VTE Prior VTE?: No VTE Risk Level:: Medical - moderate - high VTE Device Contraindication: N/A - Device Ordered VTE Drug Contraindication: N/A - Med Ordered
[2025-06-10] MEDS: 0.9 % Sodium Chloride Flush 3 ML SYRINGE IVFLUSH ×3 (07:57→20:46)
--- NOTE | 2025-06-10 08:31 | PHA.MEDREC ---
Pharmacy Consult ? Medication Reconciliation Pharmacy has completed the medication reconciliation. Spoke with patient who was able to name of medications names and frequencies. Patient stated she was on cyclobenzaprine but developed back pain, only utilizing baclofen for muscle spams as this time.
--- NOTE | 2025-06-10 12:59 | P.CONCA_ITS ---
History of Present Illness History of Present Illness Date of Service: 06/10/25 Chief complaint: COPD Exacerbation Narrative: Pleasant 80 year female who is here for shortness of breath. She was seen in November when she had mild congestive heart failure. In March she came to the office and apparently was having low blood pressures and Lasix was cut to 20 mg and atenolol was also half by her primary care physician before that visit. She had episode of back pain in April 2025 when gallstones were diagnosed and she was also noticed to be in atrial fibrillation. She was discharged home with Eliquis 5 mg twice a day. She has been taking that regularly. No bleeding concerns. The family was present in the room at the time of interview. The patient complained that she was short of breath but was also feeling tired. The daughter also added that she was not eating much. No fevers or chills reported by the patient. In the ER she was noticed to be hypotensive and apparently responded to IV steroid bolus. She was also hyponatremic. She is still short of breath on examination but her blood pressure has have improved significantly. [facility] Past Medical History Medical History (Updated 06/10/25 @ 14:40 by Flex De La Torre MD) Hypotension arterial COPD (chronic obstructive pulmonary disease) Chronic back pain Acute exacerbation of CHF (congestive heart failure) Acute on chronic hypoxic respiratory failure Environmental allergies Seasonal allergies Osteoporosis Hemorrhoids Oxygen dependent Respiratory failure with hypoxia Pulmonary nodules/lesions, multiple Anxiety disorder Screening for diabetes mellitus Acute anxiety Anxiety Asthma Allergic rhinitis COPD (chronic obstructive pulmonary disease) Family History Family History Mother No problems noted. Father No problems noted. Surgical History Surgical History History of colonoscopy History of cataract surgery History of right hip replacement Social History Social History Household Members: Spouse Housing: House Are you a primary long term care phlebotomist to a significant other at home: No Do you presently have visiting nurse or other home services: No Alcohol intake: current Alcohol intake frequency: holidays/special occasions only Patient Tobacco Use Status: Never used Tobacco Tobacco use type: Cigarette Smoked in Last 30 Days: No e-Cigarette/Vaping Use: Never Used Second Hand Smoke Exposure: Yes Use of substances other than those prescribed or required for medical reasons: No Have you been hit, kicked, punched, or otherwise hurt by someone within the past year? If so, by whom?: No Do you feel safe in your current relationship?: Yes Is there a partner from a previous relationship who is making you feel unsafe now?: No Are you made to feel afraid or neglected: No Advance Directives: No Advance Directives Information Provided: No Do you have a plan to hurt others: No Plan Recently lost weight without trying: Yes How much weight loss: 2-13 pounds Eating poorly because of decreased appetite: Yes Nutrition screen score: 4 Nutrition Risks: Poor intake 0-25% >4 days Patient : No : No Poor oral hygiene: No service: No Current occupational status: retired Cognitive needs: No Hearing needs: No Vision needs: Yes (Glasses) Travel History Ebola Risk: Travel/Contact With Anyone From Affected Area/s: No Has Patient Experienced Ebola Symptoms: No Meds Allergies Allergy/AdvReac Type Severity Reaction Status Date / Time penicillin G Allergy Severe Anaphylaxis Verified 06/09/25 15:21 Sulfa (Sulfonamide Allergy Severe Anaphylaxis Verified 06/09/25 15:21 Antibiotics) cat dander (CATS) Allergy Unknown MUCOUS Verified 06/09/25 15:21 FORMATION, asthma dog dander (DOGS) Allergy Unknown MUCOUS Verified 06/09/25 15:21 FORMATION, asthma egg Allergy Unknown Wheezing Verified 06/09/25 15:21 house dust (HOUSE DUST) Allergy Unknown MUCOUS Verified 06/09/25 15:21 FORMATION, asthma milk (MILK) Allergy Unknown MUCOUS Verified 06/09/25 15:21 FORMATION mold Allergy Unknown MUCOUS Verified 06/09/25 15:21 FORMATION, asthma tree and shrub pollen (TREES) Allergy Unknown MUCOUS Verified 06/09/25 15:21 FORMATION TO CERTAIN TREES, asthma yeast, dried (yeast) Allergy Unknown MUCOUS Verified 06/09/25 15:21 FORMATION, asthma Active Medications: Current Medications Acetaminophen (Acetaminophen 325 Mg Tablet) 650 mg PO Q6H PRN PRN Reason: Pain, Mild 1-3,fever,headache Albuterol Sulfate (Albuterol Sulfate 90 Mcg 8 Gm Inhaler) 2 puff INHALE RQ4H PRN PRN Reason: Dyspnea Budesonide (Budesonide 0.5 Mg/2 Ml Ampul.Neb) 0.5 mg INHALE RBID [facility] Last Admin: 06/10/25 07:32 Dose: 0.5 mg Calcium Carbonate (Calcium Carbonate 750 Mg Tab.Chew) 750 mg PO Q4H PRN PRN Reason: Heartburn Azithromycin 500 mg/ Sodium (Chloride) 250 mls @ 125 mls/hr IV Q24H [facility] Last Infusion: 06/10/25 10:01 Dose: Infused Levalbuterol HCl (Levalbuterol Hcl 1.25 Mg/3 Ml Vial.Neb) 1.25 mg INHALE Q4H PRN PRN Reason: Shortness of Breath/Wheezing Lorazepam (Lorazepam 0.5 Mg Tablet) 0.5 mg PO Q4H PRN PRN Reason: Anxiety Magnesium Hydroxide (Milk Of Magnesia 30 Ml Oral.Susp) 30 ml PO DAILY PRN PRN Reason: Constipation Melatonin (Melatonin 3 Mg Tablet) 6 mg PO BEDTIME PRN PRN Reason: Insomnia Methylprednisolone Sodium Succinate (Methylprednisolone Sod Succ 40 Mg/Ml Vial) 40 mg IVPUSH Q6H [facility] Last Admin: 06/10/25 09:16 Dose: 40 mg Ondansetron HCl (Ondansetron Hcl 4 Mg/2 Ml Vial) 4 mg IVPUSH Q8H PRN PRN Reason: Nausea and Vomiting Polyethylene Glycol (Polyethylene Glycol 3350 17 Gm Powd.Pack) 17 gm PO DAILY PRN PRN Reason: Constipation Senna (Sennosides 8.6 Mg Tablet) 17.2 mg PO BEDTIME [facility] Sodium Chloride (0.9 % Sodium Chloride Flush 3 Ml Syringe) 3 ml IVFLUSH QSHIFT [facility] Last Admin: 06/10/25 07:57 Dose: 3 ml Home Medications ?Medication ?Instructions ?Recorded ?Confirmed ?Last Taken ?Type vit C 250 mg-vit E 90 mg-zinc 40 1 tab PO BID 07/21/20 06/10/25 12/03/24 History mg-copper 1 [id number] capsule (PreserVision AREDS-2) calcium carbonate (Calcium 600) 600 mg PO BID 01/28/21 06/10/25 12/03/24 History cholecalciferol (vitamin D3) 25 25 mcg PO DAILY 06/10/25 12/03/24 History mcg (1,000 unit) capsule (Vitamin D3) atenolol 25 mg tablet 25 mg PO DAILY 04/22/2505/29 Unknown History furosemide 40 mg tablet 20 mg PO DAILY PRN Weight Ga in 04/22/25 06/10/25 Unknown History guaifenesin 600 mg tablet, 600 mg PO BID 05/02/2505/29 Unknown History extended release 12 hr (Mucinex) Physical Exam 2 Vital Signs: Vital Signs: Last Vital Signs Temp 98.9 F 06/10/25 11:47 Pulse 100 06/10/25 11:47 Resp 18 06/10/25 11:47 BP 128/71 06/10/25 11:47 Pulse Ox 92 06/10/25 11:47 O2 Del Method Nasal Cannula 06/10/25 11:47 O2 Flow Rate 2 06/10/25 11:47 Oxygen Flow Rate 5 06/09/25 15:19 BMI result Body Mass Index 17.2 GENERAL APPEARANCE: Short of breath, on supplemental oxygen by nasal cannula. NECK: no carotid bruit, mi jugular venous distention. SKIN: no suspicious lesions, warm and dry. HEART: no murmurs, regular rate and rhythm. LUNGS: clear to auscultation bilaterally. Diminished breath sounds bilaterally. ABDOMEN: soft, nontender. EXTREMITIES: no edema. PERIPHERAL PULSES: equal. NEUROLOGIC: No gross deficits, AAO X 3 Objective Labs and Meds 06/10/25 06:03 06/10/25 06:03 Lab results: Laboratory Results - last 24 hr 06/09/25 06/09/25 06/09/25 15:48 15:58 17:33 WBC 12.2 H RBC 3.97 L Hgb 12.0 Hct 34.7 L MCV 87.4 MCH 30.2 MCHC 34.6 RDW 12.8 Plt Count 374 MPV 9.8 Immature Gran % (Auto) 0.6 H Neut % (Auto) 87.6 H Lymph % (Auto) 3.7 L [place] % (Auto) 7.9 Eos % (Auto) 0.1 Baso % (Auto) 0.1 Lymph # (Auto) 0.5 L [place] # (Auto) 1.0 Eos # (Auto) 0.0 Baso # (Auto) 0.0 Abs Immat Gran (auto) 0.07 H Absolute Neuts (auto) 10.7 H Absolute Nucleated RBC 0.000 Nucleated RBC % (auto) 0.0 PT 24.0 H D INR 2.1 H VBG pH 7.44 H VBG pCO2 56 VBG pO2 38 VBG HCO3 39 H VBG O2 Saturation 54.0 VBG Base Excess 12.5 Sodium 121 L Potassium 3.5 Chloride 75 L D Carbon Dioxide 33 H Anion Gap 17 BUN 17 H Creatinine 0.84 Estim Creat Clear Calc 39.4 Estimated GFR > 60 Random Glucose 200 H Osmolality Lactic Acid 1.1 Calcium 9.9 Magnesium 1.5 L Total Bilirubin 0.5 AST 24 ALT 15 Alkaline Phosphatase 54 Troponin I High Sens 27.1 H D 31.2 H NT-Pro-B Natriuret Pep 3968.8 H Total Protein 6.6 Albumin 4.3 Random Cortisol Urine Color Urine Appearance Urine pH Ur Specific [place] Urine Protein Urine Glucose (UA) Urine Ketones Urine Blood Urine Nitrite Ur Leukocyte Esterase Urine Osmolality Ur Random Sodium COVID-19 ([facility]) Negative COVID-19 Clin Com See Note Influenza Type A ([facility]) Negative Influenza Type B ([facility]) Negative Influenza A & B Note See Note 06/09/25 06/09/25 06/09/25 17:38 20:11 22:52 WBC RBC Hgb Hct MCV MCH MCHC RDW Plt Count MPV Immature Gran % (Auto) Neut % (Auto) Lymph % (Auto) [place] % (Auto) Eos % (Auto) Baso % (Auto) Lymph # (Auto) [place] # (Auto) Eos # (Auto) Baso # (Auto) Abs Immat Gran (auto) Absolute Neuts (auto) Absolute Nucleated RBC Nucleated RBC % (auto) PT INR VBG pH 7.51 H VBG pCO2 51 VBG pO2 45 VBG HCO3 41 H VBG O2 Saturation 69.0 VBG Base Excess 15.8 Sodium Potassium Chloride Carbon Dioxide Anion Gap BUN Creatinine Estim Creat Clear Calc Estimated GFR Random Glucose Osmolality Lactic Acid Calcium Magnesium Total Bilirubin AST ALT Alkaline Phosphatase Troponin I High Sens 32.2 H NT-Pro-B Natriuret Pep Total Protein Albumin Random Cortisol Urine Color Yellow Urine Appearance Clear Urine pH 5.5 Ur Specific [place] >= 1.030 H Urine Protein Negative Urine Glucose (UA) Negative Urine Ketones 15 Urine Blood Negative Urine Nitrite Negative Ur Leukocyte Esterase Negative Urine Osmolality 385 Ur Random Sodium < 20.0 COVID-19 ([facility]) COVID-19 Clin Com Influenza Type A ([facility]) Influenza Type B ([facility]) Influenza A & B Note 06/10/25 06:03 WBC 11.9 H RBC 3.50 L Hgb 10.7 L Hct 31.5 L MCV 90.0 MCH 30.6 MCHC 34.0 RDW 13.0 Plt Count 317 MPV 10.0 Immature Gran % (Auto) 1.0 H Neut % (Auto) 86.0 H Lymph % (Auto) 3.0 L [place] % (Auto) 9.8 Eos % (Auto) 0.0 Baso % (Auto) 0.2 Lymph # (Auto) 0.4 L [place] # (Auto) 1.2 Eos # (Auto) 0.0 Baso # (Auto) 0.0 Abs Immat Gran (auto) 0.12 H Absolute Neuts (auto) 10.2 H Absolute Nucleated RBC 0.000 Nucleated RBC % (auto) 0.0 PT INR VBG pH VBG pCO2 VBG pO2 VBG HCO3 VBG O2 Saturation VBG Base Excess Sodium 127 L Potassium 3.4 Chloride 83 L Carbon Dioxide 31 H Anion Gap 16 BUN 11 Creatinine 0.78 Estim Creat Clear Calc 42.5 Estimated GFR > 60 Random Glucose 156 H Osmolality 262 L Lactic Acid Calcium 9.0 D Magnesium Total Bilirubin 0.5 AST 22 ALT 13 Alkaline Phosphatase 48 Troponin I High Sens NT-Pro-B Natriuret Pep Total Protein 6.2 L Albumin 4.1 Random Cortisol 16.8 Urine Color Urine Appearance Urine pH Ur Specific [place] Urine Protein Urine Glucose (UA) Urine Ketones Urine Blood Urine Nitrite Ur Leukocyte Esterase Urine Osmolality Ur Random Sodium COVID-19 ([facility]) COVID-19 Clin Com Influenza Type A ([facility]IC[facility]O) Influenza Type B ([facility]IC[facility]) Influenza A & B Note Assessment and Plan (1) Pulmonary hypertension: Status: Acute (2) COPD exacerbation: Status: Acute (3) Chronic diastolic heart failure: Status: Acute Plan Pleasant 80 year female with history of COPD as well as diastolic heart failure. She is presenting with poor appetite, hypotension and shortness of breath. She was hypotensive in the ER but apparently the blood pressures responded to IV steroids. She has been using steroids before for COPD and has recurrent COPD exacerbations and follows closely with pulmonology. It is possible that she has some relative adrenal insufficiency which led to the hypotension and hyponatremia. In any case currently she has been treated for COPD exacerbation with antibiotics and steroids. Her blood pressure is improving and if she stays stable till tomorrow then home medications can be resumed. As mentioned she was getting hypotensive and her blood pressure medications were cut to half by her primary care doctor as outpatient. Overall does not appear to be significantly volume overloaded by examination. Her BNP levels are elevated but are less than half compared to her presentation in November with congestive heart failure. She also has pulmonary hypertension and previous PA pressures were in 80s currently her PA pressures are 60 to 70s and this could also explain the elevated BNP level in her due to high right ventricular wall tension. We will follow along with you. Thank you for allowing me to participate in the care of your patient. Please feel free to contact me if you have any questions. Procedures Date of Service Date of Service: 06/10/25
--- NOTE | 2025-06-10 13:15 | P.CONPL_ITS ---
History of Present Illness History of Present Illness Consult date: 06/10/25 Chief complaint: COPD Exacerbation Narrative: 80-year-old lady with underlying severe COPD on 2 L of supplemental oxygen, followed by Dr. Townsend, admitted on 06/10/2025 with worsening dyspnea, also noted to have episode of hypotension, that resolved with other requiring pressor support. Patient was started on empiric antibiotics, systemic glucocorticoids, and nebulized bronchodilators now already with some improvement. Her CT angio chest demonstrated no pulmonary emboli, but known severe emphysema, and possible mild pulmonary edema. Review of Systems 2 Constitutional: Constitutional: Denies daytime sleepiness, Denies excessive sweating, Denies fatigue, Denies fever(s), Denies lethargy, Denies malaise, Denies night sweats, Denies snoring and Denies weight loss Eyes: Eyes: Denies blurry vision and Denies itchy eyes ENT: Denies nasal congestion, Denies post nasal drip, Denies sinus pain, Denies sinus pressure and Denies other ( Thrush) Cardiovascular: Cardiovascular: Denies chest pain, Denies pedal edema, Reports dyspnea, Reports dyspnea on exertion, Denies orthopnea and Denies paroxysmal nocturnal dyspnea Respiratory: Respiratory: Denies cough, Denies hemoptysis, Denies excessive phlegm production, Reports dyspnea, Reports dyspnea on exertion, Denies snoring and Reports wheezing Gastrointestinal: Gastrointestinal: Denies abdominal pain and Denies heartburn Musculoskeletal: Musculoskeletal: Denies myalgias, Denies arthralgias and Denies joint swelling Integumentary/Breasts: Skin/Breast: Denies rash Neurologic: Denies memory loss and Denies seizure-like activity Psychiatric: Psychiatric: Denies abnormal sleep pattern, Denies anxiety and Denies memory loss Endocrine: Endocrine: Denies excessive sweating, Denies fatigue and Denies heat intolerance Hematologic/Lymphatic: Hematologic/Lymphatic: Denies easy bruising Allergic/Immunologic: Allergic/Immunologic: Denies itchy eyes, Denies seasonal rhinorrhea and Reports wheezing PMFSH Past Medical History Medical History (Updated 06/10/25 @ 13:21 by Vince Maki MD) Hypotension arterial COPD (chronic obstructive pulmonary disease) Chronic back pain Acute exacerbation of CHF (congestive heart failure) Acute on chronic hypoxic respiratory failure Environmental allergies Seasonal allergies Osteoporosis Hemorrhoids Oxygen dependent Respiratory failure with hypoxia Pulmonary nodules/lesions, multiple Anxiety disorder Screening for diabetes mellitus Acute anxiety Anxiety Asthma Allergic rhinitis COPD (chronic obstructive pulmonary disease) Family History Family History Mother No problems noted. Father No problems noted. Surgical History Surgical History History of colonoscopy History of cataract surgery History of right hip replacement Social History Social History Household Members: Spouse Housing: House Are you a primary neonatal critical care nurse to a significant other at home: No Do you presently have visiting nurse or other home services: No Alcohol intake: current Alcohol intake frequency: holidays/special occasions only Patient Tobacco Use Status: Never used Tobacco Tobacco use type: Cigarette Smoked in Last 30 Days: No e-Cigarette/Vaping Use: Never Used Second Hand Smoke Exposure: Yes Use of substances other than those prescribed or required for medical reasons: No Have you been hit, kicked, punched, or otherwise hurt by someone within the past year? If so, by whom?: No Do you feel safe in your current relationship?: Yes Is there a partner from a previous relationship who is making you feel unsafe now?: No Are you made to feel afraid or neglected: No Advance Directives: No Advance Directives Information Provided: No Do you have a plan to hurt others: No Plan Recently lost weight without trying: Yes How much weight loss: 2-13 pounds Eating poorly because of decreased appetite: Yes Nutrition screen score: 4 Nutrition Risks: Poor intake 0-25% >4 days Patient : No : No Poor oral hygiene: No service: No Current occupational status: retired Cognitive needs: No Hearing needs: No Vision needs: Yes (Glasses) Travel History Ebola Risk: Travel/Contact With Anyone From Affected Area/s: No Has Patient Experienced Ebola Symptoms: No Meds Allergies Allergy/AdvReac Type Severity Reaction Status Date / Time penicillin G Allergy Severe Anaphylaxis Verified 06/09/25 15:21 Sulfa (Sulfonamide Allergy Severe Anaphylaxis Verified 06/09/25 15:21 Antibiotics) cat dander (CATS) Allergy Unknown MUCOUS Verified 06/09/25 15:21 FORMATION, asthma dog dander (DOGS) Allergy Unknown MUCOUS Verified 06/09/25 15:21 FORMATION, asthma egg Allergy Unknown Wheezing Verified 06/09/25 15:21 house dust (HOUSE DUST) Allergy Unknown MUCOUS Verified 06/09/25 15:21 FORMATION, asthma milk (MILK) Allergy Unknown MUCOUS Verified 06/09/25 15:21 FORMATION mold Allergy Unknown MUCOUS Verified 06/09/25 15:21 FORMATION, asthma tree and shrub pollen (TREES) Allergy Unknown MUCOUS Verified 06/09/25 15:21 FORMATION TO CERTAIN TREES, asthma yeast, dried (yeast) Allergy Unknown MUCOUS Verified 06/09/25 15:21 FORMATION, asthma Active Medications: Current Medications Acetaminophen (Acetaminophen 325 Mg Tablet) 650 mg PO Q6H PRN PRN Reason: Pain, Mild 1-3,fever,headache Albuterol Sulfate (Albuterol Sulfate 90 Mcg 8 Gm Inhaler) 2 puff INHALE RQ4H PRN PRN Reason: Dyspnea Budesonide (Budesonide 0.5 Mg/2 Ml Ampul.Neb) 0.5 mg INHALE RBID [facility] Last Admin: 06/10/25 07:32 Dose: 0.5 mg Calcium Carbonate (Calcium Carbonate 750 Mg Tab.Chew) 750 mg PO Q4H PRN PRN Reason: Heartburn Azithromycin 500 mg/ Sodium (Chloride) 250 mls @ 125 mls/hr IV Q24H [facility] Last Infusion: 06/10/25 10:01 Dose: Infused Levalbuterol HCl (Levalbuterol Hcl 1.25 Mg/3 Ml Vial.Neb) 1.25 mg INHALE Q4H PRN PRN Reason: Shortness of Breath/Wheezing Lorazepam (Lorazepam 0.5 Mg Tablet) 0.5 mg PO Q4H PRN PRN Reason: Anxiety Magnesium Hydroxide (Milk Of Magnesia 30 Ml Oral.Susp) 30 ml PO DAILY PRN PRN Reason: Constipation Melatonin (Melatonin 3 Mg Tablet) 6 mg PO BEDTIME PRN PRN Reason: Insomnia Methylprednisolone Sodium Succinate (Methylprednisolone Sod Succ 40 Mg/Ml Vial) 40 mg IVPUSH Q6H [facility] Last Admin: 06/10/25 09:16 Dose: 40 mg Ondansetron HCl (Ondansetron Hcl 4 Mg/2 Ml Vial) 4 mg IVPUSH Q8H PRN PRN Reason: Nausea and Vomiting Polyethylene Glycol (Polyethylene Glycol 3350 17 Gm Powd.Pack) 17 gm PO DAILY PRN PRN Reason: Constipation Senna (Sennosides 8.6 Mg Tablet) 17.2 mg PO BEDTIME [facility] Sodium Chloride (0.9 % Sodium Chloride Flush 3 Ml Syringe) 3 ml IVFLUSH QSHIFT [facility] Last Admin: 06/10/25 07:57 Dose: 3 ml Home Medications ?Medication ?Instructions ?Recorded ?Confirmed ?Last Taken ?Type vit C 250 mg-vit E 90 mg-zinc 40 1 tab PO BID 07/21/20 06/10/25 12/03/24 History mg-copper 1 sn-[id number] capsule (PreserVision AREDS-2) calcium carbonate (Calcium 600) 600 mg PO BID 01/28/21 06/10/25 12/03/24 History cholecalciferol (vitamin D3) 25 25 mcg PO DAILY 06/10/25 12/03/24 History mcg (1,000 unit) capsule (Vitamin D3) atenolol 25 mg tablet 25 mg PO DAILY 04/22/2505/29 Unknown History furosemide 40 mg tablet 20 mg PO DAILY PRN Weight Ga in 04/22/25 06/10/25 Unknown History guaifenesin 600 mg tablet, 600 mg PO BID 05/02/2505/29 Unknown History extended release 12 hr (Mucinex) Physical Exam 2 Vital Signs: Vital Signs: Last Vital Signs Temp 98.9 F 06/10/25 11:47 Pulse 100 06/10/25 11:47 Resp 18 06/10/25 11:47 BP 128/71 06/10/25 11:47 Pulse Ox 92 06/10/25 11:47 O2 Del Method Nasal Cannula 06/10/25 11:47 O2 Flow Rate 2 06/10/25 11:47 Oxygen Flow Rate 5 06/09/25 15:19 BMI result Body Mass Index 17.2 Const: General: no acute distress and alert Nutritional Appearance: not obese Orientation/consciousness: Other orientation findings ( oriented) HEENT: Head: Yes atraumatic Eyes: General: appearance normal, both eyes and all related structures S clerae: sclerae normal EOM: EOMs intact bilaterally Neck: Neck: Yes supple Lymphatic: no lymphadenopathy noted Resp: Effort & Inspection: normal respiratory effort and no use of accessory muscles Auscultation: crackles (Bibasilar) Cardio: Rate: tachycardic Rhythm: regular rhythm Heart sounds: no gallops, no murmurs and no rubs Skin: General skin exam: other ( warm) Extrem: General: No clubbing, No cyanosis and No edema Results Laboratory Findings 06/10/25 06:03 06/10/25 06:03 ABG, PT/INR, D-dimer: PT/INR, D-dimer PT 24.0 SEC (10.9-12.4) H D 06/09/25 15:48 INR 2.1 (0.9-1.1) H 06/09/25 15:48 Abnormal lab findings: Abnormal Labs 06/09/25 06/09/25 06/09/25 15:48 15:58 17:33 WBC 12.2 H RBC 3.97 L Hgb Hct 34.7 L Immature Gran % (Auto) 0.6 H Neut % (Auto) 87.6 H Lymph % (Auto) 3.7 L Lymph # (Auto) 0.5 L Abs Immat Gran (auto) 0.07 H Absolute Neuts (auto) 10.7 H PT 24.0 H D INR 2.1 H VBG pH 7.44 H VBG HCO3 39 H Sodium 121 L Chloride 75 L D Carbon Dioxide 33 H BUN 17 H Random Glucose 200 H Osmolality Magnesium 1.5 L Troponin I High Sens 27.1 H D 31.2 H NT-Pro-B Natriuret Pep 3968.8 H Total Protein Ur Specific [place] 06/09/25 06/09/25 06/09/25 17:38 20:11 22:52 WBC RBC Hgb Hct Immature Gran % (Auto) Neut % (Auto) Lymph % (Auto) Lymph # (Auto) Abs Immat Gran (auto) Absolute Neuts (auto) PT INR VBG pH 7.51 H VBG HCO3 41 H Sodium Chloride Carbon Dioxide BUN Random Glucose Osmolality Magnesium Troponin I High Sens 32.2 H NT-Pro-B Natriuret Pep Total Protein Ur Specific [place] >= 1.030 H 06/10/25 06:03 WBC 11.9 H RBC 3.50 L Hgb 10.7 L Hct 31.5 L Immature Gran % (Auto) 1.0 H Neut % (Auto) 86.0 H Lymph % (Auto) 3.0 L Lymph # (Auto) 0.4 L Abs Immat Gran (auto) 0.12 H Absolute Neuts (auto) 10.2 H PT INR VBG pH VBG HCO3 Sodium 127 L Chloride 83 L Carbon Dioxide 31 H BUN Random Glucose 156 H Osmolality 262 L Magnesium Troponin I High Sens NT-Pro-B Natriuret Pep Total Protein 6.2 L Ur Specific [place] Assessment and Plan (1) Pulmonary hypertension: Status: Acute (2) Diastolic heart failure: Status: Acute (3) COPD (chronic obstructive pulmonary disease): Qualifiers: COPD type: unspecified COPD Qualified Code(s): J44.9 - Chronic obstructive pulmonary disease, unspecified Status: Acute Plan Impression: 80-year-old lady with underlying severe COPD and diastolic heart failure, also pulmonary hypertension admitted with dyspnea and treated for COPD exacerbation. Patient does have underlying pulmonary hypertension that is likely secondary to combination of left heart disease and COPD. Patient is not a candidate for advanced pulmonary hypertension therapy. CT angio chest does not demonstrate pulmonary emboli, but severe COPD, and mild pulmonary edema. Recommendations: Agree with empiric treatment for COPD exacerbation with systemic glucocorticoids taper, nebulized bronchodilators, and azithromycin. Also, consider judicious diuresis. Procedures Date of Service Date of Service: 06/10/25
--- NOTE | 2025-06-10 16:37 | MHC.CLN ---
NUTRITION DIET RX: CARDIAC WITH 1200 ML FLUID RESTRICTION PO TODAY 75-100% WEIGHED WITH BEDSCALE. WEIGHT=54 KG, BMI=20.4 APPEARS THIN BUT NOT MALNOURISHED NO ADDITIONAL NUTRITION INTERVENTIONS AT THIS TIME
[2025-06-10] MEDS: guaiFENesin LA 600 MG TAB.ER.12H PO (20:51)
[2025-06-11] VITALS (8 sets, daily range): BP systolic 110–145; BP diastolic 68–81; PULSE 93–110; RESP 16–18; TEMP 36.6–36.9; O2SAT 89–95; BMI 18.5
[2025-06-11 06:37] LABS: Hematocrit 30.3 % (37.0-47.0); Hemoglobin 10.4 g/dl (12.0-16.0); Imm Gran Abs Auto 0.06 X10*3/uL (0.00-0.03); Imm Gran Pct Auto 0.8 % (0.0-0.4); Lymphocytes Absolute Auto 0.2 X10*3/uL (1.2-4.9); MANUAL DIFF FLAG SCAN; Mean Corpuscular HGB Conc 34.3 g/dl (31.0-35.0); Mean Corpuscular Hemoglobin 30.4 pg (27.0-33.0); Mean Corpuscular Volume 88.6 fL (80.0-98.0); NRBC Abs Auto 0.000 X10*3/uL (0.0-0.012); NRBC Pct Auto 0.0 /100WBC (0.0-0.2); Platelet Count 288 X10*3/uL (160-400); Red Blood Count 3.42 X10*6/uL (4.20-5.50); SCAN SMEAR FLAG 1; White Blood Count 7.6 X10*3/uL (4.8-10.8)
[2025-06-11 06:51] LABS: Alanine Aminotransferase 15 U/L (0-31); Albumin Level 3.9 g/dL (3.5-5.0); Alkaline Phosphatase 47 U/L (39-117); Anion Gap 13 (12-20); Aspartate Amino Transferase 30 U/L (5-31); Blood Urea Nitrogen 12 mg/dL (9-16); Calcium 8.5 mg/dL (8.4-10.2); Carbon Dioxide 30 mmol/L (22-29); Chloride 90 mmol/L (96-108); Creatinine Clr Calc Pharmacy 59.0; Estimated Glomerular Filt Rate > 60; Magnesium 2.1 mg/dL (1.6-2.6); Potassium 3.7 mmol/L (3.3-5.1); Sodium 129 mmol/L (135-145); Total Protein 5.8 g/dL (6.5-8.0)
--- NOTE | 2025-06-11 07:23 | P.PNIM_ITS ---
Subjective Subjective Date of Service: 06/11/25 Interval History: Patient reports feeling well overall Sodium 129 We will continue to hold her antihypertensives and Lasix given tenuous hemodynamics, her current exacerbation is likely end-stage COPD, less likely to be in the setting of HFrEF Review of Systems Review of Systems: Yes all other systems are reviewed and are negative Physical Exam 2 Exam: Exam: General: AOx3, significant respiratory distress requiring 3-4 L O2-patient is usually on 5-6 L at baseline with ambulation Resp: Bilateral respiratory wheezing and crackles noted (diuresis limited given possible adrenal insufficiency requiring steroids), work of breathing, significant accessory muscles usage noted CVS: Sinus tachycardia GI: +BS, NT, no distention Skin: Well-perfused Neuro: Clinically appears neurovascularly intact Extremities: Bilateral pitting pedal edema 1+ up to shins Psych: Anxious, Vital Signs: Vital Signs: Last Vital Signs Temp 98.2 F 06/10/25 05:40 Pulse 94 06/10/25 05:40 Resp 28 H 06/10/25 05:40 BP 124/60 06/10/25 05:40 Pulse Ox 93 06/10/25 05:40 O2 Del Method Nasal Cannula 06/10/25 05:40 O2 Flow Rate 3 06/10/25 05:40 Oxygen Flow Rate 5 06/09/25 15:19 BMI result Body Mass Index 17.2 Objective Data Active Medications Acetaminophen (Acetaminophen 325 Mg Tablet) 650 mg PO Q6H PRN PRN Reason: Pain, Mild 1-3,fever,headache Acetaminophen (Acetaminophen 325 Mg Tablet) 975 mg PO Q6H PRN PRN Reason: pain Albuterol Sulfate (Albuterol Sulfate 90 Mcg 8 Gm Inhaler) 2 puff INHALE RQ4H PRN PRN Reason: Dyspnea Albuterol Sulfate (Albuterol Sulfate 90 Mcg 8 Gm Inhaler) 2 puff INHALE Q4H PRN PRN Reason: for dyspnea Apixaban (Apixaban 5 Mg Tablet) 5 mg PO BID [facility] Last Admin: 06/10/25 20:51 Dose: 5 mg Documented By: DARCY Baclofen (Baclofen 10 Mg Tablet) 10 mg PO TID PRN PRN Reason: Muscle Spasm Calcium Carbonate (Calcium Carbonate 750 Mg Tab.Chew) 750 mg PO Q4H PRN PRN Reason: Heartburn Fluticasone/Vilanterol (Fluticasone/Vilanterol 200/25 Blst.W.Dev) 1 puff INHALE RDAILY [facility] Guaifenesin (Guaifenesin [place] 600 Mg Tab.Er.12h) 600 mg PO BID [facility] Last Admin: 06/10/25 20:51 Dose: 600 mg Documented By: DARCY Hydrocortisone (Hydrocortisone 2.5 % Rectal Cr 30 Gm Tube) 1 appl [place] QID PRN PRN Reason: Hemorrhoids Azithromycin 500 mg/ Sodium (Chloride) 250 mls @ 125 mls/hr IV Q24H [facility] Last Infusion: 06/10/25 10:01 Dose: Infused Documented By: ELLIE Levofloxacin (Levaquin) 750 mg in 150 mls @ 100 mls/hr IV Q48H [facility] Last Infusion: 06/10/25 23:47 Dose: Infused Documented By: DARCY Vancomycin HCl 1,000 mg/ (Sodium Chloride) 270 mls @ 270 mls/hr IV Q24H [facility] Levalbuterol HCl (Levalbuterol Hcl 1.25 Mg/3 Ml Vial.Neb) 1.25 mg INHALE Q4H PRN PRN Reason: Shortness of Breath/Wheezing Lorazepam (Lorazepam 0.5 Mg Tablet) 0.5 mg PO Q4H PRN PRN Reason: Anxiety Last Admin: 06/10/25 14:52 Dose: 0.5 mg Documented By: ELLIE Magnesium Hydroxide (Milk Of Magnesia 30 Ml Oral.Susp) 30 ml PO DAILY PRN PRN Reason: Constipation Melatonin (Melatonin 3 Mg Tablet) 6 mg PO BEDTIME PRN PRN Reason: Insomnia Methylprednisolone Sodium Succinate (Methylprednisolone Sod Succ 40 Mg/Ml Vial) 40 mg IVPUSH Q6H [facility] Last Admin: 06/11/25 01:55 Dose: 40 mg Documented By: DARCY Ondansetron HCl (Ondansetron Hcl 4 Mg/2 Ml Vial) 4 mg IVPUSH Q8H PRN PRN Reason: Nausea and Vomiting Pharmacy Consult (Consult Rx Vancomycin Dosing) 1 each MISCELLANE DAILY PRN PRN Reason: Consult order Polyethylene Glycol (Polyethylene Glycol 3350 17 Gm Powd.Pack) 17 gm PO DAILY PRN PRN Reason: Constipation Senna (Sennosides 8.6 Mg Tablet) 17.2 mg PO BEDTIME [facility] Last Admin: 06/10/25 20:55 Dose: Not Given Documented By: DARCY Non-Admin Reason: Patient Refused Sodium Chloride (0.9 % Sodium Chloride Flush 3 Ml Syringe) 3 ml IVFLUSH QSHIFT [facility] Last Admin: 06/10/25 20:46 Dose: 3 ml Documented By: DARCY Tiotropium [place] (Tiotropium [place] 2.5 Mcg 1 Puff/2.5 Mcg Mist.Inhal) 2 puff INHALE RDAILY [facility] Labs 06/11/25 06:13 06/11/25 06:13 Labs: Laboratory Results - last 24 hr 06/11/25 06:13 MCV 88.6 MCH 30.4 MCHC 34.3 RDW 12.9 Plt Count 288 MPV 10.0 Immature Gran % (Auto) 0.8 H Neut % (Auto) 92.5 H Lymph % (Auto) 2.5 L Coffee % (Auto) 4.1 Eos % (Auto) 0.0 Baso % (Auto) 0.1 Lymph # (Auto) 0.2 L Coffee # (Auto) 0.3 Eos # (Auto) 0.0 Baso # (Auto) 0.0 Abs Immat Gran (auto) 0.06 H Absolute Neuts (auto) 7.0 Absolute Nucleated RBC 0.000 Nucleated RBC % (auto) 0.0 Smear Tech's Comments VERIFIED Anion Gap 13 Estim Creat Clear Calc 59.0 Estimated GFR > 60 Random Glucose 136 H Calcium 8.5 Magnesium 2.1 Total Bilirubin 0.3 AST 30 ALT 15 Alkaline Phosphatase 47 Total Protein 5.8 L Albumin 3.9 Random Cortisol 5.0 Microbiology Microbiology Results: Microbiology 06/09/25 17:33 Blood Culture - Preliminary Blood - Venous No growth after 24 hours. 06/09/25 17:33 Blood Culture - Preliminary Blood - Venous No growth after 24 hours. Assessment and Plan (1) Congestive heart failure: Status: Acute Plan Day 2 PMH stage IV COPD/ severe emphysema on 5-6 L O2 at home, prior smoker, MOD TVR/MOD MVR, Severe pulmonary HTN, chronic back pain, HTN, anxiety, AFIB on eliquis was brought in by ambulance for acute onset SOB/MCCARTNEY, gradually worsening for the past 1 week. Workup revealed significant COPD [id number] COPD, with response to stress dose steroids Acute hypoxic respiratory failure likely multifactorial-COPD end-stage , pulmonary hypertension Severe emphysema-chronic Severe pulmonary hypertension PE ruled out with CTA (patient already on Eliquis) end-stage COPD she is being treated with IV steroids, p.r.n. and scheduled nebulizers, Pulmicort, pulmonary hygiene, incentive spirometer Acapella valve Currently sat 88-92% on 3-4L O2 Pt desaturating on minimal ambulation and even unable to speak sentences Infectious etiology although less likely given her current clinical status and requiring IV steroids and response to COPD treatment, we will treat with Levaquin (patient apparently has anaphylaxis to penicillins) and vancomycin and azithromycin Respiratory panel negative however we will check MRSA given COPD exacerbation We will follow sepsis workup and deescalate p.r.n. Fluids limited secondary to pulmonary edema Chronic diastolic heart failure afib on eliquis -cont eliquis We will continue to hold her home antihypertensives given mild hypotension/normotension with limitation in giving fluids and currently on stress dose steroids Already her home meds apparently have been cut in half by primary care and Cardiology. She will likely need further downtime titration prior to discharge and this is being aggressively being monitored Lasix contraindicated given current hemodynamic status, we will slowly advance as indicated Possible adrenal insufficiency ? No chronic steroids on home meds recs - need to confirm We will continue stress dose steroids to maintain hemodynamics as she seems to have responded in the ED to this Acute hyponatremia (goal 136 in 24 hours) unknown chronicity-hypovolemic hypoNa Likely SIADH versus adrenal insufficiency Fluids limited to 1200 cc Patient tolerated received stress dose steroids and cortisol was normal, hence we will wait and check cosyntropin test to adequately rule out adrenal insufficiency Might need pulmonary rehab GOC discussion being held - pt aware and would like to continue being Full code Patient needs ongoing admission for acute hypoxic respiratory failure requiring IV stress dose steroids and guarded prognosis and hyponatremia This note is constructed using voice recognition software. While every effort has been made to ensure accuracy, industrial maintenance repairer errors may have been included. Quality Stroke Does the patient have a stroke diagnosis?: No Reason for No Anti-thrombotic by Day Two: N/A - Med Ordered VTE Prior VTE?: No VTE Risk Level:: Medical - moderate - high VTE Device Contraindication: N/A - Device Ordered VTE Drug Contraindication: N/A - Med Ordered
[2025-06-11] MEDS: Fluticasone/Vilanterol 200/25 BLST.W.DEV 1 PUFF INHALE (07:45)
[2025-06-11] MEDS: Tiotropium Bromide 2.5 mcg 1 PUFF/2.5 MCG MIST.INHAL 2 PUFF INHALE (07:45)
[2025-06-11] MEDS: guaiFENesin LA 600 MG TAB.ER.12H PO ×2 (08:21→20:23)
[2025-06-11] MEDS: 0.9 % Sodium Chloride Flush 3 ML SYRINGE IVFLUSH ×3 (08:22→20:24)
--- NOTE | 2025-06-11 09:26 | MHC.CM.PN ---
IMM 06/11/25, Pt. lives with her , PCP is Dr. Buck. HCP on file and discussed, names Sriram and Martin. Pt. does not use home health services, for DME she uses home O2 from [facility]. Family to transport home at DC, DCP: home, self care. CM to follow for DC needs.
--- NOTE | 2025-06-11 10:53 | P.CDIM_ITS ---
PROVIDER RESPONSE TEXT: To clarify, the appropriate diagnosis supported by the clinical indicators: Diagnosis was present on admission and is still being monitored, evaluated, or treated QUERY TEXT: PHYSICIAN'S DOCUMENTATION REQUEST Date of Query: 06/11/2025 09:39 AM EDT Patient Name: Maritza Maharaj Admit Date: 06/10/2025 Dear Rosemarie Albright MD, A review of the medical record indicates additional documentation may be needed. Please review below and update the documentation accordingly. Clinical Indicators: H&P 06/10/25 - Malnourishment with BMI 17.2 Clinical nutrition note 06/10/25 - Patient appears to be thin but not malnourished with BMI 20.4. No additional nutrition interventions at this time. The diagnosis of Malnourished was documented but is not consistently noted in subsequent documentation. Please clarify the following: Diagnosis was present on admission and is now resolved Diagnosis was present on admission and is still being monitored, evaluated, or treated Diagnosis was ruled out Diagnosis is still a likely, suspected, probable diagnosis Other (explain) Clinically unable to determine (explain) Thank you, Lizzy Padilla, CCS, CDIS Use of terms such as suspected, likely, concern for, or probable (associated with a specific diagnosis that is being evaluated, monitored, or treated as if it exists) are acceptable and can be coded in the inpatient setting, when documented at the time of discharge. Please use your independent medical judgment in providing your response. THIS QUERY IS PART OF THE PERMANENT MEDICAL RECORD
--- NOTE | 2025-06-11 11:28 | P.PNCA_ITS ---
Subjective Subjective Date of Service: 06/11/25 Interval history: Overall feeling better with treatment for COPD. Physical Exam Vital Signs: Last Vital Signs Temp 97.8 F 06/11/25 11:12 Pulse 98 06/11/25 11:12 Resp 18 06/11/25 11:12 BP 120/68 06/11/25 11:12 Pulse Ox 95 06/11/25 11:12 O2 Del Method Nasal Cannula 06/11/25 11:12 O2 Flow Rate 2 06/11/25 07:06 Oxygen Flow Rate 5 06/09/25 15:19 BMI result Body Mass Index 20.4 GENERAL APPEARANCE: In no acute distress, on supplemental oxygen by nasal cannula. NECK: no carotid bruit, no jugular venous distention. SKIN: no suspicious lesions, warm and dry. HEART: no murmurs, regular rate and rhythm. LUNGS: clear to auscultation bilaterally. Diminished breath sounds bilaterally. ABDOMEN: soft, nontender. EXTREMITIES: no edema. PERIPHERAL PULSES: equal. NEUROLOGIC: No gross deficits, AAO X 3 Objective Labs and Meds 06/11/25 06:13 06/11/25 06:13 Lab results: Laboratory Results - last 24 hr 06/11/25 06:13 WBC 7.6 RBC 3.42 L Hgb 10.4 L Hct 30.3 L MCV 88.6 MCH 30.4 MCHC 34.3 RDW 12.9 Plt Count 288 MPV 10.0 Immature Gran % (Auto) 0.8 H Neut % (Auto) 92.5 H Lymph % (Auto) 2.5 L [place] % (Auto) 4.1 Eos % (Auto) 0.0 Baso % (Auto) 0.1 Lymph # (Auto) 0.2 L [place] # (Auto) 0.3 Eos # (Auto) 0.0 Baso # (Auto) 0.0 Abs Immat Gran (auto) 0.06 H Absolute Neuts (auto) 7.0 Absolute Nucleated RBC 0.000 Nucleated RBC % (auto) 0.0 Smear Tech's Comments VERIFIED Sodium 129 L Potassium 3.7 Chloride 90 L Carbon Dioxide 30 H Anion Gap 13 BUN 12 Creatinine 0.67 Estim Creat Clear Calc 59.0 Estimated GFR > 60 Random Glucose 136 H Calcium 8.5 Magnesium 2.1 Total Bilirubin 0.3 AST 30 ALT 15 Alkaline Phosphatase 47 Total Protein 5.8 L Albumin 3.9 Random Cortisol 5.0 Progress Note: A&P Assessment and plan (1) Chronic diastolic heart failure: Status: Acute (2) Pulmonary hypertension: Status: Acute (3) COPD exacerbation: Status: Acute Plan Pleasant 80 year female with advanced COPD on supplemental oxygen presenting for shortness of breath and generalized weakness. She was noticed to be hyponatremic and hypotensive and was given steroids with improvement in blood pressure. Unclear whether the presentation is linked with subclinical adrenal insufficiency or not. In any case she is improving currently with steroids and antibiotics. Does not appear to be significantly volume overloaded. Her BNP is half compared to her presentation when she presented with heart failure in November of 2024. She is currently off diuretics and beta-blockers. Her blood pressure is good currently. She has pulmonary hypertension which is likely secondary to COPD. She is on supplemental oxygen and should use oxygen 24/. Hypoxia can worsen pulmonary pressures and can lead to symptoms like dizziness and fatigue and sometimes syncope. Thank you for allowing me to participate in the care of your patient. Please feel free to contact me if you have any questions. Time Spent With Patient Time: Total time managing care of this patient today ____ minutes. Progress Note: Quality Stroke Does the patient have a stroke diagnosis?: No Reason for No Anti-thrombotic by Day Two: N/A - Med Ordered Procedures Date of Service Date of Service: 06/11/25
[2025-06-12] VITALS (8 sets, daily range): BP systolic 103–160; BP diastolic 65–80; PULSE 80–118; RESP 17–28; TEMP 36.3–36.6; O2SAT 91–98
[2025-06-12 07:11] LABS: Hematocrit 30.8 % (37.0-47.0); Hemoglobin 10.7 g/dl (12.0-16.0); Imm Gran Abs Auto 0.08 X10*3/uL (0.00-0.03); Imm Gran Pct Auto 0.8 % (0.0-0.4); Lymphocytes Absolute Auto 0.2 X10*3/uL (1.2-4.9); MANUAL DIFF FLAG SCAN; Mean Corpuscular HGB Conc 34.7 g/dl (31.0-35.0); Mean Corpuscular Hemoglobin 31.0 pg (27.0-33.0); Mean Corpuscular Volume 89.3 fL (80.0-98.0); NRBC Abs Auto 0.000 X10*3/uL (0.0-0.012); NRBC Pct Auto 0.0 /100WBC (0.0-0.2); Platelet Count 309 X10*3/uL (160-400); Red Blood Count 3.45 X10*6/uL (4.20-5.50); SCAN SMEAR FLAG 1; White Blood Count 10.1 X10*3/uL (4.8-10.8)
--- NOTE | 2025-06-12 07:17 | P.PNIM_ITS ---
Subjective Subjective Date of Service: 06/12/25 Physical Exam 2 Vital Signs: Vital Signs: Last Vital Signs Temp 97.8 F 06/12/25 02:16 Pulse 98 06/12/25 02:16 Resp 17 06/12/25 02:16 BP 145/65 H 06/12/25 02:16 Pulse Ox 93 06/12/25 02:16 O2 Del Method Nasal Cannula 06/12/25 02:16 O2 Flow Rate 2 06/12/25 02:16 Oxygen Flow Rate 5 06/09/25 15:19 BMI result Body Mass Index 18.5 Objective Data Active Medications Acetaminophen (Acetaminophen 325 Mg Tablet) 650 mg PO Q6H PRN PRN Reason: Pain, Mild 1-3,fever,headache Acetaminophen (Acetaminophen 325 Mg Tablet) 975 mg PO Q6H PRN PRN Reason: pain Albuterol Sulfate (Albuterol Sulfate 90 Mcg 8 Gm Inhaler) 2 puff INHALE RQ4H PRN PRN Reason: Dyspnea Albuterol Sulfate (Albuterol Sulfate 90 Mcg 8 Gm Inhaler) 2 puff INHALE Q4H PRN PRN Reason: for dyspnea Apixaban (Apixaban 5 Mg Tablet) 5 mg PO BID [facility] Last Admin: 06/11/25 20:23 Dose: 5 mg Documented By: TRAVIS Baclofen (Baclofen 10 Mg Tablet) 10 mg PO TID PRN PRN Reason: Muscle Spasm Calcium Carbonate (Calcium Carbonate 750 Mg Tab.Chew) 750 mg PO Q4H PRN PRN Reason: Heartburn Fluticasone/Vilanterol (Fluticasone/Vilanterol 200/25 Blst.W.Dev) 1 puff INHALE RDAILY [facility] Last Admin: 06/11/25 07:45 Dose: 1 puff Documented By: CARLOS ALBERTO Guaifenesin (Guaifenesin La 600 Mg Tab.Er.12h) 600 mg PO BID [facility] Last Admin: 06/11/25 20:23 Dose: 600 mg Documented By: TRAVIS Hydrocortisone (Hydrocortisone 2.5 % Rectal Cr 30 Gm Tube) 1 appl [place] QID PRN PRN Reason: Hemorrhoids Azithromycin 500 mg/ Sodium (Chloride) 250 mls @ 125 mls/hr IV Q24H [facility] Last Infusion: 06/11/25 10:21 Dose: Infused Documented By: ELLIE Levofloxacin (Levaquin) 750 mg in 150 mls @ 100 mls/hr IV Q48H [facility] Last Infusion: 06/10/25 23:47 Dose: Infused Documented By: DARCY Vancomycin HCl 1,000 mg/ (Sodium Chloride) 270 mls @ 270 mls/hr IV Q24H [facility] Last Infusion: 06/11/25 21:53 Dose: Infused Documented By: TRAVIS Levalbuterol HCl (Levalbuterol Hcl 1.25 Mg/3 Ml Vial.Neb) 1.25 mg INHALE Q4H PRN PRN Reason: Shortness of Breath/Wheezing Lorazepam (Lorazepam 0.5 Mg Tablet) 0.5 mg PO Q4H PRN PRN Reason: Anxiety Last Admin: 06/11/25 17:49 Dose: 0.5 mg Documented By: SHREYA Magnesium Hydroxide (Milk Of Magnesia 30 Ml Oral.Susp) 30 ml PO DAILY PRN PRN Reason: Constipation Melatonin (Melatonin 3 Mg Tablet) 6 mg PO BEDTIME PRN PRN Reason: Insomnia Methylprednisolone Sodium Succinate (Methylprednisolone Sod Succ 40 Mg/Ml Vial) 40 mg IVPUSH Q6H [facility] Last Admin: 06/12/25 02:20 Dose: 40 mg Documented By: TRAVIS Ondansetron HCl (Ondansetron Hcl 4 Mg/2 Ml Vial) 4 mg IVPUSH Q8H PRN PRN Reason: Nausea and Vomiting Pharmacy Consult (Consult Rx Vancomycin Dosing) 1 each MISCELLANE DAILY PRN PRN Reason: Consult order Polyethylene Glycol (Polyethylene Glycol 3350 17 Gm Powd.Pack) 17 gm PO DAILY PRN PRN Reason: Constipation Senna (Sennosides 8.6 Mg Tablet) 17.2 mg PO BEDTIME [facility] Last Admin: 06/11/25 20:23 Dose: 17.2 mg Documented By: TRAVIS Sodium Chloride (0.9 % Sodium Chloride Flush 3 Ml Syringe) 3 ml IVFLUSH QSHIFT [facility] Last Admin: 06/11/25 20:24 Dose: 3 ml Documented By: TRAVIS Tiotropium Joes (Tiotropium Joes 2.5 Mcg 1 Puff/2.5 Mcg Mist.Inhal) 2 puff INHALE RDAILY [facility] Last Admin: 06/11/25 07:45 Dose: 2 puff Documented By: CARLOS ALBERTO Labs 06/11/25 06:13 06/11/25 06:13 Labs: Laboratory Results - last 24 hr 06/11/25 06:13 MCV 88.6 MCH 30.4 MCHC 34.3 RDW 12.9 Plt Count 288 MPV 10.0 Immature Gran % (Auto) 0.8 H Neut % (Auto) 92.5 H Lymph % (Auto) 2.5 L [place] % (Auto) 4.1 Eos % (Auto) 0.0 Baso % (Auto) 0.1 Lymph # (Auto) 0.2 L [place] # (Auto) 0.3 Eos # (Auto) 0.0 Baso # (Auto) 0.0 Abs Immat Gran (auto) 0.06 H Absolute Neuts (auto) 7.0 Absolute Nucleated RBC 0.000 Nucleated RBC % (auto) 0.0 Smear Tech's Comments VERIFIED Microbiology Microbiology Results: Microbiology 06/09/25 17:33 Blood Culture - Preliminary Blood - Venous No growth after 48 hours. 06/09/25 17:33 Blood Culture - Preliminary Blood - Venous No growth after 48 hours. Quality Stroke Does the patient have a stroke diagnosis?: No Reason for No Anti-thrombotic by Day Two: N/A - Med Ordered VTE Prior VTE?: No VTE Risk Level:: Medical - moderate - high VTE Device Contraindication: N/A - Device Ordered VTE Drug Contraindication: N/A - Med Ordered
--- NOTE | 2025-06-12 07:17 | P.PNIM_ITS ---
Subjective Subjective Date of Service: 06/12/25 Interval History: Patient continues to have waxing waning hemodynamics given her advanced COPD, HFrEF and prerenal azotemia causing hyponatremia This afternoon she was noted to have tachycardia and tachypnea likely in the setting of as holding diuresis in the setting of severe hypotension and she presented to the ED almost requiring pressors. Given mild improvement, I am confident about switching her antibiotics to oral Thankfully multi disciplinary interventions -cardiology, pulmonology, Nephrology we thank them for their support Review of Systems Review of Systems: Yes all other systems are reviewed and are negative Physical Exam 2 Exam: Exam: General: AOx3, significant respiratory distress requiring 3-4 L O2-patient is usually on 5-6 L at baseline with minimal ambulation, even while eating Resp: Bilateral respiratory wheezing and crackles noted (diuresis limited given possible adrenal insufficiency requiring steroids), work of breathing, significant accessory muscles usage noted CVS: Sinus tachycardia GI: +BS, NT, no distention Skin: Well-perfused Neuro: Clinically appears neurovascularly intact Extremities: Bilateral pitting pedal edema 1+ up to shins Psych: Anxious, Vital Signs: Vital Signs: Last Vital Signs Temp 97.8 F 06/12/25 02:16 Pulse 98 06/12/25 02:16 Resp 17 06/12/25 02:16 BP 145/65 H 06/12/25 02:16 Pulse Ox 93 06/12/25 02:16 O2 Del Method Nasal Cannula 06/12/25 02:16 O2 Flow Rate 2 06/12/25 02:16 Oxygen Flow Rate 5 06/09/25 15:19 BMI result Body Mass Index 18.5 Objective Data Active Medications Acetaminophen (Acetaminophen 325 Mg Tablet) 650 mg PO Q6H PRN PRN Reason: Pain, Mild 1-3,fever,headache Acetaminophen (Acetaminophen 325 Mg Tablet) 975 mg PO Q6H PRN PRN Reason: pain Albuterol Sulfate (Albuterol Sulfate 90 Mcg 8 Gm Inhaler) 2 puff INHALE RQ4H PRN PRN Reason: Dyspnea Albuterol Sulfate (Albuterol Sulfate 90 Mcg 8 Gm Inhaler) 2 puff INHALE Q4H PRN PRN Reason: for dyspnea Apixaban (Apixaban 5 Mg Tablet) 5 mg PO BID [facility] Last Admin: 06/11/25 20:23 Dose: 5 mg Documented By: TRAVIS Baclofen (Baclofen 10 Mg Tablet) 10 mg PO TID PRN PRN Reason: Muscle Spasm Calcium Carbonate (Calcium Carbonate 750 Mg Tab.Chew) 750 mg PO Q4H PRN PRN Reason: Heartburn Fluticasone/Vilanterol (Fluticasone/Vilanterol 200/25 Blst.W.Dev) 1 puff INHALE RDAILY [facility] Last Admin: 06/11/25 07:45 Dose: 1 puff Documented By: CARLOS ALBERTO Guaifenesin (Guaifenesin La 600 Mg Tab.Er.12h) 600 mg PO BID [facility] Last Admin: 06/11/25 20:23 Dose: 600 mg Documented By: TRAVIS Hydrocortisone (Hydrocortisone 2.5 % Rectal Cr 30 Gm Tube) 1 appl [place] QID PRN PRN Reason: Hemorrhoids Azithromycin 500 mg/ Sodium (Chloride) 250 mls @ 125 mls/hr IV Q24H [facility] Last Infusion: 06/11/25 10:21 Dose: Infused Documented By: ELLIE Levofloxacin (Levaquin) 750 mg in 150 mls @ 100 mls/hr IV Q48H [facility] Last Infusion: 06/10/25 23:47 Dose: Infused Documented By: DARCY Vancomycin HCl 1,000 mg/ (Sodium Chloride) 270 mls @ 270 mls/hr IV Q24H [facility] Last Infusion: 06/11/25 21:53 Dose: Infused Documented By: TRAVIS Levalbuterol HCl (Levalbuterol Hcl 1.25 Mg/3 Ml Vial.Neb) 1.25 mg INHALE Q4H PRN PRN Reason: Shortness of Breath/Wheezing Lorazepam (Lorazepam 0.5 Mg Tablet) 0.5 mg PO Q4H PRN PRN Reason: Anxiety Last Admin: 06/11/25 17:49 Dose: 0.5 mg Documented By: SHREYA Magnesium Hydroxide (Milk Of Magnesia 30 Ml Oral.Susp) 30 ml PO DAILY PRN PRN Reason: Constipation Melatonin (Melatonin 3 Mg Tablet) 6 mg PO BEDTIME PRN PRN Reason: Insomnia Methylprednisolone Sodium Succinate (Methylprednisolone Sod Succ 40 Mg/Ml Vial) 40 mg IVPUSH Q6H [facility] Last Admin: 06/12/25 02:20 Dose: 40 mg Documented By: TRAVIS Ondansetron HCl (Ondansetron Hcl 4 Mg/2 Ml Vial) 4 mg IVPUSH Q8H PRN PRN Reason: Nausea and Vomiting Pharmacy Consult (Consult Rx Vancomycin Dosing) 1 each MISCELLANE DAILY PRN PRN Reason: Consult order Polyethylene Glycol (Polyethylene Glycol 3350 17 Gm Powd.Pack) 17 gm PO DAILY PRN PRN Reason: Constipation Senna (Sennosides 8.6 Mg Tablet) 17.2 mg PO BEDTIME [facility] Last Admin: 06/11/25 20:23 Dose: 17.2 mg Documented By: TRAVIS Sodium Chloride (0.9 % Sodium Chloride Flush 3 Ml Syringe) 3 ml IVFLUSH QSHIFT [facility] Last Admin: 06/11/25 20:24 Dose: 3 ml Documented By: TRAVIS Tiotropium [place] (Tiotropium [place] 2.5 Mcg 1 Puff/2.5 Mcg Mist.Inhal) 2 puff INHALE RDAILY [facility] Last Admin: 06/11/25 07:45 Dose: 2 puff Documented By: [email or web address] Labs 06/12/25 06:18 06/12/25 06:18 Labs: Laboratory Results - last 24 hr 06/11/25 06:13 MCV 88.6 MCH 30.4 MCHC 34.3 RDW 12.9 Plt Count 288 MPV 10.0 Immature Gran % (Auto) 0.8 H Neut % (Auto) 92.5 H Lymph % (Auto) 2.5 L [place] % (Auto) 4.1 Eos % (Auto) 0.0 Baso % (Auto) 0.1 Lymph # (Auto) 0.2 L [place] # (Auto) 0.3 Eos # (Auto) 0.0 Baso # (Auto) 0.0 Abs Immat Gran (auto) 0.06 H Absolute Neuts (auto) 7.0 Absolute Nucleated RBC 0.000 Nucleated RBC % (auto) 0.0 Smear Tech's Comments VERIFIED Microbiology Microbiology Results: Microbiology 06/09/25 17:33 Blood Culture - Preliminary Blood - Venous No growth after 48 hours. 06/09/25 17:33 Blood Culture - Preliminary Blood - Venous No growth after 48 hours. Assessment and Plan (1) Congestive heart failure: Status: Acute Plan Day 3 PMH stage IV COPD/ severe emphysema on 5-6 L O2 at home, prior smoker, MOD TVR/MOD MVR, Severe pulmonary HTN, chronic back pain, HTN, anxiety, AFIB on eliquis was brought in by ambulance for acute onset SOB/MCCARTNEY, gradually worsening for the past 1 week. Workup revealed significant COPD [id number] COPD, with response to stress dose steroids Acute hypoxic respiratory failure likely multifactorial-COPD end-stage , pulmonary hypertension Severe emphysema-chronic Severe pulmonary hypertension PE ruled out with CTA (patient already on Eliquis) end-stage COPD being treated with p.o. abx and steroids - might need prolonged taper, p.r.n. and scheduled nebulizers, Pulmicort, pulmonary hygiene, incentive spirometer Acapella valve Currently sat 88-92% on 3-4L O2 Pt desaturating on minimal ambulation and even unable to speak sentences Infectious etiology although less likely given her current clinical status and requiring IV steroids and response to COPD treatment, we will treat with p.o. Levaquin (patient apparently has anaphylaxis to penicillins) and vancomycin and azithromycin Fluids limited secondary to pulmonary edema Chronic diastolic heart failure - resumed Lasix given HD stability afib on eliquis -cont eliquis Lasix resumed today as she appears to clinical wax and wane 2/2 Hf Will also start on Lopressor IV Q6H prn We will continue to resume home antihypertensives given mild hypertension/normotension with limitation in giving fluids and currently on stress dose steroids Already her home meds apparently have been cut in half by primary care and Cardiology. She will likely need further downtime titration prior to discharge and this is being aggressively being monitored Possible adrenal insufficiency ? No chronic steroids on home meds recs - need to confirm Acute hyponatremia - resoved with fluid restriction unknown chronicity, (goal 136 in 24 hours) per nephro and Pulm input - likely hypervolemic (might have initially presented as hypovlemic)- hence initiated Lasix 40 IVP BID. Fluids limited to 1200 cc Adrenal insufficiency : Patient tolerated received stress dose steroids and cortisol was normal, hence we will wait and check cosyntropin test to adequately rule out adrenal insufficiency Might need pulmonary rehab GOC discussion being held - pt aware and would like to continue being Full code Dispo : Pt refusing STR, would want to go home with VNA Patient needs ongoing admission for acute hypoxic respiratory failure requiring IV lasix for pulm edema (had to hold since admission) This note is constructed using voice recognition software. While every effort has been made to ensure accuracy, accounts payable or receivable clerk errors may have been included. Quality Stroke Does the patient have a stroke diagnosis?: No Reason for No Anti-thrombotic by Day Two: N/A - Med Ordered VTE Prior VTE?: No VTE Risk Level:: Medical - moderate - high VTE Device Contraindication: N/A - Device Ordered VTE Drug Contraindication: N/A - Med Ordered
[2025-06-12 07:28] LABS: Alanine Aminotransferase 18 U/L (0-31); Albumin Level 3.8 g/dL (3.5-5.0); Alkaline Phosphatase 42 U/L (39-117); Anion Gap 10 (12-20); Aspartate Amino Transferase 31 U/L (5-31); Blood Urea Nitrogen 17 mg/dL (9-16); Calcium 8.6 mg/dL (8.4-10.2); Carbon Dioxide 30 mmol/L (22-29); Chloride 94 mmol/L (96-108); Creatinine Clr Calc Pharmacy 56.7; Estimated Glomerular Filt Rate > 60; Magnesium 2.5 mg/dL (1.6-2.6); Potassium 3.7 mmol/L (3.3-5.1); Sodium 130 mmol/L (135-145); Total Protein 5.8 g/dL (6.5-8.0)
[2025-06-12] MEDS: Tiotropium Bromide 2.5 mcg 1 PUFF/2.5 MCG MIST.INHAL 2 PUFF INHALE (07:49)
[2025-06-12] MEDS: Fluticasone/Vilanterol 200/25 BLST.W.DEV 1 PUFF INHALE (07:49)
[2025-06-12 08:41] LABS: MRSA Nasal PCR NEGATIVE (Negative); SA Nasal PCR NEGATIVE (Negative)
[2025-06-12] MEDS: guaiFENesin LA 600 MG TAB.ER.12H PO ×2 (09:38→21:00)
[2025-06-12] MEDS: 0.9 % Sodium Chloride Flush 3 ML SYRINGE IVFLUSH ×3 (09:40→21:00)
--- NOTE | 2025-06-12 11:06 | PM.CNNEP ---
History of Present Illness Reason for Consult Consult date: 06/12/25 Chief Complaint Chief complaint: COPD Exacerbation History of Present Illness Narrative: 80-year-old lady with PMH of this advanced COPD/ severe emphysema on 5-6 L O2 at home, severe pulmonary hypertension, atrial fibrillation on Eliquis, hypertension, prior smoker, MOD TVR/MOD MVR, chronic back pain, anxiety is admitted to the hospital with worsening shortness of breath. Renal is consulted for evaluation and management of hyponatremia Review of Systems Review of Systems Const : no body aches, no chills, no excessive sweating and + fatigue Eyes: no blurry vision and no change in vision ENT: no bleeding gums and no change in voice, no dizziness Card: no chest pain, no shortness of breath, no orthopnea, + PND Resp: no cough, no excessive phlegm production, +++ SOB GI: no abdominal pain and no nausea, no vomiting : no hematuria, no urinary frequency and no difficulty voiding Musc: no abnormal gait, no bone pain Neuro: no abnormal movements, no weakness, no dizziness, no abnormal gait and no behavioral changes Psych: no behavioral changes and no change in appetite Endo: no change in body appearance,+ fatigue PMFSH Past Medical History Medical History (Updated 06/12/25 @ 11:08 by Roberto Mercado MD) Hypotension arterial COPD (chronic obstructive pulmonary disease) Chronic back pain Acute exacerbation of CHF (congestive heart failure) Acute on chronic hypoxic respiratory failure Environmental allergies Seasonal allergies Osteoporosis Hemorrhoids Oxygen dependent Respiratory failure with hypoxia Pulmonary nodules/lesions, multiple Anxiety disorder Screening for diabetes mellitus Acute anxiety Anxiety Asthma Allergic rhinitis COPD (chronic obstructive pulmonary disease) Family History Family History Mother No problems noted. Father No problems noted. Surgical History Surgical History History of colonoscopy History of cataract surgery History of right hip replacement Social History Social History Household Members: Spouse Housing: House Are you a primary ambulatory care coordinator to a significant other at home: No Do you presently have visiting nurse or other home services: No Alcohol intake: current Alcohol intake frequency: holidays/special occasions only Patient Tobacco Use Status: Never used Tobacco Tobacco use type: Cigarette e-Cigarette/Vaping Use: Never Used Second Hand Smoke Exposure: Yes service: No Current occupational status: retired Cognitive needs: No Hearing needs: No Vision needs: Yes (Glasses) Travel History Ebola Risk: Travel/Contact With Anyone From Affected Area/s: No Has Patient Experienced Ebola Symptoms: No Meds Allergies Allergy/AdvReac Type Severity Reaction Status Date / Time penicillin G Allergy Severe Anaphylaxis Verified 06/09/25 15:21 Sulfa (Sulfonamide Allergy Severe Anaphylaxis Verified 06/09/25 15:21 Antibiotics) cat dander (CATS) Allergy Unknown MUCOUS Verified 06/09/25 15:21 FORMATION, asthma dog dander (DOGS) Allergy Unknown MUCOUS Verified 06/09/25 15:21 FORMATION, asthma egg Allergy Unknown Wheezing Verified 06/09/25 15:21 house dust (HOUSE DUST) Allergy Unknown MUCOUS Verified 06/09/25 15:21 FORMATION, asthma milk (MILK) Allergy Unknown MUCOUS Verified 06/09/25 15:21 FORMATION mold Allergy Unknown MUCOUS Verified 06/09/25 15:21 FORMATION, asthma tree and shrub pollen (TREES) Allergy Unknown MUCOUS Verified 06/09/25 15:21 FORMATION TO CERTAIN TREES, asthma yeast, dried (yeast) Allergy Unknown MUCOUS Verified 06/09/25 15:21 FORMATION, asthma Active Medications: Current Medications Acetaminophen (Acetaminophen 325 Mg Tablet) 650 mg PO Q6H PRN PRN Reason: Pain, Mild 1-3,fever,headache Acetaminophen (Acetaminophen 325 Mg Tablet) 975 mg PO Q6H PRN PRN Reason: pain Albuterol Sulfate (Albuterol Sulfate 90 Mcg 8 Gm Inhaler) 2 puff INHALE RQ4H PRN PRN Reason: Dyspnea Albuterol Sulfate (Albuterol Sulfate 90 Mcg 8 Gm Inhaler) 2 puff INHALE Q4H PRN PRN Reason: for dyspnea Apixaban (Apixaban 5 Mg Tablet) 5 mg PO BID [facility] Last Admin: 06/12/25 09:38 Dose: 5 mg Baclofen (Baclofen 10 Mg Tablet) 10 mg PO TID PRN PRN Reason: Muscle Spasm Calcium Carbonate (Calcium Carbonate 750 Mg Tab.Chew) 750 mg PO Q4H PRN PRN Reason: Heartburn Fluticasone/Vilanterol (Fluticasone/Vilanterol 200/25 Blst.W.Dev) 1 puff INHALE RDAILY [facility] Last Admin: 06/12/25 07:49 Dose: 1 puff Guaifenesin (Guaifenesin [place] 600 Mg Tab.Er.12h) 600 mg PO BID [facility] Last Admin: 06/12/25 09:38 Dose: 600 mg Hydrocortisone (Hydrocortisone 2.5 % Rectal Cr 30 Gm Tube) 1 appl [place] QID PRN PRN Reason: Hemorrhoids Azithromycin 500 mg/ Sodium (Chloride) 250 mls @ 125 mls/hr IV Q24H [facility] Last Admin: 06/12/25 09:34 Dose: 125 mls/hr Levofloxacin (Levaquin) 750 mg in 150 mls @ 100 mls/hr IV Q48H [facility] Last Infusion: 06/10/25 23:47 Dose: Infused Vancomycin HCl 1,000 mg/ (Sodium Chloride) 270 mls @ 270 mls/hr IV Q24H [facility] Last Infusion: 06/11/25 21:53 Dose: Infused Levalbuterol HCl (Levalbuterol Hcl 1.25 Mg/3 Ml Vial.Neb) 1.25 mg INHALE Q4H PRN PRN Reason: Shortness of Breath/Wheezing Lorazepam (Lorazepam 0.5 Mg Tablet) 0.5 mg PO Q4H PRN PRN Reason: Anxiety Last Admin: 06/11/25 17:49 Dose: 0.5 mg Magnesium Hydroxide (Milk Of Magnesia 30 Ml Oral.Susp) 30 ml PO DAILY PRN PRN Reason: Constipation Melatonin (Melatonin 3 Mg Tablet) 6 mg PO BEDTIME PRN PRN Reason: Insomnia Methylprednisolone Sodium Succinate (Methylprednisolone Sod Succ 40 Mg/Ml Vial) 40 mg IVPUSH Q6H [facility] Last Admin: 06/12/25 09:34 Dose: 40 mg Ondansetron HCl (Ondansetron Hcl 4 Mg/2 Ml Vial) 4 mg IVPUSH Q8H PRN PRN Reason: Nausea and Vomiting Pharmacy Consult (Consult Rx Vancomycin Dosing) 1 each MISCELLANE DAILY PRN PRN Reason: Consult order Polyethylene Glycol (Polyethylene Glycol 3350 17 Gm Powd.Pack) 17 gm PO DAILY PRN PRN Reason: Constipation Senna (Sennosides 8.6 Mg Tablet) 17.2 mg PO BEDTIME [facility] Last Admin: 06/11/25 20:23 Dose: 17.2 mg Sodium Chloride (0.9 % Sodium Chloride Flush 3 Ml Syringe) 3 ml IVFLUSH QSHIFT [facility] Last Admin: 06/12/25 09:40 Dose: 3 ml Tiotropium [place] (Tiotropium [place] 2.5 Mcg 1 Puff/2.5 Mcg Mist.Inhal) 2 puff INHALE RDAILY [facility] Last Admin: 06/12/25 07:49 Dose: 2 puff Home Medications ?Medication ?Instructions ?Recorded ?Confirmed ?Last Taken ?Type vit C 250 mg-vit E 90 mg-zinc 40 1 tab PO BID 07/21/20 06/10/25 12/03/24 History mg-copper 1 [id number] capsule (PreserVision AREDS-2) calcium carbonate (Calcium 600) 600 mg PO BID 01/28/21 06/10/25 12/03/24 History cholecalciferol (vitamin D3) 25 25 mcg PO DAILY 05/20/22 06/10/25 12/03/24 History mcg (1,000 unit) capsule (Vitamin D3) atenolol 25 mg tablet 25 mg PO DAILY 04/22/25 06/10/25 Unknown History furosemide 40 mg tablet 20 mg PO DAILY PRN Weight Gain 04/22/25 06/10/25 Unknown History guaifenesin 600 mg tablet, 600 mg PO BID 05/02/25 06/10/25 Unknown History extended release 12 hr (Mucinex) Physical Exam Vital Signs: Last Vital Signs Temp 97.4 F 06/12/25 08:00 Pulse 101 H 06/12/25 08:00 Resp 28 H 06/12/25 08:00 BP 139/79 06/12/25 08:00 Pulse Ox 96 06/12/25 08:00 O2 Del Method Room Air 06/12/25 08:00 O2 Flow Rate 2 06/12/25 02:16 Oxygen Flow Rate 5 06/09/25 15:19 BMI result Body Mass Index 18.5 General: not in any acute distress, comfortable, sitting on the chair Nutritional Appearance: well nourished and weight Eyes: normal position, no icterus Neck: No lymphadenopathy, no thyromegaly Resp: bilateral air entry equal, no added sounds present Cardio: normal S1, S2 heard, no murmur heard, ++ edema GI: soft, nontender, no guarding, no hepatosplenomegaly : bladder normal to inspection, bladder normal to palpation, no renal angle tenderness Skin: no rashes or lesions noted and elasticity normal Neuro: oriented to person, oriented to place, oriented to time and moves all extremities Results Lab Results 06/12/25 06:18 06/12/25 06:18 Lab results: Chemistry 06/09/25 06/10/25 06/11/25 15:48 06:03 06:13 Sodium 121 L 127 L 129 L Potassium 3.5 3.4 3.7 Carbon Dioxide 33 H 31 H 30 H BUN 17 H 11 12 Creatinine 0.84 0.78 0.67 Calcium 9.9 9.0 D 8.5 06/12/25 06:18 Sodium 130 L Potassium 3.7 Carbon Dioxide 30 H BUN 17 H Creatinine 0.63 Calcium 8.6 Hematology 06/09/25 06/10/25 06/11/25 15:48 06:03 06:13 WBC 12.2 H 11.9 H 7.6 Hgb 12.0 10.7 L 10.4 L Plt Count 374 317 288 06/12/25 06:18 WBC 10.1 Hgb 10.7 L Plt Count 309 Urinalysis 06/09/25 22:52 Urine Color Yellow Urine Appearance Clear Urine pH 5.5 Ur Specific [place] >= 1.030 H Urine Protein Negative Urine Glucose (UA) Negative Urine Ketones 15 Urine Blood Negative Urine Nitrite Negative Ur Leukocyte Esterase Negative Urine Studies 06/09/25 22:52 Urine Osmolality 385 Assessment and Plan (1) Hypertension: Qualifiers: Hypertension type: unspecified Qualified Code(s): I10 - Essential (primary) hypertension Status: Acute (2) Acute exacerbation of CHF (congestive heart failure): Qualifiers: Heart failure type: unspecified Qualified Code(s): I50.9 - Heart failure, unspecified Status: Acute (3) Pulmonary hypertension: Status: Acute (4) Hyponatremia: Status: Acute Plan Hyponatremia: sodium 130 Possibly secondary to hypervolemia secondary to pulmonary hypertension and right-sided heart failure from severe COPD BNP close to 4000; urine sodium less than 20, urine osmoles 380 suggestive of poor renal perfusion. Patient has the significant dependent edema, we will give her IV Lasix 40 mg b.i.d. Talked with the patient in detail about how to adjust her home dose of Lasix based on her symptoms and edema upon discharge. Okay for discharge from renal perspective if tomorrow's sodium is above 130, she would need [place]erman diuretics and is educated. Procedures Date of Service Date of Service: 06/12/25
--- NOTE | 2025-06-12 11:29 | MHC.CM.PN ---
CM met with pt., to discuss DCP, her was also present. Pt. said she will go to [facility] only if it is at [facility]. MM declined, referral in for VNA services at home. CM to follow for DC needs.
--- NOTE | 2025-06-12 13:56 | P.CDIM_ITS ---
PROVIDER RESPONSE TEXT: To clarify, the appropriate diagnosis supported by the clinical indicators: Moderate QUERY TEXT: PHYSICIAN'S DOCUMENTATION REQUEST Date of Query: 06/12/2025 07:40 AM EDT Patient Name: Maritza Maharaj Admit Date: 06/10/2025 Dear Rosemarie Albright MD, A review of the medical record indicates additional documentation may be needed. Please review below and update the documentation accordingly. Documentation includes the diagnosis of malnutrition was noted within a query response: BMI: 18.5 HT: 5ft 4in WT: 48.8kg Total protein: 5.8 Clinical nutrition: On therapeutic diet/cardiac diet with 1200 ML fluid restriction. If possible, please provide additional specificity regarding the severity of the malnutrition using the above information: Mild Moderate Severe Other (explain) Clinically unable to determine (explain) Thank you, Lizzy Padilla, CCS, CDIS Use of terms such as suspected, likely, concern for, or probable (associated with a specific diagnosis that is being evaluated, monitored, or treated as if it exists) are acceptable and can be coded in the inpatient setting, when documented at the time of discharge. Please use your independent medical judgment in providing your response. THIS QUERY IS PART OF THE PERMANENT MEDICAL RECORD
[2025-06-12] MEDS: Furosemide 40 MG/4 ML VIAL IVPUSH ×2 (14:20→19:45)
--- NOTE | 2025-06-12 15:39 | PM.CNNEP ---
History of Present Illness Reason for Consult Consult date: 06/12/25 Chief Complaint Chief complaint: COPD Exacerbation [facility], [facility] Past Medical History Medical History (Updated 06/12/25 @ 11:08 by Roberto Mercado MD) Hypotension arterial COPD (chronic obstructive pulmonary disease) Chronic back pain Acute exacerbation of CHF (congestive heart failure) Acute on chronic hypoxic respiratory failure Environmental allergies Seasonal allergies Osteoporosis Hemorrhoids Oxygen dependent Respiratory failure with hypoxia Pulmonary nodules/lesions, multiple Anxiety disorder Screening for diabetes mellitus Acute anxiety Anxiety Asthma Allergic rhinitis COPD (chronic obstructive pulmonary disease) Family History Family History Mother No problems noted. Father No problems noted. Surgical History Surgical History History of colonoscopy History of cataract surgery History of right hip replacement Social History Social History Household Members: Spouse Housing: House Are you a primary care tech to a significant other at home: No Do you presently have visiting nurse or other home services: No Alcohol intake: current Alcohol intake frequency: holidays/special occasions only Patient Tobacco Use Status: Never used Tobacco Tobacco use type: Cigarette e-Cigarette/Vaping Use: Never Used Second Hand Smoke Exposure: Yes service: No Current occupational status: retired Cognitive needs: No Hearing needs: No Vision needs: Yes (Glasses) Travel History Ebola Risk: Travel/Contact With Anyone From Affected Area/s: No Has Patient Experienced Ebola Symptoms: No Meds Allergies Allergy/AdvReac Type Severity Reaction Status Date / Time penicillin G Allergy Severe Anaphylaxis Verified 06/09/25 15:21 Sulfa (Sulfonamide Allergy Severe Anaphylaxis Verified 06/09/25 15:21 Antibiotics) cat dander (CATS) Allergy Unknown MUCOUS Verified 06/09/25 15:21 FORMATION, asthma dog dander (DOGS) Allergy Unknown MUCOUS Verified 06/09/25 15:21 FORMATION, asthma egg Allergy Unknown Wheezing Verified 06/09/25 15:21 house dust (HOUSE DUST) Allergy Unknown MUCOUS Verified 06/09/25 15:21 FORMATION, asthma milk (MILK) Allergy Unknown MUCOUS Verified 06/09/25 15:21 FORMATION mold Allergy Unknown MUCOUS Verified 06/09/25 15:21 FORMATION, asthma tree and shrub pollen (TREES) Allergy Unknown MUCOUS Verified 06/09/25 15:21 FORMATION TO CERTAIN TREES, asthma yeast, dried (yeast) Allergy Unknown MUCOUS Verified 06/09/25 15:21 FORMATION, asthma Active Medications: Current Medications Acetaminophen (Acetaminophen 325 Mg Tablet) 650 mg PO Q6H PRN PRN Reason: Pain, Mild 1-3,fever,headache Acetaminophen (Acetaminophen 325 Mg Tablet) 975 mg PO Q6H PRN PRN Reason: pain Albuterol Sulfate (Albuterol Sulfate 90 Mcg 8 Gm Inhaler) 2 puff INHALE RQ4H PRN PRN Reason: Dyspnea Albuterol Sulfate (Albuterol Sulfate 90 Mcg 8 Gm Inhaler) 2 puff INHALE Q4H PRN PRN Reason: for dyspnea Apixaban (Apixaban 5 Mg Tablet) 5 mg PO BID [facility] Last Admin: 06/12/25 09:38 Dose: 5 mg Atenolol (Atenolol 25 Mg Tablet) 25 mg PO DAILY [facility]; Protocol Azithromycin (Azithromycin 500 Mg Tablet) 500 mg PO Q24H [facility] Stop: 06/14/25 07:59 Baclofen (Baclofen 10 Mg Tablet) 10 mg PO TID PRN PRN Reason: Muscle Spasm Calcium Carbonate (Calcium Carbonate 750 Mg Tab.Chew) 750 mg PO Q4H PRN PRN Reason: Heartburn Calcium Carbonate (Calcium Carbonate 750 Mg Tab.Chew) 750 mg PO BID [facility] Fluticasone/Vilanterol (Fluticasone/Vilanterol 200/25 Blst.W.Dev) 1 puff INHALE RDAILY [facility] Last Admin: 06/12/25 07:49 Dose: 1 puff Furosemide (Furosemide 20 Mg Tablet) 20 mg PO BID@0900,1800 PRN; Protocol PRN Reason: Weight Gain Furosemide (Furosemide 40 Mg/4 Ml Vial) 40 mg IVPUSH BID@0900,1800 [facility]; Protocol Guaifenesin (Guaifenesin [place] 600 Mg Tab.Er.12h) 600 mg PO BID [facility] Last Admin: 06/12/25 09:38 Dose: 600 mg Hydrocortisone (Hydrocortisone 2.5 % Rectal Cr 30 Gm Tube) 1 appl [place] QID PRN PRN Reason: Hemorrhoids Levalbuterol HCl (Levalbuterol Hcl 1.25 Mg/3 Ml Vial.Neb) 1.25 mg INHALE Q4H PRN PRN Reason: Shortness of Breath/Wheezing Levofloxacin (Levofloxacin 500 Mg Tablet) 500 mg PO Q24H [facility] Stop: 06/17/25 12:59 Last Admin: 06/12/25 14:22 Dose: 500 mg Lorazepam (Lorazepam 0.5 Mg Tablet) 0.5 mg PO Q4H PRN PRN Reason: Anxiety Last Admin: 06/11/25 17:49 Dose: 0.5 mg Magnesium Hydroxide (Milk Of Magnesia 30 Ml Oral.Susp) 30 ml PO DAILY PRN PRN Reason: Constipation Melatonin (Melatonin 3 Mg Tablet) 6 mg PO BEDTIME PRN PRN Reason: Insomnia Metoprolol Tartrate (Metoprolol Tartrate 5 Mg/5 Ml Vial) 2.5 mg IVPUSH Q6H PRN; Protocol PRN Reason: tachycardia >100 Last Admin: 06/12/25 14:19 Dose: 2.5 mg Ondansetron HCl (Ondansetron Hcl 4 Mg/2 Ml Vial) 4 mg IVPUSH Q8H PRN PRN Reason: Nausea and Vomiting Polyethylene Glycol (Polyethylene Glycol 3350 17 Gm Powd.Pack) 17 gm PO DAILY PRN PRN Reason: Constipation Prednisone (Prednisone 20 Mg Tablet) 40 mg PO DAILY [facility] Stop: 06/18/25 08:59 Senna (Sennosides 8.6 Mg Tablet) 17.2 mg PO BEDTIME [facility] Last Admin: 06/11/25 20:23 Dose: 17.2 mg Sodium Chloride (0.9 % Sodium Chloride Flush 3 Ml Syringe) 3 ml IVFLUSH QSHIFT [facility] Last Admin: 06/12/25 14:24 Dose: 3 ml Tiotropium [place] (Tiotropium [place] 2.5 Mcg 1 Puff/2.5 Mcg Mist.Inhal) 2 puff INHALE RDAILY [facility] Last Admin: 06/12/25 07:49 Dose: 2 puff Vitamin D (Cholecalciferol (Vitamin D3) 25 Mcg Tablet) 25 mcg PO DAILY [facility] Home Medications ?Medication ?Instructions ?Recorded ?Confirmed ?Last Taken ?Type vit C 250 mg-vit E 90 mg-zinc 40 1 tab PO BID 07/21/20 06/10/25 12/03/24 History mg-copper 1 [id number] capsule (PreserVision AREDS-2) calcium carbonate (Calcium 600) 600 mg PO BID 01/28/21 06/10/25 12/03/24 History cholecalciferol (vitamin D3) 25 25 mcg PO DAILY 05/20/22 06/10/25 12/03/24 History mcg (1,000 unit) capsule (Vitamin D3) atenolol 25 mg tablet 25 mg PO DAILY 04/22/25 06/10/25 Unknown History furosemide 40 mg tablet 20 mg PO DAILY PRN Weight Gain 04/22/25 06/10/25 Unknown History guaifenesin 600 mg tablet, 600 mg PO BID 05/02/25 06/10/25 Unknown History extended release 12 hr (Mucinex) Physical Exam Vital Signs: Last Vital Signs Temp 97.6 F 06/12/25 12:00 Pulse 118 H 06/12/25 14:20 Resp 19 06/12/25 12:00 BP 132/78 06/12/25 14:20 Pulse Ox 95 06/12/25 12:00 O2 Del Method Nasal Cannula 06/12/25 12:00 O2 Flow Rate 2 06/12/25 12:00 Oxygen Flow Rate 5 06/09/25 15:19 BMI result Body Mass Index 18.5 General: somewhat in acute distress, ill appearing and tired appearing Nutritional Appearance: poorly nourished and under weight Eyes: appearance normal, both eyes and all related structures; Alignment and Position: alignment normal and position normal Neck: No lymphadenopathy, no thyromegaly Resp: bilateral air entry equal, occasional added sounds present Cardio: Normal S1-S2, significant edema present in dependent areas GI: soft, nontender, no guarding, no hepatosplenomegaly : bladder normal to inspection, bladder normal to palpation, no renal angle tenderness Skin: no rashes or lesions noted and elasticity normal Neuro: oriented to person, oriented to place, oriented to time and moves all extremities Results Lab Results 06/12/25 06:18 06/12/25 06:18 Lab results: Chemistry 06/09/25 06/10/25 06/11/25 15:48 06:03 06:13 Sodium 121 L 127 L 129 L Potassium 3.5 3.4 3.7 Carbon Dioxide 33 H 31 H 30 H BUN 17 H 11 12 Creatinine 0.84 0.78 0.67 Calcium 9.9 9.0 D 8.5 06/12/25 06:18 Sodium 130 L Potassium 3.7 Carbon Dioxide 30 H BUN 17 H Creatinine 0.63 Calcium 8.6 Hematology 06/09/25 06/10/25 06/11/25 15:48 06:03 06:13 WBC 12.2 H 11.9 H 7.6 Hgb 12.0 10.7 L 10.4 L Plt Count 374 317 288 06/12/25 06:18 WBC 10.1 Hgb 10.7 L Plt Count 309 Urinalysis 06/09/25 22:52 Urine Color Yellow Urine Appearance Clear Urine pH 5.5 Ur Specific [place] >= 1.030 H Urine Protein Negative Urine Glucose (UA) Negative Urine Ketones 15 Urine Blood Negative Urine Nitrite Negative Ur Leukocyte Esterase Negative Urine Studies 06/09/25 22:52 Urine Osmolality 385 Assessment and Plan (1) Acute anxiety: Status: Acute (2) Hyponatremia: Status: Acute Plan Hyponatremia: sodium 130 Possibly secondary to hypervolemia secondary to pulmonary hypertension and right-sided heart failure from severe COPD BNP close to 4000; urine sodium less than 20, urine osmoles 380 suggestive of poor renal perfusion. Patient has the significant dependent edema, we will give her IV Lasix 40 mg b.i.d. Talked with the patient in detail about how to adjust her home dose of Lasix based on her symptoms and edema upon discharge. Okay for discharge from renal perspective if tomorrow's sodium is above 130, she would need buttermaker diuretics and is educated Procedures Date of Service Date of Service: 06/12/25
[2025-06-13] VITALS (9 sets, daily range): BP systolic 103–130; BP diastolic 56–88; PULSE 81–123; RESP 12–20; TEMP 36.2–36.8; O2SAT 89–95; BMI 18.5
[2025-06-13 07:01] LABS: Hematocrit 33.4 % (37.0-47.0); Hemoglobin 11.6 g/dl (12.0-16.0); Imm Gran Abs Auto 0.15 X10*3/uL (0.00-0.03); Imm Gran Pct Auto 1.0 % (0.0-0.4); Lymphocytes Absolute Auto 0.7 X10*3/uL (1.2-4.9); MANUAL DIFF FLAG SCAN; Mean Corpuscular HGB Conc 34.7 g/dl (31.0-35.0); Mean Corpuscular Hemoglobin 31.3 pg (27.0-33.0); Mean Corpuscular Volume 90.0 fL (80.0-98.0); NRBC Abs Auto 0.000 X10*3/uL (0.0-0.012); NRBC Pct Auto 0.0 /100WBC (0.0-0.2); Platelet Count 334 X10*3/uL (160-400); Red Blood Count 3.71 X10*6/uL (4.20-5.50); SCAN SMEAR FLAG 1; White Blood Count 14.5 X10*3/uL (4.8-10.8)
--- NOTE | 2025-06-13 07:12 | P.PNIM_ITS ---
Subjective Subjective Date of Service: 06/13/25 Interval History: required to adjust her BP meds as she was hypotensive - hence DC'd IV lasix and switched po lasix DC'd BP meds Labile HD status Pt states she is fine , she is doing better Review of Systems Review of Systems: Yes all other systems are reviewed and are negative Physical Exam 2 Exam: Exam: General: AOx3, significant respiratory distress requiring 2-4 L O2-patient is usually on 5-6 L at baseline with minimal ambulation, even while eating Resp: Bilateral respiratory wheezing and crackles noted, work of breathing, significant accessory muscles usage noted CVS: Sinus tachycardia GI: +BS, NT, no distention Skin: Well-perfused Neuro: Clinically appears neurovascularly intact Extremities: Bilateral pitting pedal edema 1+ up to shins Psych: Anxious, poor insight into her condition Vital Signs: Vital Signs: Last Vital Signs Temp 97.8 F 06/12/25 02:16 Pulse 98 06/12/25 02:16 Resp 17 06/12/25 02:16 BP 145/65 H 06/12/25 02:16 Pulse Ox 93 06/12/25 02:16 O2 Del Method Nasal Cannula 06/12/25 02:16 O2 Flow Rate 2 06/12/25 02:16 Oxygen Flow Rate 5 06/09/25 15:19 BMI result Body Mass Index 18.5 Objective Data Active Medications Acetaminophen (Acetaminophen 325 Mg Tablet) 650 mg PO Q6H PRN PRN Reason: Pain, Mild 1-3,fever,headache Acetaminophen (Acetaminophen 325 Mg Tablet) 975 mg PO Q6H PRN PRN Reason: pain Albuterol Sulfate (Albuterol Sulfate 90 Mcg 8 Gm Inhaler) 2 puff INHALE RQ4H PRN PRN Reason: Dyspnea Albuterol Sulfate (Albuterol Sulfate 90 Mcg 8 Gm Inhaler) 2 puff INHALE Q4H PRN PRN Reason: for dyspnea Apixaban (Apixaban 5 Mg Tablet) 5 mg PO BID [facility] Last Admin: 06/12/25 21:00 Dose: 5 mg Documented By: VANDANA Atenolol (Atenolol 25 Mg Tablet) 25 mg PO DAILY [facility]; Protocol Azithromycin (Azithromycin 500 Mg Tablet) 500 mg PO Q24H [facility] Stop: 06/14/25 07:59 Baclofen (Baclofen 10 Mg Tablet) 10 mg PO TID PRN PRN Reason: Muscle Spasm Calcium Carbonate (Calcium Carbonate 750 Mg Tab.Chew) 750 mg PO Q4H PRN PRN Reason: Heartburn Calcium Carbonate (Calcium Carbonate 750 Mg Tab.Chew) 750 mg PO BID [facility] Last Admin: 06/12/25 21:00 Dose: 750 mg Documented By: VANDANA Fluticasone/Vilanterol (Fluticasone/Vilanterol 200/25 Blst.W.Dev) 1 puff INHALE RDAILY [facility] Last Admin: 06/12/25 07:49 Dose: 1 puff Documented By: CARLOS ALBERTO Furosemide (Furosemide 40 Mg/4 Ml Vial) 40 mg IVPUSH BID@0900,1800 [facility]; Protocol Last Admin: 06/12/25 19:45 Dose: 40 mg Documented By: CLEVE Guaifenesin (Guaifenesin La 600 Mg Tab.Er.12h) 600 mg PO BID [facility] Last Admin: 06/12/25 21:00 Dose: 600 mg Documented By: VANDANA Hydrocortisone (Hydrocortisone 2.5 % Rectal Cr 30 Gm Tube) 1 appl CA QID PRN PRN Reason: Hemorrhoids Levalbuterol HCl (Levalbuterol Hcl 1.25 Mg/3 Ml Vial.Neb) 1.25 mg INHALE Q4H PRN PRN Reason: Shortness of Breath/Wheezing Levofloxacin (Levofloxacin 500 Mg Tablet) 500 mg PO Q24H [facility] Stop: 06/17/25 12:59 Last Admin: 06/12/25 14:22 Dose: 500 mg Documented By: CLEVE Lorazepam (Lorazepam 0.5 Mg Tablet) 0.5 mg PO Q4H PRN PRN Reason: Anxiety Last Admin: 06/12/25 21:00 Dose: 0.5 mg Documented By: VANDANA Magnesium Hydroxide (Milk Of Magnesia 30 Ml Oral.Susp) 30 ml PO DAILY PRN PRN Reason: Constipation Melatonin (Melatonin 3 Mg Tablet) 6 mg PO BEDTIME PRN PRN Reason: Insomnia Metoprolol Tartrate (Metoprolol Tartrate 5 Mg/5 Ml Vial) 2.5 mg IVPUSH Q6H PRN; Protocol PRN Reason: tachycardia >100 Last Admin: 06/12/25 14:19 Dose: 2.5 mg Documented By: CLEVE Ondansetron HCl (Ondansetron Hcl 4 Mg/2 Ml Vial) 4 mg IVPUSH Q8H PRN PRN Reason: Nausea and Vomiting Polyethylene Glycol (Polyethylene Glycol 3350 17 Gm Powd.Pack) 17 gm PO DAILY PRN PRN Reason: Constipation Prednisone (Prednisone 20 Mg Tablet) 40 mg PO DAILY [facility] Stop: 06/18/25 08:59 Senna (Sennosides 8.6 Mg Tablet) 17.2 mg PO BEDTIME [facility] Last Admin: 06/12/25 21:00 Dose: 17.2 mg Documented By: VANDANA Sodium Chloride (0.9 % Sodium Chloride Flush 3 Ml Syringe) 3 ml IVFLUSH QSHIFT [facility] Last Admin: 06/12/25 21:00 Dose: 3 ml Documented By: VANDANA Tiotropium [place] (Tiotropium [place] 2.5 Mcg 1 Puff/2.5 Mcg Mist.Inhal) 2 puff INHALE RDAILY [facility] Last Admin: 06/12/25 07:49 Dose: 2 puff Documented By: CARLOS ALBERTO Vitamin D (Cholecalciferol (Vitamin D3) 25 Mcg Tablet) 25 mcg PO DAILY [facility] Labs 06/13/25 06:35 06/13/25 06:35 Labs: Laboratory Results - last 24 hr 06/10/25 06/12/25 06/12/25 15:11 06:18 18:26 MCV 89.3 MCH 31.0 MCHC 34.7 RDW 13.3 Plt Count 309 MPV 10.2 Immature Gran % (Auto) 0.8 H Neut % (Auto) 91.6 H Lymph % (Auto) 2.0 L [place] % (Auto) 5.5 Eos % (Auto) 0.0 Baso % (Auto) 0.1 Lymph # (Auto) 0.2 L [place] # (Auto) 0.6 Eos # (Auto) 0.0 Baso # (Auto) 0.0 Abs Immat Gran (auto) 0.08 H Absolute Neuts (auto) 9.3 H Absolute Nucleated RBC 0.000 Nucleated RBC % (auto) 0.0 Smear Tech's Comments VERIFIED Anion Gap 10 L Estim Creat Clear Calc 56.7 Estimated GFR > 60 Random Glucose 161 H Calcium 8.6 Magnesium 2.5 Total Bilirubin 0.3 AST 31 ALT 18 Alkaline Phosphatase 42 Total Protein 5.8 L Albumin 3.8 Nasal Screen MRSA (PCR) NEGATIVE Nasal S. aureus Screen NEGATIVE Nasal MRSA/S.aureus Interp SEE NOTE Vancomycin Trough 9.8 L Assessment and Plan (1) Congestive heart failure: Status: Acute Plan Day 4 PMH stage IV COPD/ severe emphysema on 5-6 L O2 at home, prior smoker, MOD TVR/MOD MVR, Severe pulmonary HTN, chronic back pain, HTN, anxiety, AFIB on eliquis was brought in by ambulance for acute onset SOB/MCCARTNEY, gradually worsening for the past 1 week. Workup revealed significant COPD [id number] COPD, with response to stress dose steroids and fluids POA Acute hypoxic respiratory failure likely multifactorial-COPD end-stage , pulmonary hypertension Severe emphysema-chronic Severe pulmonary hypertension end-stage COPD being treated with p.o. abx and steroids - might need prolonged taper, p.r.n. and scheduled nebulizers, Pulmicort, pulmonary hygiene, incentive spirometer Acapella valve , close f/up with OP pulm Currently sat 88-92% on 2-3 L O2 Pt desaturating on minimal ambulation and even unable to speak sentences Infectious etiology although less likely given her current clinical status and requiring IV steroids and response to COPD treatment, we will treat with p.o. Levaquin (patient apparently has anaphylaxis to penicillins) and vancomycin and azithromycin Fluids limited secondary to pulmonary edema Hypotension - likely hypovolemia - dec preload - hence dec lasix, stopped BP meds Chronic diastolic heart failure - Lasix being titrated afib on eliquis -cont eliquis We will continue to adjust antihypertensives given mild hypotension when we reinitiated BP meds yesterday , Already her home meds apparently have been cut in half by primary care and Cardiology, She will likely need further downtime titration prior to discharge and this is being closely monitored Possible adrenal insufficiency ? No chronic steroids on home meds recs - need to confirm Acute hyponatremia - hypovolemic hypoNa - resoved with fluid restriction unknown chronicity, Fluids limited to 1200 cc Less likely Adrenal insufficiency : Patient tolerated received stress dose steroids and cortisol was normal, hence not checking cosyntropin test Might need pulmonary rehab GOC discussion being held - pt aware and would like to continue being Full code Dispo : Pt refusing STR, would want to go home with VNA - likely tomorrow pending CC Patient needs ongoing admission for acute hypoxic respiratory failure requiring titration of HTN and diuresis. DC tomorrow This note is constructed using voice recognition software. While every effort has been made to ensure accuracy, plaster machine operator errors may have been included. Quality Stroke Does the patient have a stroke diagnosis?: No Reason for No Anti-thrombotic by Day Two: N/A - Med Ordered VTE Prior VTE?: No VTE Risk Level:: Medical - moderate - high VTE Device Contraindication: N/A - Device Ordered VTE Drug Contraindication: N/A - Med Ordered
[2025-06-13 07:19] LABS: Alanine Aminotransferase 23 U/L (0-31); Albumin Level 3.9 g/dL (3.5-5.0); Alkaline Phosphatase 45 U/L (39-117); Anion Gap 12 (12-20); Aspartate Amino Transferase 26 U/L (5-31); Blood Urea Nitrogen 24 mg/dL (9-16); Calcium 8.7 mg/dL (8.4-10.2); Carbon Dioxide 36 mmol/L (22-29); Chloride 91 mmol/L (96-108); Creatinine Clr Calc Pharmacy 46.3; Estimated Glomerular Filt Rate > 60; Magnesium 2.3 mg/dL (1.6-2.6); Potassium 3.1 mmol/L (3.3-5.1); Sodium 136 mmol/L (135-145); Total Protein 5.8 g/dL (6.5-8.0)
[2025-06-13] MEDS: Fluticasone/Vilanterol 200/25 BLST.W.DEV 1 PUFF INHALE (08:48)
[2025-06-13] MEDS: Tiotropium Bromide 2.5 mcg 1 PUFF/2.5 MCG MIST.INHAL 2 PUFF INHALE (08:48)
[2025-06-13] MEDS: Potassium Chloride ER 20 MEQ TAB.ER.PRT 40 MEQ PO (08:50)
[2025-06-13] MEDS: guaiFENesin LA 600 MG TAB.ER.12H PO ×2 (08:52→20:18)
[2025-06-13] MEDS: 0.9 % Sodium Chloride Flush 3 ML SYRINGE IVFLUSH ×2 (08:53→18:32)
[2025-06-13] MEDS: Metoprolol Tartrate 12.5 MG HALFTAB PO ×2 (09:08→20:17)
--- NOTE | 2025-06-13 12:00 | P.PNNP_ITS ---
Subjective Subjective Date of Service: 06/13/25 Interval history: Feels better, edema significantly improved with IV diuresis. Physical Exam 2 Vital Signs: Vital Signs: Last Vital Signs Temp 97.2 F 06/13/25 07:51 Pulse 81 06/13/25 08:49 Resp 18 06/13/25 08:49 BP 103/59 L 06/13/25 09:09 Pulse Ox 93 06/13/25 07:51 O2 Del Method Nasal Cannula 06/13/25 07:51 O2 Flow Rate 2 06/13/25 07:51 Oxygen Flow Rate 5 06/09/25 15:19 BMI result Body Mass Index 18.5 General: In very much acute distress, chronic ill appearing Nutritional Appearance: well nourished and overweight Eyes: appearance normal, both eyes and all related structures; Alignment and Position: alignment normal and position normal Neck: No lymphadenopathy, no thyromegaly Resp: bilateral air entry equal, bilateral wheeze Cardio: Regular rate, regular rhythm; Heart sounds: S1 normal heart sound present and S2 normal heart sound present GI: soft, nontender, no guarding, no hepatosplenomegaly : bladder normal to inspection, bladder normal to palpation, no renal angle tenderness Skin: no rashes or lesions noted and elasticity normal Neuro: oriented to person, oriented to place, oriented to time and moves all extremities Objective Data Labs 06/13/25 06:35 06/13/25 06:35 Labs: Laboratory Results - last 24 hr 06/12/25 06/13/25 18:26 06:35 WBC 14.5 H RBC 3.71 L Hgb 11.6 L Hct 33.4 L MCV 90.0 MCH 31.3 MCHC 34.7 RDW 13.3 Plt Count 334 MPV 9.9 Immature Gran % (Auto) 1.0 H Neut % (Auto) 77.9 H Lymph % (Auto) 5.0 L [place] % (Auto) 15.9 H Eos % (Auto) 0.1 Baso % (Auto) 0.1 Lymph # (Auto) 0.7 L [place] # (Auto) 2.3 H Eos # (Auto) 0.0 Baso # (Auto) 0.0 Abs Immat Gran (auto) 0.15 H Absolute Neuts (auto) 11.3 H Absolute Nucleated RBC 0.000 Nucleated RBC % (auto) 0.0 Smear Tech's Comments VERIFIED Sodium 136 Potassium 3.1 L Chloride 91 L Carbon Dioxide 36 H Anion Gap 12 BUN 24 H Creatinine 0.77 Estim Creat Clear Calc 46.3 Estimated GFR > 60 Random Glucose 110 Calcium 8.7 Magnesium 2.3 Total Bilirubin 0.3 AST 26 ALT 23 Alkaline Phosphatase 45 Total Protein 5.8 L Albumin 3.9 Vancomycin Trough 9.8 L Microbiology Microbiology Results: Microbiology 06/09/25 17:33 Blood - Venous Blood Culture - Preliminary No growth after 48 hours. 06/09/25 17:33 Blood - Venous Blood Culture - Preliminary No growth after 48 hours. Procedures Date of Service Date of Service: 06/13/25 Assessment & Plan Assessment and plan (1) Chronic diastolic heart failure: Status: Acute (2) Hyponatremia: Status: Acute Plan Hyponatremia: Improved with diuresis sodium upto 136 this morning Secondary to hypervolemia secondary to pulmonary hypertension and right-sided heart failure from severe COPD BNP close to 4000; urine sodium less than 20, urine osmoles 380 suggestive of poor renal perfusion. Since her edema has improved can switch the Lasix to oral. Talked with the patient in detail about how to adjust her home dose of Lasix based on her symptoms and edema upon discharge. Thank you for your consult, nephrology we will sign off Time Spent With Patient Time: Total time managing care of this patient today ____ minutes. Progress Note: Quality Stroke Does the patient have a stroke diagnosis?: No Reason for No Anti-thrombotic by Day Two: N/A - Med Ordered
--- NOTE | 2025-06-13 13:16 | MHC.CLN ---
CONSULT PT IS MODERATELY MALNOURISHED-QUALIFIES FOR NON-SEVERE MALNUTRITION IN THE CONTEXT OF CHRONIC ILLNESS PT WITH MILDLY DEPLETED MUSCLE MASS AND 10% SIGNIFICANT WT LOSS X6 MONTHS WITH INCREASED NUTRITION NEEDS R/T STAGE 4 COPD CARDIAC DIET WITH 1200ML FLUID RESTRICTION PT EATING LUNCH MEAL UPON INTERVIEW PT REPORTS DRINKING ENSURE AT HOME RECOMMEND ENSURE BID (ANIKA FLAVOR) TO INCREASE KCALS SUPPLEMENT PROVIDES 700KCALS, 40G PROTEIN MONITOR PO INTAKE AND ENCOURAGE SUPPLEMENT
[2025-06-13 22:25] LABS: Magnesium 2.2 mg/dL (1.6-2.6); Potassium 4.4 mmol/L (3.3-5.1)
[2025-06-14 04:00] VITALS: BP 129/84; PULSE 98; RESP 12; TEMP 36.3; O2SAT 96
--- NOTE | 2025-06-14 07:16 | HO.PM.IMPN ---
Subjective Subjective Date of Service: 06/14/25 Physical Exam Vital Signs: Vital Signs: Last Vital Signs Temp 97.4 F 06/14/25 04:00 Pulse 98 06/14/25 04:00 Resp 12 06/14/25 04:00 BP 129/84 06/14/25 04:00 Pulse Ox 96 06/14/25 04:00 O2 Del Method Nasal Cannula 06/14/25 04:00 O2 Flow Rate 3 06/14/25 04:00 Oxygen Flow Rate 5 06/09/25 15:19 BMI result Body Mass Index 18.5 Objective Data Active Medications Acetaminophen (Acetaminophen 325 Mg Tablet) 650 mg PO Q6H PRN PRN Reason: Pain, Mild 1-3,fever,headache Acetaminophen (Acetaminophen 325 Mg Tablet) 975 mg PO Q6H PRN PRN Reason: pain Albuterol Sulfate (Albuterol Sulfate 90 Mcg 8 Gm Inhaler) 2 puff INHALE RQ4H PRN PRN Reason: Dyspnea Albuterol Sulfate (Albuterol Sulfate 90 Mcg 8 Gm Inhaler) 2 puff INHALE Q4H PRN PRN Reason: for dyspnea Apixaban (Apixaban 5 Mg Tablet) 5 mg PO BID [facility] Last Admin: 06/13/25 20:17 Dose: 5 mg Documented By: VANDANA Azithromycin (Azithromycin 500 Mg Tablet) 500 mg PO Q24H [facility] Stop: 06/14/25 07:59 Last Admin: 06/13/25 08:53 Dose: 500 mg Documented By: ISABELLADISIRISHA Baclofen (Baclofen 10 Mg Tablet) 10 mg PO TID PRN PRN Reason: Muscle Spasm Calcium Carbonate (Calcium Carbonate 750 Mg Tab.Chew) 750 mg PO Q4H PRN PRN Reason: Heartburn Calcium Carbonate (Calcium Carbonate 750 Mg Tab.Chew) 750 mg PO BID [facility] Last Admin: 06/13/25 20:18 Dose: 750 mg Documented By: VANDANA Fluticasone/Vilanterol (Fluticasone/Vilanterol 200/25 Blst.W.Dev) 1 puff INHALE RDAILY [facility] Last Admin: 06/13/25 08:48 Dose: 1 puff Documented By: JACEY Furosemide (Furosemide 20 Mg Tablet) 20 mg PO BID@0900,1800 [facility]; Protocol Last Admin: 06/13/25 18:30 Dose: 20 mg Documented By: JUDIE Guaifenesin (Guaifenesin La 600 Mg Tab.Er.12h) 600 mg PO BID [facility] Last Admin: 06/13/25 20:18 Dose: 600 mg Documented By: VANDANA Hydrocortisone (Hydrocortisone 2.5 % Rectal Cr 30 Gm Tube) 1 appl [place] QID PRN PRN Reason: Hemorrhoids Levalbuterol HCl (Levalbuterol Hcl 1.25 Mg/3 Ml Vial.Neb) 1.25 mg INHALE Q4H PRN PRN Reason: Shortness of Breath/Wheezing Levofloxacin (Levofloxacin 250 Mg Tablet) 250 mg PO Q24H [facility] Last Admin: 06/13/25 15:04 Dose: Not Given Documented By: JUDIE Non-Admin Reason: Previously Administered Lorazepam (Lorazepam 0.5 Mg Tablet) 0.5 mg PO Q4H PRN PRN Reason: Anxiety Last Admin: 06/13/25 20:18 Dose: 0.5 mg Documented By: VANDANA Magnesium Hydroxide (Milk Of Magnesia 30 Ml Oral.Susp) 30 ml PO DAILY PRN PRN Reason: Constipation Melatonin (Melatonin 3 Mg Tablet) 6 mg PO BEDTIME PRN PRN Reason: Insomnia Metoprolol Tartrate (Metoprolol Tartrate 12.5 Mg Halftab) 12.5 mg PO BID [facility]; Protocol Last Admin: 06/13/25 20:17 Dose: 12.5 mg Documented By: VANDANA Ondansetron HCl (Ondansetron Hcl 4 Mg/2 Ml Vial) 4 mg IVPUSH Q8H PRN PRN Reason: Nausea and Vomiting Polyethylene Glycol (Polyethylene Glycol 3350 17 Gm Powd.Pack) 17 gm PO DAILY PRN PRN Reason: Constipation Prednisone (Prednisone 20 Mg Tablet) 40 mg PO DAILY [facility]; Taper Stop: 06/26/25 08:59 Senna (Sennosides 8.6 Mg Tablet) 17.2 mg PO BEDTIME [facility] Last Admin: 06/13/25 20:18 Dose: Not Given Documented By: VANDANA Non-Admin Reason: Patient Refused Sodium Chloride (0.9 % Sodium Chloride Flush 3 Ml Syringe) 3 ml IVFLUSH QSHIFT [facility] Last Admin: 06/14/25 00:47 Dose: Not Given Documented By: VANDANA Non-Admin Reason: Patient Asleep Tiotropium [place] (Tiotropium [place] 2.5 Mcg 1 Puff/2.5 Mcg Mist.Inhal) 2 puff INHALE RDAILY [facility] Last Admin: 06/13/25 08:48 Dose: 2 puff Documented By: JACEY Vitamin D (Cholecalciferol (Vitamin D3) 25 Mcg Tablet) 25 mcg PO DAILY [facility] Last Admin: 06/13/25 08:52 Dose: 25 mcg Documented By: JUDIE Labs 06/13/25 06:35 06/13/25 21:27 Labs: Laboratory Results - last 24 hr 06/13/25 06/13/25 06:35 21:27 MCV 90.0 MCH 31.3 MCHC 34.7 RDW 13.3 Plt Count 334 MPV 9.9 Immature Gran % (Auto) 1.0 H Neut % (Auto) 77.9 H Lymph % (Auto) 5.0 L [place] % (Auto) 15.9 H Eos % (Auto) 0.1 Baso % (Auto) 0.1 Lymph # (Auto) 0.7 L [place] # (Auto) 2.3 H Eos # (Auto) 0.0 Baso # (Auto) 0.0 Abs Immat Gran (auto) 0.15 H Absolute Neuts (auto) 11.3 H Absolute Nucleated RBC 0.000 Nucleated RBC % (auto) 0.0 Smear Tech's Comments VERIFIED Anion Gap 12 Estim Creat Clear Calc 46.3 Estimated GFR > 60 Random Glucose 110 Calcium 8.7 Magnesium 2.3 2.2 Total Bilirubin 0.3 AST 26 ALT 23 Alkaline Phosphatase 45 Total Protein 5.8 L Albumin 3.9 Quality Stroke Does the patient have a stroke diagnosis?: No Reason for No Anti-thrombotic by Day Two: N/A - Med Ordered VTE Prior VTE?: No VTE Risk Level:: Medical - moderate - high VTE Device Contraindication: N/A - Device Ordered VTE Drug Contraindication: N/A - Med Ordered
[2025-06-14 07:37] LABS: Hematocrit 34.5 % (37.0-47.0); Hemoglobin 11.6 g/dl (12.0-16.0); Imm Gran Abs Auto 0.14 X10*3/uL (0.00-0.03); Imm Gran Pct Auto 1.0 % (0.0-0.4); Lymphocytes Absolute Auto 0.9 X10*3/uL (1.2-4.9); MANUAL DIFF FLAG SCAN; Mean Corpuscular HGB Conc 33.6 g/dl (31.0-35.0); Mean Corpuscular Hemoglobin 30.2 pg (27.0-33.0); Mean Corpuscular Volume 89.8 fL (80.0-98.0); NRBC Abs Auto 0.000 X10*3/uL (0.0-0.012); NRBC Pct Auto 0.0 /100WBC (0.0-0.2); Platelet Count 337 X10*3/uL (160-400); Red Blood Count 3.84 X10*6/uL (4.20-5.50); SCAN SMEAR FLAG 1; White Blood Count 13.4 X10*3/uL (4.8-10.8)
[2025-06-14 07:41] LABS: Alanine Aminotransferase 21 U/L (0-31); Albumin Level 3.8 g/dL (3.5-5.0); Alkaline Phosphatase 47 U/L (39-117); Anion Gap 12 (12-20); Aspartate Amino Transferase 22 U/L (5-31); Blood Urea Nitrogen 22 mg/dL (9-16); Calcium 8.8 mg/dL (8.4-10.2); Carbon Dioxide 35 mmol/L (22-29); Chloride 88 mmol/L (96-108); Creatinine Clr Calc Pharmacy 44.6; Estimated Glomerular Filt Rate > 60; Magnesium 2.2 mg/dL (1.6-2.6); Potassium 3.7 mmol/L (3.3-5.1); Sodium 131 mmol/L (135-145); Total Protein 5.7 g/dL (6.5-8.0)
[2025-06-14 07:46] VITALS: BP 127/82; PULSE 93; RESP 20; TEMP 36.3; O2SAT 98
[2025-06-14] MEDS: Fluticasone/Vilanterol 200/25 BLST.W.DEV 1 PUFF INHALE (07:55)
[2025-06-14] MEDS: Tiotropium Bromide 2.5 mcg 1 PUFF/2.5 MCG MIST.INHAL 2 PUFF INHALE (07:55)
[2025-06-14 08:00] VITALS: PULSE 97; RESP 18; O2SAT 96
--- NOTE | 2025-06-14 08:42 | PC.RT ---
pt currently on home 02 at 2 liters continuous from [facility].
[2025-06-14] MEDS: Metoprolol Tartrate 12.5 MG HALFTAB PO (09:06)
[2025-06-14] MEDS: guaiFENesin LA 600 MG TAB.ER.12H PO (09:07)
[2025-06-14] MEDS: 0.9 % Sodium Chloride Flush 3 ML SYRINGE IVFLUSH (09:11)
[2025-06-14 12:00] VITALS: BP 117/69; PULSE 96; RESP 20; TEMP 36.6; O2SAT 95
--- NOTE | 2025-06-14 13:52 | MHC.CLN ---
F/U DIET RX: CARDIAC, 1200 ML FLUID RESTRICTION. ENSURE BID PROVIDES 700 KCALS, 40 G PROTEIN. PO INTAKE USUALLY 75-100%. FOLLOW FOR PO INTAKE.
--- NOTE | 2025-06-14 13:54 | PM.DS ---
DS: Providers Provider Date of Service: 06/14/25 Date of admission: 06/10/25 01:53 Date of discharge: 06/14/25 Primary care physician: Sanjiv Buck MD Consults: 06/10/25 01:59 Consult to Cardiology Routine Consulting Provider: [facility] Reason for consultation: elevated BNP known hx of MVR, TVR Has provider been notified: No Consult to Pulmonology Routine Consulting Provider: [facility] Reason for consultation: COPD exac, sev pulm HTN, losing wt, kyphosis Has provider been notified: No 06/10/25 02:37 Consult to Nephrology Routine Consulting Provider: [facility] Reason for consultation: hyponatremia 121 Has provider been notified: No DS: Diagnosis Discharge Diagnosis (1) Congestive heart failure: Status: Acute DS: Summary Time Attestation Discharge Coordination Time (in mins): 55 mins Quality: Safe Use of Opioids Does Pt have an Active Cancer Diagnosis on the Problem List?: No Quality: Stroke Does the patient have a stroke diagnosis?: No Physical Exam Exam: Exam: General: AOx3, significant respiratory distress requiring 2-4 L O2-patient is usually on 5-6 L at baseline with minimal ambulation, even while eating Resp: Bilateral respiratory wheezing and crackles noted, work of breathing, significant accessory muscles usage noted CVS: Sinus tachycardia GI: +BS, NT, no distention Skin: Well-perfused Neuro: Clinically appears neurovascularly intact Extremities: Bilateral pitting pedal edema 1+ up to shins Psych: Anxious, poor insight into her condition Vital Signs: Vital Signs: Last Vital Signs Temp 97.9 F 06/14/25 12:00 Pulse 96 06/14/25 12:00 Resp 20 06/14/25 12:00 BP 117/69 06/14/25 12:00 Pulse Ox 95 06/14/25 12:00 O2 Del Method Nasal Cannula 06/14/25 12:00 O2 Flow Rate 2 06/14/25 12:00 Oxygen Flow Rate 5 06/09/25 15:19 BMI result Body Mass Index 18.5 DS: Data Data Completed and Pending Labs on day of discharge: Laboratory Results - last 24 hr 06/13/25 06/14/25 21:27 06:50 WBC 13.4 H RBC 3.84 L Hgb 11.6 L Hct 34.5 L MCV 89.8 MCH 30.2 MCHC 33.6 RDW 13.2 Plt Count 337 MPV 10.1 Immature Gran % (Auto) 1.0 H Neut % (Auto) 76.3 H Lymph % (Auto) 6.9 L [place] % (Auto) 15.3 H Eos % (Auto) 0.4 Baso % (Auto) 0.1 Lymph # (Auto) 0.9 L [place] # (Auto) 2.1 H Eos # (Auto) 0.1 Baso # (Auto) 0.0 Abs Immat Gran (auto) 0.14 H Absolute Neuts (auto) 10.2 H Absolute Nucleated RBC 0.000 Nucleated RBC % (auto) 0.0 Smear Tech's Comments VERIFIED Sodium 131 L Potassium 4.4 D 3.7 Chloride 88 L Carbon Dioxide 35 H Anion Gap 12 BUN 22 H Creatinine 0.80 Estim Creat Clear Calc 44.6 Estimated GFR > 60 Random Glucose 96 Calcium 8.8 Magnesium 2.2 2.2 Total Bilirubin 0.4 AST 22 ALT 21 Alkaline Phosphatase 47 Total Protein 5.7 L Albumin 3.8 Preliminary micro results at discharge 06/09/25 17:33 Blood Culture - Preliminary Blood - Venous No growth after 48 hours. 06/09/25 17:33 Blood Culture - Preliminary Blood - Venous No growth after 48 hours. 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, acute hyponatremia Referrals: Sanjiv Buck MD [Primary Care Provider, Internal Medicine] - 1 Week Tam Townsend MD [Physician, Pulmonology] - 1 Week Roberto Mercado MD [Physician, Critical Care ([facility])] - 1 Week Flex De La Torre MD [Physician, Cardiology] - 1 Week Nutritional Referral [Outside] - 1 Week Discharge Medications: New levofloxacin 250 mg Tablet 250 mg PO Q24H 5 Days Qty: 5 0RF metoprolol tartrate 25 mg tablet 12.5 mg PO BID 30 Days Qty: 30 3RF prednisone 20 mg Tablet 40 mg PO DAILY Qty: 0 0RF Taper: Prednisone 40 mg daily for 3 Days and 0 Hour 30 mg daily for 3 Days and 0 Hour 20 mg daily for 3 Days and 0 Hour 10 mg daily for 3 Days and 0 Hour Continued hydrocortisone [Proctosol HC] 2.5 % cream with perineal applicator 1 appl MT BID-QID PRN (Reason: hemorrhoids) Qty: 30 2RF Breo Ellipta 200-25 mcg/dose blister with device 1 ea inhalation DAILY Qty: 180 1RF levalbuterol tartrate 45 mcg/actuation HFA aerosol inhaler 2 puff PO Q4-6H PRN (Reason: for dyspnea) Qty: 15 3RF Incruse Ellipta 62.5 mcg/actuation blister with device 1 inh inhalation DAILY Qty: 90 1RF azithromycin 250 mg tablet 250 mg PO MOWEFR@1000 Qty: 36 3RF cholecalciferol (vitamin D3) [Vitamin D3] 25 mcg (1,000 unit) Capsule 25 mcg PO DAILY Eliquis 5 mg tablet 5 mg PO BID Qty: 60 0RF PreserVision AREDS-2 [id number] jv-[id number]-fv-mg capsule 1 tab PO BID Rx Instructions: give with food (meal/snack) calcium carbonate [Calcium 600] 600 mg calcium (1,500 mg) tablet 600 mg PO BID baclofen 10 mg tablet 10 mg PO TID PRN (Reason: muscle spasm) 20 Days Qty: 60 0RF acetaminophen 500 mg capsule 1,000 mg PO Q6H PRN (Reason: pain) Qty: 30 0RF guaifenesin [Mucinex] 600 mg tablet extended release 12hr 600 mg PO BID Changed furosemide 40 mg tablet 20 mg PO BID PRN (Reason: Weight Gain) 30 Days Qty: 60 0RF Protocol: Hold for SBP< HOLD for SBP < : 90 Discontinued atenolol 25 mg tablet 25 mg PO DAILY Discharge Orders: Discharge Order (Routine); Ordered 06/14/25 Ordered By: Rosemarie Albright Diet: Low salt diet Activity on Discharge: As tolerated Stand Alone Forms: Patient Portal Discharge page Print Language: Icelandic Activity Restrictions/Additional Instructions: Low-sodium diet instructions What to limit or avoid Highly processed and packaged foods: These are often loaded with sodium. This includes frozen dinners, canned soups, packaged mixes, and fast food. Cured, processed, and smoked meats: Examples include freeman, sausage, hot dogs, and deli meats. Salty condiments: Limit ketchup, mustard, soy sauce, and pickles. Purchase low-sodium versions of these items when available. Salty snacks: Avoid items like chips, pretzels, and salted nuts. Restaurant meals: These can be very high in sodium. When dining out, ask for your food to be prepared without added salt. Salt substitutes containing potassium: Check with your doctor before using these, as some COPD patients may need to limit potassium. What to eat and how to prepare it Choose fresh, whole foods: Opt for fresh or frozen vegetables (without sauce), fresh fruits, and lean meats. Season with herbs and spices: Use flavorings like garlic, onion powder, teddy, lemon, little shell tribe, and pepper instead of salt. Cook at home: This gives you full control over the amount of salt in your food. Utilize salt-free recipes and cookbooks. Buy low-sodium products: Look for labels that say low sodium (140 mg or less per serving) or sodium-free . Read nutrition labels: Get in the habit of checking the sodium content of all packaged foods. Eating strategies for COPD Eat smaller, more frequent meals: Aim for 4 to 6 small meals a day instead of 2 to 3 large ones. This prevents a full stomach from pushing on your diaphragm, which can make breathing harder. Rest before eating: Take a break to catch your breath before a meal. Eating requires energy, and being rested will make it easier to complete a meal. Eat slowly: Take smaller bites and chew your food well. Pause between bites to breathe. Sit upright: Stay seated in an upright position while eating to help your lungs expand more easily. Manage fluids: Avoid drinking large amounts of liquids right before or during your meal if it makes you feel too full. Drink fluids after you eat instead. Choose nwbf-mw-vrdh foods: If you experience shortness of breath while eating, choose soft or moist foods that are easier to chew and swallow. Monitoring and follow-up Monitor your symptoms: Pay attention to any increase in shortness of breath, swelling in your ankles or legs, or sudden weight gain. These can be signs of fluid retention and should be reported to your doctor. Follow up as instructed: Be sure to schedule and attend all recommended follow-up appointments with your doctor and other members of your care team. Consider a pulmonary rehab program: These programs can help you improve muscle strength and manage your symptoms more effectively. Talk to a dietitian: A registered dietitian can provide a personalized meal plan that meets your nutritional needs while adhering to a low-sodium diet. Care Plan Goals: Please refer to dietary instructions Please take Ensure t.i.d. for protein calorie malnutrition as advised by nutrition this admission Please continue to finish your Levaquin treatment and prednisone taper It is very important to follow up with your primary analyst for further management of end-stage COPD Follow up with Cardiology for titration of medications as we had to make many changes to blood pressure medications given how labile it was since admission Advised to stop atenolol, started her on metoprolol 12.5 p.o. b.i.d. for cardioprotective effect Advised her to take Lasix 20 p.o. b.i.d. instead of 20 daily p.r.n. given her significant pulmonary edema Advised her to follow up with primary PCP/Nephrology for acute hyponatremia which corrected with fluid restriction Please follow-up with dietitian for protein calorie malnutrition Health Concerns: See above Plan of Treatment: See above Assessment: See above
--- NOTE | 2025-06-14 14:12 | MHC.CM.PN ---
Second IMM 06/14/25, Pt has been medically cleared to [place], she will go home via family transport and have home care services from [facility]
--- NOTE | 2025-06-14 14:15 | P.F2F_ITS ---
Service Date Service Date: 06/14/25 Encounter Date of encounter: 06/14/25 Reasons for Services Signs and symptoms assessed: See below Reason for physical therapy: home safety and mobility, gait/transfer training, ADL training and energy conservation Reason for occupational therapy: therapeutic exercises and ADL training Homebound: Leaving the home is medically contraindicated at this time without the asist of a device and/or another person due th the listed conditions above and below. Reason homebound: unsteady gait / fall risk, leg weakness, shortness of breath with minimal effort, poor balance / fall risk and shortness of breath at rest Certification: Based on the above findings, I certify that this patient is confined to the home and needs intermittent group home care, physical therapy and/or speech therapy, or continues to need occupational therapy. The patient is under my care, and I have initiated the establishment of the plan of care. The patient will be followed by a physician who will periodically review the plan of care. Time Spent With Patient Time: Total time managing care of this patient today ____ minutes.
--- NOTE | 2025-06-14 15:53 | P.CDIM_ITS ---
PROVIDER RESPONSE TEXT: To clarify, the appropriate diagnosis supported by the clinical indicators: Chronic pulmonary edema due to non-cardiac etiology: Patient has severe COPD, pulmonary hypertension and HFpEF at baseline. Her pulmonary edema is acute on chronic more likely from noncardiac bjlnvqut-ekg-gnsey COPD and emphysema pulmonary hypertension QUERY TEXT: PHYSICIAN'S DOCUMENTATION REQUEST Date of Query: 06/14/2025 08:48 AM EDT Patient Name: Maritza Maharaj Admit Date: 06/10/2025 Dear Rosemarie Albright MD, A review of the medical record indicates additional documentation may be needed. Please review below and update the documentation accordingly. Clinical Indicators: Progress note 06/13/25 - End stage COPD being treated with p.o. abx and steroids - Currently sat 88-92 % on 2-3 L O2. Fluids limited secondary to pulmonary edema. Might need pulmonary rehab. Chronic diastolic heart failure - Lasix being titrated. Acute hypoxic respiratory failure likely multifactorial-COPD end stage, pulmonary hypertension, emphysema. Based on the above, could you please provide, in the Progress Notes, further specificity regarding the acuity and etiology of the pulmonary edema? Acute non-cardiac pulmonary edema due to fluid overload Acute non-cardiac pulmonary edema due to other cause Please specify other cause Acute pulmonary edema due to heart failure Please further specify the type and acuity Chronic pulmonary edema due to non-cardiac etiology Please specify cause Chronic pulmonary edema due to heart failure Please further specify the type and acuity Other (explain) Clinically unable to determine (explain) Thank you, Lizzy Padilla, CCS, CDIS Use of terms such as suspected, likely, concern for, or probable (associated with a specific diagnosis that is being evaluated, monitored, or treated as if it exists) are acceptable and can be coded in the inpatient setting, when documented at the time of discharge. Please use your independent medical judgment in providing your response. THIS QUERY IS PART OF THE PERMANENT MEDICAL RECORD
== END 2025-06-14 15:33 | disposition home health service (06) | DRG 190 ==
LOC: HO.ED 06-10 01:57 → HO.EDOVER 06-10 01:58 → HO.IMC 06-10 06:10
PROVIDERS: Internal Medicine; Physician Assistant Medical; Admitting Provider Nurse Practitioner Family; Emergency Provider Student in an Organized Health Care Education/Training Program; PCP Internal Medicine; Visit Provider Student in an Organized Health Care Education/Training Program
DX: J43.9 Emphysema, unspecified (principal); J96.01 Acute respiratory failure with hypoxia; I50.32 Chronic diastolic (congestive) heart failure; J81.1 Chronic pulmonary edema; E44.0 Moderate protein-calorie malnutrition; Z68.1 Body mass index [BMI] 19.9 or less, adult; E22.2 Syndrome of inappropriate secretion of antidiuretic hormone; E27.40 Unspecified adrenocortical insufficiency; I95.9 Hypotension, unspecified; E86.1 Hypovolemia; F41.9 Anxiety disorder, unspecified; I48.91 Unspecified atrial fibrillation; I27.20 Pulmonary hypertension, unspecified; Z20.822 Contact with and (suspected) exposure to COVID-19; Z99.81 Dependence on supplemental oxygen; Z87.891 Personal history of nicotine dependence; Z79.899 Other long term (current) drug therapy
CPT/HCPCS: 36415; 71045; 71275; 80053; 80202; 81003; 82533; 82803; 83605; 83735; 83880; 83930; 83935; 84132; 84300; 84484; 85025; 85610; 87040; 87502; 87635; 87640; 87641; 93005; 93306; 94640; 97110; 97116; 97162; 97165; 97530; 99285; J0456; J0616; J1120; J1720; J1938; J1956; J2919; J3374; J3475; J7120; Q9957; Q9967

== ENCOUNTER → 2025-06-09 15:20 | Outpatient (BNV) | payer MEDICARE, MEDICAID, SELFPAY | PROVIDERS: Emergency Provider Student in an Organized Health Care Education/Training Program; Visit Provider Radiology Diagnostic Radiology | DX: J43.8 Other emphysema (principal); J98.11 Atelectasis | CPT/HCPCS: 71275 ==

== ENCOUNTER → 2025-06-09 17:21 | Outpatient (BNV) | payer MEDICARE, MEDICAID, SELFPAY | PROVIDERS: Admitting Provider Nurse Practitioner Family; Emergency Provider Student in an Organized Health Care Education/Training Program; Visit Provider Internal Medicine Cardiovascular Disease | DX: R94.31 Abnormal electrocardiogram [ECG] [EKG] (principal); R06.02 Shortness of breath | CPT/HCPCS: 93010 ==

== ENCOUNTER → 2025-06-10 01:53 | Outpatient (BNV) | payer MEDICARE, MEDICAID, SELFPAY | PROVIDERS: Admitting Provider Nurse Practitioner Family; Emergency Provider Student in an Organized Health Care Education/Training Program; PCP Internal Medicine; Visit Provider Internal Medicine Critical Care Medicine | DX: I50.32 Chronic diastolic (congestive) heart failure (principal); E87.1 Hypo-osmolality and hyponatremia | CPT/HCPCS: 99232 ==

== ENCOUNTER → 2025-06-10 01:53 | Outpatient (BNV) | payer MEDICARE, MEDICAID, SELFPAY | PROVIDERS: Admitting Provider Nurse Practitioner Family; Emergency Provider Student in an Organized Health Care Education/Training Program; Visit Provider Student in an Organized Health Care Education/Training Program | DX: I50.9 Heart failure, unspecified (principal) | CPT/HCPCS: 99232 ==

== ENCOUNTER → 2025-06-10 01:53 | Outpatient (BNV) | payer MEDICARE, MEDICAID, SELFPAY | PROVIDERS: Admitting Provider Nurse Practitioner Family; Emergency Provider Student in an Organized Health Care Education/Training Program; Visit Provider Internal Medicine Cardiovascular Disease | DX: I50.32 Chronic diastolic (congestive) heart failure (principal); I27.20 Pulmonary hypertension, unspecified; J44.1 Chronic obstructive pulmonary disease with (acute) exacerbation | CPT/HCPCS: 99233 ==

== ENCOUNTER → 2025-06-10 01:53 | Outpatient (BNV) | payer MEDICARE, MEDICAID, SELFPAY | PROVIDERS: Admitting Provider Nurse Practitioner Family; Emergency Provider Student in an Organized Health Care Education/Training Program; Visit Provider Internal Medicine Pulmonary Disease | DX: J44.9 Chronic obstructive pulmonary disease, unspecified (principal); I27.20 Pulmonary hypertension, unspecified; I50.30 Unspecified diastolic (congestive) heart failure | CPT/HCPCS: 99222 ==

== ENCOUNTER 2025-06-26 09:11 | Outpatient (AMB) | payer MEDICARE, MEDICAID, SELFPAY ==
--- NOTE | 2025-06-26 09:22 | A.OFFPC_ITS ---
Vital Signs 06/26/25 09:23 Height 5 ft 4 in Weight 103 lb 9.876 oz BMI 17.8 BP 120/68 Blood Pressure Location Lt brachial Position Sitting Pulse 85 Pulse Source Pulse Oximeter Temp 97.1 F Temp Source Temporal Artery Scan Pulse Oximetry (%) 93 Oxygen Delivery Method Room Air Intake Visit Reasons: TCM 06/14 COPD Intake Note: Patient is here for hospital discharge and TCM follow up. Patient was discharged from [facility] on 06/14/25. Concrete Pavement Installer Required: No Hardness Inspector: Not Required per policy Accompanied by: Self / Same As Patient Allergies penicillin G Allergy (Severe, Verified 06/26/25 09:23) Anaphylaxis Sulfa (Sulfonamide Antibiotics) Allergy (Severe, Verified 06/26/25 09:23) Anaphylaxis cat dander (CATS) Allergy (Unknown, Verified 06/26/25 09:23) MUCOUS FORMATION, asthma dog dander (DOGS) Allergy (Unknown, Verified 06/26/25 09:23) MUCOUS FORMATION, asthma egg Allergy (Unknown, Verified 06/26/25 09:23) Wheezing house dust (HOUSE DUST) Allergy (Unknown, Verified 06/26/25 09:23) MUCOUS FORMATION, asthma milk (MILK) Allergy (Unknown, Verified 06/26/25 09:23) MUCOUS FORMATION mold Allergy (Unknown, Verified 06/26/25 09:23) MUCOUS FORMATION, asthma tree and shrub pollen (TREES) Allergy (Unknown, Verified 06/26/25 09:23) MUCOUS FORMATION TO CERTAIN TREES, asthma yeast, dried (yeast) Allergy (Unknown, Verified 06/26/25 09:23) MUCOUS FORMATION, asthma Tobacco use date assessed: 06/26/25 Fall risk assessment: No Falls in past year Last assessed Fall Risk: 06/26/25 Dental Screening Dental Screen Date: 05/02/25 [facility] TCM TCM Information Date of Discharge 06/14/25 Discharged From [facility] Interactive Contact Date (Reference documentation from this date) 06/17/25 HPI Comments History of Present Illness Details Patient presents to the office for a TCM visit. ? Date of admission: Date of discharge: This is a Follow-up from admission at [facility]: History of Present Illness - The patient is a 80-year-old female pr esenting with weight loss, dyspnea, and back pain following recent hospitalization. - Hospitalized from June 09 to , bedridden during this period. - Post-discharge, consuming three meals daily but experiencing weight loss. - Reports dyspnea on exertion, limited b y back pain. - On home oxygen therapy, compliant with medications, tapering off prednisone. - Experiences insomnia, waking frequentl y at night, not attributed to breathing issues. - Reports situational anxiety in the aft ernoons, alleviated by lorazepam. - History of kidney stones, consultation postponed until August. Social History - The patient is considering moving to [facility] with her son in [place], [place]. - She has been walking a little every da y at home, although limited by back pain and dyspnea. - She is cautious about her diet, avoidi ng fried foods. Review of Systems - General: Reports weight loss despite a dequate food intake. - Respiratory: Reports dyspnea on exerti on. Denies cough or wheezing. - Musculoskeletal: Reports back pain, pa rticularly when walking long distances. - Neurological: Reports insomnia, waking frequently at night. - Psychiatric: Reports situational anxie ty, alleviated by lorazepam. Physical Exam General: Cooperative and healthy appearing Nutritional Appearance: Well nourished Orientation/consciousness: Patient oriented x3 Limitations: No limitations Head: Normal to inspection General: Appearance normal, both eyes and all related structures Neck: Normal visual inspection Chest: Normal palpation of entire chest wall Respiratory: Patient is on home oxygen, oxygen saturation is 93% ormal respiratory effort Neurology: Patient oriented x3, reports situational anxiety Results - Labs: White blood cell count was decre asing, sodium levels improved post- hospitalization. Plan - Repeat blood work post-prednisone to m onitor lab values. - Continue home oxygen and current medic ations, including lorazepam for anxiety. - Arrange temporary wheelchair rental fo r mobility at family event. - Follow-up for kidney stones in August . Discussion Notes I discussed with the patient the importance of completing the prednisone taper and the need for follow-up blood work to monitor her lab values. We also talked about continuing her current medications, including lorazepam for anxiety, and the use of home oxygen therapy. I advised arranging a temporary wheelchair rental for her niece's wedding to assist with mobility. We scheduled a follow-up consultation for her kidney stones in August. Patient Instructions - Complete prednisone taper as instructe d and have blood work done the following day. - Continue using home oxygen and take me dications as prescribed. - Arrange for a temporary wheelchair bradley radha for the wedding. - Follow up with the doctor for kidney s tones in August. Hospital Course/Discharge Summary: Discharged to/Current Location: Lives with: son Diagnosis:Copd Procedures performed: New medications: Discontinued medications: none Change medications/dosing: Pending labs: Pending diagnostic test: Any Follow-up Labs required? Yes, electrolytes Any Follow-up Diagnostic test required? How are you feeling? Are you in any pain or discomfort?No Do you have any questions about your condition or discharge instructions? Were you able to get your medications filled?Yes Do you have any questions about your medications?NO Any referrals required?no Were you able to schedule your follow-up appointment?Yes If home health was ordered, have they contact you? Any outpatient services, if so, are you scheduled? Labwork, scheduled Are there any additional resources like transportation you might need during her recovery? ?wheel chair - [facility]? Yes - AIRLINE MANAGERIAL SUPERVISOR? - Meals on wheels? Educational need/resources: What support system do you have? [facility]Forward [facility] Medical History (Updated 06/22/25 @ 00:01 by Heather Reed) Hypotension arterial Chronic back pain Acute exacerbation of CHF (congestive heart failure) Acute on chronic hypoxic respiratory failure Environmental allergies Seasonal allergies Osteoporosis Hemorrhoids Oxygen dependent Respiratory failure with hypoxia Pulmonary nodules/lesions, multiple Anxiety disorder Screening for diabetes mellitus Acute anxiety Anxiety Asthma Allergic rhinitis COPD (chronic obstructive pulmonary disease) Surgical History History of colonoscopy (~05/25/22) History of cataract surgery History of right hip replacement Family History Mother No problems noted. Father No problems noted. Social History Household Members: Spouse Housing: House Are you a primary customer care specialist to a significant other at home: No Do you presently have visiting nurse or other home services: No Alcohol intake: current Alcohol intake frequency: holidays/special occasions only Patient Tobacco Use Status: Never used Tobacco Tobacco use type: Cigarette e-Cigarette/Vaping Use: Never Used Second Hand Smoke Exposure: Yes service: No Current occupational status: retired Cognitive needs: No Hearing needs: No Vision needs: Yes (Glasses) Questionnaire Thrive Questionnaire Date Thrive assessed: 06/11/25 I am a: Patient What is your living situation today?: I have a steady place to live Within the past 12 months, did the food you bought not last and you didn't have the money to get more?: Never true Within the past 12 months, did you worry whether your food would run out before you got money to buy more?: Never true Do you have trouble paying for medicines?: No Do you have trouble getting transportation to medical appointments?: No Do you have trouble paying your heating and electricity bill?: No Do you have trouble taking care of your child, family member or friend?: No Do you have trouble with day-to-day activities such as bathing, preparing meals, shopping, managing finances, etc.?: No Are you currently unemployed and looking for a job?: No Are you interested in more education?: No Please select the resources that you would like help with: None Currently or been in a relationship where the following occur: No concerns reported THRIVE Score: 0 MARYANN-7 AMB Questionnaire MARYANN-7 Date MARYANN - 7 assessed: 05/02/25 Source: Developed by Drs. Juan Diego Minaya, Cecile Holly, Michael Rutledge and colleagues, with an educational romeo from [employer]. Physical exam (Primary Care) Vital Signs: Last Vital Signs Temp 97.1 F 06/26/25 09:23 Pulse 85 06/26/25 09:23 BP 120/68 06/26/25 09:23 Pulse Ox 93 06/26/25 09:23 Oxygen Delivery Method Room Air 06/26/25 09:23 BMI result Body Mass Index 17.8 Tobacco/Smoking Status: Tobacco use Status Tobacco use date assessed 06/26/25 06/26/25 09:30 Patient Tobacco Use Status Never used Tobacco 06/26/25 09:22 Tobacco use type Cigarette 06/26/25 09:22 e-Cigarette/Vaping Use Never Used 06/26/25 09:22 Thrive Assessment: Date of Thrive Assessment Date Thrive assessed 06/11/25 06/26/25 09:22 Currently or been in a relationship where the following occur: No concerns reported Coding Level of Care Code TCM Mod MDM <= 14 Days Diagnoses Hypertension, unspecified type I10 Hypertension type: unspecified Assessment & Plan Assessment & Plan (1) Hypertension: Code(s): I10 - Essential (primary) hypertension Category: Medical Qualifiers: Hypertension type: unspecified Qualified Code(s): I10 - Essential (primary) hypertension Plan: See above Orders: Orders Basic Metabolic Panel Today I10 - Essential (primary) hypertension Complete Blood Count no Diff Today I10 - Essential (primary) hypertension Thyroid Stimulating Hormone Today I10 - Essential (primary) hypertension Liver Panel Today I10 - Essential (primary) hypertension
[2025-06-26 09:23] VITALS: BP 120/68; PULSE 85; TEMP 36.2; O2SAT 93; BMI 17.8
--- OUTSIDE RECORDS SUMMARY | 2025-06-26 10:28 | XMS_ITS | Clinical Summary ---
Author Organization [facility] Address [address] [place] [id number] Phone Care Team Providers Care Salesperson Household Appliances Name Role Phone Sanjiv Buck MD Primary [...] B [place] & [facility] [place] PART A & B [facility] MEDICARE PART A & B Member Subscriber Plan / Payer (Ef fective 2012-Present) Name:Maritza Maharaj Member ID:[id number] Relation to Subscriber:Self Name:Maritza Maharaj Subscriber ID:[id number] Payer ID:[id number] Group ID:Not on file Type:Medicare Address: [employer] [address] [place] [id number] [facility] & B [facility] Care Teams Salesperson Household Appliances Relationship Specialty Start Date End Date Sanjiv Buck MD [address] [place] [phone] PCP - General Internal Medicine 03/10/22 Additional Source Comments The information contained in this document represents components of the legal health record. It is not the complete legal health record.[facility]
== END 2025-06-26 10:14 | disposition home or self-care (01) ==
LOC: HO.HMCH 09:13
PROVIDERS: PCP Internal Medicine; Visit Provider Internal Medicine
DX: I10 Essential (primary) hypertension (principal)

== ENCOUNTER → 2025-06-26 09:11 | Outpatient (BNVA) | payer MEDICARE, MEDICAID, SELFPAY | PROVIDERS: PCP Internal Medicine; Visit Provider Internal Medicine | DX: Z09 Encounter for follow-up examination after completed treatment for conditions other than malignant neoplasm (principal); I10 Essential (primary) hypertension | CPT/HCPCS: 99495 ==

== ENCOUNTER 2025-06-28 09:17 | Outpatient (REF) | payer MEDICARE, MEDICAID, SELFPAY ==
[2025-06-28 10:02] LABS: Hematocrit 36.6 % (37.0-47.0); Hemoglobin 11.5 g/dl (12.0-16.0); Mean Corpuscular HGB Conc 31.4 g/dl (31.0-35.0); Mean Corpuscular Hemoglobin 30.2 pg (27.0-33.0); Mean Corpuscular Volume 96.1 fL (80.0-98.0); NRBC Abs Auto 0.000 X10*3/uL (0.0-0.012); NRBC Pct Auto 0.0 /100WBC (0.0-0.2); Platelet Count 282 X10*3/uL (160-400); Red Blood Count 3.81 X10*6/uL (4.20-5.50); White Blood Count 11.8 X10*3/uL (4.8-10.8)
--- OUTSIDE RECORDS SUMMARY | 2025-06-28 10:14 | XMS_ITS | Clinical Summary ---
Author Organization [facility] Address [address] [place] [phone] Phone Care Team Providers Care Dynamic Etching Processor Name Role Phone Sanjiv Buck MD Primary [...] [place] & [facility] [place] [facility] MEDIC[facility] PART A & B Member Subscriber Plan / Payer (Ef fective 2012-Present) Name:Maritza Maharaj Member ID:[id number] Relation to Subscriber:Self Name:Maritza Maharaj Subscriber ID:[id number] Payer ID:[id number] Group ID:Not on file Type:Medicare Address: [employer] [address] [place] [phone] [facility] B [facility] Care Teams Dynamic Etching Processor Relationship Specialty Start Date End Date Sanjiv Buck MD [address] [place] [phone] PCP - General Internal Medicine 03/10/22 Additional Source Comments The information contained in this document represents components of the legal health record. It is not the complete legal health record.[facility]
[2025-06-28 11:12] LABS: Alanine Aminotransferase 21 U/L (0-31); Albumin Level 3.9 g/dL (3.5-5.0); Alkaline Phosphatase 56 U/L (39-117); Anion Gap 13 (12-20); Aspartate Amino Transferase 17 U/L (5-31); Blood Urea Nitrogen 15 mg/dL (9-16); Calcium 9.7 mg/dL (8.4-10.2); Carbon Dioxide 31 mmol/L (22-29); Chloride 98 mmol/L (96-108); Estimated Glomerular Filt Rate > 60; Potassium 5.0 mmol/L (3.3-5.1); Sodium 137 mmol/L (135-145); Total Protein 5.9 g/dL (6.5-8.0)
[2025-06-28 11:14] LABS: Thyroid Stimulating Hormone 0.70 uIU/mL (0.32-4.0)
--- OUTSIDE RECORDS SUMMARY | 2025-08-12 20:00 | XMS_ITS | Clinical Summary ---
Author Organization Unknown Care Team Providers Care Skein Mercerizing Machine Operator Name Role Phone MEIR GARVIN, JAIR Unavailable Unavailab Cordova RN, REJI Unavailable Unavailable LEVI COFFEYN, ESPERANZA Unavailable Unavailbravo NORTH PT, CHAD Unavailable Unavailable VIRGINIE TUBING MACHINE OPERATOR, VAZQUEZ Unavailable Unavailable PARAMJIT KOTHARI, JEANNA Unavailable Unavailable Payers Payer Name Policy Type Policy Number Effective Date Expira tion Date MEDICARE.NGS.PDGM [id number] Problems Condition Name Condition Details Condition Category Status Onset Date Resolution Date Last Treatment Date Treating Clinician Comments CHRONIC OBSTRUCTIVE PULMONARY DISEASE W (ACUTE) EXACERBATION Active 2024-08 00:00: 00 EMPHYSEMA, UNSPECIFIED Active 2024-08 00:00: 00 HYPERTENSIVE HEART DISEASE WITH HEART FAILURE Active 2024-08 00:00: 00 CHRONIC DIASTOLIC (CONGESTIVE) HEART FAILURE Active 2024-08 00:00: 00 UNSPECIFIED ATRIAL FIBRILLATION Active 2024-08 00:00: 00 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 2024-08 00:00: 00 PULMONARY HYPERTENSION , UNSPECIFIED Active 2024-08 00:00: 00 HYPOTENSION, UNSPECIFIED Active 2024-08 00:00: 00 ACUTE AND CHRONIC RESPIRATORY FAILURE WITH HYPOXIA Active 2024-08 00:00: 00 DORSALGIA, UNSPECIFIED Active 2024-08 00:00: 00 OTHER CHRONIC PAIN Active 2024-08 00:00: 00 AGE-RELATED OSTEOPOROSIS W/O CURRENT PATHOLOGICAL FRACTURE Active 2024-08 00:00: 00 ANXIETY DISORDER, UNSPECIFIED Active 2024-08 00:00: 00 HYPO-OSMOLAL ITY AND HYPONATREMIA Active 2024-08 00:00: 00 ABNORMAL WEIGHT LOSS Active 2024-08 00:00: 00 DEPENDENCE ON SUPPLEMENTAL OXYGEN Active 2024-08 00:00: 00 EXTRUSION OPERATOR (CURRENT) USE OF INHALED STEROIDS Active 2024-08 00:00: 00 CUSTODIAL (CURRENT) USE OF ANTICOAGULAN TS Active 2024-08 00:00: 00 CUSTODIAL (CURRENT) USE OF ANTIBIOTICS Active 2024-08 00:00: 00 BODY MASS INDEX [BMI] 20.0-20.9, ADULT Active 2024-08 00:00: 00 PERSONAL HISTORY OF NICOTINE DEPENDENCE Active 2024-08 00:00: 00 PRESENCE OF RIGHT ARTIFICIAL HIP JOINT Active 2024-08 00:00: 00 Allergies, Adverse Reactions, Alerts Allergy Name Allergy Type Status Severity Reaction(s) Onset Date Inactive Date Treating Clinician Comments PENICILINS Propensity to adverse reactions Active 2024-08 19:49: 13 EGG Propensity to adverse reactions Active 2024-08 19:49: 19 ..SULFA.. Propensity to adverse reactions Active 2024-08 19:49: 29 DAIRY FOOD Propensity to adverse reactions Active 2024-08 19:49: 38 Medications Ordered Medication Name Filled Medication Name Start Date Stop Date Current Medication? Ordering Clinician Indication Dosage Frequency Signature (SIG) Comments Components HYDROCODONE -ACETAMINOP HEN ORAL 2017-08 00:00: 00 07-25 00:00 :00 No 7.5-325 mg1 TABLET 4 TIMES A DAY 7.5-325 mg1 TABLET 4 TIMES A DAY (route: ) Alternate Route: BY MOUTH. Med Classific ation: ANALGESIC , ANTI-INFL AMMATORY OR ANTIPYRET IC LORAZEPAM ORAL 05-16 00:00: 00 05-31 00:00 :00 No 0.5 mg 0.5 mg (route: ) Med Classific ation: CENTRAL NERVOUS SYSTEM AGENTS LEVALBUTERO L TARTRATE INHALATION 2017-08 00:00: 00 07-25 13:02 :37 No 45 mcg/act uation 45 mcg/actuat ion (route: ) Med Classific ation: RESPIRATO RY THERAPY AGENTS Vital Signs Vital Name Observation Time Observation Value Commen ts Temperature 2025-06-27 08:50:00.000 97.9 [degF] Temperature 2025-06-20 14:25:00.000 97.5 [degF] Temperature 2025-06-15 19:47:00.000 97.6 [degF] BMI (%) 2025-06-15 09:22:19.000 17 kg/m2 Height 2025-06-15 09:22:14.000 64 [in_us] Pulse 2025-06-27 08:50:00.000 88 /min Pulse 2025-06-20 14:25:00.000 80 /min Pulse 2025-06-15 19:47:00.000 100 /min O2 Saturation (%) 2025-06-27 08:50:00.000 99 % O2 Saturation (%) 2025-06-20 14:25:00.000 96 % O2 Saturation (%) 2025-06-15 19:48:00.000 95 % Respirations 2025-06-27 08:50:00.000 16 /min Respirations 2025-06-20 14:25:00.000 18 /min Respirations 2025-06-15 19:47:00.000 20 /min Weight (lbs) 2025-06-15 09:22:19.000 104 [lb_av] Systolic Blood Pressure 2025-06-27 08:50:00.000 110 mm [Hg] Systolic Blood Pressure 2025-06-20 14:25:00.000 100 mm [Hg] Systolic Blood Pressure 2025-06-15 19:47:00.000 110 mm [Hg] Diastolic Blood Pressure 2025-06-27 08:50:00.000 80 mm [Hg] Diastolic Blood Pressure 2025-06-20 14:25:00.000 60 mm [Hg] Diastolic Blood Pressure 2025-06-15 19:47:00.000 64 mm [Hg] Plan of Treatment Planned Activity Planned Date Details Comments Future Scheduled Test RESPIRATOR Y SYSTEM MANAGEMENT; RN TO ASSESS AND TEACH, CARPET CLEANING TECHNICIAN/LIQUOR RECTIFIER TO OBSERVE AND TEACH RELATED TO ALTERED RESPIRATORY STATUS TO MINIMIZE COMPLICATIONS AND REDUCE HOSPITALIZATION. [code = RESPIRATORY SYSTEM MANAGEMENT; RN TO ASSESS AND TEACH, CARPET CLEANING TECHNICIAN/LIQUOR RECTIFIER TO OBSERVE AND TEACH RELATED TO ALTERED RESPIRATORY STATUS TO MINIMIZE COMPLICATIONS AND REDUCE HOSPITALIZATION.] Future Scheduled Test COPD MANAG EMENT; RN TO ASSESS AND TEACH, CARPET CLEANING TECHNICIAN/LIQUOR RECTIFIER TO OBSERVE AND TEACH SIGNS/SYMPTOMS OF COPD EXACERBATION AND PROVIDE EARLY INTERVENTIONS TO MINIMIZE RISK OF HOSPITALIZATION. RN/CARPET CLEANING TECHNICIAN/LIQUOR RECTIFIER TO INSTRUCT ON SELF-CARE MANAGEMENT INCLUDING BREATHING TECHNIQUES, AIRWAY CLEARANCE, AND PROPER USE OF COPD MEDICATIONS. RN TO ASSESS AND TEACH, CARPET CLEANING TECHNICIAN/LIQUOR RECTIFIER TO OBSERVE AND TEACH PATIENT/CAREGIVER ABILITY TO MONITOR AND RECORD VITAL SIGNS INCLUDING PULSE OXIMETRY AND BLOOD PRESSURE. PULSE OXIMETER AND BP MONITOR TO BE PROVIDED IF NEEDED [code = COPD MANAGEMENT; RN TO ASSESS AND TEACH, CARPET CLEANING TECHNICIAN/LIQUOR RECTIFIER TO OBSERVE AND TEACH SIGNS/SYMPTOMS OF COPD EXACERBATION AND PROVIDE EARLY INTERVENTIONS TO MINIMIZE RISK OF HOSPITALIZATION. RN/CARPET CLEANING TECHNICIAN/LIQUOR RECTIFIER TO INSTRUCT ON SELF-CARE MANAGEMENT INCLUDING BREATHING TECHNIQUES, AIRWAY CLEARANCE, AND PROPER USE OF COPD MEDICATIONS. RN TO ASSESS AND TEACH, CARPET CLEANING TECHNICIAN/LIQUOR RECTIFIER TO OBSERVE AND TEACH PATIENT/CAREGIVER ABILITY TO MONITOR AND RECORD VITAL SIGNS INCLUDING PULSE OXIMETRY AND BLOOD PRESSURE. PULSE OXIMETER AND BP MONITOR TO BE PROVIDED IF NEEDED] Future Scheduled Test OXYGEN THE RAPY; RN/CARPET CLEANING TECHNICIAN/LIQUOR RECTIFIER TO INSTRUCT ON OXYGEN MANAGEMENT INCLUDING: ADMINISTRATION AT 2 L/MIN VIA NC CONTINUOUS FOR HYPOXIA, CARE OF EQUIPMENT AND SAFETY. [code = OXYGEN THERAPY; RN/CARPET CLEANING TECHNICIAN/LIQUOR RECTIFIER TO INSTRUCT ON OXYGEN MANAGEMENT INCLUDING: ADMINISTRATION AT 2 L/MIN VIA NC CONTINUOUS FOR HYPOXIA, CARE OF EQUIPMENT AND SAFETY.] Future Scheduled Test FALL REDUC TION MANAGEMENT; RN TO ASSESS AND OBSERVE, CARPET CLEANING TECHNICIAN/LIQUOR RECTIFIER TO OBSERVE FALL RISK FACTORS AND EDUCATE PATIENT/CAREGIVER ON STRATEGIES TO MINIMIZE THE RISK OF FALLING. [code = FALL REDUCTION MANAGEMENT; RN TO ASSESS AND OBSERVE, CARPET CLEANING TECHNICIAN/LIQUOR RECTIFIER TO OBSERVE FALL RISK FACTORS AND EDUCATE PATIENT/CAREGIVER ON STRATEGIES TO MINIMIZE THE RISK OF FALLING.] Future Scheduled Test RN TO OBSE RVE, ASSESS, EVALUATE, AND DEVELOP AN INDIVIDUALIZED PLAN OF CARE. AGENCY MAY ACCEPT ORDERS FROM CONSULTING PHYSICIANS RN TO OBSERVE AND ASSESS, CARPET CLEANING TECHNICIAN/LIQUOR RECTIFIER TO OBSERVE FOR RISK FOR FALLS AND INSTRUCT IN FALL PREVENTION, HOME SAFETY, MEDICATION MANAGEMENT, INFECTION PREVENTION, AND NUTRITION MANAGEMENT. RN/CARPET CLEANING TECHNICIAN/LIQUOR RECTIFIER NURSE MAY PERFORM O2 SATURATION LEVEL ON ADMISSION AND PRN FOR RESP STATUS CHANGES FOR RN TO ASSESS/CARPET CLEANING TECHNICIAN TO OBSERVE PATIENT, WITH NOTIFICATION TO THE PHYSICIAN IF SATURATION IS 90% IN THE ABSENCE OF MORE SPECIFIC PARAMETERS FROM THE PHYSICIAN. AGENCY MAY PERFORM A RESUMPTION OF CARE VISIT FOLLOWING ANY HOSPITAL ADMISSION. RN/CARPET CLEANING TECHNICIAN/LIQUOR RECTIFIER TO MONITOR CO-MORBID CONDITIONS LISTED ON THE PLAN OF CARE AND ANY NEW CONDITIONS THAT PRESENT THEMSELVES DURING THIS EPISODE TO IDENTIFY CHANGES AND INTERVENE TO MINIMIZE COMPLICATIONS. [code = RN TO OBSERVE, ASSESS, EVALUATE, AND DEVELOP AN INDIVIDUALIZED PLAN OF CARE. AGENCY MAY ACCEPT ORDERS FROM CONSULTING PHYSICIANS RN TO OBSERVE AND ASSESS, CARPET CLEANING TECHNICIAN/LIQUOR RECTIFIER TO OBSERVE FOR RISK FOR FALLS AND INSTRUCT IN FALL PREVENTION, HOME SAFETY, MEDICATION MANAGEMENT, INFECTION PREVENTION, AND NUTRITION MANAGEMENT. RN/CARPET CLEANING TECHNICIAN/LIQUOR RECTIFIER NURSE MAY PERFORM O2 SATURATION LEVEL ON ADMISSION AND PRN FOR RESP STATUS CHANGES FOR RN TO ASSESS/CARPET CLEANING TECHNICIAN TO OBSERVE PATIENT, WITH NOTIFICATION TO THE PHYSICIAN IF SATURATION IS 90% IN THE ABSENCE OF MORE SPECIFIC PARAMETERS FROM THE PHYSICIAN. AGENCY MAY PERFORM A RESUMPTION OF CARE VISIT FOLLOWING ANY HOSPITAL ADMISSION. RN/CARPET CLEANING TECHNICIAN/LIQUOR RECTIFIER TO MONITOR CO-MORBID CONDITIONS LISTED ON THE PLAN OF CARE AND ANY NEW CONDITIONS THAT PRESENT THEMSELVES DURING THIS EPISODE TO IDENTIFY CHANGES AND INTERVENE TO MINIMIZE COMPLICATIONS.] Future Scheduled Test PAIN MANAG EMENT; RN TO ASSESS AND TEACH, LIQUOR RECTIFIER/CARPET CLEANING TECHNICIAN TO OBSERVE AND TEACH AND PROVIDE EDUCATION ON PAIN MANAGEMENT TECHNIQUES. [code = PAIN MANAGEMENT; RN TO ASSESS AND TEACH, LIQUOR RECTIFIER/CARPET CLEANING TECHNICIAN TO OBSERVE AND TEACH AND PROVIDE EDUCATION ON PAIN MANAGEMENT TECHNIQUES.] Future Scheduled Test RISK FOR H OSPITALIZATION; RN TO ASSESS/TEACH, LIQUOR RECTIFIER/CARPET CLEANING TECHNICIAN TO OBSERVE/TEACH PATIENT/CAREGIVER ON RISK FOR HOSPITALIZATION/EMERGENCY ROOM VISITS, TEACH SIGNS AND SYMPTOMS THAT PUT PATIENT AT RISK, WHEN TO NOTIFY NURSE/PHYSICIAN OF COMPLICATIONS/DECLINE, AND WHEN TO CALL 911. [code = RISK FOR HOSPITALIZATION; RN TO ASSESS/TEACH, LIQUOR RECTIFIER/CARPET CLEANING TECHNICIAN TO OBSERVE/TEACH PATIENT/CAREGIVER ON RISK FOR HOSPITALIZATION/EMERGENCY ROOM VISITS, TEACH SIGNS AND SYMPTOMS THAT PUT PATIENT AT RISK, WHEN TO NOTIFY NURSE/PHYSICIAN OF COMPLICATIONS/DECLINE, AND WHEN TO CALL 911.] Future Scheduled Test CARDIOVASC ULAR SYSTEM; RN TO ASSESS/TEACH, CARPET CLEANING TECHNICIAN/LIQUOR RECTIFIER TO OBSERVE/TEACH RELATED TO ALTERED CARDIOVASCULAR STATUS TO MINIMIZE COMPLICATIONS AND REDUCE HOSPITALIZATION. [code = CARDIOVASCULAR SYSTEM; RN TO ASSESS/TEACH, CARPET CLEANING TECHNICIAN/LIQUOR RECTIFIER TO OBSERVE/TEACH RELATED TO ALTERED CARDIOVASCULAR STATUS TO MINIMIZE COMPLICATIONS AND REDUCE HOSPITALIZATION.] Future Scheduled Test HEART FAIL URE; RN TO ASSESS/TEACH, CARPET CLEANING TECHNICIAN/LIQUOR RECTIFIER TO OBSERVE/TEACH CARDIOPULMONARY SYSTEM TO IDENTIFY SIGNS OF DECOMPENSATION AND INTERVENE TO MINIMIZE THE SEVERITY OF FLUID OVERLOAD. OBSERVE PATIENT ABILITY TO MONITOR AND RECORD DAILY WEIGHTS AND VITAL SIGNS, INCLUDING PULSE AND BLOOD PRESSURE; RECORD PATIENT REPORTED WEIGHT, OR WEIGH PATIENT NEEDED. REPORT INCREASED EDEMA OR WEIGHT GAIN OF >2 LBS IN 1 DAY OR >5 LBS IN 1 WEEK OR 5LBS OR MORE OVER TARGET WEIGHT. MAY MEASURE ABDOMINAL GIRTH IF UNABLE TO WEIGH. SCALES AND BP MONITOR TO BE PROVIDED IF NEEDED. [code = HEART FAILURE; RN TO ASSESS/TEACH, CARPET CLEANING TECHNICIAN/LIQUOR RECTIFIER TO OBSERVE/TEACH CARDIOPULMONARY SYSTEM TO IDENTIFY SIGNS OF DECOMPENSATION AND INTERVENE TO MINIMIZE THE SEVERITY OF FLUID OVERLOAD. OBSERVE PATIENT ABILITY TO MONITOR AND RECORD DAILY WEIGHTS AND VITAL SIGNS, INCLUDING PULSE AND BLOOD PRESSURE; RECORD PATIENT REPORTED WEIGHT, OR WEIGH PATIENT NEEDED. REPORT INCREASED EDEMA OR WEIGHT GAIN OF >2 LBS IN 1 DAY OR >5 LBS IN 1 WEEK OR 5LBS OR MORE OVER TARGET WEIGHT. MAY MEASURE ABDOMINAL GIRTH IF UNABLE TO WEIGH. SCALES AND BP MONITOR TO BE PROVIDED IF NEEDED.] Future Scheduled Test MEDICATION MANAGEMENT; RN/CARPET CLEANING TECHNICIAN/LIQUOR RECTIFIER TO REVIEW MEDICATIONS FOR INTERACTIONS, EFFECTIVENESS OF DRUG THERAPY, AND SIGNS/SYMPTOMS OF ADVERSE REACTIONS. MAY INSTRUCT AND REINFORCE MEDICATION TEACHING RELATED TO THE USE OF MEDICATIONS, DOSAGE, FREQUENCY, PURPOSE, SIDE EFFECTS, AND TO REPORT COMPLICATIONS. [code = MEDICATION MANAGEMENT; RN/CARPET CLEANING TECHNICIAN/LIQUOR RECTIFIER TO REVIEW MEDICATIONS FOR INTERACTIONS, EFFECTIVENESS OF DRUG THERAPY, AND SIGNS/SYMPTOMS OF ADVERSE REACTIONS. MAY INSTRUCT AND REINFORCE MEDICATION TEACHING RELATED TO THE USE OF MEDICATIONS, DOSAGE, FREQUENCY, PURPOSE, SIDE EFFECTS, AND TO REPORT COMPLICATIONS.] Goal Patient Goal - TO WALK MORE Goal Provider Goal - PATIENT / CAREGIVER WILL VERBALIZE/DEMONSTRATE UNDERSTANDING OF MEASURES TO MANAGE ALTERED RESPIRATORY STATUS BY END OF EPISODE. Goal Provider Goal - PATIENT / CAREGIVER WILL VERBALIZE/DEMONSTRATE AN ABILITY TO ADHERE TO SELF-MANAGEMENT OF COPD TO MINIMIZE COMPLICATIONS AND AVOID HOSPITALIZATION BY END OF EPISODE. Goal Provider Goal - PATIENT/CAREGIVER WILL VERBALIZE/DEMONSTRATE UNDERSTANDING OF CARE AND MANAGEMENT OF OXYGEN THERAPY BY END OF EPISODE Goal Provider Goal - PATIENT/CAREGIVER WILL VERBALIZE/DEMONSTRATE UNDERSTANDING OF FALL RISK FACTORS AND IMPLEMENT STRATEGIES TO MINIMIZE FALL RISK. PATIENT/CAREGIVER WILL VERBALIZE/DEMONSTRATE AN ABILITY TO ADHERE TO FALL REDUCTION SELF-MANAGEMENT AND LIFE-STYLE CHANGES BY 08/13/25 Goal Provider Goal - A PLAN OF CARE WILL BE ESTABLISHED THAT MEETS THE PATIENT S NEEDS. PATIENT WILL DEMONSTRATE OXYGEN SATURATION WITHIN NORMAL LIMITS OR PATIENT S OPTIMAL LEVEL ESTABLISHED BY THE PHYSICIAN THROUGHOUT CARE. CHANGES TO CO-MORBID CONDITIONS AND ANY NEW CONDITIONS WILL BE IDENTIFIED AND REPORTED TO THE PHYSICIAN. Goal Provider Goal - PATIENT / CAREGIVER WILL VERBALIZE / DEMONSTRATE UNDERSTANDING OF PAIN CONTROL MEASURES BY 08/13/25 Goal Provider Goal - PATIENT/CAREGIVER WILL VERBALIZE UNDERSTANDING OF SIGNS AND SYMPTOMS THAT PUT THE PATIENT AT RISK FOR HOSPITALIZATION /EMERGENCY ROOM VISITS, WHEN TO NOTIFY NURSE/PHYSICIAN OF COMPLICATIONS/DECLINE AND WHEN TO CALL 911. Goal Provider Goal - PATIENT / CAREGIVER WILL VERBALIZE/DEMONSTRATE UNDERSTANDING OF MEASURES TO MANAGE ALTERED CARDIOVASCULAR STATUS BY EOE Goal Provider Goal - PATIENT / CAREGIVER WILL VERBALIZE/DEMONSTRATE AN ABILITY TO ADHERE TO SELF-MANAGEMENT OF HF TO MINIMIZE COMPLICATIONS AND AVOID HOSPITALIZATION BY END OF EPISODE. Goal Provider Goal - PATIENT/CAREGIVER TO VERBALIZE, AND CONSISTENTLY DEMONSTRATE EFFECTIVE, SAFE MANAGEMENT OF MEDICATION INCLUDING KNOWLEDGE OF EFFECTIVENESS, POTENTIAL SIDE EFFECTS AND DRUG REACTIONS AND WHEN TO CONTACT THE APPROPRIATE CARE PROVIDER. PATIENT/CAREGIVER WILL BE ABLE TO VERBALIZE UNDERSTANDING OF MEDICATION REGIMEN AND ACCURATELY TAKE MEDICATIONS PRESCRIBED WITHOUT ADVERSE EFFECTS BY 08/13/25 Progress Notes Progress Notes <paragraph>[Visit Date: 2024 by CHAD NORTH PT]:</paragraph><paragraph>PROVIDED CARE:80-YEAR-OLD FEMALE REFERRED FOR HOME PHYSICAL THERAPY HOME SAFETY EVALUATION AFTER HOSPITALIZATION DUE TO COPD EXACERBATION. PATIENT IS ENDING PREDNISONE TAPER TODAY IS ON 2 L OF SUPPLEMENTAL OXYGEN AT ALL TIMES IS ABLE TO AMBULATE IN HER HOME WITHOUT AN ASSISTIVE DEVICE BUT HAS SIGNIFICANT ENDURANCE DEFICIT DUE TO HER CHRONIC IN ADVANCED COPD. PATIENT REGULARLY DESATURATES INTO THE 80S BUT IS ABLE TO RETURN TO BASELINE WITH LESS THAN 5 MINUTES OF RECOVERY TIME AND PURSLIP BREATHING WHICH PATIENT IS DEMONSTRATING COMPETENCE IN. PATIENT IS AT BASELINE MOBILITY IN HER HOME DOES NOT LEAVE HER HOME UNLESS AT WHEELCHAIR LEVEL DUE TO ADVANCED COPD. PATIENT DOES NOT PERFORM STAIRS DUE TO IT BEING TOO TAXING ON HER FOR AN EXTENDED PERIOD OF TIME NOW. PATIENT IS AT BASELINE LEVEL OF FUNCTIONAL MOBILITY WAS EDUCATED AND INSTRUCTED AND WAS ABLE TO RETURN DEMONSTRATE PROPER PACING AND BREATHING STRATEGIES TO MITIGATE SHORTNESS OF BREATH WITH GOOD TECHNIQUE. PATIENT IS AGREEABLE TO EVALUATION ONLY TODAY</paragraph> Encounters Start Date/Time End Date/Time Encounter Type Admission Type Attending Clinicians Care Facility Care Department Encounter ID Discharge Date Discharge Status Discharge Condition Discharge Reason Percent Goals Met 2025-06-15 00:00:00 2025-08-13 00:00:00 Outpatient READMISSIO N PARAMJIT, JEANNA [facility] [id number] .
--- OUTSIDE RECORDS SUMMARY | 2025-08-12 20:00 | XMS_ITS | Clinical Summary ---
Author Organization Unknown Care Team Providers Care Pigment Mixer Name Role Phone MEIR GARVIN, JAIR Unavailable Unavailab Cordova RN, REJI Unavailable Unavailable LEVI COFFEYN, ESPERANZA Unavailable Unavailbravo NORTH PT, CHAD Unavailable Unavailable VIRGINIE INTERTYPE OPERATOR, VAZQUEZ Unavailable Unavailable PARAMJIT KOTHARI, JEANNA Unavailable Unavailable Payers Payer Name Policy Type Policy Number Effective Date Expira tion Date MEDICARE.NGS.PDGM [id number] Problems Condition Name Condition Details Condition Category [...] ON SUPPLEMENTAL OXYGEN Active 2024-08 00:00: 00 COREMAKER HELPER (CURRENT) USE OF INHALED STEROIDS Active 2024-08 00:00: 00 FPC (CURRENT) USE OF ANTICOAGULAN TS Active 2024-08 00:00: 00 FPC (CURRENT) USE OF ANTIBIOTICS Active 2024-08 00:00: [...] SYSTEM MANAGEMENT; RN TO ASSESS AND TEACH, EDITOR PRODUCER/WHARF ATTENDANT TO OBSERVE AND TEACH RELATED TO ALTERED RESPIRATORY STATUS TO MINIMIZE COMPLICATIONS AND REDUCE HOSPITALIZATION. [code = RESPIRATORY SYSTEM MANAGEMENT; RN TO ASSESS AND TEACH, EDITOR PRODUCER/WHARF ATTENDANT TO OBSERVE AND TEACH RELATED TO ALTERED RESPIRATORY STATUS TO MINIMIZE COMPLICATIONS AND REDUCE HOSPITALIZATION.] Future Scheduled Test COPD MANAG EMENT; RN TO ASSESS AND TEACH, EDITOR PRODUCER/WHARF ATTENDANT TO OBSERVE AND TEACH SIGNS/SYMPTOMS OF COPD EXACERBATION AND PROVIDE EARLY INTERVENTIONS TO MINIMIZE RISK OF HOSPITALIZATION. RN/EDITOR PRODUCER/WHARF ATTENDANT TO INSTRUCT ON SELF-CARE MANAGEMENT INCLUDING BREATHING TECHNIQUES, AIRWAY CLEARANCE, AND PROPER USE OF COPD MEDICATIONS. RN TO ASSESS AND TEACH, EDITOR PRODUCER/WHARF ATTENDANT TO OBSERVE AND TEACH PATIENT/CAREGIVER ABILITY TO MONITOR AND RECORD VITAL SIGNS INCLUDING PULSE OXIMETRY AND BLOOD PRESSURE. PULSE OXIMETER AND BP MONITOR TO BE PROVIDED IF NEEDED [code = COPD MANAGEMENT; RN TO ASSESS AND TEACH, EDITOR PRODUCER/WHARF ATTENDANT TO OBSERVE AND TEACH SIGNS/SYMPTOMS OF COPD EXACERBATION AND PROVIDE EARLY INTERVENTIONS TO MINIMIZE RISK OF HOSPITALIZATION. RN/EDITOR PRODUCER/WHARF ATTENDANT TO INSTRUCT ON SELF-CARE MANAGEMENT INCLUDING BREATHING TECHNIQUES, AIRWAY CLEARANCE, AND PROPER USE OF COPD MEDICATIONS. RN TO ASSESS AND TEACH, EDITOR PRODUCER/WHARF ATTENDANT TO OBSERVE AND TEACH PATIENT/CAREGIVER ABILITY TO MONITOR AND RECORD VITAL SIGNS INCLUDING PULSE OXIMETRY AND BLOOD PRESSURE. PULSE OXIMETER AND BP MONITOR TO BE PROVIDED IF NEEDED] Future Scheduled Test OXYGEN THE RAPY; RN/EDITOR PRODUCER/WHARF ATTENDANT TO INSTRUCT ON OXYGEN MANAGEMENT INCLUDING: ADMINISTRATION AT 2 L/MIN VIA NC CONTINUOUS FOR HYPOXIA, CARE OF EQUIPMENT AND SAFETY. [code = OXYGEN THERAPY; RN/EDITOR PRODUCER/WHARF ATTENDANT TO INSTRUCT ON OXYGEN MANAGEMENT INCLUDING: ADMINISTRATION AT 2 L/MIN VIA NC CONTINUOUS FOR HYPOXIA, CARE OF EQUIPMENT AND SAFETY.] Future Scheduled Test FALL REDUC TION MANAGEMENT; RN TO ASSESS AND OBSERVE, EDITOR PRODUCER/WHARF ATTENDANT TO OBSERVE FALL RISK FACTORS AND EDUCATE PATIENT/CAREGIVER ON STRATEGIES TO MINIMIZE THE RISK OF FALLING. [code = FALL REDUCTION MANAGEMENT; RN TO ASSESS AND OBSERVE, EDITOR PRODUCER/WHARF ATTENDANT TO OBSERVE FALL RISK FACTORS AND EDUCATE PATIENT/CAREGIVER ON STRATEGIES TO MINIMIZE THE RISK OF FALLING.] Future Scheduled Test RN TO OBSE RVE, ASSESS, EVALUATE, AND DEVELOP AN INDIVIDUALIZED PLAN OF CARE. AGENCY MAY ACCEPT ORDERS FROM CONSULTING PHYSICIANS RN TO OBSERVE AND ASSESS, EDITOR PRODUCER/WHARF ATTENDANT TO OBSERVE FOR RISK FOR FALLS AND INSTRUCT IN FALL PREVENTION, HOME SAFETY, MEDICATION MANAGEMENT, INFECTION PREVENTION, AND NUTRITION MANAGEMENT. RN/EDITOR PRODUCER/WHARF ATTENDANT NURSE MAY PERFORM O2 SATURATION LEVEL ON ADMISSION AND PRN FOR RESP STATUS CHANGES FOR RN TO ASSESS/EDITOR PRODUCER TO OBSERVE PATIENT, WITH NOTIFICATION TO THE PHYSICIAN IF SATURATION IS 90% IN THE ABSENCE OF MORE SPECIFIC PARAMETERS FROM THE PHYSICIAN. AGENCY MAY PERFORM A RESUMPTION OF CARE VISIT FOLLOWING ANY HOSPITAL ADMISSION. RN/EDITOR PRODUCER/WHARF ATTENDANT TO MONITOR CO-MORBID CONDITIONS LISTED ON THE PLAN OF CARE AND ANY NEW CONDITIONS THAT PRESENT THEMSELVES DURING THIS EPISODE TO IDENTIFY CHANGES AND INTERVENE TO MINIMIZE COMPLICATIONS. [code = RN TO OBSERVE, ASSESS, EVALUATE, AND DEVELOP AN INDIVIDUALIZED PLAN OF CARE. AGENCY MAY ACCEPT ORDERS FROM CONSULTING PHYSICIANS RN TO OBSERVE AND ASSESS, EDITOR PRODUCER/WHARF ATTENDANT TO OBSERVE FOR RISK FOR FALLS AND INSTRUCT IN FALL PREVENTION, HOME SAFETY, MEDICATION MANAGEMENT, INFECTION PREVENTION, AND NUTRITION MANAGEMENT. RN/EDITOR PRODUCER/WHARF ATTENDANT NURSE MAY PERFORM O2 SATURATION LEVEL ON ADMISSION AND PRN FOR RESP STATUS CHANGES FOR RN TO ASSESS/EDITOR PRODUCER TO OBSERVE PATIENT, WITH NOTIFICATION TO THE PHYSICIAN IF SATURATION IS 90% IN THE ABSENCE OF MORE SPECIFIC PARAMETERS FROM THE PHYSICIAN. AGENCY MAY PERFORM A RESUMPTION OF CARE VISIT FOLLOWING ANY HOSPITAL ADMISSION. RN/EDITOR PRODUCER/WHARF ATTENDANT TO MONITOR CO-MORBID CONDITIONS LISTED ON THE PLAN OF CARE AND ANY NEW CONDITIONS THAT PRESENT THEMSELVES DURING THIS EPISODE TO IDENTIFY CHANGES AND INTERVENE TO MINIMIZE COMPLICATIONS.] Future Scheduled Test PAIN MANAG EMENT; RN TO ASSESS AND TEACH, WHARF ATTENDANT/EDITOR PRODUCER TO OBSERVE AND TEACH AND PROVIDE EDUCATION ON PAIN MANAGEMENT TECHNIQUES. [code = PAIN MANAGEMENT; RN TO ASSESS AND TEACH, WHARF ATTENDANT/EDITOR PRODUCER TO OBSERVE AND TEACH AND PROVIDE EDUCATION ON PAIN MANAGEMENT TECHNIQUES.] Future Scheduled Test RISK FOR H OSPITALIZATION; RN TO ASSESS/TEACH, WHARF ATTENDANT/EDITOR PRODUCER TO OBSERVE/TEACH PATIENT/CAREGIVER ON RISK FOR HOSPITALIZATION/EMERGENCY ROOM VISITS, TEACH SIGNS AND SYMPTOMS THAT PUT PATIENT AT RISK, WHEN TO NOTIFY NURSE/PHYSICIAN OF COMPLICATIONS/DECLINE, AND WHEN TO CALL 911. [code = RISK FOR HOSPITALIZATION; RN TO ASSESS/TEACH, WHARF ATTENDANT/EDITOR PRODUCER TO OBSERVE/TEACH PATIENT/CAREGIVER ON RISK FOR HOSPITALIZATION/EMERGENCY ROOM VISITS, TEACH SIGNS AND SYMPTOMS THAT PUT PATIENT AT RISK, WHEN TO NOTIFY NURSE/PHYSICIAN OF COMPLICATIONS/DECLINE, AND WHEN TO CALL 911.] Future Scheduled Test CARDIOVASC ULAR SYSTEM; RN TO ASSESS/TEACH, EDITOR PRODUCER/WHARF ATTENDANT TO OBSERVE/TEACH RELATED TO ALTERED CARDIOVASCULAR STATUS TO MINIMIZE COMPLICATIONS AND REDUCE HOSPITALIZATION. [code = CARDIOVASCULAR SYSTEM; RN TO ASSESS/TEACH, EDITOR PRODUCER/WHARF ATTENDANT TO OBSERVE/TEACH RELATED TO ALTERED CARDIOVASCULAR STATUS TO MINIMIZE COMPLICATIONS AND REDUCE HOSPITALIZATION.] Future Scheduled Test HEART FAIL URE; RN TO ASSESS/TEACH, EDITOR PRODUCER/WHARF ATTENDANT TO OBSERVE/TEACH CARDIOPULMONARY SYSTEM TO IDENTIFY SIGNS [...] [code = HEART FAILURE; RN TO ASSESS/TEACH, EDITOR PRODUCER/WHARF ATTENDANT TO OBSERVE/TEACH CARDIOPULMONARY SYSTEM TO IDENTIFY SIGNS [...] IF NEEDED.] Future Scheduled Test MEDICATION MANAGEMENT; RN/EDITOR PRODUCER/WHARF ATTENDANT TO REVIEW MEDICATIONS FOR INTERACTIONS, EFFECTIVENESS OF DRUG THERAPY, AND SIGNS/SYMPTOMS OF ADVERSE REACTIONS. MAY INSTRUCT AND REINFORCE MEDICATION TEACHING RELATED TO THE USE OF MEDICATIONS, DOSAGE, FREQUENCY, PURPOSE, SIDE EFFECTS, AND TO REPORT COMPLICATIONS. [code = MEDICATION MANAGEMENT; RN/EDITOR PRODUCER/WHARF ATTENDANT TO REVIEW MEDICATIONS FOR INTERACTIONS, EFFECTIVENESS OF [...] 2025-08-13 00:00:00 Outpatient READMISSIO N PARAMJIT, JEANNA FORMERLY [facility] [place] [id number] .
== END 2025-06-28 09:18 | disposition home or self-care (01) ==
LOC: HO.LAB 09:17
PROVIDERS: PCP Internal Medicine; Visit Provider Internal Medicine
DX: I10 Essential (primary) hypertension (principal)
CPT/HCPCS: 36415; 80048; 80076; 84443; 85027

== ENCOUNTER 2025-07-10 09:13 | Outpatient (AMB) | payer MEDICARE, MEDICAID, SELFPAY ==
[2025-07-10 09:54] VITALS: BP 92/64; PULSE 87; O2SAT 93
--- NOTE | 2025-07-10 09:54 | MHC.OFFVIS ---
Vital Signs 07/10/25 09:54 Height 5 ft 4 in BP 92/64 Blood Pressure Location Lt brachial Position Sitting Pulse 87 Pulse Source Pulse Oximeter Pulse Oximetry (%) 93 Oxygen Delivery Method Nasal Cannula Oxygen Flow Rate 5 Intake Visit Reasons: Cough Intake Note: pt is here for follow up and states her breathing is better, back is still bad, and suggestions on putting on weight. Vice President Of Compliance Required: No Automatic Pilot Mechanic: Automatic Pilot Mechanic offered & declined Allergies penicillin G Allergy (Severe, Verified 07/10/25 09:58) Anaphylaxis Sulfa (Sulfonamide Antibiotics) Allergy (Severe, Verified 07/10/25 09:58) Anaphylaxis cat dander (CATS) Allergy (Unknown, Verified 07/10/25 09:58) MUCOUS FORMATION, asthma dog dander (DOGS) Allergy (Unknown, Verified 07/10/25 09:58) MUCOUS FORMATION, asthma egg Allergy (Unknown, Verified 07/10/25 09:58) Wheezing house dust (HOUSE DUST) Allergy (Unknown, Verified 07/10/25 09:58) MUCOUS FORMATION, asthma milk (MILK) Allergy (Unknown, Verified 07/10/25 09:58) MUCOUS FORMATION mold Allergy (Unknown, Verified 07/10/25 09:58) MUCOUS FORMATION, asthma tree and shrub pollen (TREES) Allergy (Unknown, Verified 07/10/25 09:58) MUCOUS FORMATION TO CERTAIN TREES, asthma yeast, dried (yeast) Allergy (Unknown, Verified 07/10/25 09:58) MUCOUS FORMATION, asthma Medication List - Last Reconciled 07/10/25 by Tam Townsend MD acetaminophen 1,000 mg (2 x 500 mg) PO Q6H PRN apixaban (Eliquis) 5 mg PO BID azithromycin 250 mg PO MOWEFR@1000 baclofen 10 mg PO TID PRN 20 days Breo Ellipta 200-25 mcg/dose (fluticasone furoate-vilanterol) 1 ea inhalation DAILY NS calcium carbonate (Calcium 600) 600 mg PO BID cholecalciferol (vitamin D3) (Vitamin D3) 25 mcg PO DAILY guaifenesin ER (Mucinex) 600 mg PO BID hydrocortisone 2.5% (Proctosol HC) 1 appl [place] BID-QID PRN Incruse Ellipta 62.5 mcg/actuation (umeclidinium) 1 inh inhalation DAILY NS levalbuterol tartrate 45 mcg/actuation 2 puffs PO Q4-6H PRN lorazepam (Ativan) 0.5 mg PO BEDTIME PRN 30 days metoprolol tartrate 12.5 mg (1/2 x 25 mg) PO BID 30 days prednisone See Taper mg PO DIRECTED vit C,Y-Cu-pbbqu-lutein-zeaxan 250-90-40-1 mg (PreserVision AREDS-2) 1 tab PO BID walker (Ultra-Light Rollator misc) As directed Do you need a note to return to daycare/school/sports/work: No HPI HPI Cough: Details: THIS 80 YEARS OLD FEMALE WITH ADVANCED CHRONIC OBSTRUCTIVE PULMONARY DISEASE, ALSO HAS CHRONIC DIASTOLIC HEART FAILURE/PULMONARY HYPERTENSION. DURING MIDDLE OF MAY SHE WAS ADMITTED TO THE HOSPITAL WITH INCREASED CONGESTIVE HEART FAILURE. EMPIRICALLY ALSO TREATED FOR ACUTE EXACERBATION OF COPD WITH ANTIBIOTICS AND A COURSE OF IV STEROIDS, FOLLOWED BY SLOW TAPER OF PREDNISONE. BECAUSE OF DIAGNOSIS OF PULMONARY HYPERTENSION SHE HAD WORKUP WITH [facility] AND THERE WAS NO EVIDENCE OF PULMONARY EMBOLI. HOWEVER SHE WAS STARTED ON ANTICOAGULATION WITH ELIQUIS. TODAY SHE CLAIMS THAT SHE IS MORE AT BASELINE, BUT STILL FEELS WEAK, WHEN GOING OUTDOORS SHE NEEDS A WHEELCHAIR, AT HOME SHE DOES MOVE AROUND WITH A WALKER. SHE IS ON O2 CONTINUOUSLY 2 L/MINUTE. SHE DENIES ANY ACUTE DISTRESS, BUT CONTINUES TO HAVE MARKED GENERALIZED WEAKNESS. [facility] Medical History Hypotension arterial Chronic back pain Acute exacerbation of CHF (congestive heart failure) Acute on chronic hypoxic respiratory failure Environmental allergies Seasonal allergies Osteoporosis Hemorrhoids Oxygen dependent Respiratory failure with hypoxia Pulmonary nodules/lesions, multiple Anxiety disorder Screening for diabetes mellitus Acute anxiety Anxiety Asthma Allergic rhinitis COPD (chronic obstructive pulmonary disease) Surgical History History of colonoscopy (~05/25/22) History of cataract surgery History of right hip replacement Family History Mother No problems noted. Father No problems noted. Social History Household Members: Spouse Housing: House Are you a primary live in caregiver to a significant other at home: No Do you presently have visiting nurse or other home services: No Alcohol intake: current Alcohol intake frequency: holidays/special occasions only Patient Tobacco Use Status: Never used Tobacco Tobacco use type: Cigarette e-Cigarette/Vaping Use: Never Used Second Hand Smoke Exposure: Yes service: No Current occupational status: retired Cognitive needs: No Hearing needs: No Vision needs: Yes (Glasses) Review of Systems Const All systems reviewed & are unremarkable except as noted in HPI and below Eyes Reports no additional complaints ENT Reports nasal congestion (Mild off and) Card Reports no additional complaints Resp Reports as per HPI GI Reports no additional complaints Reports no additional complaints Musc Reports back pain (Chronic stable) Skin/Breast Reports system reviewed and no additional complaints, except as documented Neuro Reports no additional complaints Psych Reports anxiety (Under control) Physical Exam Const General: comfortable, no acute distress, alert and awake Orientation/consciousness: patient oriented x3 HEENT Head: Yes normal to inspection General nose exam: No nasal polyps present and No nasal discharge present Face and sinus: Yes sinuses nontender Mouth: oropharynx normal Throat: Yes posterior oropharynx normal Eyes General: appearance normal, both eyes and all related structures Neck Neck: Yes normal visual inspection, Yes no lymphadenopathy, Yes trachea midline and Yes no JVD Thyroid: Thyroid normal Chest Chest palpation & inspection: normal inspection of the chest, normal palpation of entire chest wall and tenderness (Mild tenderness over the right lower ribcage, extending from the mid back.) Resp Other: Percussion note hyper-resonant, she has equal breath sounds on both sides with prolonged expiratory phase. No Rhonchi or Creps or wheezes . Cardio Palpation: normal PMI Rate: regular rate Rhythm: abnormal rhythm (ATRIAL FIBRILLATION) Heart sounds: no gallops and no murmurs GI Palpation (GI): Soft to palpation, nontender, No hepatosplenomegaly present and no masses Auscultation: normal bowel sounds Back/Spine/Pelvis Thoracic/Lumbar Spine: thoracic and lumbar spine normal to inspection, kyphosis (Moderate kyphosis of the thoracic spine.) and thoraco-lumbar ROM limited Skin General skin exam: no rashes or lesions noted Neuro General: patient oriented x3 and no focal motor deficits Cranial nerves: Yes CN's II-XII intact bilaterally Extrem General: Yes normal to inspection, Yes no clubbing, cyanosis or edema and Yes no calf tenderness Psych Speech and movement: Normal speech and movement present Affect: Anxious affect present (Controlled) Assessment & Plan Assessment & Plan (1) COPD exacerbation: Comment: NOTED IN THE HISTORY PATIENT WAS TREATED FOR ACUTE EXACERBATION OF COPD ( EMPIRICALLY ) while she was admitted with acute exacerbation of congestive heart failure. She has finished the prednisone taper, she is on her usual respiratory medications. Currently doing okay without any extra heart then we cough or wheezing. Code(s): J44.1 - Chronic obstructive pulmonary disease with (acute) exacerbation Category: Medical Plan: Continue the present medical regimen which is as follows, Incruse Ellipta 1 inhalation daily Breo Ellipta being changed to Advair 250-50 1 inhalation b.i.d. ( as per insurance coverage) Levalbuterol-452 puffs Q 4-6 hours prn Mucinex 600 mg b.i.d. Oxygen 2 L/minute (2) Pulmonary nodules/lesions, multiple: Comment: She has multiple but small size nodules. Being followed by annual CT scan Code(s): R91.8 - Other nonspecific abnormal finding of lung field Category: Medical Plan: Continue annual CT scan (3) Anxiety disorder: Comment: Has chronic anxiety. Has used anxiolytic agents in the past but not now. She gets panic-like attacks now and then, without any reason. Code(s): F41.9 - Anxiety disorder, unspecified Category: Medical Plan: Lorazepam 0.5 mg b.i.d. p.r.n. (4) Acute exacerbation of CHF (congestive heart failure): Comment: Recent hospitalization was due to acute on chronic congestive heart failure, ( diastolic congestive heart failure) It is relatively stable at present Code(s): I50.9 - Heart failure, unspecified Category: Medical Qualifiers: Heart failure type: unspecified Qualified Code(s): I50.9 - Heart failure, unspecified Plan: Eliquis 5 mg b.i.d. Metoprolol 12.5 mg b.i.d. Diuretic( furosemide ) in small dose only PRN (5) Pulmonary hypertension: Comment: She has pulmonary hypertension secondary to advanced chronic obstructive pulmonary disease, chronic hypoxemia, as well as cardiac disease, Code(s): I27.20 - Pulmonary hypertension, unspecified Category: Medical Plan: She will continue all the present treatment plan as noted above, Continue oxygen therapy. Patient is not candidate for any advanced anti hypertension treatment Coding Level of Care Code Est Pt Level 4 (26786) Diagnoses COPD exacerbation J44.1 Pulmonary nodules/lesions, multiple R91.8 Anxiety disorder F41.9 Acute on chronic congestive heart failure, unspecified heart failure type I50.9 Heart failure type: unspecified Pulmonary hypertension I27.20
--- OUTSIDE RECORDS SUMMARY | 2025-07-10 10:03 | XMS_ITS | Clinical Summary ---
Author Organization [facility] Address [address] [place] [phone] Phone Care Team Providers Care Registered Nurse Cardiac Telemetry Name Role Phone Sanjiv Buck MD Primary [...] on patient's age to complete this topic IPV VACCINES Aged Out No longer eligi ble [...] B [place] & B [facility] [place] B [facility] PART A & B [place] & [place] & [place] PART [place] & B [facility] [place] [phone] Care Teams Registered Nurse Cardiac Telemetry Relationship Specialty Start Date End Date Sanjiv Buck MD [address] [place] [address] PCP - General Internal Medicine 03/10/22 Additional Source Comments The information contained in this document represents components of the legal health record. It is not the complete legal health record.[facility]
== END 2025-07-10 10:32 | disposition home or self-care (01) ==
PROVIDERS: PCP Internal Medicine; Visit Provider Internal Medicine
DX: J44.1 Chronic obstructive pulmonary disease with (acute) exacerbation (principal); R91.8 Other nonspecific abnormal finding of lung field; F41.9 Anxiety disorder, unspecified; I50.9 Heart failure, unspecified; I27.20 Pulmonary hypertension, unspecified
CPT/HCPCS: 99214

== ENCOUNTER → 2025-07-10 09:13 | Outpatient (BNVA) | payer MEDICARE, MEDICAID, SELFPAY | PROVIDERS: PCP Internal Medicine; Visit Provider Internal Medicine | DX: J44.1 Chronic obstructive pulmonary disease with (acute) exacerbation (principal); I50.32 Chronic diastolic (congestive) heart failure; Z99.81 Dependence on supplemental oxygen; I27.20 Pulmonary hypertension, unspecified; R91.8 Other nonspecific abnormal finding of lung field; Z79.01 Long term (current) use of anticoagulants; F41.9 Anxiety disorder, unspecified | CPT/HCPCS: 99212 ==

== ENCOUNTER 2025-07-12 08:23 | Outpatient (AMB) | payer MEDICARE, MEDICAID, SELFPAY ==
--- OUTSIDE RECORDS SUMMARY | 2025-07-12 08:35 | XMS_ITS | Clinical Summary ---
Author Organization [facility] Address [address] [place] [address] Phone Care Team Providers Care Control Board Operator Name Role Phone Sanjiv Buck MD Primary [...] [place] & B [facility] [place] & B [facility] PART A & [place] & [place] & [place] [phone] Care Teams Control Board Operator Relationship Specialty Start Date End Date Sanjiv Buck MD [address] [place] [phone] PCP - General Internal Medicine 03/10/22 Additional Source Comments The information contained in this document represents components of the legal health record. It is not the complete legal health record.[facility]
--- OUTSIDE RECORDS SUMMARY | 2025-07-12 08:35 | XMS_ITS ---
Author Organization Unknown ENCOUNTERS Encounter Performer Location Date Diagnosis Diagnosis Status Inpatient [facility] [address] [place] [address] [id number] [facility] Emergency Adrian PhoebeIsreal [facility] [address] [place] [id number] GOLD Pre [facility] ED Physician [facility] [address] [place] [address] [id number] Inpatient Khalida Amena [facility] [address] [place] [address] [id number] GOLD Emergency [facility] [address] [place] [address] [id number] Pre Admit [facility] [address] [place] [address] [id number] Pre Admit [facility] [address] [place] [address] [id number] Outpatient [facility] [address] [place] [address] [id number] Emergency [facility] [address] [place] [address] [id number] GOLD *Note: Encounters from your own facility or health system may be excluded. Allergies, Adverse Reactions, Alerts Allergen Type Severity Identification Date dog dander drug allergy [id number] yeast, dried drug allergy [id number] tree and shrub pollen drug allergy [id number] 23 cat dander drug allergy [id number] penicillin G drug allergy [id number] Medications Name Date Quantity Days Supplied GPI Number
--- NOTE | 2025-07-12 08:47 | MHC.OFFVIS ---
Vital Signs 07/12/25 08:54 Height 5 ft 4 in BMI Reason not done Patient refused/unable BP 90/62 Blood Pressure Location Lt brachial Position Sitting Pulse 94 Pulse Source Monitor Intake Visit Reasons: Follow up- swelling in legs/ heavy breathing T[employer] Wear Required: No Accompanied by: Son Allergies penicillin G Allergy (Severe, Verified 07/10/25 09:58) Anaphylaxis Sulfa (Sulfonamide Antibiotics) Allergy (Severe, Verified 07/10/25 09:58) Anaphylaxis cat dander (CATS) Allergy (Unknown, Verified 07/10/25 09:58) MUCOUS FORMATION, asthma dog dander (DOGS) Allergy (Unknown, Verified 07/10/25 09:58) MUCOUS FORMATION, asthma egg Allergy (Unknown, Verified 07/10/25 09:58) Wheezing house dust (HOUSE DUST) Allergy (Unknown, Verified 07/10/25 09:58) MUCOUS FORMATION, asthma milk (MILK) Allergy (Unknown, Verified 07/10/25 09:58) MUCOUS FORMATION mold Allergy (Unknown, Verified 07/10/25 09:58) MUCOUS FORMATION, asthma tree and shrub pollen (TREES) Allergy (Unknown, Verified 07/10/25 09:58) MUCOUS FORMATION TO CERTAIN TREES, asthma yeast, dried (yeast) Allergy (Unknown, Verified 07/10/25 09:58) MUCOUS FORMATION, asthma Medication List - Last Reconciled 07/12/25 by LEIDY Samuel acetaminophen 1,000 mg (2 x 500 mg) PO Q6H PRN apixaban (Eliquis) 5 mg PO BID azithromycin 250 mg PO MOWEFR@1000 baclofen 10 mg PO TID PRN 20 days Breo Ellipta 200-25 mcg/dose (fluticasone furoate-vilanterol) 1 ea inhalation DAILY NS calcium carbonate (Calcium 600) 600 mg PO BID cholecalciferol (vitamin D3) (Vitamin D3) 25 mcg PO DAILY furosemide 20 mg PO BID guaifenesin ER (Mucinex) 600 mg PO BID hydrocortisone 2.5% (Proctosol HC) 1 appl IN BID-QID PRN Incruse Ellipta 62.5 mcg/actuation (umeclidinium) 1 inh inhalation DAILY NS levalbuterol tartrate 45 mcg/actuation 2 puffs PO Q4-6H PRN lorazepam (Ativan) 0.5 mg PO BEDTIME PRN 30 days metoprolol tartrate 12.5 mg (1/2 x 25 mg) PO BID 30 days vit C,H-Xm-lzpsu-lutein-zeaxan 250-90-40-1 mg (PreserVision AREDS-2) 1 tab PO BID walker (Ultra-Light Rollator misc) As directed HPI HPI Follow up- swelling in legs/ heavy breathing: Details: The patient is a 80-year-old female presenting with leg swelling and shortness of breath. She has known history of diastolic heart failure, pulmonary hypertension and COPD, with an last echocardiogram showing normal EF and severe pulmonary hypertension. Recent [facility] admission for increased shortness of breath. She was treated for COPD exacerbation and hypotension, thought to be dehydrated. her Lasix was changed to PRN. She has a newer finding of paroxysmal atrial fibrillation in his treated with low-dose metoprolol for rate control and Eliquis for anticoagulation. She has not had any bleeding issues. She has chronic shortness of breath but feels that her breathing has been stable recently. She is not having leg edema at this time. She did take a dose of Lasix a few days ago when her legs looked more swollen to her. She dislikes taking it due to frequent urination. She is not having chest discomfort, lightheadedness, falls. She does notice heart palpitations at times. Has been present [facility] Medical History Hypotension arterial Chronic back pain Acute exacerbation of CHF (congestive heart failure) Acute on chronic hypoxic respiratory failure Environmental allergies Seasonal allergies Osteoporosis Hemorrhoids Oxygen dependent Respiratory failure with hypoxia Pulmonary nodules/lesions, multiple Anxiety disorder Screening for diabetes mellitus Acute anxiety Anxiety Asthma Allergic rhinitis COPD (chronic obstructive pulmonary disease) Surgical History History of colonoscopy (~05/25/22) History of cataract surgery History of right hip replacement Family History Mother No problems noted. Father No problems noted. Social History Household Members: Spouse Housing: House Are you a primary intensive care specialist to a significant other at home: No Do you presently have visiting nurse or other home services: No Alcohol intake: current Alcohol intake frequency: holidays/special occasions only Patient Tobacco Use Status: Never used Tobacco Tobacco use type: Cigarette e-Cigarette/Vaping Use: Never Used Second Hand Smoke Exposure: Yes service: No Current occupational status: retired Cognitive needs: No Hearing needs: No Vision needs: Yes (Glasses) Review of Systems Const All systems reviewed & are unremarkable except as noted in HPI and below Denies chills, Denies fatigue, Denies fever(s), Denies frequent falls, Denies weakness, Denies weight gain and Denies weight loss ENT Denies dizziness Card Denies chest pain, Denies leg edema, Denies lightheadedness, Reports palpitations, Reports dyspnea and Reports dyspnea on exertion Resp Denies cough, Reports dyspnea and Reports dyspnea on exertion GI Denies hematochezia Musc Denies abnormal gait, Reports muscle weakness, Denies numbness, Denies radiating pain into limb and Denies tingling Neuro Denies abnormal gait, Denies dizziness, Denies frequent falls, Denies numbness, Denies tingling and Denies weakness Endo Denies fatigue and Reports palpitations Physical Exam Vital Signs: Last Vital Signs Pulse 94 07/12/25 08:54 BP 90/62 07/12/25 08:54 Const Other: Frail elderly female sitting in wheelchair, oxygen with nasal cannula General: cooperative, comfortable and no acute distress Orientation/consciousness: patient oriented x3 Neck Neck: Yes normal visual inspection Resp Effort & Inspection: normal respiratory effort Auscultation: no crackles, no rhonchi and no wheezes Cardio Rate: regular rate Rhythm: regular rhythm Heart sounds: S1 normal heart sound present, S2 normal heart sound present, no gallops, no murmurs and no rubs Neuro General: patient oriented x3 Extrem General: Yes normal to inspection Psych Appearance: grossly normal Mental Status: mental status grossly normal Speech and movement: Normal speech and movement present Office Procedures EKG Details: Today, read by me, normal sinus rhythm, right axis deviation, QTC 418 milliseconds, rate 89 [id number], Complete Assessment & Plan Assessment & Plan (1) Chronic diastolic heart failure: Code(s): I50.32 - Chronic diastolic (congestive) heart failure Category: Medical Plan: History of chronic diastolic heart failure. Last echocardiogram 06/10/2025 showed EF 60-65%, elevated filling pressures, normal RV size and function, severe pulmonary hypertension. She does not appear fluid overloaded on exam today. She has chronic shortness of breath from her COPD, O2 dependent. She continues on Lasix PRN since her hospital discharge. Reviewed Lasix use for shortness of breath, weight gain over 3 lb or leg edema. (2) Pulmonary hypertension: Comment: She has pulmonary hypertension secondary to advanced chronic obstructive pulmonary disease, chronic hypoxemia, as well as cardiac disease, Code(s): I27.20 - Pulmonary hypertension, unspecified Category: Medical Plan: Follows closely with pulmonology (3) Hypertension: Code(s): I10 - Essential (primary) hypertension Category: Medical Qualifiers: Hypertension type: unspecified Qualified Code(s): I10 - Essential (primary) hypertension Plan: Blood pressure goal less than 130/80. Blood pressure on low side today. She is on a low dose of metoprolol to help with her atrial fibrillation rates. Reviewed the need for good hydration and monitoring for fluid retention. (4) Paroxysmal A-fib: Code(s): I48.0 - Paroxysmal atrial fibrillation Category: Medical Plan: Newer finding of paroxysmal atrial fibrillation treated with rhythm control using low-dose metoprolol. She is on Eliquis for anticoagulation without bleeding issues. EKG done today showing normal sinus rhythm. She does report intermittent heart palpitations. Will check Holter monitor to assess for breakthrough AFib. (5) Palpitations: Code(s): R00.2 - Palpitations Category: Medical Plan: As above (6) Hospital discharge follow-up: Code(s): Z09 - Encounter for follow-up examination after completed treatment for conditions other than malignant neoplasm Category: Medical Plan: Hospital discharge notes reviewed Plan I discussed with the patient the importance of monitoring symptoms of heart failure and COPD, emphasizing the need for regular follow-ups to adjust treatment as necessary. We reviewed the use of diuretics for fluid management and the role of Eliquis in preventing complications from atrial fibrillation. The patient was informed about the heart monitor to track atrial fibrillation episodes and the importance of seeking medical attention for any signs of bleeding. Orders: Orders ECG 3 day holter monitor Today I48.0 - Paroxysmal atrial fibrillation, R00.2 - Palpitations Patient Instructions: - Monitor leg swelling and use diuretics as needed. - Use rescue inhaler for wheezing and monitor respiratory symptoms. - Continue Eliquis and watch for signs of bleeding. - Attend follow-up appointments to assess heart function and COPD management. - Use heart monitor as instructed to track atrial fibrillation. Patient was informed and verbally consented to the use of an ambient scribe for clinic note documentation during this visit. Visit time spent on chart review, interview, assessment, orders, documentation. Coding Level of Care Code Est Pt Level 4 (28518) Complex EM visit Add On G2211 Diagnoses Chronic diastolic heart failure I50.32 Pulmonary hypertension I27.20 Hypertension, unspecified type I10 Hypertension type: unspecified Paroxysmal A-fib I48.0 Palpitations R00.2 Hospital discharge follow-up Z09 CPT Codes EKG - CPT: 65794-[id number], Complete ([id number]) Time Spent (min) 30
[2025-07-12 08:54] VITALS: BP 90/62; PULSE 94
== END 2025-07-12 09:24 | disposition home or self-care (01) ==
PROVIDERS: PCP Internal Medicine; Visit Provider Nurse Practitioner Family
DX: I50.32 Chronic diastolic (congestive) heart failure (principal); I27.20 Pulmonary hypertension, unspecified; I10 Essential (primary) hypertension; I48.0 Paroxysmal atrial fibrillation; R00.2 Palpitations; Z09 Encounter for follow-up examination after completed treatment for conditions other than malignant neoplasm
CPT/HCPCS: 93010; 99214; G2211

== ENCOUNTER → 2025-07-12 08:23 | Outpatient (BNVA) | payer MEDICARE, MEDICAID, SELFPAY | PROVIDERS: PCP Internal Medicine; Visit Provider Nurse Practitioner Family | DX: I48.0 Paroxysmal atrial fibrillation (principal); I27.20 Pulmonary hypertension, unspecified; R06.02 Shortness of breath; Z79.01 Long term (current) use of anticoagulants; Z09 Encounter for follow-up examination after completed treatment for conditions other than malignant neoplasm; Z99.81 Dependence on supplemental oxygen; I11.0 Hypertensive heart disease with heart failure; I50.32 Chronic diastolic (congestive) heart failure; R00.2 Palpitations | CPT/HCPCS: 93005; 99212 ==

== ENCOUNTER → 2025-07-23 09:43 | Outpatient (REF) | payer MEDICARE, MEDICAID, SELFPAY ==
--- OUTSIDE RECORDS SUMMARY | 2025-07-23 11:19 | XMS_ITS | Clinical Summary ---
Author Organization [facility] Address [address] [place] [phone] Phone Care Team Providers Care Train Station Server Name Role Phone Sanjiv Buck MD Primary [...] [place] & [place] [facility] [place] B [facility] MEDIC[facility] PART A & B Member Subscriber Plan / Payer (Ef fective 2012-Present) Name:Maritza Maharaj Member ID:[id number] Relation to Subscriber:Self Name:Maritza Maharaj Subscriber ID:[id number] Payer ID:[id number] Group ID:Not on file Type:Medicare Address: [place] [address] [place] [phone] [facility] & B [facility] Care Teams Train Station Server Relationship Specialty Start Date End Date Sanjiv Buck MD [address] [place] [id number] PCP - General Internal Medicine 03/10/22 Additional Source Comments The information contained in this document represents components of the legal health record. It is not the complete legal health record.[facility]
== END ==
LOC: HO.CARD 09:43
PROVIDERS: Visit Provider Nurse Practitioner Family
DX: R00.2 Palpitations (principal); I48.0 Paroxysmal atrial fibrillation
CPT/HCPCS: 93242

== ENCOUNTER → 2025-07-23 09:46 | Outpatient (BNV) | payer MEDICARE, MEDICAID, SELFPAY | PROVIDERS: Visit Provider Internal Medicine | DX: I49.3 Ventricular premature depolarization (principal); I49.49 Other premature depolarization | CPT/HCPCS: 93244 ==

== ENCOUNTER 2025-08-08 08:54 | Outpatient (AMB) | payer MEDICARE, MEDICAID, SELFPAY ==
[2025-08-08 09:03] VITALS: BP 140/80; PULSE 86; O2SAT 90; BMI 17.8
--- NOTE | 2025-08-08 09:03 | A.OFFVIS_ITS ---
Vital Signs 08/08/25 09:03 Height 5 ft 4 in Weight 103 lb 9.876 oz BMI 17.8 BP 140/80 H Blood Pressure Location Lt brachial Position Sitting Pulse 86 Pulse Source Pulse Oximeter Pulse Oximetry (%) 90 L Oxygen Delivery Method Nasal Cannula Oxygen Flow Rate 4 Intake Visit Reasons: Cough Intake Note: pt is here for follow up and still having short of breath with walking distances. Back pain is very bad and affects her breathing, requiring her to sit and relax. 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: No Production Shift Supervisor: Production Shift Supervisor offered & declined Allergies penicillin G Allergy (Severe, Verified 08/08/25 09:26) Anaphylaxis Sulfa (Sulfonamide Antibiotics) Allergy (Severe, Verified 08/08/25:) Anaphylaxis cat dander (CATS) Allergy (Unknown, Verified 08/08/25:) MUCOUS FORMATION, asthma dog dander (DOGS) Allergy (Unknown, Verified 08/08/25:) MUCOUS FORMATION, asthma egg Allergy (Unknown, Verified 08/08/25:) Wheezing house dust (HOUSE DUST) Allergy (Unknown, Verified 08/08/25:) MUCOUS FORMATION, asthma milk (MILK) Allergy (Unknown, Verified 08/08/25:) MUCOUS FORMATION mold Allergy (Unknown, Verified 08/08/25:) MUCOUS FORMATION, asthma tree and shrub pollen (TREES) Allergy (Unknown, Verified 08/08/25:) MUCOUS FORMATION TO CERTAIN TREES, asthma yeast, dried (yeast) Allergy (Unknown, Verified 08/08/25:) MUCOUS FORMATION, asthma Medication List - Last Reconciled 08/08/25 by Tam Townsend MD acetaminophen 1,000 mg (2 x 500 mg) PO Q6H PRN apixaban (Eliquis) 5 mg PO BID azithromycin 250 mg PO MOWEFR@1000 baclofen 10 mg PO TID PRN 20 days Breo Ellipta 200-25 mcg/dose (fluticasone furoate-vilanterol) 1 ea inhalation DAILY NS calcium carbonate (Calcium 600) 600 mg PO BID cholecalciferol (vitamin D3) (Vitamin D3) 25 mcg PO DAILY furosemide 20 mg PO BID guaifenesin ER (Mucinex) 600 mg PO BID hydrocortisone 2.5% (Proctosol HC) 1 appl HI BID-QID PRN Incruse Ellipta 62.5 mcg/actuation (umeclidinium) 1 inh inhalation DAILY NS levalbuterol tartrate 45 mcg/actuation 2 puffs PO Q4-6H PRN lorazepam (Ativan) 0.5 mg PO BEDTIME PRN 30 days metoprolol tartrate 12.5 mg (1/2 x 25 mg) PO BID 30 days sertraline 25 mg PO DAILY vit C,X-Hs-fpcou-lutein-zeaxan 250-90-40-1 mg (PreserVision AREDS-2) 1 tab PO BID walker (Ultra-Light Rollator misc) As directed HPI HPI Cough: Details: This 80 years old very pleasant female with very advanced chronic obstructive pulmonary disease is here for short-term follow-up. During the past 4 weeks she has been relatively stable. Cough wheezing and shortness of breath is mostly at baseline. However her general strength is still poor she is not able to walk and depends upon the wheelchair. O2 requirement is between 3-4 L/minute mostly. [facility] Medical History (Updated 08/08/25 @ 09:33 by Tam Townsend MD) COPD (chronic obstructive pulmonary disease) Respiratory failure with hypoxia and hypercapnia Hypotension arterial Chronic back pain Acute exacerbation of CHF (congestive heart failure) Acute on chronic hypoxic respiratory failure Environmental allergies Seasonal allergies Osteoporosis Hemorrhoids Oxygen dependent Respiratory failure with hypoxia Pulmonary nodules/lesions, multiple Anxiety disorder Screening for diabetes mellitus Acute anxiety Anxiety Asthma Allergic rhinitis Surgical History History of colonoscopy (~05/25/22) History of cataract surgery History of right hip replacement Family History Mother No problems noted. Father No problems noted. Social History Household Members: Spouse Housing: House Are you a primary health care recruiter to a significant other at home: No Do you presently have visiting nurse or other home services: No Alcohol intake: current Alcohol intake frequency: holidays/special occasions only Patient Tobacco Use Status: Never used Tobacco Tobacco use type: Cigarette e-Cigarette/Vaping Use: Never Used Second Hand Smoke Exposure: Yes service: No Current occupational status: retired Cognitive needs: No Hearing needs: No Vision needs: Yes (Glasses) Review of Systems Const All systems reviewed & are unremarkable except as noted in HPI and below Eyes Reports no additional complaints ENT Reports nasal congestion (Mild off and) Card Reports no additional complaints Resp Reports as per HPI GI Reports no additional complaints Reports no additional complaints Musc Reports back pain (Chronic stable) Skin/Breast Reports system reviewed and no additional complaints, except as documented Neuro Reports no additional complaints Psych Reports anxiety (Under control) Physical Exam Vital Signs: Last Vital Signs Pulse 86 08/08/25 09:03 BP 140/80 H 08/08/25 09:03 Pulse Ox 90 L 08/08/25 09:03 Oxygen Delivery Method Nasal Cannula 08/08/25 09:03 Oxygen Flow Rate 4 08/08/25 09:03 BMI result Body Mass Index 17.8 Const General: comfortable, no acute distress, alert and awake Orientation/consciousness: patient oriented x3 HEENT Head: Yes normal to inspection General nose exam: No nasal polyps present and No nasal discharge present Face and sinus: Yes sinuses nontender Mouth: oropharynx normal Throat: Yes posterior oropharynx normal Eyes General: appearance normal, both eyes and all related structures Neck Neck: Yes normal visual inspection, Yes no lymphadenopathy, Yes trachea midline and Yes no JVD Thyroid: Thyroid normal Chest Chest palpation & inspection: normal inspection of the chest, normal palpation of entire chest wall and tenderness (Mild tenderness over the right lower ribcage, extending from the mid back.) Resp Other: Percussion note hyper-resonant, she has equal breath sounds on both sides with prolonged expiratory phase. No Rhonchi or Creps or wheezes . Cardio Palpation: normal PMI Rate: regular rate Rhythm: abnormal rhythm (ATRIAL FIBRILLATION) Heart sounds: no gallops and no murmurs GI Palpation (GI): Soft to palpation, nontender, No hepatosplenomegaly present and no masses Auscultation: normal bowel sounds Back/Spine/Pelvis Thoracic/Lumbar Spine: thoracic and lumbar spine normal to inspection, kyphosis (Moderate kyphosis of the thoracic spine.) and thoraco-lumbar ROM limited Skin General skin exam: no rashes or lesions noted Neuro General: patient oriented x3 and no focal motor deficits Cranial nerves: Yes CN's II-XII intact bilaterally Extrem General: Yes normal to inspection, Yes no clubbing, cyanosis or edema and Yes no calf tenderness Psych Speech and movement: Normal speech and movement present Affect: Anxious affect present (Controlled) Assessment & Plan Assessment & Plan (1) COPD (chronic obstructive pulmonary disease): Comment: Maritza has advanced chronic obstructive pulmonary disease. She gets frequent. Acute exacerbations She is now recovering from recent acute exacerbation about 6 weeks ago, . She was seen 4 weeks ago and since then has gradually progressed. to almost her baseline Main issue is that she remains very weak in general. Code(s): J44.9 - Chronic obstructive pulmonary disease, unspecified Category: Medical Plan: Continue all the present meds which are as follows Incruse Ellipta 1 inhalation daily Breo 200-25 1 inhalation daily ( due to insurance coverage Breo Ellipta would have to be changed to an equivalent inhaler from the start of the year ) Levalbuterol forty-five 2 puffs Q 4-6 hours p.r.n. Azithromycin 250 mg p.o. 3 days a week (2) Respiratory failure with hypoxia and hypercapnia: Comment: Patient has marked hypoxemia needs O2 24 hours a day Also has hypercapnia but that is mild. Code(s): J96.91 - Respiratory failure, unspecified with hypoxia; J96.92 - Respiratory failure, unspecified with hypercapnia Category: Medical Plan: O2 three L per minute continuously When outdoors she can increase to four L Continue doing deep breathing exercises 3 times a day (3) Pulmonary hypertension: Comment: She has pulmonary hypertension secondary to advanced chronic obstructive pulmonary disease, chronic hypoxemia, as well as cardiac disease, Code(s): I27.20 - Pulmonary hypertension, unspecified Category: Medical Plan: Continue treatment as under COPD and respiratory failure Patient is also being followed by cardiology service. Coding Level of Care Code Est Pt Level 3 (89980) Diagnoses COPD (chronic obstructive pulmonary disease) J44.9 Respiratory failure with hypoxia and hypercapnia J96.91; J96.92 Pulmonary hypertension I27.20
== END 2025-08-08 09:37 | disposition home or self-care (01) ==
LOC: HO.HPS 08:55
PROVIDERS: PCP Internal Medicine; Visit Provider Internal Medicine
DX: J44.9 Chronic obstructive pulmonary disease, unspecified (principal); J96.91 Respiratory failure, unspecified with hypoxia; J96.92 Respiratory failure, unspecified with hypercapnia; I27.20 Pulmonary hypertension, unspecified
CPT/HCPCS: 99213

== ENCOUNTER → 2025-08-08 08:54 | Outpatient (BNVA) | payer MEDICARE, MEDICAID, SELFPAY | PROVIDERS: PCP Internal Medicine; Visit Provider Internal Medicine | DX: J44.1 Chronic obstructive pulmonary disease with (acute) exacerbation (principal); R91.8 Other nonspecific abnormal finding of lung field; F41.9 Anxiety disorder, unspecified; I50.9 Heart failure, unspecified; I27.20 Pulmonary hypertension, unspecified | CPT/HCPCS: 99212 ==